=== PATIENT | female | born 1960 | race Hispanic/Latino ===

== ENCOUNTER 2018-11-24 12:21 | Emergency (ER) | payer OTHER ==
--- OUTSIDE RECORDS SUMMARY | 2018-11-24 12:25 | XMS REPORT ---
:1960 Author Organization [facility] Address [address] [place] [address] Dr. Osborn [address] [place] [address] Care Team Providers Name Role Phone Unavailable Unavailable Unavailable Problems This patient has no known problems. Allergies, Adverse Reactions, Alerts This patient has no known allergies or adverse reactions. Medications This patient has no known medications.
[2018-11-24] MEDS ORDERED: ACETAMINOPHEN 500 MG TAB ONE (13:16)
--- NOTE | 2018-11-24 13:22 | ER ---
Nurse's Notes [facility] Name: Genny Matamoros Age: 58 yrs Sex: Female : 1960 Arrival Date: 11/24/2018 Time: 12:23 Bed 26 Private MD: Diagnosis: Influenza due to identified novel influenza A virus Presentation: 11/24 12:33 Presenting complaint: Patient states: Body aches, fever,chills, cough, sore throat, ph headache, N/V/D since yesterday, denies abdominal pain. Transition of care: patient was not received from another setting of care. Onset of symptoms was November 24, 2018. Risk Assessment: Do you want to hurt yourself or someone else? Patient reports no desire to harm self or others. Initial Sepsis Screen: Does the patient meet any 2 criteria? No. Patient's initial sepsis screen is negative. Care prior to arrival: None. 12:33 Method Of Arrival: Ambulatory 12:33 Acuity: SADE 4 ph 13:51 Initial Sepsis Screen: Does the patient have a suspected source of infection? No. ls4 Patient's initial sepsis screen is negative. Historical: - Allergies: 12:36 No Known Allergies; ph - PMHx: 12:36 CVA; Diabetes - NIDDM; Hypertension; ph - PSHx: 12:36 Appendectomy; Tubal ligation; Tonsillectomy; ph - Immunization history:: Pneumococcal vaccine is up to date, Flu vaccine is up to date. - Social history:: Smoking status: Patient/guardian denies using tobacco. - Ebola Screening: : No symptoms or risks identified at this time. Screenin:49 Abuse screen: Denies threats or abuse. Denies injuries from another. Nutritional ls4 screening: No deficits noted. Tuberculosis screening: No symptoms or risk factors identified. Fall Risk None identified. Assessment: 13:44 General: Appears uncomfortable, ill, Behavior is calm, cooperative. Pain:. Pain: ls4 Complains of pain in GENERALIZED. Neuro: No deficits noted. Cardiovascular: No deficits noted. Respiratory: Reports cough that is non-productive. EENT: Reports HEADACHE. Musculoskeletal: No deficits noted. Vital Signs: 12:37 BP 145 / 72; Pulse 115; Resp 22; Temp 100.9(O); Pulse Ox 98% on R/A; Weight 77.11 kg; ph Height 5 ft. 2 in. (157.48 cm); 13:51 BP 130 / 64; Pulse 101; Resp 20; Temp 99.9(O); Pulse Ox 99% on R/A; Pain 5/10; ls4 12:37 Body Mass Index 31.09 (77.11 kg, 157.48 cm) ED Course: 12:23 Patient arrived in ED. as 12:25 Dee Bill FNP-C is [facility]. kb 12:25 Luis Samuels MD is Attending Physician. kb 12:27 Delores Moran, RN is Primary Nurse. ls4 12:36 Triage completed. ph 12:38 Arm band placed on Patient placed in an exam room, on a stretcher. ph 13:49 Patient has correct armband on for positive identification. Bed in low position. Call ls4 light in reach. Side rails up X 1. 13:49 No provider procedures requiring assistance completed. Patient did not have IV access ls4 during this emergency room visit. Administered Medications: 13:17 Drug: Tylenol 1000 mg Route: PO; tl3 13:49 Follow up: Response: No adverse reaction ls4 13:22 Drug: Tamiflu 75 mg Route: PO; tl3 13:49 Follow up: Response: No adverse reaction ls4 13:23 Drug: Zofran 4 mg Route: PO; tl3 13:49 Follow up: Response: No adverse reaction ls4 Outcome: 13:21 Discharge ordered by . kb 13:49 Discharged to home ambulatory. ls4 13:49 Condition: stable 13:49 Discharge instructions given to patient, Instructed on discharge instructions, follow up and referral plans. medication usage, safety practices, Demonstrated understanding of instructions, follow-up care, medications, Prescriptions given X 2. 13:52 Patient left the ED. ls4 Signatures: Dee Bill FNP-C FNP-Ckb Martinez, Amelia as Leonora Martin RN RN Lakshmi Mckee RN RN tl3 Delores Moran, TODD RN ls4
--- NOTE | 2018-11-24 13:23 | EDPHYS ---
Physician Documentation [facility] Name: Genny Matamoros Age: 58 yrs Sex: Female : 1960 Arrival Date: 11/24/2018 Time: 12:23 Bed 26 Private MD: MARIBETH Physician Luis Samuels HPI: 11/24 13:06 This 58 yrs old Female presents to ER via Ambulatory with complaints of Flu kb Symptoms. 13:06 The patient or guardian reports cough, that is intermittent, described as mild, with no kb sputum, flu symptoms, low-grade fever, myalgias. Onset: The symptoms/episode began/occurred yesterday. Severity of symptoms: At their worst the symptoms were moderate. Modifying factors: The symptoms are alleviated by nothing, the symptoms are aggravated by nothing. Associated signs and symptoms: Pertinent positives: diarrhea, earache, fever, nausea, rhinorrhea, sore throat, vomiting, Pertinent negatives: chest pain. The patient has not experienced similar symptoms in the past. The patient has not recently seen a physician. Historical: - Allergies: 12:36 No Known Allergies; ph - PMHx: 12:36 CVA; Diabetes - NIDDM; Hypertension; ph - PSHx: 12:36 Appendectomy; Tubal ligation; Tonsillectomy; ph - Immunization history:: Pneumococcal vaccine is up to date, Flu vaccine is up to date. - Social history:: Smoking status: Patient/guardian denies using tobacco. - Ebola Screening: : No symptoms or risks identified at this time. ROS: 13:04 Eyes: Negative for injury, pain, redness, and discharge, Neck: Negative for injury, kb pain, and swelling, Cardiovascular: Negative for chest pain, palpitations, and edema, Back: Negative for injury and pain, : Negative for injury, bleeding, discharge, and swelling, MS/Extremity: Negative for injury and deformity, Skin: Negative for injury, rash, and discoloration, Neuro: Negative for headache, weakness, numbness, tingling, and seizure. 13:04 Constitutional: Positive for body aches, chills, fatigue, fever, malaise, Negative for poor PO intake, weight loss. 13:04 ENT: Positive for ear pain, sore throat. 13:04 Respiratory: Positive for cough, Negative for dyspnea on exertion, hemoptysis, orthopnea, pleurisy, shortness of breath, sputum production, wheezing. 13:04 Abdomen/GI: Positive for nausea, vomiting, and diarrhea. Exam: 13:04 Constitutional: This is a well developed, well nourished patient who is awake, alert, kb and in no acute distress. Head/Face: Normocephalic, atraumatic. ENT: Nares patent. No nasal discharge, no septal abnormalities noted. Tympanic membranes are normal and external auditory canals are clear. Oropharynx with no redness, swelling, or masses, exudates, or evidence of obstruction, uvula midline. Mucous membranes moist. Neck: Trachea midline, no thyromegaly or masses palpated, and no cervical lymphadenopathy. Supple, full range of motion without nuchal rigidity, or vertebral point tenderness. No Meningismus. Chest/axilla: Normal chest wall appearance and motion. Nontender with no deformity. No lesions are appreciated. Cardiovascular: Regular rate and rhythm with a normal S1 and S2. No gallops, murmurs, or rubs. Normal PMI, no JVD. No pulse deficits. Respiratory: Lungs have equal breath sounds bilaterally, clear to auscultation and percussion. No rales, rhonchi or wheezes noted. No increased work of breathing, no retractions or nasal flaring. Abdomen/GI: Soft, non-tender, with normal bowel sounds. No distension or tympany. No guarding or rebound. No evidence of tenderness throughout. Back: No spinal tenderness. No costovertebral tenderness. Full range of motion. Skin: Warm, dry with normal turgor. Normal color with no rashes, no lesions, and no evidence of cellulitis. MS/ Extremity: Pulses equal, no cyanosis. Neurovascular intact. Full, normal range of motion. Neuro: Awake and alert, GCS 15, oriented to person, place, time, and situation. Cranial nerves II-XII grossly intact. Motor strength 5/5 in all extremities. Sensory grossly intact. Cerebellar exam normal. Normal gait. Vital Signs: 12:37 BP 145 / 72; Pulse 115; Resp 22; Temp 100.9(O); Pulse Ox 98% on R/A; Weight 77.11 kg; ph Height 5 ft. 2 in. (157.48 cm); 13:51 BP 130 / 64; Pulse 101; Resp 20; Temp 99.9(O); Pulse Ox 99% on R/A; Pain 5/10; ls4 12:37 Body Mass Index 31.09 (77.11 kg, 157.48 cm) ph MDM: 12:25 Patient medically screened. kb 13:06 Data reviewed: vital signs, nurses notes. Data interpreted: Pulse oximetry: on room air kb is 98 %. Interpretation: normal. 13:16 Counseling: I had a detailed discussion with the patient and/or guardian regarding: the kb historical points, exam findings, and any diagnostic results supporting the discharge/admit diagnosis, lab results, the need for outpatient follow up, a family practitioner, to return to the emergency department if symptoms worsen or persist or if there are any questions or concerns that arise at home. 11/24 12:33 Order name: Flu; Complete Time: 13:16 kb 11/24 12:33 Order name: Strep; Complete Time: 13:16 kb 11/24 13:14 Order name: Throat Culture [facility] 11/24 13:17 Order name: PO challenge; Complete Time: 13:17 kb Administered Medications: 13:17 Drug: Tylenol 1000 mg Route: PO; tl3 13:49 Follow up: Response: No adverse reaction ls4 13:22 Drug: Tamiflu 75 mg Route: PO; tl3 13:49 Follow up: Response: No adverse reaction ls4 13:23 Drug: Zofran 4 mg Route: PO; tl3 13:49 Follow up: Response: No adverse reaction ls4 Disposition: 11/24/18 13:21 Discharged to Home. Impression: Influenza due to identified novel influenza A virus. - Condition is Stable. - Discharge Instructions: Influenza, Adult, [id number]. - Prescriptions for Tamiflu 75 mg Oral Capsule - take 1 capsule by ORAL route every 12 hours for 5 days; 10 capsule. Zofran 4 mg Oral Tablet - take 1 tablet by ORAL route every 6 hours As needed; 20 tablet. - Medication Reconciliation Form, Thank You Letter, Antibiotic Education, Prescription Opioid Use form. - Follow up: Emergency Department; When: As needed; Reason: Worsening of condition. Follow up: Private Physician; When: 2 - 3 days; Reason: Recheck today's complaints, Continuance of care, Re-evaluation by your physician. Signatures: Dispatcher [employer] [facility] Dee Bill, MANAGER WELLNESS-C MANAGER WELLNESS-Ckb Leonora Martin, RN RN ph Lakshmi Mckee, RN RN tl3 Delores Moran, RN RN ls4 Corrections: (The following items were deleted from the chart) 13:52 13:21 11/24/2018 13:21 Discharged to Home. Impression: Influenza due to identified ls4 novel influenza A virus. Condition is Stable. Forms are Medication Reconciliation Form, Thank You Letter, Antibiotic Education, Prescription Opioid Use. Follow up: Emergency Department; When: As needed; Reason: Worsening of condition. Follow up: Private Physician; When: 2 - 3 days; Reason: Recheck today's complaints, Continuance of care, Re-evaluation by your physician. kb
[2018-11-24] MEDS ORDERED: OSELTAMIVIR 75 MG CAP ONE (13:31)
[2018-11-24] MEDS ORDERED: ONDANSETRON 4 MG (ODT) TAB ONE (13:32)
[2018-11-24 14:03] VITALS: BP 130/64; TEMP 99.9; O2SAT 99
== END 2018-11-24 13:52 | disposition home or self-care (01) ==
LOC: ER 12:21
DX: J10.1 Influenza due to other identified influenza virus with other respiratory manifestations (principal); I10 Essential (primary) hypertension
CPT/HCPCS: 87070; 87081; 87804; 99283

== ENCOUNTER 2019-08-29 16:30 | Emergency (ER) | payer OTHER ==
--- OUTSIDE RECORDS SUMMARY | 2019-08-29 16:32 | XMS REPORT | Summary of Care ---
:1960 Author Organization [facility] Address [address] [place] [address] Care Team Providers Name Role Phone Laura Weir MD Primary Care Provider Reason for Visit Reason Comments Assessment Encounter Details Date Type Department Care Team Description 05/20/2019 Telephone [facility] and Laura Weir, Assessment Adult Primary Care- MD [place] [address] [place] [address] [address], [address] [place] [address] [place] [address] Allergies Active Allergy Reactions Severity Noted Date Comments Metformin Diarrhea 04/16/2018 And nausea documented as of this encounter (statuses as of 05/21/2019) Medications Medication Sig Dispensed Refills Start Date End Date Status aspirin 81 mg chewable Take 81 mg by 0 Active tablet mouth daily. traMADOL (ULTRAM) 50 mg Take 1 tablet by 20 tablet 0 04/05/2018 Active tablet mouth every 6 (six) hours as needed for Pain (scale 7-10). Cholecalciferol, Take by mouth. 0 Active Vitamin D3, (VITAMIN D3) 1,000 unit capsule meloxicam 7.5 mg Take 1 tablet by 60 tablet 3 04/16/2018 Active tabletIndications: mouth daily. If Closed fracture not helping the dislocation of pain after 3 interphalangeal joint days increase to of multiple toes of 2 pills daily. right foot with routine healing, subsequent encounter, Low back pain of over 3 months duration COMFORT EZ PEN NEEDLES 1 Each every 100 Each 1 12/29/2018 Active 33 gauge x 5/16" morning. E11.65 NdleIndications: Type 2 diabetes mellitus with other specified complication, without long-term current use of insulin lisinopril-hydrochlorot Take 1 tablet by 30 tablet 3 01/03/2019 Active hiazide 10-12.5 mg per mouth daily. tabletIndications: Fluid retention, Type 2 diabetes mellitus with other specified complication, without long-term current use of insulin insulin glargine U-300 inject 28 Units 4.5 mL 0 03/31/2019 Active conc (TOUJEO SOLOSTAR under the skin U-300 INSULIN) 300 every morning. unit/mL (1.5 mL) InPnIndications: Type 2 diabetes mellitus with other specified complication, without long-term current use of insulin exenatide microspheres inject 0.65 mL 2.6 mL 0 03/31/2019 Active (BYDUREON) 2 mg/0.65 mL under the skin injectionIndications: weekly. E11.65 Type 2 diabetes mellitus with other specified complication, without long-term current use of insulin Blood-Glucose Meter DX E11.9 (Brand 1 Kit 0 04/06/2019 Active KitIndications: Type 2 upon insurance diabetes mellitus with approval) complication, without long-term current use of insulin lancets-blood glucose 1 Each 2 (two) 100 Each 11 04/06/2019 Active strips 30 gauge times daily. Use CmpkIndications: Type 2 BID, DX E11.9 diabetes mellitus with (Brand upon complication, without insurance long-term current use approval) of insulin blood sugar diagnostic Use BID, DX 100 Strip 11 04/06/2019 Active stripIndications: Type E11.9 (Brand 2 diabetes mellitus upon insurance with complication, approval) without long-term current use of insulin Diclofenac Sodium 1 % Take 2-4 grams 300 g 3 04/06/2019 Active gelIndications: Neck three times a muscle spasm day as needed for pain diclofenac 75 mg EC Take 1 tablet by 30 tablet 1 04/16/2019 Active tabletIndications: Pain mouth daily. in both knees, unspecified chronicity metformin ER 500 mg 24 Take 2 tablets 180 tablet 1 04/20/2019 Active hr tabletIndications: by mouth daily Type 2 diabetes with breakfast. mellitus with other specified complication, without long-term current use of insulin GLIPIZIDE 10 mg TAKE 1 TABLET BY 180 tablet 1 04/20/2019 Active tabletIndications: Type MOUTH TWICE 2 diabetes mellitus DAILY BEFORE with other specified BREAKFAST AND complication, without DINNER long-term current use of insulin documented as of this encounter (statuses as of 05/21/2019) Active Problems Problem Noted Date Overweight 11/30/2014 Overview: ICD10 Diagnosis Term Insights Analyst Utility History of stroke 11/30/2014 Type 2 diabetes mellitus with other specified complication, without 11/30/2014 long-term current use of insulin documented as of this encounter (statuses as of 05/21/2019) Resolved Problems Problem Noted Date Resolved Date Tubal ligation status 11/30/2014 01/24/2017 documented as of this encounter (statuses as of 05/21/2019) Immunizations Name Administration Dates Next Due Influenza Virus Vaccine 07/02/2018 Pneumococcal Polysaccharide, PPSV23 (PNEUMOVAX) 05/26/2016 Td 03/08/2010 documented as of this encounter Social History Tobacco Use Types Packs/Day Years Used Date Never Smoker Smokeless Tobacco: Never Used Alcohol Use Drinks/Week oz/Week Comments No Sex Assigned at Date Recorded Not on file Job Start Date Occupation Industry Not on file Not on file Not on file Travel History Travel Start Travel End No recent travel history available. documented as of this encounter Last Filed Vital Signs Not on filedocumented in this encounter Plan of Treatment Date Type Specialty Care Team Description 06/07/2019 Office Visit Internal Medicine Laura Weir MD [address] [place] [address] Dr Castillo [address] [place] [address] [phone] 08/03/2019 Office Visit Endocrinology Diabetes & MedinaDerek MD Metabolism [address] [place] [address] [phone] Health Maintenance Due Date Last Done Comments COLONOSCOPY 2008 EYE EXAM 04/14/2019 04/14/2018, 01/30/2017 (Previously completed), 05/15/2016 (Previously completed) HgA1C 05/03/2019 11/03/2018, 06/23/2018, 04/16/2018, Additional history exists INFLUENZA VACCINE (#1) 2019 07/02/2018 FOOT EXAM 11/03/2019 11/03/2018, 11/03/2018, 08/12/2018, Additional history exists LDL-C 11/05/2019 11/05/2018, 02/13/2018, 05/09/2016 (Previously completed) PAP SMEAR 11/05/2019 11/08/2014, 11/01/2008 Postponed from 11/08/2017 (Alternative Guidelines) URINE MICROALBUMIN 11/05/2019 11/05/2018, 02/13/2018 Zoster Recombinant Vaccine 11/12/2019 Postponed from (SHINGRIX) (1 of 2) 2008 (Insurance / Financial) DTaP,Tdap,and Td Vaccines 11/19/2019 03/08/2010 Postponed from (1 - Tdap) 03/09/2010 (Alternative Guidelines) CREATININE (SERUM) 12/12/2019 12/11/2018, 11/05/2018, 02/13/2018, Additional history exists MAMMOGRAM 04/05/2020 04/05/2019, 02/24/2018, 02/10/2017, Additional history exists PNEUMOCOCCAL 0-64 YEARS Completed 05/26/2016 COMBINED SERIES HEPATITIS C (HCV) SCREEN Completed 02/13/2018 documented as of this encounter Results Not on filedocumented in this encounter Insurance Payer Benefit Plan / Subscriber ID Effective Phone Address Type Group Dates [facility] [id number] 2017-Pres Medicare HEALTHCARE - HEALTHCARE ent Adv HMO MANAGED DUAL COMPLETE MEDICARE O [facility] MEDICAID OF xxxxxxxxx 2016-Pres [phone] [place] ent [id number] [place] [address] [facility] [id number] 2017-Pres Medicare HEALTHCARE - HEALTHCARE ent Adv PPO MANAGED DUAL COMPLETE MEDICARE documented as of this encounter
--- OUTSIDE RECORDS SUMMARY | 2019-08-29 16:32 | XMS REPORT | Summary of Care ---
:1960 Author Organization [facility] Address [address] [place] [address] Care Team Providers Name Role Phone Laura Weir MD Primary Care Provider Reason for Visit Reason Comments Rx Concern/Question Encounter Details Date Type Department Care Team Description 05/25/2019 Telephone [facility] Pediatric Laura Weir Rx Concern/ Question and Adult Primary Care- MD [place] [address] [address] [place], [place] [id number] [place] [address] Allergies Active Allergy Reactions Severity Noted Date Comments Metformin Diarrhea 04/16/2018 And nausea documented as of this encounter (statuses as of 06/02/2019) Medications Medication Sig Dispensed Refills Start Date [...] glucose 1 Each 2 (two) 100 Each 04/06/2019 Active strips 30 gauge times daily. [...] as of this encounter (statuses as of 06/02/2019) Active Problems Problem Noted Date Overweight 11/30/2014 Overview: ICD10 Diagnosis Term Electrophysiology Nurse Practitioner Utility History of stroke 11/30/2014 Type 2 diabetes mellitus with other specified complication, without 11/30/2014 long-term current use of insulin documented as of this encounter (statuses as of 06/02/2019) Resolved Problems Problem Noted Date Resolved Date Tubal ligation status 11/30/2014 01/24/2017 documented as of this encounter (statuses as of 06/02/2019) Immunizations Name Administration Dates Next Due Influenza [...] Office Visit Internal Medicine Laura Weir MD [address] [place] [address] Dr Castillo [address] [place] [address] [phone] 08/03/2019 Office Visit Endocrinology Diabetes & MedinaDerek MD Metabolism [address] [place] [address] [phone] Health Maintenance Due Date Last Done Comments [...] ID Effective Phone Address Type Group Dates [facility] [id number] 2017-Pres Medicare HEALTHCARE - HEALTHCARE ent Adv HMO MANAGED DUAL COMPLETE MEDICARE O [facility] MEDICAID OF xxxxxxxxx 2016-Pres [phone] [place] ent [id number] [place] [address] [facility] [id number] 2017-Pres Medicare HEALTHCARE - HEALTHCARE ent Adv PPO MANAGED DUAL COMPLETE MEDICARE documented as of this encounter
--- OUTSIDE RECORDS SUMMARY | 2019-08-29 16:32 | XMS REPORT ---
:1960 [facility] Address [address] [place] [address] Dr. Osborn [address] [place] [address] Care Team Providers Name Role Phone Unavailable Unavailable Unavailable Problems This patient has no known problems. Allergies, Adverse Reactions, Alerts This patient has no known allergies or adverse reactions. Medications This patient has no known medications.
--- OUTSIDE RECORDS SUMMARY | 2019-08-29 16:32 | XMS REPORT | Summary of Care ---
:1960 Author Organization [facility] Address [address] [place] [address] Care Team Providers Name Role Phone Laura Weir MD Primary Care Provider Reason for Visit Reason Comments Erroneous encounter-disregard Encounter Details Date Type Department Care Team Description 04/23/2019 Telephone [facility] Pediatric Laura Weir Erroneous and Adult Primary MD Merlin encounter-disregard Care- [place] [address] [address] [phone] [address] [phone] Allergies Active Allergy Reactions Severity Noted Date Comments Metformin Diarrhea 04/16/2018 And nausea documented as of this encounter (statuses as of 04/23/2019) Medications Medication Sig Dispensed Refills Start Date [...] as of this encounter (statuses as of 04/23/2019) Active Problems Problem Noted Date Overweight 11/30/2014 Overview: ICD10 Diagnosis Term Tile Professional Utility History of stroke 11/30/2014 Type 2 diabetes mellitus with other specified complication, without 11/30/2014 long-term current use of insulin documented as of this encounter (statuses as of 04/23/2019) Resolved Problems Problem Noted Date Resolved Date Tubal ligation status 11/30/2014 01/24/2017 documented as of this encounter (statuses as of 04/23/2019) Immunizations Name Administration Dates Next Due Influenza [...] Office Visit Internal Medicine Laura Weir MD [facility] Dr Castillo [address] [place] [address] [phone] 08/03/2019 Office Visit Endocrinology Diabetes & MedinaDerek MD Metabolism [address] [place], [place] 948583 Health Maintenance Due Date Last Done Comments COLONOSCOPY 2008 EYE EXAM 04/14/2019 04/14/2018, 01/30/2017 (Previously completed), 05/15/2016 (Previously completed) HgA1C 05/03/2019 11/03/2018, 06/23/2018, 04/16/2018, Additional history exists INFLUENZA VACCINE 05/30/2019 07/02/2018 FOOT EXAM 11/03/2019 11/03/2018, 11/03/2018, 08/12/2018, [...] ID Effective Phone Address Type Group Dates [facility] [id number] 2017-Pres Medicare HEALTHCARE - HEALTHCARE ent Adv HMO MANAGED DUAL COMPLETE MEDICARE O [facility] MEDICAID OF xxxxxxxxx 2016-Pres [phone] [address] Medicaid [place] ent [id number] [place] [address] [facility] [id number] 2017-Pres Medicare HEALTHCARE - HEALTHCARE ent Adv PPO MANAGED DUAL COMPLETE MEDICARE documented as of this encounter
--- OUTSIDE RECORDS SUMMARY | 2019-08-29 16:33 | XMS REPORT | Summary of Care ---
:1960 Author Organization [facility] - Health Address [address] [place] [address] Care Team Providers Name Role Phone Laura Weir MD Primary Care Provider Encounter Details Date Type Department Care Team Description 06/07/2019 Letter (Out) [facility] [employer] Control Systemst Messages Doctor Unassigned, No 301 [facility]ly [facility] [place] [address] [place] [address] [place] [address] Allergies Active Allergy Reactions Severity Noted Date Comments Metformin Diarrhea 04/16/2018 And nausea documented as of this encounter (statuses as of 06/07/2019) Medications Medication Sig Dispensed Refills Start Date [...] as of this encounter (statuses as of 06/07/2019) Active Problems Problem Noted Date Overweight 11/30/2014 Overview: ICD10 Diagnosis Term 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 History of stroke 11/30/2014 Type 2 diabetes mellitus with other specified complication, without 11/30/2014 long-term current use of insulin documented as of this encounter (statuses as of 06/07/2019) Resolved Problems Problem Noted Date Resolved Date Tubal ligation status 11/30/2014 01/24/2017 documented as of this encounter (statuses as of 06/07/2019) Immunizations Name Administration Dates Next Due Influenza [...] Treatment Date Type Specialty Care Team Description 08/03/2019 Office Visit Endocrinology Diabetes & MedinaDerek MD Metabolism [address] [place] [address] [phone] Health Maintenance Due Date Last Done Comments [...] ID Effective Phone Address Type Group Dates [facility] [id number] 2017-Pres Medicare HEALTHCARE - HEALTHCARE ent Adv HMO MANAGED DUAL COMPLETE MEDICARE O [facility] MEDICAID OF xxxxxxxxx 2016-Pres [phone] [address] Medicaid [place] ent 900 [id number] [place] [address] [facility] [id number] 2017-Pres Medicare HEALTHCARE - HEALTHCARE ent Adv PPO MANAGED DUAL COMPLETE MEDICARE documented as of this encounter
--- OUTSIDE RECORDS SUMMARY | 2019-08-29 16:33 | XMS REPORT | Summary of Care ---
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 History of stroke 11/30/2014 Type 2 [...] Visit Endocrinology Diabetes & MedinaDerek MD Metabolism [facility] [place], [place] 121113 Health Maintenance Due Date Last Done Comments [...] Completed 02/13/2018 documented as of this encounter Procedures Procedure Name Priority Date/Time Associated Diagnosis Comments NOTICE OF BILLING Routine 06/07/2019 9:42 AM CDT PRACTICES FOR MEDICARE PATIENTS documented in this encounter Results Not on filedocumented in this encounter Insurance Payer Benefit Plan / Subscriber ID Effective Phone Address Type Group Dates [facility] [id number] 2017-Pres Medicare HEALTHCARE - HEALTHCARE ent Adv HMO MANAGED DUAL COMPLETE MEDICARE O [facility] MEDICAID OF xxxxxxxxx 2016-Pres [phone] [address] Medicaid [place] ent [id number] [place] [address] [facility] [id number] 2017-Pres Medicare HEALTHCARE - HEALTHCARE ent Adv PPO MANAGED DUAL COMPLETE MEDICARE documented as of this encounter
--- OUTSIDE RECORDS SUMMARY | 2019-08-29 16:33 | XMS REPORT | Summary of Care ---
:1960 Author Organization [facility] - [facility] Address [address] [place] [address] Care Team Providers Name Role Phone Laura Weir MD Primary Care Provider Reason for Visit Reason Comments Refill Request Encounter Details Date Type Department Care Team Description 06/07/2019 Refill [facility] Lauar Weir, Refill Request - Zhao GALAVIZ [address] [facility] [place] [address] [place] [address] [place] [address] Allergies Active Allergy Reactions Severity Noted Date Comments Metformin Diarrhea 04/16/2018 And nausea documented as of this encounter (statuses as of 06/07/2019) Medications Medication Sig Dispensed Refills Start Date End Date Status aspirin 81 mg Take 81 mg by 0 Active chewable tablet mouth daily. traMADOL (ULTRAM) 50 Take 1 tablet 20 tablet 0 04/05/2018 Active mg tablet by mouth every 6 (six) hours as needed for Pain (scale 7-10). Cholecalciferol, Take by 0 Active Vitamin D3, (VITAMIN mouth. D3) 1,000 unit capsule meloxicam 7.5 mg Take 1 tablet 60 tablet 3 04/16/2018 Active tabletIndications: by mouth Closed fracture daily. If not dislocation of helping the interphalangeal pain after 3 joint of multiple days increase toes of right foot to 2 pills with routine daily. healing, subsequent encounter, Low back pain of over 3 months duration COMFORT EZ PEN 1 Each every 100 Each 1 12/29/2018 Active NEEDLES 33 gauge x morning. 02/11" E11.65 NdleIndications: Type 2 diabetes mellitus with other specified complication, without long-term current use of insulin insulin glargine inject 28 4.5 mL 0 03/31/2019 Active U-300 conc (TOUJEO Units under SOLOSTAR U-300 the skin every INSULIN) 300 unit/mL morning. (1.5 mL) InPnIndications: Type 2 diabetes mellitus with other specified complication, without long-term current use of insulin exenatide inject 0.65 mL 2.6 mL 0 03/31/2019 Active microspheres under the skin (BYDUREON) 2 mg/0.65 weekly. E11.65 mL injectionIndications : Type 2 diabetes mellitus with other specified complication, without long-term current use of insulin Blood-Glucose Meter DX E11.9 1 Kit 0 04/06/2019 Active KitIndications: Type (Brand upon 2 diabetes mellitus insurance with complication, approval) without long-term current use of insulin lancets-blood 1 Each 2 (two) 100 Each 11 04/06/2019 Active glucose strips 30 times daily. gauge Use BID, DX CmpkIndications: E11.9 (Brand Type 2 diabetes upon insurance mellitus with approval) complication, without long-term current use of insulin blood sugar Use BID, DX 100 Strip 11 04/06/2019 Active diagnostic E11.9 (Brand stripIndications: upon insurance Type 2 diabetes approval) mellitus with complication, without long-term current use of insulin Diclofenac Sodium 1 Take 2-4 grams 300 g 3 04/06/2019 Active % gelIndications: three times a Neck muscle spasm day as needed for pain diclofenac 75 mg EC Take 1 tablet 30 tablet 1 04/16/2019 Active tabletIndications: by mouth Pain in both knees, daily. unspecified chronicity metformin ER 500 mg Take 2 tablets 180 tablet 1 04/20/2019 Active 24 hr by mouth daily tabletIndications: with Type 2 diabetes breakfast. mellitus with other specified complication, without long-term current use of insulin GLIPIZIDE 10 mg TAKE 1 TABLET 180 tablet 1 04/20/2019 Active tabletIndications: BY MOUTH TWICE Type 2 diabetes DAILY BEFORE mellitus with other BREAKFAST AND specified DINNER complication, without long-term current use of insulin lisinopril-hydrochlo Take 1 tablet 30 tablet 3 06/07/2019 Active rothiazide 10-12.5 by mouth mg per daily. tabletIndications: Fluid retention, Type 2 diabetes mellitus with other specified complication, without long-term current use of insulin lisinopril-hydrochlo Take 1 tablet 30 tablet 3 01/03/2019 Discontinued rothiazide 10-12.5 by mouth 9 mg per daily. 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 History of stroke 11/30/2014 Type 2 [...] Treatment Date Type Specialty Care Team Description 06/14/2019 Office Visit Internal Medicine Laura Weir MD [address] [place] [address] [address] [place], [place] [address] 08/03/2019 Office Visit Endocrinology Diabetes & Derek Medina MD Metabolism [address] [place] [address] [phone] Health Maintenance Due Date Last Done Comments [...] Results Not on filedocumented in this encounter Visit Diagnoses Diagnosis Fluid retention Other fluid overload Type 2 diabetes mellitus with other specified complication, without long-term current use of insulin documented in this encounter Insurance Payer Benefit Plan / Subscriber ID Effective Phone Address Type Group Dates [facility] [id number] 2017-Pres Medicare HEALTHCARE - HEALTHCARE ent Adv HMO MANAGED DUAL COMPLETE MEDICARE HMO [facility] MEDICAID OF xxxxxxxxx 2016-Pres [phone] [address] Medicaid [place] ent [id number] [place] [address] [facility] [id number] 2017-Pres Medicare HEALTHCARE - HEALTHCARE ent Adv PPO MANAGED DUAL COMPLETE MEDICARE documented as of this encounter
--- OUTSIDE RECORDS SUMMARY | 2019-08-29 16:34 | XMS REPORT | Summary of Care ---
:1960 Author Organization [facility] - Health Address [address] [place] [address] Care Team Providers Name Role Phone Laura Weir MD Primary Care Provider Reason for Visit Reason Comments Lab Results Encounter Details Date Type Department Care Team Description 06/15/2019 Telephone [facility] Pediatric and Laura Weir, Lab Results Adult Primary Care- [place] [address] [facility] [address] [facility] , [address] [place] [address] [place] [address] Allergies Active Allergy Reactions Severity Noted Date Comments Metformin Diarrhea 04/16/2018 And nausea documented as of this encounter (statuses as of 06/18/2019) Medications Medication Sig Dispensed Refills Start Date [...] sugar diagnostic Use BID, DX 100 Strip 04/06/2019 Active stripIndications: Type E11.9 (Brand 2 [...] without DINNER long-term current use of insulin lisinopril-hydrochlorot Take 1 tablet by 30 tablet 3 06/07/2019 Active hiazide 10-12.5 mg per mouth daily. tabletIndications: Fluid retention, Type 2 diabetes mellitus with other specified complication, without long-term current use of insulin Miscellaneous Medical Patient needs 1 Each 0 06/14/2019 Active Supply MiscIndications: quad cane. 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 History of stroke 11/30/2014 Type 2 diabetes mellitus with other specified complication, without 11/30/2014 long-term current use of insulin documented as of this encounter (statuses as of 06/18/2019) Resolved Problems Problem Noted Date Resolved Date Tubal ligation status 11/30/2014 01/24/2017 documented as of this encounter (statuses as of 06/18/2019) Immunizations Name Administration Dates Next Due Influenza [...] Treatment Date Type Specialty Care Team Description 06/18/2019 Appointment Vascular Sonography Martita Olivas MD [address] [place] [address] [address] [place], [place] [id number] Tech, Bernarda Cardio Vascular 06/29/2019 Office Visit Internal Medicine Laura Weir MD [address] [place] [address] [address] [place], [place] [phone] 08/03/2019 Office Visit Endocrinology Diabetes & Derek Medina MD Metabolism [address] [place] [address] [phone] 09/02/2019 Office Visit Internal Medicine Laura Weir MD [address] [place] [address] Dr [address] [place], [place] [phone] Health Maintenance Due Date Last Done Comments COLONOSCOPY 2008 EYE EXAM 04/14/2019 04/14/2018, 01/30/2017 (Previously completed), 05/15/2016 (Previously completed) INFLUENZA VACCINE (#1) 2019 07/02/2018 FOOT EXAM 11/03/2019 11/03/2018, 11/03/2018, 08/12/2018, Additional history exists LDL-C 11/05/2019 11/05/2018, 02/13/2018, 05/09/2016 (Previously completed) PAP SMEAR 11/05/2019 11/08/2014, 11/01/2008 Postponed from 11/08/2017 (Alternative Guidelines) URINE MICROALBUMIN 11/05/2019 11/05/2018, 02/13/2018 Zoster Recombinant Vaccine 11/12/2019 Postponed from ([facility]ING[facility]X) (1 of 2) 2008 (Insurance / Financial) DTaP,Tdap,and Td Vaccines 11/19/2019 03/08/2010 Postponed from (1 - Tdap) 03/09/2010 (Alternative Guidelines) HgA1C 12/13/2019 06/14/2019, 11/03/2018, 06/23/2018, Additional history exists MAMMOGRAM 04/05/2020 04/05/2019, 02/24/2018, 02/10/2017, Additional history exists CREATININE (SERUM) 06/17/2020 06/17/2019, 12/11/2018, 11/05/2018, Additional history exists PNEUMOCOCCAL 0-64 YEARS Completed 05/26/2016 COMBINED SERIES HEPATITIS C (HCV) SCREEN Completed 02/13/2018 documented as of this encounter Results Not on filedocumented in this encounter Insurance Payer Benefit Plan / Subscriber ID Effective Phone Address Type Group Dates [facility] [id number] 2017-Pres Medicare HEALTHCARE - HEALTHCARE ent Adv HMO MANAGED DUAL COMPLETE MEDICARE HMO [facility] MEDICAID OF xxxxxxxxx 2016-Pres [phone] [address] Medicaid [place] ent [id number] [place] [address] [facility] [id number] 2017-Pres Medicare HEALTHCARE - HEALTHCARE ent Adv PPO MANAGED DUAL COMPLETE MEDICARE documented as of this encounter
--- OUTSIDE RECORDS SUMMARY | 2019-08-29 16:34 | XMS REPORT | Summary of Care ---
:1960 Author Organization [facility] Address [address] [place] [address] Care Team Providers Name Role Phone Laura Weir MD Primary Care Provider Reason for Referral (Routine) Status Reason Specialty Diagnoses / Referred By Referred To Procedures Contact Contact Closed Vascular Sonography Diagnoses Abnormal ankle brachial index (FRANKY) [place], Procedures UNILATERAL DUPLEX SCAN OF ARTERY BY VASCULAR LAB Laura Boyer MD [address] [place] [address] Dr Castillo [address] [place] [address] (Routine) Status Reason Specialty Diagnoses / Referred By Referred To Procedures Contact Contact Closed Vascular Sonography Diagnoses Abnormal ankle brachial index (FRANKY) [place], Procedures UNILATERAL DUPLEX SCAN OF ARTERY BY VASCULAR LAB Laura Boyer MD [address] [place] [address] Dr Castillo [address] [place] [address] Reason for Visit Reason Comments ULTRASOUND (Routine) Status Reason Specialty Diagnoses / Referred By Referred To Procedures Contact Contact Closed Vascular Sonography Diagnoses Abnormal ankle brachial index (FRANKY) [place], Procedures UNILATERAL DUPLEX SCAN OF ARTERY BY VASCULAR LAB Laura Boyer MD [address] [place] [address] Dr Castillo [address] [place] [address] Encounter Details Date Type Department Care Team Description 06/18/2019 Hospital Encounter [facility] Martita Olivas MD [address] [place] [address] [place] [address] [phone] Formerly [facility] Cardio Vascular [address] [place] [phone] Allergies Active Allergy Reactions Severity Noted Date Comments Metformin Diarrhea 04/16/2018 And nausea documented as of this encounter (statuses as of 06/19/2019) Medications Medication Sig Dispensed Refills Start Date [...] as of this encounter (statuses as of 06/19/2019) Active Problems Problem Noted Date Overweight 11/30/2014 Overview: ICD10 Diagnosis 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 History of stroke 11/30/2014 Type 2 diabetes mellitus with other specified complication, without 11/30/2014 long-term current use of insulin documented as of this encounter (statuses as of 06/19/2019) Resolved Problems Problem Noted Date Resolved Date Tubal ligation status 11/30/2014 01/24/2017 documented as of this encounter (statuses as of 06/19/2019) Immunizations Name Administration Dates Next Due Influenza [...] Treatment Date Type Specialty Care Team Description 06/29/2019 Office Visit Internal Medicine Laura Weir MD [address] [place] [address] Dr Castillo [address] [place] [address] [phone] 08/03/2019 Office Visit Endocrinology Diabetes & MedinaDerek MD [facility] [address] [place], [place] 059[address] 09/02/2019 Office Visit Internal Medicine Laura Weir MD [address] [place] [address] Dr Castillo [address] [place] [address] [phone] Health Maintenance Due Date Last Done Comments [...] Procedure Name Priority Date/Time Associated Diagnosis Comments UNILATERAL DUPLEX SCAN Routine 06/18/2019 3:08 PM Abnormal ankle OF ARTERY BY VASCULAR CDT brachial index (FRANKY) LAB documented in this encounter Results Not on filedocumented in this encounter Visit Diagnoses Diagnosis Abnormal ankle brachial index (FRANKY) documented in this encounter Insurance Payer Benefit Plan / Subscriber ID Effective Phone Address Type Group Dates [facility] [id number] 2017-Pres Medicare HEALTHCARE - HEALTHCARE ent Adv HMO MANAGED DUAL COMPLETE MEDICARE O [facility] MEDICAID OF xxxxxxxxx 2016-Pres [phone] [address] Medicaid [place] ent 900 [id number] [place] [address] documented as of this encounter
--- OUTSIDE RECORDS SUMMARY | 2019-08-29 16:34 | XMS REPORT | Summary of Care ---
:1960 Author Organization [facility] Address [address] [place] [address] Care Team Providers Name Role Phone Laura Weir MD Primary Care Provider Reason for Visit Reason Comments LAB Encounter Details Date Type Department Care Team Description 06/17/2019 Bench Chemist Visit [facility] Laura Weir MD [address] [place] [address] [address] [place] [address] Muscle weakness (generalized); Professional Office 2, Adc Lab Mechanical and motor problems with internal organs; Building Phlebotomy Cramp of limb; Lab Anemia, unspecified type Professional Office Building [address] [place] [address] , [address] [place] [address] Allergies Active Allergy Reactions Severity Noted Date Comments Metformin Diarrhea 04/16/2018 And nausea documented as of this encounter (statuses as of 06/17/2019) Medications Medication Sig Dispensed Refills Start Date [...] as of this encounter (statuses as of 06/17/2019) Active Problems Problem Noted Date Overweight 11/30/2014 Overview: ICD10 Diagnosis 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 History of stroke 11/30/2014 Type 2 diabetes mellitus with other specified complication, without 11/30/2014 long-term current use of insulin documented as of this encounter (statuses as of 06/17/2019) Resolved Problems Problem Noted Date Resolved Date Tubal ligation status 11/30/2014 01/24/2017 documented as of this encounter (statuses as of 06/17/2019) Immunizations Name Administration Dates Next Due Influenza [...] 06/18/2019 Appointment Vascular Sonography Martita Olivas MD [address] [place] [address] [address] [place], [place] [address] Bernarda Miller Cardio Vascular 08/03/2019 Office Visit Endocrinology Diabetes & Derek Medina MD Metabolism [address] [place] [address] [phone] 09/02/2019 Office Visit Internal Medicine Laura Weir MD [address] [place] [address] Dr Castillo [address] [place] [address] [phone] Health Maintenance Due Date Last Done Comments [...] 12/12/2019 12/11/2018, 11/05/2018, 02/13/2018, Additional history exists HgA1C 12/13/2019 06/14/2019, 11/03/2018, 06/23/2018, Additional history exists MAMMOGRAM 04/05/2020 04/05/2019, 02/24/2018, 02/10/2017, Additional history exists PNEUMOCOCCAL 0-64 YEARS Completed 05/26/2016 COMBINED SERIES HEPATITIS C (HCV) SCREEN Completed 02/13/2018 documented as of this encounter Results Not on filedocumented in this encounter Visit Diagnoses Diagnosis Muscle weakness (generalized) Mechanical and motor problems with internal organs Cramp of limb Anemia, unspecified type documented in this encounter Insurance Payer Benefit Plan / Subscriber ID Effective Phone Address Type Group Dates [facility] [id number] 2017-Pres Medicare HEALTHCARE - HEALTHCARE ent Adv HMO MANAGED DUAL COMPLETE MEDICARE HMO [facility] MEDICAID OF xxxxxxxxx 2016-Pres [phone] [address] Medicaid [place] ent 900 [id number] [place] [address] documented as of this encounter
--- OUTSIDE RECORDS SUMMARY | 2019-08-29 16:34 | XMS REPORT | Summary of Care ---
:1960 Author Organization [facility] - Health Address [address] [place] [address] Care Team Providers Name Role Phone Laura Weir MD Primary Care Provider Encounter Details Date Type Department Care Team Description 06/18/2019 Orders Only [facility] Doctor Unassigned, No [address] 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 History of stroke 11/30/2014 Type 2 [...] 06/18/2019 Appointment Vascular Sonography Martita Olivas MD [address] [place] [address] [address] [place], [place] [address] Tech, Bernarda Cardio Vascular 06/29/2019 Office Visit Internal Medicine Laura Weir MD [address] [place] [address] Dr Castillo [address] [place] [address] [phone] 08/03/2019 Office Visit Endocrinology Diabetes & Derek Medina MD Metabolism [address] [place] [address] [phone] 09/02/2019 Office Visit Internal Medicine Laura Weir MD [address] [place] [address] Dr Cast[address] [place] [address] [phone] Health Maintenance Due Date Last Done Comments [...] Procedure Name Priority Date/Time Associated Diagnosis Comments ASSIGNMENT OF BENEFITS Routine 06/18/2019 2:55 PM CDT documented in this encounter Results Not on filedocumented in this encounter Insurance Payer Benefit Plan / Subscriber ID Effective Phone Address Type Group Dates [facility] [id number] 2017-Pres Medicare HEALTHCARE - HEALTHCARE ent Adv HMO MANAGED DUAL COMPLETE MEDICARE HMO [facility] MEDICAID OF xxxxxxxxx 2016-Pres [phone] [address] Medicaid [place] ent [id number] [facility] [place] [address] [facility] [id number] 2017-Pres Medicare HEALTHCARE - HEALTHCARE ent Adv PPO MANAGED DUAL COMPLETE MEDICARE documented as of this encounter
[2019-08-29] MEDS ORDERED: HYDROCODONE/APAP 10/325 TAB ONE (17:51)
--- NOTE | 2019-08-29 17:53 | EDPHYS ---
Physician Documentation [facility] Name: Genny Matamoros Age: 59 yrs Sex: Female : 1960 Arrival Date: 08/29/2019 Time: 16:38 Bed 13 Private MD: ED Physician Blayne Keenan HPI: 08/29 16:57 This 59 yrs old Female presents to ER via EMS with complaints of Ankle Injury. snw 16:57 The patient presents with decreased range of motion, an injury, pain. The complaints snw affect the left ankle. Onset: The symptoms/episode began/occurred suddenly, just prior to arrival. Context: The problem was sustained at home, resulted from the patient falling, while walking, slipped. Severity of symptoms: At their worst the symptoms were moderate, severe. It is unknown whether or not the patient has had similar symptoms in the past. 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 - Social history:: Smoking status: Patient/guardian denies using tobacco. - Ebola Screening: : Patient negative for fever greater than or equal to 101.5 degrees Fahrenheit, and additional compatible Ebola Virus Disease symptoms. ROS: 16:56 Constitutional: Negative for fever, chills, and weight loss, Eyes: Negative for injury, snw pain, redness, and discharge, ENT: Negative for injury, pain, and discharge, Neck: Negative for injury, pain, and swelling, Cardiovascular: Negative for chest pain, palpitations, and edema, Respiratory: Negative for shortness of breath, cough, wheezing, and pleuritic chest pain, Abdomen/GI: Negative for abdominal pain, nausea, vomiting, diarrhea, and constipation, Back: Negative for injury and pain, : Negative for injury, bleeding, discharge, and swelling, Skin: Negative for injury, rash, and discoloration, Neuro: Negative for headache, weakness, numbness, tingling, and seizure, Psych: Negative for depression, anxiety, suicide ideation, homicidal ideation, and hallucinations. 16:56 MS/extremity: Positive for injury or acute deformity, pain, tenderness, of the left leg. Exam: 16:50 Constitutional: This is a well developed, well nourished patient who is awake, alert, snw and in no acute distress. Head/Face: Normocephalic, atraumatic. Eyes: Pupils equal round and reactive to light, extra-ocular motions intact. Lids and lashes normal. Conjunctiva and sclera are non-icteric and not injected. Cornea within normal limits. Periorbital areas with no swelling, redness, or edema. ENT: Nares patent. No nasal discharge, no septal abnormalities noted. Tympanic membranes are normal and external auditory canals are clear. Oropharynx with no redness, swelling, or masses, exudates, or evidence of obstruction, uvula midline. Mucous membranes moist. Neck: Trachea midline, no thyromegaly or masses palpated, and no cervical lymphadenopathy. Supple, full range of motion without nuchal rigidity, or vertebral point tenderness. No Meningismus. Chest/axilla: Normal chest wall appearance and motion. Nontender with no deformity. No lesions are appreciated. Cardiovascular: Regular rate and rhythm with a normal S1 and S2. No gallops, murmurs, or rubs. Normal PMI, no JVD. No pulse deficits. Respiratory: Lungs have equal breath sounds bilaterally, clear to auscultation and percussion. No rales, rhonchi or wheezes noted. No increased work of breathing, no retractions or nasal flaring. Abdomen/GI: Soft, non-tender, with normal bowel sounds. No distension or tympany. No guarding or rebound. No evidence of tenderness throughout. Back: No spinal tenderness. No costovertebral tenderness. Full range of motion. Skin: Warm, dry with normal turgor. Normal color with no rashes, no lesions, and no evidence of cellulitis. Neuro: Awake and alert, GCS 15, oriented to person, place, time, and situation. Cranial nerves II-XII grossly intact. Motor strength 5/5 in all extremities. Sensory grossly intact. Cerebellar exam normal. Normal gait. Psych: Awake, alert, with orientation to person, place and time. Behavior, mood, and affect are within normal limits. 16:50 Musculoskeletal/extremity: Extremities: grossly normal except: noted in the anterior aspect of left ankle: decreased ROM, pain, tenderness, ROM: no acute changes, Circulation is intact in all extremities. Sensation intact. 16:50 Musculoskeletal/extremity: chronic foot drop to left, wears brace. Vital Signs: 16:30 BP 177 / 85; Pulse 95; Resp 19; Temp 98.9(O); Pulse Ox 100% on R/A; Weight 79.38 kg rb1 (R); Height 5 ft. 2 in. (157.48 cm) (R); Pain 10/10; 17:23 BP 164 / 69; Pulse 75; Resp 17; Pulse Ox 100% on R/A; Pain 10/10; rb1 18:23 BP 150 / 75; Pulse 81; Resp 19; Pulse Ox 100% on R/A; Pain 10/10; rb1 16:30 Body Mass Index 32.01 (79.38 kg, 157.48 cm) rb1 MDM: 16:40 Patient medically screened. snw 17:53 Data reviewed: vital signs, nurses notes. Data interpreted: Pulse oximetry: on room air snw is 100 %. Interpretation: normal. Counseling: I had a detailed discussion with the patient and/or guardian regarding: the historical points, exam findings, and any diagnostic results supporting the discharge/admit diagnosis, the presence of at least one elevated blood pressure reading (>120/80) during this emergency department visit, radiology results, the need for outpatient follow up, to return to the emergency department if symptoms worsen or persist or if there are any questions or concerns that arise at home. Special discussion: I have referred the patient to see his PCP for further evaluation of high blood pressure. Based on the history and exam findings, there is no indication for further emergent testing or inpatient evaluation. I discussed with the patient/guardian the need to see the orthopedic surgeon for further evaluation of the symptoms. 08/29 16:47 Order name: Tib Fib Left XRAY; Complete Time: 18:09 kb 08/29 17:48 Order name: PO challenge; Complete Time: 17:52 snw 08/29 17:50 Order name: Posterior Leg Splint: left; Complete Time: 18:23 snw Administered Medications: 17:52 Drug: Kimberly 10 mg-325 mg 1 tabs Route: PO; rb1 18:18 Follow up: Response: No adverse reaction; Pain is unchanged, physician notified rb1 18:20 Drug: morphine 4 mg Route: IM; Site: right deltoid; hb 18:35 Follow up: Response: Adverse reaction, Physician notified; pt. reports itching at the rb1 injection site. 18:38 Drug: Benadryl 25 mg Route: PO; rb1 18:39 Follow up: Response: Medication administered at discharge. rb1 Disposition: 19:14 Co-signature as Attending Physician, Blayne Keenan MD Did not see or evaluate the ps1 patient. Signing the chart for administrative purposes. Not an endorsement of care provided. . Disposition: 08/29/19 17:52 Discharged to Home. Impression: Other physeal fracture of lower end of left fibula. - Condition is Stable. - Discharge Instructions: Fibular Ankle Fracture Treated With or Without Immobilization, Adult, Fall Prevention in the Home, How to Use a Walker. - Prescriptions for Tylenol- Codeine #3 300-30 mg Oral Tablet - take 2 tablets by ORAL route every 6 hours As needed; 20 tablet. - Medication Reconciliation Form, Thank You Letter, Antibiotic Education, Prescription Opioid Use form. - Follow up: Private Physician; When: 1 - 2 days; Reason: Recheck today's complaints, Continuance of care, Re-evaluation by your physician. Follow up: Emergency Department; When: As needed; Reason: Worsening of condition. Follow up: Krishan Mcmillan MD; When: 2 - 3 days; Reason: Recheck today's complaints, Continuance of care. Signatures: Dispatcher [employer] EDWV Sabrina Amaya, TOXICOLOGY TEACHER-C TOXICOLOGY TEACHER-Csnw Chica Mathew, RN RN rb1 Alisa Aguilera, RN RN Blayen Keenan MD MD ps1 Corrections: (The following items were deleted from the chart) 18:48 17:52 08/29/2019 17:52 Discharged to Home. Impression: Other physeal fracture of lower rb1 end of left fibula. Condition is Stable. Forms are Medication Reconciliation Form, Thank You Letter, Antibiotic Education, Prescription Opioid Use. Follow up: Private Physician; When: 1 - 2 days; Reason: Recheck today's complaints, Continuance of care, Re-evaluation by your physician. Follow up: Emergency Department; When: As needed; Reason: Worsening of condition. Follow up: Krishan Mcmillan; When: 2 - 3 days; Reason: Recheck today's complaints, Continuance of care. snw
--- NOTE | 2019-08-29 17:53 | ER ---
Nurse's Notes [facility] Name: Genny Matamoros Age: 59 yrs Sex: Female : 1960 Arrival Date: 08/29/2019 Time: 16:38 Bed 13 Private MD: Diagnosis: Other physeal fracture of lower end of left fibula Presentation: 08/29 16:30 Presenting complaint: EMS states: Was coming out of the kids bedroom when she slid on rb1 wet carpet and injured her left ankle. A \T\ O X 4. 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 Medications are Glipizide, Insulin, Lisinopril, Metformin. NKDA. BP 173/77, P 97, 100% RA, BS 291. Transition of care: patient was not received from another setting of care. Onset of symptoms was August 29, 2019 at 16:00. Risk Assessment: Do you want to hurt yourself or someone else? Patient reports no desire to harm self or others. Initial Sepsis Screen: Does the patient meet any 2 criteria? No. Patient's initial sepsis screen is negative. Does the patient have a suspected source of infection? No. Patient's initial sepsis screen is negative. Care prior to arrival: Splint applied. 16:30 Method Of Arrival: EMS: [facility] 16:30 Acuity: SADE 3 rb1 Triage Assessment: 16:30 General: Appears uncomfortable, Behavior is calm, cooperative. Pain: Complains of pain rb1 in left ankle Pain currently is 10 out of 10 on a pain scale. Pain began 1600 today. Neuro: Level of Consciousness is awake, alert, obeys commands, Oriented to person, place, time, situation. Neuro: Reports being able to feel me touching her toes. Cardiovascular: Capillary refill < 3 seconds is brisk in bilateral toes. Respiratory: Airway is patent Respiratory effort is even, unlabored, Respiratory pattern is regular, symmetrical. GI: No signs and/or symptoms were reported involving the gastrointestinal system. : No signs and/or symptoms were reported regarding the genitourinary system. Derm: Skin is pink, warm \T\ dry. Musculoskeletal: Bony deformity noted of left ankle EMS put a spline on the left ankle and reports a deformity. 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 - Social history:: Smoking status: Patient/guardian denies using tobacco. - Ebola Screening: : Patient negative for fever greater than or equal to 101.5 degrees Fahrenheit, and additional compatible Ebola Virus Disease symptoms. Screenin:30 Abuse screen: Denies threats or abuse. Nutritional screening: No deficits noted. rb1 Tuberculosis screening: No symptoms or risk factors identified. Fall Risk Fall in past 12 months (25 points). Secondary diagnosis (15 points) impaired mobility, No IV (0 pts). Ambulatory Aid- None/Bed Rest/Nurse Assist (0 pts). Gait- Normal/Bed Rest/Wheelchair (0 pts) Mental Status- Oriented to own ability (0 pts). Total Leal Fall Scale indicates Low Risk Score (25-44 pts). Fall prevention measures have been instituted. Side Rails Up X 2 Placed close to Nursing Station 1:1 attendant Assigned to Pt. Frequent Obs/Assesments occuring As available Patient and Family Educated on Fall Prevention Program and strategies. Assessment: 16:30 General: See triage assessment. rb1 17:23 Reassessment: Patient appears in no apparent distress at this time. No changes from rb1 previously documented assessment. Family at the bedside. 18:15 Reassessment: Patient and/or family updated on plan of care and expected duration. Pain rb1 level reassessed. Patient is alert, oriented x 3, equal unlabored respirations, skin warm/dry/pink. Discharge pending due to splint being applied. 18:24 Reassessment: Pt. was able to eat and drink without vomiting. rb1 18:38 Reassessment: Pt. was given Benadryl 25 mg PO x once due to itching at the Morphine rb1 injection site. Vital Signs: 16:30 BP 177 / 85; Pulse 95; Resp 19; Temp 98.9(O); Pulse Ox 100% on R/A; Weight 79.38 kg rb1 (R); Height 5 ft. 2 in. (157.48 cm) (R); Pain 10/10; 17:23 BP 164 / 69; Pulse 75; Resp 17; Pulse Ox 100% on R/A; Pain 10/10; rb1 18:23 BP 150 / 75; Pulse 81; Resp 19; Pulse Ox 100% on R/A; Pain 10/10; rb1 16:30 Body Mass Index 32.01 (79.38 kg, 157.48 cm) rb1 ED Course: 16:30 Arm band placed on right wrist. rb1 16:30 Patient has correct armband on for positive identification. Bed in low position. Call rb1 light in reach. Side rails up X 1. Pulse ox on. NIBP on. Warm blanket given. 16:38 Patient arrived in ED. rb1 16:39 Sabrina Amaya FNP-C [facility]. snw 16:39 Blayne Keenan MD is Attending Physician. snw 16:42 Triage completed. rb1 17:21 Chica Mathew, RN is Primary Nurse. rb1 17:48 Tib Fib Left XRAY In Process Unspecified. EDMS 17:51 Krishan Mcmillan MD is Referral Physician. snw 18:25 No provider procedures requiring assistance completed. Patient did not have IV access rb1 during this emergency room visit. Administered Medications: 17:52 Drug: [place] 10 mg-325 mg 1 tabs Route: PO; rb1 18:18 Follow up: Response: No adverse reaction; Pain is unchanged, physician notified rb1 18:20 Drug: morphine 4 mg Route: IM; Site: right deltoid; hb 18:35 Follow up: Response: Adverse reaction, Physician notified; pt. reports itching at the rb1 injection site. 18:38 Drug: Benadryl 25 mg Route: PO; rb1 18:39 Follow up: Response: Medication administered at discharge. rb1 Intake: Outcome: 17:52 Discharge ordered by . snw 18:48 Patient left the ED. rb1 18:48 Discharged to home via wheelchair, with family. rb1 18:48 Condition: stable 18:48 Discharge instructions given to patient, Instructed on discharge instructions, follow up and referral plans. medication usage, Demonstrated understanding of instructions, follow-up care, medications, Prescriptions given X 1. Signatures: Dispatcher [employer] EDSabrina Zabala, TAX ACCOUNTANT-C TAX ACCOUNTANT-Csnw Chica Mathew, RN RN rb1 Alisa Aguilera RN RN
--- NOTE | 2019-08-29 18:04 | RAD REPORT ---
EXAM DESCRIPTION: RAD - Tib Fib Left - 08/29/2019 5:48 pm CLINICAL HISTORY: PAIN COMPARISON: No comparisons FINDINGS: Oblique fracture is seen involving the distal fibula with adjacent soft tissue swelling. B nadege fragmentation about the ankle is present likely related to prior trauma. Prominent calcaneal spur s evident.
[2019-08-29] MEDS ORDERED: MORPHINE 4 MG/ML SYR ONE (18:20)
[2019-08-29] MEDS ORDERED: DIPHENHYDRAMINE 25 MG TAB/CAP ONE (18:37)
[2019-08-29 19:57] VITALS: TEMP 98.9; O2SAT 100
[2019-08-29 20:00] VITALS: BP 150/75
== END 2019-08-29 18:48 | disposition home or self-care (01) ==
LOC: ER 16:30
DX: S89.392A Other physeal fracture of lower end of left fibula, initial encounter for closed fracture (principal); W01.0XXA Fall on same level from slipping, tripping and stumbling without subsequent striking against object, initial encounter; Y93.89 Activity, other specified; Y92.018 Other place in single-family (private) house as the place of occurrence of the external cause; E11.9 Type 2 diabetes mellitus without complications; I10 Essential (primary) hypertension
CPT/HCPCS: 96372; 99284

== ENCOUNTER 2019-08-30 21:30 | Emergency (ER) | payer OTHER ==
--- OUTSIDE RECORDS SUMMARY | 2019-08-30 21:31 | XMS REPORT ---
:1960 [facility] Address [address] [place] [address] [address] [place] [address] Care Team Providers Name Role Phone Unavailable Unavailable Unavailable Problems This patient has no known problems. Allergies, Adverse Reactions, Alerts This patient has no known allergies or adverse reactions. Medications This patient has no known medications.
[2019-08-30] MEDS ORDERED: HYDROCODONE/APAP 7.5/325 MG TAB ONE (22:37)
--- NOTE | 2019-08-30 22:59 | ER ---
Nurse's Notes [facility] Name: Genny Matamoros Age: 59 yrs Sex: Female : 1960 Arrival Date: 08/30/2019 Time: 21:32 Bed 7 Private MD: Diagnosis: Pain in left ankle and joints of left foot Presentation: 08/30 21:45 Presenting complaint: Patient states: i feel like a burning sensation on my left ankle. rr5 yesterday I fell down and went here they say I fractured my left ankle. I am taking Tylenol#3 but I am not getting relieved from the pain its getting worse and worse. Transition of care: patient was not received from another setting of care. Onset of symptoms was August 29, 2019. Risk Assessment: Do you want to hurt yourself or someone else? Patient reports no desire to harm self or others. Initial Sepsis Screen: Does the patient meet any 2 criteria? No. Patient's initial sepsis screen is negative. Does the patient have a suspected source of infection? No. Patient's initial sepsis screen is negative. Care prior to arrival: Medication(s) given: tylenol #3. 21:45 Method Of Arrival: Wheelchair rr5 21:45 Acuity: SADE 3 rr5 Triage Assessment: 21:50 General: Appears in no apparent distress. uncomfortable, Behavior is calm, cooperative, rr5 appropriate for age. Pain: Complains of pain in left ankle Pain radiates to left leg Pain currently is 9 out of 10 on a pain scale. Quality of pain is described as burning, Pain began gradually, Is. Cardiovascular: Capillary refill < 3 seconds Patient's skin is warm and dry. Respiratory: Airway is patent Respiratory effort is even, unlabored, Respiratory pattern is regular, symmetrical. Musculoskeletal: Capillary refill < 3 seconds, splint on the left lower leg and brace for foot drop at right lower noted noted. Reports pain in left leg. 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 - Social history:: Smoking status: Patient/guardian denies using tobacco, Patient/guardian denies using alcohol, street drugs. - Ebola Screening: : Patient negative for fever greater than or equal to 101.5 degrees Fahrenheit, and additional compatible Ebola Virus Disease symptoms Patient denies exposure to infectious person Patient denies travel to an Ebola-affected area in the 21 days before illness onset. Screenin:57 Abuse screen: Denies threats or abuse. Denies injuries from another. Nutritional lp1 screening: No deficits noted. Tuberculosis screening: No symptoms or risk factors identified. Fall Risk Total Leal Fall Scale indicates High Risk Score (45 or more points). Fall prevention measures have been instituted. Side Rails Up X 2. Assessment: 22:00 General: Appears uncomfortable, Behavior is appropriate for age. Pain: Complains of lp1 pain in left ankle Pain currently is 10 out of 10 on a pain scale. Quality of pain is described as burning. 22:00 Neuro: Level of Consciousness is awake, alert, obeys commands. Cardiovascular: lp1 Patient's skin is warm and dry. Respiratory: Respiratory effort is even, unlabored, Respiratory pattern is regular. GI: No signs and/or symptoms were reported involving the gastrointestinal system. : No signs and/or symptoms were reported regarding the genitourinary system. EENT: No signs and/or symptoms were reported regarding the EENT system. Derm: Skin is pink, warm \T\ dry. Musculoskeletal: Circulation, motion, and sensation intact. Capillary refill < 3 seconds, in left toes. 22:30 Reassessment: Patient's splint re-wrapped, Dr. Agustin at bedside. lp1 23:00 Reassessment: Patient appears in no apparent distress at this time. Patient is alert, rr5 oriented x 3, equal unlabored respirations, skin warm/dry/pink. snacks given. discharge instruction given and explained without complaints made, verbalized understading. Patient states feeling better. Patient states symptoms have improved. Vital Signs: 21:48 BP 126 / 62; Pulse 79; Resp 18; Temp 98.5; Pulse Ox 99% ; Weight 79.38 kg; Height 5 ft. rr5 2 in. (157.48 cm); Pain 9/10; 23:11 BP 121 / 60; Pulse 75; Resp 16; Pulse Ox 98% ; rr5 21:48 Body Mass Index 32.01 (79.38 kg, 157.48 cm) rr5 ED Course: 21:32 Patient arrived in ED. cl3 21:40 Sridhar Agustin MD is Attending Physician. tw4 21:48 Triage completed. rr5 21:50 Arm band placed on right ankle. rr5 22:08 Heather Bartholomew, RN is Primary Nurse. lp1 22:57 Patient has correct armband on for positive identification. lp1 22:57 No provider procedures requiring assistance completed. Patient did not have IV access lp1 during this emergency room visit. Administered Medications: 22:44 Drug: [place] (7.5 mg-325 mg) 1 tabs Route: PO; lp1 23:12 Follow up: Response: No adverse reaction; RASS: Alert and Calm (0) rr5 Outcome: 22:59 Discharge ordered by MD. tw4 23:10 Discharged to home via wheelchair, with family. rr5 23:10 Condition: stable 23:10 Discharge instructions given to patient, family, Instructed on discharge instructions, follow up and referral plans. medication usage, Demonstrated understanding of instructions, follow-up care, medications, Prescriptions given X 1. 23:13 Patient left the ED. rr5 Signatures: Heather Bartholomew RN RN lp1 Sridhar Agustin MD MD tw4 Errol Lindsey RN RN rr5 Mya Strong cl3 Corrections: (The following items were deleted from the chart) 22:56 22:44 General: Appears uncomfortable, Behavior is appropriate for age, lp1 lp1 22:56 22:44 Pain: Complains of pain in left ankle Pain currently is 10 out of 10 on a pain lp1 scale. Quality of pain is described as burning, lp1
--- NOTE | 2019-08-30 23:00 | EDPHYS ---
Physician Documentation [facility] Name: Genny Matamoros Age: 59 yrs Sex: Female : 1960 Arrival Date: 08/30/2019 Time: 21:32 Bed 7 Private MD: ED Physician Sridhar Agustin HPI: 08/31 06:15 This 59 yrs old Female presents to ER via Wheelchair with complaints of Ankle tw4 Pain. 06:15 The patient presents with an injury. The complaints affect the left ankle. Onset: The tw4 symptoms/episode began/occurred 2 day(s) ago. Context: The problem was sustained at home, resulted from a mis-step by the patient. Associated signs and symptoms: The patient has no apparent associated signs or symptoms. The patient has experienced a previous episode, yesterday. Pt had splint applied after ankle fracture, complains of more pain. 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 - Social history:: Smoking status: Patient/guardian denies using tobacco, Patient/guardian denies using alcohol, street drugs. - Ebola Screening: : Patient negative for fever greater than or equal to 101.5 degrees Fahrenheit, and additional compatible Ebola Virus Disease symptoms Patient denies exposure to infectious person Patient denies travel to an Ebola-affected area in the 21 days before illness onset. ROS: 08/31 06:15 Constitutional: Negative for fever, chills, and weight loss, Eyes: Negative for injury, tw4 pain, redness, and discharge, Cardiovascular: Negative for chest pain, palpitations, and edema, Respiratory: Negative for shortness of breath, cough, wheezing, and pleuritic chest pain, Abdomen/GI: Negative for abdominal pain, nausea, vomiting, diarrhea, and constipation, Back: Negative for injury and pain. MS/extremity: Positive for pain. Exam: 06:15 Constitutional: This is a well developed, well nourished patient who is awake, alert, tw4 and in no acute distress. Head/Face: Normocephalic, atraumatic. Chest/axilla: Normal chest wall appearance and motion. Nontender with no deformity. No lesions are appreciated. Cardiovascular: Regular rate and rhythm with a normal S1 and S2. No gallops, murmurs, or rubs. Normal PMI, no JVD. No pulse deficits. Respiratory: Lungs have equal breath sounds bilaterally, clear to auscultation and percussion. No rales, rhonchi or wheezes noted. No increased work of breathing, no retractions or nasal flaring. Abdomen/GI: Soft, non-tender, with normal bowel sounds. No distension or tympany. No guarding or rebound. No evidence of tenderness throughout. 06:15 Musculoskeletal/extremity: Extremities: noted in the left lateral ankle, left Achilles, left medial ankle and anterior aspect of left ankle: ecchymosis, pain, swelling, tenderness, posterior splint in place left LE, Circulation is intact in all extremities. Compartment Syndrome exam of affected extremity: is normal. no numbness, no tingling, no sensation deficit, no palor, no weak pulses, Joints: the left ankle displays swelling, tenderness. Vital Signs: 08/30 21:48 BP 126 / 62; Pulse 79; Resp 18; Temp 98.5; Pulse Ox 99% ; Weight 79.38 kg; Height 5 ft. rr5 2 in. (157.48 cm); Pain 9/10; 23:11 BP 121 / 60; Pulse 75; Resp 16; Pulse Ox 98% ; rr5 21:48 Body Mass Index 32.01 (79.38 kg, 157.48 cm) rr5 MDM: 21:40 Patient medically screened. tw4 08/31 06:15 Data reviewed: vital signs, EMS record. Special discussion: I discussed with the tw4 patient/guardian in detail that at this point there is no indication for admission to the hospital. It is understood, however, that if the symptoms persist or worsen the patient needs to return immediately for re-evaluation. ED course: Reexamined splint. replaced padding on splint and and re applied splint. Pt NV intact post splint applicatiopn. Administered Medications: 08/30 22:44 Drug: [place] (7.5 mg-325 mg) 1 tabs Route: PO; lp1 23:12 Follow up: Response: No adverse reaction; RASS: Alert and Calm (0) rr5 Disposition: 08/30/19 22:59 Discharged to Home. Impression: Pain in left ankle and joints of left foot. - Condition is Stable. - Discharge Instructions: Joint Pain, Ankle Pain. - Prescriptions for Tramadol 50 mg Oral Tablet - take 1 tablet by ORAL route every 8 hours as needed; 12 tablet. - Medication Reconciliation Form, Thank You Letter, Antibiotic Education, Prescription Opioid Use form. - Follow up: Private Physician; When: Upon discharge from the Emergency Department; Reason: Recheck today's complaints, Continuance of care. - Problem is an ongoing problem. - Symptoms have improved. Signatures: Heather Bartholomew RN RN lp1 Sridhar Agustin MD MD tw4 Errol Lindsey RN RN rr5 Corrections: (The following items were deleted from the chart) 23:12 22:59 08/30/2019 22:59 Discharged to Home. Impression: Pain in left ankle and joints of rr5 left foot. Condition is Stable. Forms are Medication Reconciliation Form, Thank You Letter, Antibiotic Education, Prescription Opioid Use. Follow up: Private Physician; When: Upon discharge from the Emergency Department; Reason: Recheck today's complaints, Continuance of care. Problem is an ongoing problem. Symptoms have improved. tw4 23:13 23:12 08/30/2019 22:59 Discharged to Home. Impression: Pain in left ankle and joints of rr5 left foot. Condition is Stable. Discharge Instructions: Joint Pain, Ankle Pain. Prescriptions for Tramadol 50 mg Oral Tablet - take 1 tablet by ORAL route every 8 hours as needed; 12 tablet. and Forms are Medication Reconciliation Form, Thank You Letter, Antibiotic Education, Prescription Opioid Use. Follow up: Private Physician; When: Upon discharge from the Emergency Department; Reason: Recheck today's complaints, Continuance of care. Problem is an ongoing problem. Symptoms have improved. rr5
[2019-08-31 03:15] VITALS: TEMP 98.5
[2019-08-31 03:17] VITALS: BP 121/60; O2SAT 98
== END 2019-08-30 23:13 | disposition home or self-care (01) ==
LOC: ER 21:30
DX: M25.571 Pain in right ankle and joints of right foot (principal); I10 Essential (primary) hypertension; E11.9 Type 2 diabetes mellitus without complications; Z86.73 Personal history of transient ischemic attack (TIA), and cerebral infarction without residual deficits
CPT/HCPCS: 99283

== ENCOUNTER 2019-09-26 14:05 | Emergency (ER) | payer OTHER ==
--- OUTSIDE RECORDS SUMMARY | 2019-09-26 14:07 | XMS REPORT ---
:1960 Author [facility] Address [address] [place] [address] [address] [place] [address] Care Team Providers Name Role Phone Unavailable Unavailable Unavailable Problems This patient has no known problems. Allergies, Adverse Reactions, Alerts This patient has no known allergies or adverse reactions. Medications This patient has no known medications.
--- NOTE | 2019-09-26 16:10 | ER ---
Nurse's Notes [facility] Name: Genny Matamoros Age: 59 yrs Sex: Female : 1960 Arrival Date: 09/26/2019 Time: 14:33 Bed 13 Private MD: Diagnosis: Encounter for other orthopedic aftercare-cast removal and splint placement Presentation: 09/26 14:48 Presenting complaint: Patient states: Pt. wrapped her cast in plastic to take a shower rb1 and the whole cast got wet on the inside. Transition of care: patient was not received from another setting of care. Onset of symptoms was September 26, 2019. 14:48 Method Of Arrival: Wheelchair rb1 14:48 Acuity: SADE 3 rb1 Triage Assessment: 14:53 Neuro: Level of Consciousness is awake, alert, obeys commands, Oriented to person, rb1 place, time, situation. Respiratory: Airway is patent Respiratory effort is even, unlabored, Respiratory pattern is regular, symmetrical. Musculoskeletal: Swelling present in left foot. 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 - Social history:: Smoking status: Patient/guardian denies using tobacco. - Ebola Screening: : Patient negative for fever greater than or equal to 101.5 degrees Fahrenheit, and additional compatible Ebola Virus Disease symptoms. Vital Signs: 14:52 BP 159 / 63; Pulse 98; Resp 17; Temp 98.1(TE); Pulse Ox 100% on R/A; Weight 79.38 kg rb1 (R); Height 5 ft. 2 in. (157.48 cm) (R); Pain 3/10; 14:52 Body Mass Index 32.01 (79.38 kg, 157.48 cm) rb1 ED Course: 14:33 Patient arrived in ED. as 14:51 Triage completed. rb1 14:52 Arm band placed on right wrist. rb1 15:10 Dee Bill FNP-C is [facility]. kb 15:10 Luis Samuels MD is Attending Physician. kb 16:10 Krishan Mcmillan MD is Referral Physician. kb 16:48 Mino Reynoso, RN is Primary Nurse. ae4 Administered Medications: No medications were administered Outcome: 16:09 Discharge ordered by MD. kb 16:48 Patient left the ED. ae4 Signatures: Dee Bill FNP-C FNP-Sabrina Koroma Rebecca, RN RN rb1 Mino Reynoso, RN RN ae4
--- NOTE | 2019-09-26 16:11 | EDPHYS ---
Physician Documentation [facility] Name: Genny Matamoros Age: 59 yrs Sex: Female : 1960 Arrival Date: 09/26/2019 Time: 14:33 Bed 13 Private MD: ED Physician Luis Samuels HPI: 09/26 16:03 This 59 yrs old Female presents to ER via Wheelchair with complaints of Cast kb Replacement. 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 Onset: The symptoms/episode began/occurred today. Severity of symptoms: At their worst the symptoms were moderate in the emergency department the symptoms are unchanged. The patient has not experienced similar symptoms in the past. The patient has not recently seen a physician. Pt came to get a new cast due to getting hers wet. 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 - Social history:: Smoking status: Patient/guardian denies using tobacco. - Ebola Screening: : Patient negative for fever greater than or equal to 101.5 degrees Fahrenheit, and additional compatible Ebola Virus Disease symptoms. ROS: 16:03 Constitutional: Negative for fever, chills, and weight loss, Neck: Negative for injury, kb pain, and swelling, Cardiovascular: Negative for chest pain, palpitations, and edema, Respiratory: Negative for shortness of breath, cough, wheezing, and pleuritic chest pain, Abdomen/GI: Negative for abdominal pain, nausea, vomiting, diarrhea, and constipation, Back: Negative for injury and pain, MS/Extremity: Negative for injury and deformity, Skin: Negative for injury, rash, and discoloration, Neuro: Negative for headache, weakness, numbness, tingling, and seizure. Exam: 16:03 Constitutional: This is a well developed, well nourished patient who is awake, alert, kb and in no acute distress. Head/Face: Normocephalic, atraumatic. Neck: Trachea midline, no thyromegaly or masses palpated, and no cervical lymphadenopathy. Supple, full range of motion without nuchal rigidity, or vertebral point tenderness. No Meningismus. Chest/axilla: Normal chest wall appearance and motion. Nontender with no deformity. No lesions are appreciated. Cardiovascular: Regular rate and rhythm with a normal S1 and S2. No gallops, murmurs, or rubs. Normal PMI, no JVD. No pulse deficits. Respiratory: Lungs have equal breath sounds bilaterally, clear to auscultation and percussion. No rales, rhonchi or wheezes noted. No increased work of breathing, no retractions or nasal flaring. Abdomen/GI: Soft, non-tender, with normal bowel sounds. No distension or tympany. No guarding or rebound. No evidence of tenderness throughout. Skin: Warm, dry with normal turgor. Normal color with no rashes, no lesions, and no evidence of cellulitis. Neuro: Awake and alert, GCS 15, oriented to person, place, time, and situation. Cranial nerves II-XII grossly intact. Motor strength 5/5 in all extremities. Sensory grossly intact. Cerebellar exam normal. Normal gait. 16:03 Musculoskeletal/extremity: short leg cast on left lower leg. Vital Signs: 14:52 BP 159 / 63; Pulse 98; Resp 17; Temp 98.1(TE); Pulse Ox 100% on R/A; Weight 79.38 kg rb1 (R); Height 5 ft. 2 in. (157.48 cm) (R); Pain 3/10; 14:52 Body Mass Index 32.01 (79.38 kg, 157.48 cm) rb1 MDM: 15:11 Patient medically screened. kb 15:30 Data reviewed: vital signs, nurses notes. Data interpreted: Pulse oximetry: on room air kb is 100 %. Interpretation: normal. 16:02 Counseling: I had a detailed discussion with the patient and/or guardian regarding: the kb historical points, exam findings, and any diagnostic results supporting the discharge/admit diagnosis, the need for outpatient follow up, a orthopedic surgeon, to return to the emergency department if symptoms worsen or persist or if there are any questions or concerns that arise at home. ED course: Cast removed using cast cutter. Pt tolerated well. Pt will follow up with Dr Mcmillan tomorrflex for new cast. 09/26 15:19 Order name: [facility]. Order: cast cutter to bedside; Complete Time: 16:07 kb 09/26 15:19 Order name: Short Leg Splint; Complete Time: 16:48 kb Administered Medications: No medications were administered Disposition: 09/26/19 16:09 Discharged to Home. Impression: Encounter for other orthopedic aftercare - cast removal and splint placement. - Condition is Stable. - Discharge Instructions: Cast or Splint Care, [id number]. - Medication Reconciliation Form, Thank You Letter, Antibiotic Education, Prescription Opioid Use form. - Follow up: Private Physician; When: 2 - 3 days; Reason: Recheck today's complaints, Continuance of care, Re-evaluation by your physician. Follow up: Emergency Department; When: As needed; Reason: Worsening of condition. Follow up: Krishan Mcmillan MD; When: Tomorrow; Reason: Recheck today's complaints, Continuance of care. - Notes: Follow up with Dr Mcmillan tomorrflex for new cast Addendum: 10/04/2019 11:06 Co-signature as Attending Physician, Luis Samuels MD I agree with the assessment and c lehman plan of care. Signatures: Dee Bill, SIGNALING DESIGN ENGINEER-C SIGNALING DESIGN ENGINEER-Ckb Luis Samuels MD MD cha Barber, Rebecca, RN RN Mino Marcus RN RN ae4 Corrections: (The following items were deleted from the chart) 09/26 16:10 16:09 09/26/2019 16:09 Discharged to Home. Impression: Encounter for other orthopedic kb aftercare - cast removal and splint placement. Condition is Stable. Forms are Medication Reconciliation Form, Thank You Letter, Antibiotic Education, Prescription Opioid Use. Follow up: Private Physician; When: 2 - 3 days; Reason: Recheck today's complaints, Continuance of care, Re-evaluation by your physician. Follow up: Emergency Department; When: As needed; Reason: Worsening of condition. kb 16:48 16:10 09/26/2019 16:09 Discharged to Home. Impression: Encounter for other orthopedic ae4 aftercare - cast removal and splint placement. Condition is Stable. Discharge Instructions: Cast or Splint Care, [id number]. Forms are Medication Reconciliation Form, Thank You Letter, Antibiotic Education, Prescription Opioid Use. Follow up: Private Physician; When: 2 - 3 days; Reason: Recheck today's complaints, Continuance of care, Re-evaluation by your physician. Follow up: Emergency Department; When: As needed; Reason: Worsening of condition. Follow up: Krishan Mcmillan; When: Tomorrow; Reason: Recheck today's complaints, Continuance of care. kb
[2019-09-26 18:36] VITALS: BP 159/63; TEMP 98.1; O2SAT 100
== END 2019-09-26 16:48 | disposition home or self-care (01) ==
LOC: ER 14:05
DX: Z47.89 Encounter for other orthopedic aftercare (principal); I10 Essential (primary) hypertension; E11.9 Type 2 diabetes mellitus without complications; Z79.4 Long term (current) use of insulin
CPT/HCPCS: 99281

== ENCOUNTER 2021-02-13 23:18 | Inpatient (IN) | payer OTHER ==
--- OUTSIDE RECORDS SUMMARY | 2021-02-13 23:21 | XMS REPORT | Continuity of Care Document ---
:1960 Author Organization [facility] t Address [address] [place] [address] Care Team Providers Name Role Phone Destin GALAVIZ, A Primary Care Physician Destin GALAVIZ, A Attending Clinician Manuel GALAVIZ TVictoria Attending Clinician Scarlett Wilcox MD Attending Clinician Brittani Bro CRNA Attending Clinician Osman RIDER Attending Clinician Unavailable Osman RIDER Admitting Clinician Unavailable Payers Payer Name Policy Policy Number Effective Expiration Source Type Date Date [facility] - [id number] 2020 Unive rsity of MANAGED 00:00:00 [place] [facility] Bran h DUAL COMP HMO D [id number] 2020- PresentMedicare Adv HMO TMH[place]ID OF [id number] [id number] Gurdeep as Medical [phone] [facility] [place] [id number], [place] [address]Medicaid [facility] - [id number] 2020 ELLIE Alvarez - D CAREUNITED 00:00:00 [id number]/ 09/2020-Present MEDICAIDMEDICAID OF [id number] 2020 ELLIE boo alina - [id number] 00:00:00 [facility] 1-PresentMedicaid Problems Condition Condition Condition Status Onset Resolution Last Treating Co mments Source Name Details Category Date Date Treatment Clinician Date Neovascula Neovascula Disease Active [facility] 4[facility]19 [facility] - glaucoma, glaucoma, 00:00: Medi [place] left eye, left eye, 00 Cent er indetermin indetermin ate stage ate stage Essential Essential Disease Active Uni vers hypertensi hypertensi 2-02 it y of on on 00:00: [place] 00 Medical Branch Fluid Fluid Disease Active Univers retention retention 2- ity of 00:00: [place] 00 [facility] Branch Mixed Mixed Disease Active Univers hyperlipid hyperlipid 2- it y of emia emia 00:00: [place] 00 [facility] Branch Lab test Lab test Disease Active Unive rs positive positive 2- ity of for for 00:00: [place] detection detection 00 Medi malaika of of Branch COVID-19 COVID-19 virus virus Low Low Disease Active Univers vitamin D vitamin D 2- ity of level level 00:00: [place] 00 [facility] Branch Anemia of Anemia of Disease Active Uni vers chronic chronic 2- ity of disease disease 00:00: [place] 00 [facility] Branch Screening Screening Disease Active Uni vers for for 2- ity of malignant malignant 00:[place] ne[place] 00 Medica l of colon of colon Branch 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 2-02 ity of disease disease 00:00: [place] that is that is 00 Medical not asthma not asthma Br anch Weight Weight Disease Active 2019- Univers gain gain - ity of 00:00: [place] 00 Medical Branch Hypertensi Hypertensi Disease Active 2020- U nivers on, benign on, benign - it y of 00:00: [place] 00 Medical Branch Early Early Disease Active 2020- Univers satiety satiety 7- ity of 00:00: [place] 00 Medical Branch Difficulty Difficulty Disease Active 2020- U nivers sleeping sleeping - ity of 00:00: [place] 00 Medical Branch Swelling Swelling Disease Active Unive rs 7-23 ity of 00:00: [place] [facility] Obesity Obesity Disease Active 2018-09 Univers (BMI (BMI 2-11 ity of 30-39.9) 30-39.9) 00:00: [place] [facility] 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 00:00: [place] insufficie insufficie 00 Me dical ncy ncy Branch History of History of Disease Active U nivers stroke stroke 3-04 ity of 00:00: [place] [facility] Type 2 Type 2 Disease Active Univers diabetes diabetes 3-04 ity of mellitus mellitus 00:00: [place] with other with other 00 Me dical specified specified Bran ch complicati complicati on, on, without without long-term long-term current current use of use of insulin insulin Post-op Post-op Disease Resolve 2018-092020-04-20 2020-04-20 Univers pain pain d 2-11 00:00:00 12:39:56 ity of 00:00: Medical Branch Overweight Overweight Disease Resolve 2020-04-20 2020-04-20 Univers d 3-04 00:00:00 12:39:59 ity of 00:00: Medical Branch Tubal Tubal Disease Resolve 2017-01-24 2017-01-24 Univers ligation ligation d 3-04 00:00:00 14:13:05 it y of status status 00:00: Medical Branch Allergies, Adverse Reactions, Alerts Allergy Allergy Status Severity Reaction(s) Onset Inactive Treating Comm ents Source Name Type Date Date Clinician Metformi Propensi Active Diarrhea And Univ ers n ty to 04-16 nausea. ity of adverse 00:00: Only with [place] reaction 00 immediate Medic al s release Branch metformin , ok with extended release metformin . Metformi Drug Active Diarrhea And [facility] St n Allergy 04-16 nausea. [facility] - 00:00: Only with Medical 00 immediate Center release metformin , ok with extended release metformin . Social History Social Habit Start Date Stop Date Quantity Comments Source Sex Assigned At [facility] Exposure to Not sure University of SARS-CoV-2 [place] [facility] (event) Branch Alcohol intake 2021-01-19 2021-01-19 Ex-drinker ELLIE oCrreiak es - 00:00:00 00:00:00 (finding) Medical Center Tobacco use and 2021-01-19 2021-01-19 Never used ELLIE Correia kes - exposure 00:00:00 00:00:00 Medical Center Smoking Status Start Date Stop Date Source Never smoker [facility] [place] [facility] ed[facility] Medications Ordered Filled Start Stop Current Ordering Indication Dosage Frequency Signature Comments Components Source Medication Medication Date Date Medication? Clinician (SIG) Name Name aspirin 81 Yes 81mg QD Take [address] MG EC 4-22 by mouth [facility] - tablet 16:45: daily. Medical 51 Center atorvastati Yes 20mg QD Take [address] n (LIPITOR) 4-22 by mouth Luke s - 20 MG 16:45: daily. Medical tablet 51 Center atropine Yes 1[drp] Q.68710890 [address] (ISOPTO) 1 - [id number] (three) [facility] - % 16:45: 3D times Medical ophthalmic 51 daily. Center solution brimonidine Yes 1[drp] Q.88721501 [address] (ALPHAGAN) - [id number] (three) [facility] - 0.2 % 16:45: 3D times Medical ophthalmic 51 daily. Center solution cyanocobala Yes 100ug QD Take [address] min, 4-22 mcg by [facility] - vitamin 16:45: mouth Medical B-12, 100 51 daily. Center MCG tablet cholecalcif Yes Take by [facility] noy, 4-22 mouth. [facility] - vitamin D3, 16:45: Medica l 25 mcg 51 Center (1,000 unit) Chew dorzolamide Yes 1[drp] Q.5D [address] -timoloL -22 (two) [facility] - (COSOPT) 16:45: times Medical 22.3-6.8 51 daily. Center mg/mL ophthalmic solution cholecalcif Yes [id number] Q7D Take [facility] noy, 4-22 50,000 [facility] - vitamin D3, 16:45: Units by Id dical 1,250 mcg 51 mouth once Cent er (50,000 a week. unit) Tab latanoprost Yes 1[drp] QD [address] (XALATAN) - nightly. [facility] - 0.005 % 16:45: Medical ophthalmic 51 Center solution lisinopril- Yes 1{tbl} QD Take [address] hydroCHLORO -22 tablet by Frantz es - thiazide 16:45: mouth Medical (PRINZIDE,Z 51 daily. Center ESTORETIC) 10-12.5 mg per tablet metFORMIN Yes 500mg Take [address] (GLUCOPHAGE 4-22 mg by [facility] - ) 500 MG 16:45: mouth 2 Medica l tablet 51 (two) Center times daily with breakfast and dinner. prednisoLON Yes 1[drp] Q.25D [address] E acetate - (four) [facility] - (PRED 16:45: times Medical FORTE) 1 % 51 daily. [place] ophthalmic suspension pyridoxine, Yes 100mg QD Take [address] vitamin B6, 4-22 mg by [facility] - (B-6) 100 16:45: mouth Medical MG tablet 51 daily. Center insulin Yes Inject [facility] glargine - subcutaneo kes - U-300 conc 16:45: usly. Medica l (Toujeo Max 51 Center U-300 SoloStar) 300 unit/mL (3 mL) InPn acetaZOLAMI 2020- No 250mg Q.[id number] Take [address] [place] (DIAMOX) 01-18- [id number] mg by [facility] - 250 MG 13:25: 00:00 3D mouth 3 Medical tablet 45 :00 (three) Center times daily. amitriptyli 2020- No 10mg QD Take [address] ne (ELAVIL) 01-18 by mouth Frantz es - 10 MG 13:25: 00:00 nightly. Medical tablet 45 :00 Center BD JUAN DIEGO 2ND Yes USE Univ ers GEN PEN 01-18 DIRECTED ity of NEEDLE 32 00:00: EVERY [place] gauge x 00 MORNING Medical " Ndle Branch albuterol-i Yes Reactive 1{puff} Inhale 1 Univers pratropium 2-02 airway Puff 4 ity o f 20-100 00:00: disease (four) [place] mcg/actuati 00 that is not times Medical on inhaler asthma daily. Branc h methylPREDN Yes Enlarged Take by Univers ISolone 1-12 lymph node mouth ity o f (MEDROL, 00:00: SEE-INSTRU Gurdeep as GAGANDEEP,) 4 mg 00 CTIONS. Medica l tablets follow Branch package directions albuterol 2019-09 Yes Cough 2{puff} Inhale 2 Univers 90 2-29 Puffs ity of mcg/actuati 00:00: every 6 Gurdeep as on inhaler 00 (six) Medical hours as Branch needed for Shortness of Breath. atorvastati 2019-09 Yes Mixed 20mg Take 1 Uni vers n 20 mg 2-24 hyperlipide tablet by ity of tablet 00:00: avinash mouth at [place] 00 bedtime. Medical Branch ergocalcife 2019-09 Yes Vitamin D 33233I Take 1 Univers rol, 2-24 deficiency capsule by ity of vitamin d2, 00:00: mouth [place] (VITAMIN 00 weekly. Medical D2) 1,250 Branch mcg (50,000 unit) capsule aspirin 81 2019-09 Yes 81mg Take 81 mg U nivers mg chewable 2-14 by mouth ity of tablet 17:00: daily. [place] [address] Medical Branch Cholecalcif 2019-09 Yes Take by Un evita noy, 2-14 mouth. ity of Vitamin D3, 17:00: [place] (VITAMIN 54 [facility] D3) 1,000 Branch unit capsule cyanocobala 2019-09 Yes Take by Un evita min, 2-14 mouth. ity of vitamin 17:00: [place] B-12, 54 Medical (VITAMIN Branch B12 ORAL) pyridoxine 2019-09 Yes Take by Uni vers HCl, 2-14 mouth. ity of vitamin B6, 17:00: [place] (VITAMIN 54 Medical B-6 ORAL) Branch insulin 2019-09 Yes Type 2 28U inject 28 Uni vers glargine 2-14 diabetes Units ity of U-300 conc 00:00: mellitus under the [place] (TOUJEO 00 with other skin at [facility] ica SOLOSTAR specified bedtime. Br anch U-300 complicatio INSULIN) n, without 300 unit/mL long-term (1.5 mL) current use InPn of insulin METFORMIN 2019- Yes Type 2 TAKE 2 Univ ers ER 500 mg 1-28 diabetes TABLETS BY ity of 24 hr 00:00: mellitus MOUTH ONCE [place] tablet 00 with other DAILY WITH M edical specified BREAKFAST Branc h complicatio n, without long-term current use of insulin blood sugar 2019-0 Yes Type 2 Use BID, Univers diagnostic 8-06 diabetes DX E11.9 i ty of strip 00:00: mellitus Brand name [place] 00 with Viarco. Medical complicatio Branch n, without long-term current use of insulin lancets-blo 2019-0 Yes Type 2 1{each} 1 Each 2 Univers od glucose 7-30 diabetes (two) ity of strips 30 00:00: mellitus times Gurdeep as gauge Cmpk 00 with daily. Use Med ical complicatio BID, DX Branc h n, without E11.9 long-term (Brand current use upon of insulin insurance approval) glipiZIDE 2019-0 Yes Type 2 20mg Take 2 Univ ers 10 mg 7-21 diabetes tablets by ity of tablet 00:00: mellitus mouth 2 [place] 00 with other (two) Medical specified times Branch complicatio daily n, without before long-term breakfast current use and of insulin dinner. amitriptyli 2019-0 Yes Difficulty 10mg Take 1 Univers ne 10 mg 7-21 sleeping tablet by it y of tablet 00:00: mouth at [place] 00 bedtime. Medical May take 2 Branch if needed. meloxicam 2019-0 Yes Low back 7.5mg Take 1 U nivers 7.5 mg 6-04 pain of tablet by ity o f tablet 00:00: over 3 mouth [place] 00 months daily. If Medical duration not Branch helping the pain after 3 days increase to 2 pills daily. Diclofenac 2019-0 Yes Muscle Take 2-4 U nivers Sodium 1 % 6-04 spasm grams ity of gel 00:00: three [place] 00 times a Medical day as Branch needed for pain LISINOPRIL- 2019-0 Yes Type 2 TAKE 1 Un evita HYDROCHLORO 1-27 diabetes TABLET BY ity of THIAZIDE 00:00: mellitus MOUTH ONCE [place] 10-12.5 mg 00 with other DAILY Me dical per tablet specified Bran ch complicatio n, without long-term current use of insulin mupirocin 2 2018-09 Yes Skin lesion Apply to Univers % ointment 2-27 of foot area(s) 3 i ty of 00:00: (three) [place] 00 times Medical daily. Branch pen needle, 2018-09 Yes Type 2 1{each} 1 Each Univers diabetic 1-12 diabetes every ity of (COMFORT EZ 00:00: mellitus morning. [place] PEN 00 with other E11.65 Medical NEEDLES) 33 specified [facility] gauge x complicatio /16" Ndle n, without long-term current use of insulin Blood-Gluco Yes Type 2 DX E11.9 Univers se Meter 7-09 diabetes (Brand ity o f Kit 00:00: mellitus upon [place] 00 with insurance Medical complicatio approval) [facility] n, without long-term current use of insulin Immunizations Ordered Filled Immunization Date Status Comments Sour e Immunization Name Name Influenza Virus 2020-09-11 Completed Universit y of Vaccine [place] .5 mL 00:00:00 [facility] 6+ [place] Influenza Virus 2019-07-13 Completed Universit y of Vaccine [place] .5 mL 00:00:00 [facility] 6+ [place] Influenza Virus 2018-07-02 Completed Universit y of Vaccine 00:00:00 [facility] Pneumococcal 2016-05-26 Completed University o f Polysaccharide, 00:00:00 [facility] PPSV[facility] (PNEUMOVAX) Branch Td 2010-03-08 Completed University of 00:00:00 [facility] Vital Signs Vital Name Observation Time Observation Value Comments Source Systolic blood 2021-01-18 16:20:00 149 mm[Hg] [facility] Diastolic blood 2021-01-18 16:20:00 63 mm[Hg] [facility] S t [facility] rate 2021-01-18 16:20:00 82 /min [facility] Respiratory rate 2021-01-18 16:20:00 10 /min [place] Oxygen saturation in 2021-01-18 16:20:00 100 /min [facility] Arterial blood by Medical Ce nter Pulse oximetry Body temperature 2021-01-18 16:04:00 36.56 Blank [place] Body height 2021-01-18 14:22:00 157.5 cm [facility] Body weight 2021-01-18 14:22:00 78.472 kg [facility] BMI 2021-01-18 14:22:00 31.64 kg/m2 [facility] Procedures Procedure Date / Time Performing Clinician Source Performed BI SCREENING 2021-02-01 14:35:14 Laura Weir [facility] TOMOSYNTHESIS BILATERAL A Medical Branch INSERTION,EYE TUBE SHUNT 2021-01-18 15:20:[address] [facility] W/WO GRAFT [facility] POCT-GLUCOSE METER 2021-01-18 14:35:00 Idris Rider [facility] Plan of Care Planned Activity Planned Date Details Comments Source Future Scheduled 2023-12-22 Lipid panel [facility] s - Test 00:00:00 (procedure) [code = Medical Center [id number]] Future Scheduled 2023-03-13 Screening for University of Test 00:00:00 malignant neoplasm [place] Med ical of cervix Branch (procedure) [code = 475077816] Future Scheduled 2022-02-01 Screening for University of Test 00:00:00 malignant neoplasm [place] Med ical of breast Branch (procedure) [code = 168017206] Future Scheduled 2021-12-21 Creatinine University of Test 00:00:00 measurement [facility] (procedure) [code = Branch 67963165] Future Scheduled 2021-12-21 Calculated low Universit y of Test 00:00:00 density lipoprotein [facility] dical cholesterol level Branch (procedure) [code = 069829368] Future Scheduled 2021-12-20 Examination of Universit y of Test 00:00:00 retina (procedure) [place] Med ical [code = 158119383] Branch Future Scheduled 2021-10-31 DTaP,Tdap,and Td Postponed from Unive rsity of Test 00:00:00 Vaccines (1 - Tdap) 1977 [facility] dical [code = (Insurance / Branch DTaP,Tdap,and Td Financial) Vaccines (1 - Tdap)] Future Scheduled 2021-10-31 Zoster Recombinant Postponed from Uni versity of Test 00:00:00 Vaccine (SHINGRIX) 2008 [place] Med ical (1 of 2) [code = (Vaccine not Branch Zoster Recombinant available) Vaccine (SHINGRIX) (1 of 2)] Future Scheduled 2021-09-11 Diabetic foot University of Test 00:00:00 examination [facility] (regime/therapy) Branch [code = 500178287] Future Scheduled 2021-09-11 Microalbumin University of Test 00:00:00 measurement, urine, [place] Me dical quantitative Branch (procedure) [code = 911498788] Future Scheduled 2021-06-23 Hemoglobin A1c Universit y of Test 00:00:00 measurement [facility] (procedure) [code = Branch 86181493] Future Scheduled 2020-09-[address] [facility] - Test 00:00:00 (12+) [code = [facility] DEPRESSION SCREENING (12+)] Future Scheduled 2020-03-08 DTAP/TDAP/TD [facility] - Test 00:00:00 VACCINES (2 - Td) Medical Ce nter [code = DTAP/TDAP/TD VACCINES (2 - Td)] Future Scheduled 2008 Screening for occult Uni versity of Test 00:00:00 blood in feces [facility] (procedure) [code = Branch 213971926] Future Scheduled 2008 Stool DNA-based Universi ty of Test 00:00:00 colorectal cancer [place] Medi [place] screening Branch (procedure) [code = 014364580437922] Future Scheduled 2008 Flexible fiberoptic Univ ersity of Test 00:00:00 sigmoidoscopy [facility] (procedure) [code = Branch 40210042] Future Scheduled 2008 Screening for University of Test 00:00:00 malignant neoplasm [place] Med ical of colon (procedure) Branch [code = 168161445] Future Scheduled 2008 Screening for University of Test 00:00:00 malignant neoplasm [place] Med ical of colon (procedure) Branch [code = 839133999] Future Scheduled 2008 SHINGLES VACCINES ([address] [facility] - Test 00:00:00 of 2) [code = [facility] SHINGLES VACCINES (1 of 2)] Future Scheduled [address] [facility] - Test 00:00:00 malignant neoplasm Medical C enter of cervix (procedure) [code = 437799492] Future Scheduled [address] [facility] - Test 00:00:00 SCREENING [code = Medical Ce nter HEPATITIS C SCREENING] Future Scheduled 1974 SARS-CoV-2 University of Test 00:00:00 (COVID-19) Vaccine [place] Med ical (1) [code = Branch SARS-CoV-2 (COVID-19) Vaccine (1)] Future Scheduled 1970 Depression screening Uni versity of Test 00:00:00 (procedure) [code = [place] Me dical 294181542] Branch Future Scheduled [address] [facility] - Test 00:00:00 malignant neoplasm Medical C enter of breast (procedure) [code = 861459872] Future Scheduled [address] [facility] - Test 00:00:00 malignant neoplasm Medical C enter of colon (procedure) [code = 176388642] Results Test Description Test Time Test Comments Results Result Sour e Comments BI SCREENING Examination:[facility] [place] T[facility] 6 SCREENING [place] Medic al BILATERAL 15:48:19 TOMOSYNTHESIS Branch BILATERAL History:Patient is 60 year old and is seen for: Screening mammogram.. Computer-aided detection (CAD) utilized. Comparisons: 04/05/2019 BI SCREENING TOMOSYNTHESIS BILATERAL, 02/24/2018 BI SCREENING TOMOSYNTHESIS BILATERAL, 02/10/2017 SCREENING DIGITAL BREAST DANYEL, 01/17/2015 DIGITAL DIAGNOSTIC MAMMOGRAM, UNILATERAL, and 11/17/2014 DIGITAL MAMMOGRAM, SCREENING Findings:The breasts have scattered areas of fibroglandular density. LeftThere is a focal asymmetry seen in the lower outer quadrant of the left breast in the posterior depth. Compared to the previous study, there are no significant changes. There is no evidence of suspicious masses, calcifications, or other abnormal findings in the left breast. RightThere is a focal asymmetry seen in the upper outer quadrant of the right breast in the posterior depth. Compared to the previous study, there are no significant changes. There is no evidence of suspicious masses, calcifications, or other abnormal findings in the right breast. BilateralThere are round and dystrophic calcifications seen in both breasts. Compared to the previous study, the calcifications increased in number. There is no evidence of suspicious masses, calcifications, or other abnormal findings. Impression:No signs of malignancy. Recommendation:Vera valdes mammographic follow-up - LeftAnnual mammographic follow-up - RightAnnual mammographic follow-up - Bilateral BI-RADS Category: Both 2 - Benign POC-Glucose meter 2021-01-18 14:47:00 Test Item Value Reference Range Interpretation Comme nts POC-Glucose Meter (test code = 127 mg/dL 70-110 H : TESTED AT [facility] 7200 1538) [facility] [address]: Dump Grounds Checker/Techni bishnu ID = [id number] for JIM CHEN Lab Interpretation (test code = Abnormal 65915-5) [facility] [id number] 14:47:00 Test Item Value Reference Range Interpretation Comments POC-GLUCOSE METER 127 mg/dL 70-110 H : TESTED A T [facility] (BEAKER) (test code 7200 [facility] B = 1538) [facility] 7703 0: Dump Grounds Checker/Techni bishnu ID = [id number] for VANDANA TO
[2021-02-14 00:38] LABS: Absolute Lymphocytes (CBC) 3.6 K/uL (0.7-4.9); Basophils % 0.7 % (0-1.3); Lymphocytes % 31.9 % (15.3-44.8); MPV 9.8 fL (7.6-11.3); RBC Red Blood Cell Count 3.46 M/uL (3.86-4.86)
[2021-02-14 00:53] LABS: ALT/SGPT 24 U/L (12-78); AST/SGOT 13 U/L (15-37); Albumin 2.9 g/dL (3.4-5.0); Alkaline Phosphatase 65 U/L (45-117); BUN Blood Urea Nitrogen 27 mg/dL (7-18); Bicarbonate 28 mmol/L (21-32); Bilirubin Direct < 0.1 mg/dL (0-0.2); Bilirubin Total 0.2 mg/dL (0.2-1.0); C-Reactive Protein 6.18 mg/L (<3.00); Glucose Level 207 mg/dL (74-106); Lipase 166 U/L (73-393); Magnesium 2.2 mg/dL (1.8-2.4); NT PRO-BNP 449 pg/mL (<125); Potassium 3.9 mmol/L (3.5-5.1); Protein, Total 7.2 g/dL (6.4-8.2); Sodium Level 140 mmol/L (136-145); Troponin (Emerg Dept Use Only) < 0.02 ng/mL (0.0-0.045)
[2021-02-14 00:53] LABS: Urine Blood 1+ (Negative); Urine Glucose Trace (Negative); Urine Protein 3+ (Negative); Urine Specific Gravity >=1.030 (1.005-1.030)
[2021-02-14] MEDS ORDERED: FOLIC ACID 5 MG/ML VIAL ONE (00:59)
[2021-02-14] MEDS ORDERED: NA CHLORIDE 0.9% 1,000 ML ONE (01:00)
[2021-02-14 01:08] LABS: Protime INR 0.94
--- NOTE | 2021-02-14 03:43 | ER ---
Nurse's Notes [facility] Name: Genny Matamoros Age: 60 yrs Sex: Female : 1960 Arrival Date: 02/13/2021 Time: 23:20 Bed 15 Private MD: Diagnosis: Essential (primary) hypertension;Headache;Type 2 diabetes mellitus;Transient cerebral ischemic attack, unspecified Presentation: 02/13 23:24 Chief complaint: EMS states: patient has been complaining of left sided weakness, jm8 numbness, feeling light-headed and pain since this morning. Patient has history of TIA in the past. Coronavirus screen: Client denies travel out of the [place] in the last 14 days. At this time, the client does not indicate any symptoms associated with coronavirus-19. Ebola Screen: Patient negative for fever greater than or equal to 101.5 degrees Fahrenheit, and additional compatible Ebola Virus Disease symptoms Patient denies exposure to infectious person. Patient denies travel to an Ebola-affected area in the 21 days before illness onset. Initial Sepsis Screen: Does the patient meet any 2 criteria? No. Patient's initial sepsis screen is negative. Does the patient have a suspected source of infection? No. Patient's initial sepsis screen is negative. Risk Assessment: Do you want to hurt yourself or someone else? Patient reports no desire to harm self or others. Onset of symptoms was February 13, 2021 at 08:00. 23:24 Method Of Arrival: EMS: [place] [id number] 23:24 Acuity: SADE 3 jm8 Triage Assessment: 23:32 General: Appears in no apparent distress. comfortable, Behavior is calm, cooperative, jm8 appropriate for age. Pain: Denies pain. EENT: No deficits noted. No signs and/or symptoms were reported regarding the EENT system. Neuro: Level of Consciousness is awake, alert, obeys commands, Oriented to person, place, time, Moves all extremities. Full function Speech is normal, Facial symmetry appears normal, Pupils are Intact Tingling in left arm and left leg Numbness in left arm and left leg Reports dizziness, since this morning headache numbness in left arm and left leg. Cardiovascular: No deficits noted. Respiratory: No deficits noted. Airway is patent Trachea midline Respiratory effort is even, unlabored, Respiratory pattern is regular, symmetrical. GI: No deficits noted. No signs and/or symptoms were reported involving the gastrointestinal system. : No deficits noted. No signs and/or symptoms were reported regarding the genitourinary system. Derm: No deficits noted. No signs and/or symptoms reported regarding the dermatologic system. Skin is intact, is healthy with good turgor, Skin is dry, Skin is pink, warm \T\ dry. Skin temperature is warm. Musculoskeletal: No deficits noted. 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 - Social history:: Smoking status: Patient denies any tobacco usage or history of. - Family history:: not pertinent. Screenin:31 Abuse screen: Denies threats or abuse. Denies injuries from another. Nutritional [facility] screening: No deficits noted. Tuberculosis screening: No symptoms or risk factors identified. Fall Risk None identified. Assessment: 23:34 Reassessment: see triage assessment. [facility] 02/14 00:27 Cardiovascular: Rhythm is sinus rhythm. [facility] Vital Signs: 02/13 23:24 BP 185 / 122; Pulse 86; Resp 16; Temp 98.6; Pulse Ox 100% ; Weight 83.01 kg; Height 5 [facility] ft. 3 in. (160.02 cm); Pain 0/10; 02/14 01:00 BP 154 / 65; Pulse 86; Resp 16; Pulse Ox 100% ; [facility] 03:45 BP 149 / 60; Pulse 91; Resp 16; Pulse Ox 100% on R/A; [facility] 05:18 BP 166 / 71; Pulse 82; Resp 16; Pulse Ox 100% ; [facility] 02/13 23:24 Body Mass Index 32.42 (83.01 kg, 160.02 cm) [facility] Jocelyn Coma Score: 00:22 Eye Response: spontaneous(4). Verbal Response: oriented(5). Motor Response: obeys [facility] commands(6). Total: 15. NIH Stroke Scale Scores: 02/13 23:45 NIHSS Score: 0 [facility] 02/14 03:44 NIHSS Score: 0 [facility] ED Course: 02/13 23:20 Patient arrived in ED. mw2 23:29 Triage completed. jm8 23:31 Patient has correct armband on for positive identification. Bed in low position. Call [facility] light in reach. Side rails up X2. 23:32 Arm band placed on right wrist. jm8 23:48 Maintain EMS IV. Dressing intact. Good blood return noted. Site clean \T\ dry. Gauge \T\ 8 site: 18 G left AC. 23:48 Initial lab(s) drawn, by me, sent to lab. 8 23:57 Luis Samuels MD is Attending Physician. [facility] 02/14 03:41 Gautam Leon MD is Hospitalizing Provider. [facility] 05:12 No provider procedures requiring assistance completed. [facility] 07:30 Jesus Strong RN is Primary Nurse. [facility] 13:14 Patient admitted, IV remains in place. [facility] Administered Medications: 00:54 Drug: foLIC Acid 1 mg Route: IVPB; Site: left antecubital; jm8 00:54 Drug: NS 0.9% 1000 ml Route: IV; Rate: 125 ml/hr; Site: left antecubital; jm8 04:16 Drug: Norvasc (amlodipine) 5 mg Route: PO; jm8 06:58 Follow up: Response: No adverse reaction 8 04:17 Drug: PlaVIX (clopidogrel) 75 mg Route: PO; jm8 06:59 Follow up: Response: No adverse reaction jm8 04:17 Drug: Aspirin 162 mg Route: PO; jm8 06:59 Follow up: Response: No adverse reaction 8 Outcome: 03:43 Decision to Hospitalize by Provider. [facility] 13:13 Admitted to Med/surg accompanied by tech, room 409, with chart, Report called to beny Sanchez RN 13:13 Condition: stable 13:13 Instructed on the need for admit. 13:34 Patient left the ED. [facility] NIH Stroke Scale - NIH Stroke Score Date: 02/13/2021 Time: 23:45 Total Score = 0 1a. Level of Consciousness (LOC) - 0(Alert) 1b. Level of Consciousness (LOC) (Year \T\ Age) - 0(Both) 1c. LOC Commands (Open \T\ Closes Eyes/It Application Support Analyst) - 0(Both) 2. Best Gaze (Lateral Gaze Paresis) - 0(Normal) 3. Visual Field Loss - 0(No visual loss) 4. Facial Palsy - 0(Normal) 5a. Left Arm: Motor (10-second hold) - 0(No drift) 5b. Right Arm: Motor (10-second hold) - 0(No drift) 6a. Left Leg: Motor (5-second hold - always test supine) - 0(No drift) 6b. Right Leg: Motor (5-second hold - always test supine) - 0(No drift) 7. Limb Ataxia (finger/nose \T\ heel/jefferson - test with eyes open) - 0(Absent) 8. Sensory Loss (pinprick arms/legs/face) - 0(Normal) 9. Best Language: Aphasia (description/naming/reading) - 0(No aphasia) 10. Dysarthria (speech clarity - read or repeat words) - 0(Normal) 11. Extinction and Inattention (visual/tactile/auditory/spatial/personal) - 0(No abnormality) Initials: jm8 NIH Stroke Scale - NIH Stroke Score Date: 02/14/2021 Time: 03:44 Total Score = 0 1a. Level of Consciousness (LOC) - 0(Alert) 1b. Level of Consciousness (LOC) (Year \T\ Age) - 0(Both) 1c. LOC Commands (Open \T\ Closes Eyes/It Application Support Analyst) - 0(Both) 2. Best Gaze (Lateral Gaze Paresis) - 0(Normal) 3. Visual Field Loss - 0(No visual loss) 4. Facial Palsy - 0(Normal) 5a. Left Arm: Motor (10-second hold) - 0(No drift) 5b. Right Arm: Motor (10-second hold) - 0(No drift) 6a. Left Leg: Motor (5-second hold - always test supine) - 0(No drift) 6b. Right Leg: Motor (5-second hold - always test supine) - 0(No drift) 7. Limb Ataxia (finger/nose \T\ heel/jefferson - test with eyes open) - 0(Absent) 8. Sensory Loss (pinprick arms/legs/face) - 0(Normal) 9. Best Language: Aphasia (description/naming/reading) - 0(No aphasia) 10. Dysarthria (speech clarity - read or repeat words) - 0(Normal) 11. Extinction and Inattention (visual/tactile/auditory/spatial/personal) - 0(No abnormality) Initials: [facility] Signatures: Luis Samuels MD MD cha [place], MyKena mw2 Cassandra Laguna RN RN vg1 Jesus Strong RN RN ll1 Harsha Peck RN RN jm8
--- NOTE | 2021-02-14 03:44 | EDPHYS ---
Physician Documentation [facility] Name: Genny Matamoros Age: 60 yrs Sex: Female : 1960 Arrival Date: 02/13/2021 Time: 23:20 Bed 15 Private MD: MARIBETH Physician Luis Samuels HPI: 02/14 00:15 This 60 yrs old Female presents to ER via EMS with complaints of headache, lan left side numbness. 00:15 The patient complains of pain to the left side of the back of head, left occipital lan area, left base of the skull, right side of the back of head, right occipital area and right base of the skull. The patient describes the headache as intermittent. Onset: The symptoms/episode began/occurred this morning, at 19:00. The patient's problem is reported as paresthesias, in left upper extremity, in left lower extremity. Onset: The symptoms/episode began/occurred at 22:30. Duration: The episode is continuous. Context: the episode(s) was witnessed, by no one, occurred at home, occurred while the patient was at rest. The symptoms are alleviated by nothing. The symptoms are aggravated by nothing. Associated signs and symptoms: Pertinent positives: nausea. Headache History: Denies prior headaches. 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 - Social history:: Smoking status: Patient denies any tobacco usage or history of. - Family history:: not pertinent. ROS: 02/14 00:15 Constitutional: Negative for fever, chills, and weight loss, Eyes: Negative for injury, lan pain, redness, and discharge, ENT: Negative for injury, pain, and discharge, Neck: Negative for injury, pain, and swelling, Cardiovascular: Negative for chest pain, palpitations, and edema, Respiratory: Negative for shortness of breath, cough, wheezing, and pleuritic chest pain, Abdomen/GI: Negative for abdominal pain, nausea, vomiting, diarrhea, and constipation, Back: Negative for injury and pain, : Negative for injury, bleeding, discharge, and swelling, MS/Extremity: Negative for injury and deformity, Skin: Negative for injury, rash, and discoloration, Psych: Negative for depression, anxiety, suicide ideation, homicidal ideation, and hallucinations, Allergy/Immunology: Negative for hives, rash, and allergies, Endocrine: Negative for neck swelling, polydipsia, polyuria, polyphagia, and marked weight changes, Hematologic/Lymphatic: Negative for swollen nodes, abnormal bleeding, and unusual bruising. Neuro: Positive for headache, of the scalp. Exam: 00:15 Constitutional: This is a well developed, well nourished patient who is awake, alert, lan and in no acute distress. Head/Face: Normocephalic, atraumatic. Eyes: Pupils equal round and reactive to light, extra-ocular motions intact. Lids and lashes normal. Conjunctiva and sclera are non-icteric and not injected. Cornea within normal limits. Periorbital areas with no swelling, redness, or edema. ENT: Nares patent. No nasal discharge, no septal abnormalities noted. Tympanic membranes are normal and external auditory canals are clear. Oropharynx with no redness, swelling, or masses, exudates, or evidence of obstruction, uvula midline. Mucous membranes moist. Neck: Trachea midline, no thyromegaly or masses palpated, and no cervical lymphadenopathy. Supple, full range of motion without nuchal rigidity, or vertebral point tenderness. No Meningismus. Chest/axilla: Normal chest wall appearance and motion. Nontender with no deformity. No lesions are appreciated. Cardiovascular: Regular rate and rhythm with a normal S1 and S2. No gallops, murmurs, or rubs. Normal PMI, no JVD. No pulse deficits. Respiratory: Lungs have equal breath sounds bilaterally, clear to auscultation and percussion. No rales, rhonchi or wheezes noted. No increased work of breathing, no retractions or nasal flaring. Abdomen/GI: Soft, non-tender, with normal bowel sounds. No distension or tympany. No guarding or rebound. No evidence of tenderness throughout. Back: No spinal tenderness. No costovertebral tenderness. Full range of motion. Female : Normal external genitalia. Skin: Warm, dry with normal turgor. Normal color with no rashes, no lesions, and no evidence of cellulitis. MS/ Extremity: Pulses equal, no cyanosis. Neurovascular intact. Full, normal range of motion. Psych: Awake, alert, with orientation to person, place and time. Behavior, mood, and affect are within normal limits. 00:15 Neuro: Orientation: is normal, appropriate for stated age, no acute changes, Mentation: is normal, appropriate for stated age, no acute changes, Memory: is normal, appropriate for stated age, no acute changes, Cranial nerves: grossly normal, is grossly normal based on the patient's age, no acute changes, Cerebellar function: is grossly normal, is grossly normal based on the patient's age, no acute changes, Motor: moves all fours, Sensation: light touch is decreased in the left arm and left leg, Gait: not tested. Deep tendon reflexes are 2+ (normal) in the bilateral brachioradialis, bicep, tricep and patellar and Achilles tendons, Babinski testing is normal, seizure activity, is not displayed by the patient. 00:47 Radiologist reports: negative [facility] 03:43 ECG was reviewed by the Attending Physician. [facility] Vital Signs: 02/13 23:24 BP 185 / 122; Pulse 86; Resp 16; Temp 98.6; Pulse Ox 100% ; Weight 83.01 kg; Height 5 [facility] ft. 3 in. (160.02 cm); Pain 0/10; 02/14 01:00 BP 154 / 65; Pulse 86; Resp 16; Pulse Ox 100% ; [facility] 03:45 BP 149 / 60; Pulse 91; Resp 16; Pulse Ox 100% on R/A; [facility] :18 BP 166 / 71; Pulse 82; Resp 16; Pulse Ox 100% ; [facility] 02/13 23:24 Body Mass Index 32.42 (83.01 kg, 160.02 cm) [facility] NIH Stroke Scale Scores: 02/13 23:45 NIHSS Score: 0 [facility] 02/14 03:44 NIHSS Score: 0 [facility] Kirby Coma Score: 00:22 Eye Response: spontaneous(4). Verbal Response: oriented(5). Motor Response: obeys [facility] commands(6). Total: 15. MDM: 02/13 23:57 Patient medically screened. [facility] 02/14 00:22 Differential diagnosis: cluster headache, cerebral vascular accident, CVA, TIA, lan Dementia, metabolic disorder, hypoglycemia, intracerebral hemorrhage, subarachnoid bleed, temporal arteritis, tension headache. Data reviewed: vital signs, nurses notes, lab test result(s), EKG, radiologic studies, CT scan, plain films. Data interpreted: education site manager: rate is 86 beats/min, rhythm is regular, Pulse oximetry: on room air is 100 %. Test interpretation: by ED physician or midlevel provider: ECG, plain radiologic studies. Counseling: I had a detailed discussion with the patient and/or guardian regarding: the historical points, exam findings, and any diagnostic results supporting the discharge/admit diagnosis, lab results, radiology results. 00:23 ED course: woke up with jimenez this morning, had sudden jimenez tonight at 7 pm, fell asleep lan woke up at 1030 wiyh left side numbness, mainly upper left back. 03:40 ED course: PT WENT TO BED AT 7PM , WOKE UP WITH NUMBNESS, OUT OF WINDOW, NO TPA. lan 03:45 ED course: PT AT BASELINE, NO JIMENEZ, NECK SUPPLE, MRA HEAD AND NECK NEGATIVE. [facility] 02/14 00:04 Order name: Basic Metabolic Panel [facility] 02/14 00:04 Order name: CBC with Diff [facility] 02/14 00:04 Order name: LFT's [facility] 02/14 00:04 Order name: Magnesium [facility] 02/14 00:04 Order name: NT PRO-BNP [facility] 02/14 00:04 Order name: PT-INR [facility] 02/14 00:04 Order name: Troponin (emerg Dept Use Only) [facility] 02/14 00:04 Order name: Lipase [facility] 02/14 00:04 Order name: Sed Rate [facility] 02/14 00:04 Order name: CRP [facility] 02/14 00:40 Order name: CBC with Automated Diff; Complete Time: 03:34 [facility] 02/14 00:53 Order name: Urine Dipstick-Ancillary; Complete Time: 03:34 [facility] 02/14 00:53 Order name: Basic Metabolic Panel; Complete Time: 03:34 [facility] 02/14 00:53 Order name: Liver (Hepatic) Function; Complete Time: 03:34 [facility] 02/14 00:53 Order name: Troponin (Emerg Dept Use Only); Complete Time: 03:34 [facility] 02/14 00:53 Order name: NT PRO-BNP; Complete Time: 03:34 [facility] 02/14 00:53 Order name: C-Reactive Protein; Complete Time: 03:34 [facility] 02/14 00:53 Order name: Magnesium; Complete Time: 03:34 [facility] 02/14 00:53 Order name: Lipase; Complete Time: 03:34 [facility] 02/14 01:12 Order name: Sedimentation Rate, Westergren; Complete Time: 03:34 [facility] 02/14 01:12 Order name: Protime (+INR); Complete Time: 03:34 [facility] 02/14 03:40 Order name: COVID-19 : Document "Date of Symptom Onset" if Symptomatic. [facility] 02/14 04:19 Order name: CORONAVIRUS [facility] 02/14 05:15 Order name: SARS-COV-2 RT PCR [facility] 02/14 09:15 Order name: Glucose, Ancillary Testing [facility] 02/14 10:26 Order name: Comprehensive Metabolic Panel [facility] 02/14 10:26 Order name: Troponin I [facility] 02/14 10:26 Order name: Lipid Profile [facility] 02/14 10:26 Order name: T4 Free [facility] 02/14 10:26 Order name: Thyroid Stimulating Hormone [facility] 02/14 00:04 Order name: XRAY Chest (1 view) [facility] 02/14 00:04 Order name: EKG; Complete Time: 00:06 [facility] 02/14 00:04 Order name: Cardiac monitoring; Complete Time: 00:13 [facility] 02/14 00:04 Order name: EKG - Nurse/Tech; Complete Time: 00:28 [facility] 02/14 00:04 Order name: IV Saline Lock; Complete Time: 00:27 [facility] 02/14 00:04 Order name: Labs collected and sent; Complete Time: 00:27 [facility] 02/14 00:04 Order name: O2 Per Protocol; Complete Time: 00:28 [facility] 02/14 00:04 Order name: O2 Sat Monitoring; Complete Time: 00:28 [facility] 02/14 00:04 Order name: CT Stroke Brain w/o Contrast [facility] 02/14 00:04 Order name: Urine Dipstick-Ancillary (obtain specimen); Complete Time: 00:53 [facility] 02/14 00:08 Order name: Vital Signs; Complete Time: 00:13 [facility] 02/14 00:09 Order name: CT Head Angio [facility] 02/14 00:18 Order name: Neck Angio CT [facility] 02/14 00:42 Order name: Labs - recollect needed: blue top; Complete Time: 00:53 mw2 02/14 06:11 Order name: MRI Stroke Protocol: DWI ONLY [facility] 02/14 08:08 Order name: MRI [facility] 02/14 08:36 Order name: RAD [facility] 02/14 10:26 Order name: Transferrin Sat/Iron Binding [facility] 02/14 10:27 Order name: Ferritin [facility] 02/14 10:27 Order name: Folic Acid, (Folate) [facility] 02/14 10:27 Order name: Vitamin B12 Level [facility] 02/14 12:40 Order name: Glucose, Ancillary Testing EDMS EC:43 Rate is 83 beats/min. Rhythm is regular. QRS [place] is Normal. [place] interval is normal. QRS lan interval is normal. QT interval is normal. No Q waves. T waves are Normal. No ST changes noted. Clinical impression: NSR w/ Non-specific ST/T Changes and No evidence of ischemia. Interpreted by me. Reviewed by me. Administered Medications: 00:54 Drug: foLIC Acid 1 mg Route: IVPB; Site: left antecubital; jm8 00:54 Drug: NS 0.9% 1000 ml Route: IV; Rate: 125 ml/hr; Site: left antecubital; jm8 04:16 Drug: Norvasc (amlodipine) 5 mg Route: PO; jm8 06:58 Follow up: Response: No adverse reaction jm8 04:17 Drug: PlaVIX (clopidogrel) 75 mg Route: PO; jm8 06:59 Follow up: Response: No adverse reaction jm8 04:17 Drug: Aspirin 162 mg Route: PO; jm8 06:59 Follow up: Response: No adverse reaction jm8 Disposition: 02/14/21 03:43 Hospitalization ordered by Gautam Leon for Observation. Preliminary diagnosis are Essential (primary) hypertension, Headache, Type 2 diabetes mellitus, Transient cerebral ischemic attack, unspecified. - Bed requested for Telemetry/MedSurg (observation). - Status is Observation. vg1 - Condition is Stable. - Problem is new. - Symptoms have improved. NIH Stroke Scale - NIH Stroke Score Date: 02/13/2021 Time: 23:45 Total Score = 0 1a. Level of Consciousness (LOC) - 0(Alert) 1b. Level of Consciousness (LOC) (Year \\T\\ Age) - 0(Both) 1c. LOC Commands (Open \\T\\ Closes Eyes/News Producer) - 0(Both) 2. Best Gaze (Lateral Gaze Paresis) - 0(Normal) 3. Visual Field Loss - 0(No visual loss) 4. Facial Palsy - 0(Normal) 5a. Left Arm: Motor (10-second hold) - 0(No drift) 5b. Right Arm: Motor (10-second hold) - 0(No drift) 6a. Left Leg: Motor (5-second hold - always test supine) - 0(No drift) 6b. Right Leg: Motor (5-second hold - always test supine) - 0(No drift) 7. Limb Ataxia (finger/nose \\T\\ heel/jefferson - test with eyes open) - 0(Absent) 8. Sensory Loss (pinprick arms/legs/face) - 0(Normal) 9. Best Language: Aphasia (description/naming/reading) - 0(No aphasia) 10. Dysarthria (speech clarity - read or repeat words) - 0(Normal) 11. Extinction and Inattention (visual/tactile/auditory/spatial/personal) - 0(No abnormality) Initials: jm8 NIH Stroke Scale - NIH Stroke Score Date: 02/14/2021 Time: 03:44 Total Score = 0 1a. Level of Consciousness (LOC) - 0(Alert) 1b. Level of Consciousness (LOC) (Year \\T\\ Age) - 0(Both) 1c. LOC Commands (Open \\T\\ Closes Eyes/News Producer) - 0(Both) 2. Best Gaze (Lateral Gaze Paresis) - 0(Normal) 3. Visual Field Loss - 0(No visual loss) 4. Facial Palsy - 0(Normal) 5a. Left Arm: Motor (10-second hold) - 0(No drift) 5b. Right Arm: Motor (10-second hold) - 0(No drift) 6a. Left Leg: Motor (5-second hold - always test supine) - 0(No drift) 6b. Right Leg: Motor (5-second hold - always test supine) - 0(No drift) 7. Limb Ataxia (finger/nose \\T\\ heel/jefferson - test with eyes open) - 0(Absent) 8. Sensory Loss (pinprick arms/legs/face) - 0(Normal) 9. Best Language: Aphasia (description/naming/reading) - 0(No aphasia) 10. Dysarthria (speech clarity - read or repeat words) - 0(Normal) 11. Extinction and Inattention (visual/tactile/auditory/spatial/personal) - 0(No abnormality) Initials: lan Signatures: Dispatcher [employer] EDMS Claudine Trevino Diana, RN RN dw Anderson, Corey, MD MD cha Garcia, Cindy, RN RN Cristi Watkins 2 Cassandra Laguna RN RN vg1 Harsha Peck RN RN jm8 Corrections: (The following items were deleted from the chart) 05:41 03:43 Hospitalization Ordered by Gautam Leon MD for Observation. Preliminary cg diagnosis is Essential (primary) hypertension; Headache; Type 2 diabetes mellitus; Transient cerebral ischemic attack, unspecified. Bed requested for Telemetry/MedSurg (observation). Status is Observation. Condition is Stable. Problem is new. Symptoms have improved. [facility] 12:40 05:41 02/14/2021 03:43 Hospitalization Ordered by Gautam Leon MD for dw Observation. Preliminary diagnosis is Essential (primary) hypertension; Headache; Type 2 diabetes mellitus; Transient cerebral ischemic attack, unspecified. Bed requested for [facility] ER HOLD. Status is Observation. Condition is Stable. Problem is new. Symptoms have improved. 12:40 12:40 02/14/2021 03:43 Hospitalization Ordered by Gautam Leon MD for bd Observation. Preliminary diagnosis is Essential (primary) hypertension; Headache; Type 2 diabetes mellitus; Transient cerebral ischemic attack, unspecified. Bed requested for Telemetry/MedSurg (observation). Status is Observation. Condition is Stable. Problem is new. Symptoms have improved. 13:34 12:40 02/14/2021 03:43 Hospitalization Ordered by Gautam Leon MD for vg1 Observation. Preliminary diagnosis is Essential (primary) hypertension; Headache; Type 2 diabetes mellitus; Transient cerebral ischemic attack, unspecified. Bed requested for Telemetry/MedSurg (observation). Status is Observation. Condition is Stable. Problem is new. Symptoms have improved. bd
[2021-02-14] MEDS ORDERED: ASPIRIN 81 MG CHEWABLE TABLET ONE (04:25)
[2021-02-14] MEDS ORDERED: AMLODIPINE 5 MG TAB ONE (04:26)
[2021-02-14] MEDS ORDERED: CLOPIDOGREL 75 MG TABLET ONE (04:26)
--- NOTE | 2021-02-14 05:26 | P.HP ---
Certification for Inpatient Patient admitted to: Observation With expected LOS: <2 Midnights Patient will require the following post-hospital care: None Practitioner: I am a practitioner with admitting privileges, knowledge of patient current condition, hospital course, and medical plan of care. Services: Services provided to patient in accordance with Admission requirements found in Title 42 Section 412.3 of the Code of Federal Regulations Patient History Date of Service: 02/14/21 Primary Care Provider: Anna Reason for admission: L sided numbness History of Present Illness: Ms. Matamoros is a 60 yo F with HTN, T2DM, and history of CVA here today for left sided numbness beginning at 6pm yesterday. She says she was on the phone with her sister who told her that her speech was slurred. Later she felt a sharp pain shoot down the left side of her body followed by left sided numbness in her body and left sided tingling in her face. Symptoms now resolved. She says her BP was extremely elevated when the paramedics arrived. She denies weakness and vision changes. Wbc 11.3. Hgb 9.7. BUN 27, GFR 51. Glu 207. BNP 449. Urine with 1+ blood and 3+ protein. Allergies No Known Drug Allergies Allergy (Verified 08/05/18 12:57) Unknown Home Medications: Aspirin [Ecotrin 81 MG] 81 mg PO DAILY 07/29/14 Diclofenac Sodium 100 gm TP TIDP PRN 08/05/18 Exenatide Microspheres [Bydureon Pen] 2 mg SQ EVERY 7TH DAY 08/05/18 Glipizide [Glipizide ER] 10 mg PO BID 08/05/18 Meloxicam 7.5 mg PO DAILY 08/05/18 [place]-3S/Dha/Epa/Fish Oil [[place]-3 Fish Oil 1,000 mg Sfgl] 1 each PO DAILY 08/05/18 Tramadol HCl [Ultram] 50 mg PO Q6HP PRN 08/05/18 lisinopriL [Prinivil] 5 mg PO DAILY 08/05/18 - Past Medical/Surgical History Diabetic: Yes -: Stroke Jun 2014 -: HTN -: T2DM -: tubal ligation -: appendectomy -: cataract surgery -: glaucoma surgery - Family History Father -: Heart disease, Diabetes Sister -: Stroke - Social History Smoking Status: Never smoker Alcohol use: No CD- Drugs: No Caffeine use: No Place of Residence: Home Review of Systems General: Unremarkable Eyes: Unremarkable ENT: Unremarkable Respiratory: Unremarkable Cardiovascular: Unremarkable Gastrointestinal: Unremarkable Genitourinary: Unremarkable Musculoskeletal: Unremarkable Integumentary: Unremarkable Neurological: Numbness, Change in Speech, As per HPI Lymphatics: Unremarkable Physical Examination - Physical Exam General: Alert, In no apparent distress, Oriented x3, Cooperative HEENT: Atraumatic, Normocephalic, PERRLA, Mucous membr. moist/pink, EOMI, Sclerae nonicteric Neck: Supple, 2+ carotid pulse no bruit, JVD not distended, No Thyromegaly, No LAD Respiratory: Clear to auscultation bilaterally, Normal air movement Cardiovascular: No edema, Normal pulses, Regular rate/rhythm, Normal S1 S2, No gallops, No rubs, No murmurs Capillary refill: <2 Seconds Gastrointestinal: Normal bowel sounds, Soft and benign, Non-distended, No ascites, No tenderness, No masses, No rebound, No guarding Musculoskeletal: No clubbing, No swelling, No contractures, No erythema, No tenderness, No warmth Integumentary: No rashes, No breakdown, No significant lesion, No tenderness/swelling, No erythema, No warmth, No cyanosis Neurological: Normal speech, Normal strength at 5/5 x4 extr, Normal tone, Sensation intact, Cranial nerves 3-12 intact, Normal affect Lymphatics: No axilla or inguinal lymphadenopathy - Studies Laboratory Data (last 24 hrs) 02/14/21 00:48: PT 10.8, INR 0.94 02/14/21 00:14: WBC 11.30 H, Hgb 9.7 L, Hct 29.0 L, Plt Count 198 02/14/21 00:14: Sodium 140, Potassium 3.9, BUN 27 H, Creatinine 1.09, Glucose 207 H, Magnesium 2.2, Total Bilirubin 0.2, AST 13 L, ALT 24, Alkaline Phosphatase 65, Lipase 166 Assessment and Plan - Problems (Diagnosis) (1) HTN (hypertension) Current Visit: Yes Status: Chronic Qualifiers: Hypertension type: essential hypertension Qualified Code(s): I10 - Essential (primary) hypertension (2) T2DM (type 2 diabetes mellitus) Current Visit: Yes Status: Chronic Qualifiers: 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 Diabetes mellitus complication status: with kidney complications Diabetes mellitus complication detail: with chronic kidney disease Chronic kidney disease stage 3 subtype: stage 3a (GFR 45-59) (3) TIA (transient ischemic attack) Onset Date: 07/29/14 Current Visit: No Status: Acute Qualifiers: Transient cerebral ischemia type: unspecified Qualified Code(s): G45.9 - Transient cerebral ischemic attack, unspecified - Plan Neurology consulted ASA + plavix, folic acid and statin MRI stroke protocol lipid panel pending NPO until swallow study completed, PT consult sliding scale insulin and Accuchecks iron panel, B12 and folate pending reconcile and continue home medications Discharge Plan: Home Plan to discharge in: 24 Hours - Advance Directives Does patient have a Living Will: No Does patient have a Durable POA for Healthcare: No - Code Status/Comfort Care Code Status Assessed: Yes (full code ) Critical Care: No Time Spent Managing Pts Care (In Minutes): 70
[2021-02-14] MEDS: INSULIN -REGULAR HUMAN 50 UNIT/0.5 ML ML SQ SCH ×3 (07:30→16:36)
--- NOTE | 2021-02-14 08:07 | RAD REPORT ---
EXAM DESCRIPTION: MRI - Brain Wo Cont - 02/14/2021 7:50 am CLINICAL HISTORY: Dizziness;TIA;Numbness COMPARISON: MRA HEAD W O CONTRAST dated 07/07/2014 TECHNIQUE: Sagittal T1-weighted images were obtained along with axial PD, heavily T2-weighted and T2 -FLAIR images. Axial DWI and ADC mapping sequences were also obtained along with coronal heavily T2-w eighted images. FINDINGS: No intracranial hemorrhage, mass or acute infarction. No cortical edema or sulcal effaceme nt. No measurable atrophy or chronic ischemic changes identifiable. Ventricles are normal. There is n o edema or shift of midline structures. No extra-axial fluid collections. Hernandez-matter/white matter ju nction is preserved. Signal voids are seen as a normal finding in the major intracranial vessels. No sella or supra sella abnormality. Patient has an empty sella configuration with the pituitary tiss ue seen as a thin crescent along the floor of the sella. No globe or orbital content abnormality. Mastoid air cells and paranasal sinuses are clear. IMPRESSION: No hemorrhage, infarction or other acute intracranial finding identifiable.
--- NOTE | 2021-02-14 08:35 | RAD REPORT ---
EXAM DESCRIPTION: RAD - Chest Single View - 02/14/2021 12:45 am CLINICAL HISTORY: DYSPNEAchest pain COMPARISON: Portable September 2014 TECHNIQUE: AP portable chest image was obtained 02/14/2021 12:45 am . FINDINGS: No peripheral mass or consolidation. Under penetrated film technique and lower lung volume s accentuate interstitial pattern. A minimal interstitial infiltrate or edema is doubtful but could p otentially be masked by exam limitations. Heart size accentuated by low lung volumes. No vascular eng orgement. No measurable pleural effusion and no pneumothorax. No acute bony abnormality seen. No acut e aortic findings suspected. IMPRESSION: No peripheral mass or consolidation. Accentuated interstitial pattern believed to be affects of film technique and shallow inspiration. In terstitial edema or infiltrate are possible but doubtful.
--- NOTE | 2021-02-14 08:42 | EKG ---
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 MEASUREMENT RESULTS: Intervals: Rate: 83 OK: 178 QRSD: 90 QT: 360 QTc: 423 [place]: P: 53 OK: 178 QRS: 2 T: 63 INTERPRETIVE STATEMENTS: Normal sinus rhythm Possible Left atrial enlargement Borderline ECG Compared to ECG 08/05/2018 13:06:47 No significant changes Electronically Signed On 02-14-21 08:41:14 CDT by Zack Lopez
[2021-02-14] MEDS ORDERED: ACETAMINOPHEN 500 MG TAB PO PRN (08:46)
[2021-02-14] MEDS ORDERED: ONDANSETRON 4 MG/2 ML VIAL IV PRN (08:46)
[2021-02-14] MEDS: NA CHLORIDE 0.9% 1,000 ML IV SCH ×2 (08:46→16:36)
[2021-02-14] MEDS ORDERED: FOLIC ACID 1 MG TABLET PO SCH (09:00)
[2021-02-14] MEDS ORDERED: CLOPIDOGREL 75 MG TABLET PO SCH (09:00)
[2021-02-14] MEDS ORDERED: ASPIRIN EC 81 MG TAB PO SCH (09:00)
[2021-02-14 09:23] VITALS: BMI 33.5
[2021-02-14 09:58] LABS: ALT/SGPT 22 U/L (12-78); AST/SGOT 17 U/L (15-37); Albumin 2.8 g/dL (3.4-5.0); Alkaline Phosphatase 66 U/L (45-117); BUN Blood Urea Nitrogen 20 mg/dL (7-18); Bicarbonate 25 mmol/L (21-32); Bilirubin Total 0.2 mg/dL (0.2-1.0); Ferritin 36.4 ng/mL (8-388); Folic Acid, (Folate) > 20.0 ng/mL (3.1-17.5); Glucose Level 180 mg/dL (74-106); HDL Cholesterol 46 mg/dL (40-60); LDL Cholesterol, Calculated 134 (<130); Protein, Total 6.9 g/dL (6.4-8.2); Sodium Level 140 mmol/L (136-145); Transferrin 216 mg/dL (200-360); Troponin I < 0.02 ng/mL (0.0-0.045)
[2021-02-14 11:18] VITALS: O2SAT 99
[2021-02-14] MEDS ORDERED: INSULIN -REGULAR HUMAN 50 UNIT/0.5 ML ML ONE (12:57)
--- NOTE | 2021-02-14 15:48 | P.DS ---
Admission Date: 02/14/21 Discharge Date: 02/14/21 Primary Care Provider: Anna Disposition: ROUTINE DISCHARGE Discharge Condition: FAIR Reason for Admission: L sided numbness - Problems (1) HTN (hypertension) Current Visit: Yes Status: Chronic Qualifiers: Hypertension type: essential hypertension Qualified Code(s): I10 - Essential (primary) hypertension (2) T2DM (type 2 diabetes mellitus) Current Visit: Yes Status: Chronic Qualifiers: Diabetes mellitus assisted insulin use: with assisted use Diabetes mellitus complication status: with kidney complications Diabetes mellitus complication detail: with chronic kidney disease Chronic kidney disease stage 3 subtype: stage 3a (GFR 45-59) (3) TIA (transient ischemic attack) Onset Date: 07/29/14 Current Visit: No Status: Acute Qualifiers: Transient cerebral ischemia type: unspecified Qualified Code(s): G45.9 - Transient cerebral ischemic attack, unspecified (4) Hyperlipidemia Current Visit: Yes Status: Acute Brief History of Present Illness: 60 yo F with HTN, T2DM, and history of CVA presented for left sided numbness beginning at 6pm yesterday. She also reported slurred speech and a sharp pain shoot down the left side of her body followed by left sided numbness in her body and left sided tingling in her face. Symptoms resolved before examination. She stated her BP was very much elevated initially. Wbc 11.3. Hgb 9.7. BUN 27, GFR 51. Glu 207. BNP 449. Urine with 1+ blood and 3+ protein. Head CT negative for acute CVA. Patient hospitalized for further management. Hospital Course: Patient admitted to the medical floor. CTA head and neck done were unremarkable. MRI of the brain was done which was negative for acute CVA. Patient diagnosed with TIA. This is a very her 3rd TIA episode. Patient placed on aspirin and Plavix. Lipid profile showed significantly elevated LDL. Patient placed high-dose lipitor. monitor and storage bin tender-sinus rhythm, no afib. Case discussed with neurology-Dr. Shoemaker will agrees with dual platelet therapy. He also recommended folic acid which has been prescribed. Patient has been asymptomatic during the hospital stay and deemed stable for discharge. All her home medications are resumed on discharge. Vital Signs/Physical Exam: Temp Pulse Resp BP Pulse Ox 97.6 F 89 16 146/64 H 99 02/14/21 14:05 02/14/21 14:05 02/14/21 14:05 02/14/21 14:05 02/14/21 14:05 General: Alert, In no apparent distress, Oriented x3 HEENT: Mucous membr. moist/pink Neck: Supple Respiratory: Clear to auscultation bilaterally, Normal air movement Cardiovascular: No edema, Regular rate/rhythm, Normal S1 S2 Gastrointestinal: Normal bowel sounds, Soft and benign, Non-distended, No tenderness Musculoskeletal: No swelling Integumentary: No rashes, No erythema Neurological: Normal speech, Normal strength at 5/5 x4 extr, Normal reflexes 2+ Laboratory Data at Discharge: WBC 11.30 K/uL (4.3-10.9) H 02/14/21 00:14 Hgb 9.7 g/dL (12.0-15.0) L 02/14/21 00:14 Hct 29.0 % (36.0-45.0) L 02/14/21 00:14 Plt Count 198 K/uL (152-406) 02/14/21 00:14 PT 10.8 SECONDS (9.5-12.5) 02/14/21 00:48 INR 0.94 02/14/21 00:48 Sodium 140 mmol/L (136-145) 02/14/21 09:02 Potassium 4.0 mmol/L (3.5-5.1) 02/14/21 09:02 BUN 20 mg/dL (7-18) H 02/14/21 09:02 Creatinine 0.80 mg/dL (0.55-1.3) 02/14/21 09:02 Glucose 180 mg/dL (74-106) H 02/14/21 09:02 Magnesium 2.2 mg/dL (1.8-2.4) 02/14/21 00:14 Total Bilirubin 0.2 mg/dL (0.2-1.0) 02/14/21 09:02 AST 17 U/L (15-37) 02/14/21 09:02 ALT 22 U/L (12-78) 02/14/21 09:02 Alkaline Phosphatase 66 U/L (45-117) 02/14/21 09:02 Troponin I < 0.02 ng/mL (0.0-0.045) 02/14/21 09:02 Triglycerides 164 mg/dL (<150) H 02/14/21 09:02 Cholesterol 213 mg/dL (<200) H 02/14/21 09:02 HDL Cholesterol 46 mg/dL (40-60) 02/14/21 09:02 Cholesterol/HDL Ratio 4.63 02/14/21 09:02 Lipase 166 U/L (73-393) 02/14/21 00:14 Home Medications: Glipizide [Glipizide ER] 10 mg PO BID 08/05/18 Aspirin [Ecotrin 81 MG] 81 mg PO DAILY #30 02/14/21 Atorvastatin Calcium [Lipitor] 80 mg PO BEDTIME #30 tab 02/14/21 Cholecalciferol (Vitamin D3) [Vitamin D3] 1 cap PO DAILY 02/14/21 Clopidogrel Bisulfate [Plavix*] 75 mg PO DAILY #30 tablet 02/14/21 Cyanocobalamin (Vitamin B-12) [Vitamin B-12] 1 tab PO DAILY 02/14/21 Folic Acid 1 mg PO DAILY #30 tablet 02/14/21 Insulin Glargine,Hum.rec.anlog [[place]] 28 units SQ SEECOM 02/14/21 Lisinopril/Hydrochlorothiazide [Lisinopril-Hctz 10-12.5 mg Tab] 1 tab PO DAILY 02/14/21 Metformin HCl [Glucophage*] 500 mg PO DAILY 02/14/21 New Medications: Aspirin [Ecotrin 81 MG] 81 mg PO DAILY #30 Folic Acid 1 mg PO DAILY #30 tablet Atorvastatin Calcium [Lipitor] 80 mg PO BEDTIME #30 tab Clopidogrel Bisulfate [Plavix*] 75 mg PO DAILY #30 tablet Diet: ADA Activity: Ad juan Followup: Esequiel Shoemaker MD [ASSOCIATE-ACTIVE - CAN ADMIT] - (Within 1 month.) NONE,NONE [Primary Care Provider] - 1-2 Weeks
[2021-02-14 16:36] VITALS: BP 164/70; TEMP 97.5
[2021-02-14] MEDS ORDERED: AMLODIPINE 5 MG TAB PO ONE (17:00)
--- NOTE | 2021-02-14 17:04 | RAD REPORT ---
EXAM DESCRIPTION: CT - Head angio - 02/14/2021 7:13 am CLINICAL HISTORY: 60 years Female ams TECHNIQUE: Following dynamic intravenous nonionic contrast infusion, multiple axial helical CT angio graphic images of the head and neck with multiplanar reformation, 3D and MIP reconstructions were per formed. All CT scans at this facility use dose modulation, iterative reconstruction, and/or weight based dosing when appropriate to reduce radiation dose to as low as reasonably achievable. Stenosis m easurements performed using NASCET criteria. COMPARISON: None. FINDINGS: CTA HEAD: LEFT: ICA: Atherosclerotic calcification of the cavernous segment with mild to moderate narrowing. No occlu daniel. Anterior cerebral arteries: No stenosis or occlusion. Middle cerebral arteries: No stenosis or occlusion. Posterior cerebral arteries: No stenosis or occlusion. RIGHT: ICA: Atherosclerotic calcification of the cavernous segment with mild to moderate narrowing. No occlu daniel. Anterior cerebral arteries: No stenosis or occlusion. Middle cerebral arteries: No stenosis or occlusion. Posterior cerebral arteries: No stenosis or occlusion. Basilar artery: No stenosis or occlusion. Vertebral artery: No dissection, occlusion or significant stenosis. Other: No aneurysm or vascular malformation. Dural venous sinuses are patent. CTA NECK: Aortic arch and branches: Not imaged. LEFT Vertebral artery: Visualized portion is without stenosis, dissection or occlusion. Common carotid artery: Visualized portion is without stenosis, dissection or occlusion. Internal carotid: No stenosis, dissection or occlusion. External carotid: No stenosis or occlusion. RIGHT Vertebral artery: Visualized portion is without stenosis, dissection or occlusion. Common carotid artery: Visualized portion is without stenosis, dissection or occlusion. Internal carotid: No stenosis, dissection or occlusion. External carotid: No stenosis or occlusion. IMPRESSION: CTA head: 1. No large vessel intracranial occlusive disease. 2. Atherosclerotic calcification of the bilateral cavernous ICA segments with mild to moderate narrow ing. CTA neck: 1. No acute cervical vascular pathology. 2. No hemodynamically significant carotid stenosis. Electronically signed by: Murphy Haq MD 02/14/2021 2:10 AM CDT Due to temporary technical issues with the PACS/Fluency reporting system, reports are being signed by the in house radiologists without review as a courtesy to insure prompt reporting. The interpreting radiologist is fully responsible for the content of the report.
--- NOTE | 2021-02-14 17:05 | RAD REPORT ---
EXAM DESCRIPTION: CT - Neck Angio - 02/14/2021 7:12 am CLINICAL HISTORY: 60 years Female ams TECHNIQUE: Following dynamic intravenous nonionic contrast infusion, multiple axial helical CT angio graphic images of the head and neck with multiplanar reformation, 3D and MIP reconstructions were per formed. All CT scans at this facility use dose modulation, iterative reconstruction, and/or weight based dosing when appropriate to reduce radiation dose to as low as reasonably achievable. Stenosis m easurements performed using NASCET criteria. COMPARISON: None. FINDINGS: CTA HEAD: LEFT: ICA: Atherosclerotic calcification of the cavernous segment with mild to moderate narrowing. No occlu daniel. Anterior cerebral arteries: No stenosis or occlusion. Middle cerebral arteries: No stenosis or occlusion. Posterior cerebral arteries: No stenosis or occlusion. RIGHT: ICA: Atherosclerotic calcification of the cavernous segment with mild to moderate narrowing. No occlu daniel. Anterior cerebral arteries: No stenosis or occlusion. Middle cerebral arteries: No stenosis or occlusion. Posterior cerebral arteries: No stenosis or occlusion. Basilar artery: No stenosis or occlusion. Vertebral artery: No dissection, occlusion or significant stenosis. Other: No aneurysm or vascular malformation. Dural venous sinuses are patent. CTA NECK: Aortic arch and branches: Not imaged. LEFT Vertebral artery: Visualized portion is without stenosis, dissection or occlusion. Common carotid artery: Visualized portion is without stenosis, dissection or occlusion. Internal carotid: No stenosis, dissection or occlusion. External carotid: No stenosis or occlusion. RIGHT Vertebral artery: Visualized portion is without stenosis, dissection or occlusion. Common carotid artery: Visualized portion is without stenosis, dissection or occlusion. Internal carotid: No stenosis, dissection or occlusion. External carotid: No stenosis or occlusion. IMPRESSION: CTA head: 1. No large vessel intracranial occlusive disease. 2. Atherosclerotic calcification of the bilateral cavernous ICA segments with mild to moderate narrow ing. CTA neck: 1. No acute cervical vascular pathology. 2. No hemodynamically significant carotid stenosis. Electronically signed by: Murphy Haq MD 02/14/2021 2:10 AM CDT Due to temporary technical issues with the PACS/Fluency reporting system, reports are being signed by the in house radiologists without review as a courtesy to insure prompt reporting. The interpreting radiologist is fully responsible for the content of the report.
--- NOTE | 2021-02-14 17:12 | RAD REPORT ---
EXAM DESCRIPTION: CT - Ct Stroke Brain Wo Cont - 02/14/2021 7:12 am ADDENDUM #1 THIS REPORT CONTAINS FINDINGS THAT MAY BE CRITICAL TO PATIENT CARE: The findings were verbally discus sed via telephone conference with Luis Samuels MD on 02/14/2021 at 12:46 AM CDT. Electronically signed by: Murphy Haq MD 02/14/2021 12:47 AM CDT End of Addendum EXAM DESCRIPTION: Ct Stroke Brain Wo Cont CLINICAL HISTORY: 60 years Female Dizziness; TIA TECHNIQUE: Axial noncontrast CT head with coronal and sagittal reformats. All CT scans at this facil it use dose modulation, iterative reconstruction, and/or weight based dosing when appropriate to red uce radiation dose to as low as reasonably achievable. COMPARISON: None. FINDINGS: Brain: Normal in morphology and attenuation. No intracranial hemorrhage, midline shift, ma ss or mass effect. No obvious large acute territorial infarction. Ventricles: No hydrocephalus. Orbits: Postsurgical changes in the left orbit. Sinuses: Visualized portions are clear. Mastoid: Clear. Osseous: Unremarkable. Soft tissues: Unremarkable. IMPRESSION: No acute CT findings. Electronically signed by: Murphy Haq MD 02/14/2021 12:41 AM CDT ADDENDUM #1 THIS REPORT CONTAINS FINDINGS THAT MAY BE CRITICAL TO PATIENT CARE: The findings were verbally discus sed via telephone conference with Luis Samuels MD on 02/14/2021 at 12:46 AM CDT. Electronically signed by: Murphy Haq MD 02/14/2021 12:47 AM CDT End of Addendum
[2021-02-14] MEDS ORDERED: ATORVASTATIN 40 MG TAB PO SCH (21:00)
== END 2021-02-14 19:11 | disposition home or self-care (01) | DRG 69 ==
LOC: ER 23:18 → ERHOLD 02-14 05:12 → 4TH 02-14 13:28
PROVIDERS: ADMIT Internal Medicine; ATTEND Internal Medicine
DX: G45.9 Transient cerebral ischemic attack, unspecified (principal); I12.9 Hypertensive chronic kidney disease with stage 1 through stage 4 chronic kidney disease, or unspecified chronic kidney disease; N18.31 Chronic kidney disease, stage 3a; E11.22 Type 2 diabetes mellitus with diabetic chronic kidney disease; E78.5 Hyperlipidemia, unspecified; R29.700 NIHSS score 0; R47.81 Slurred speech; R51.9 Headache, unspecified; R20.0 Anesthesia of skin; R20.2 Paresthesia of skin; Z79.899 Other long term (current) drug therapy; Z86.73 Personal history of transient ischemic attack (TIA), and cerebral infarction without residual deficits; Z79.4 Long term (current) use of insulin; Z79.82 Long term (current) use of aspirin; Z98.51 Tubal ligation status; Z90.49 Acquired absence of other specified parts of digestive tract; Z20.822 Contact with and (suspected) exposure to COVID-19
CPT/HCPCS: 36415; 70450; 70496; 70498; 70551; 71045; 80048; 80053; 80061; 80076; 81003; 82607; 82728; 82746; 82947; 83540; 83690; 83735; 83880; 84439; 84443; 84466; 84484; 85025; 85610; 85652; 86140; 93005; 94760; 96374; 97110; 97116; 97161; 99285; J7030; Q9967; U0003

== ENCOUNTER 2021-05-23 15:16 | Emergency (ER) | payer OTHER ==
--- OUTSIDE RECORDS SUMMARY | 2021-05-23 15:21 | XMS REPORT | Continuity of Care Document ---
:1960 Author Organization [facility] t Address [address] [place] [address] Care Team Providers Name Role Phone Destin GALAVIZ, A Primary Care Physician Timothy Renee MD Attending Clinician Destin GALAVIZ, Merlin Attending Clinician ALBIN RIDER Attending Clinician Unavailable Brendon GALAVIZ Attending Clinician Manuel GALAVIZ TVictoria Attending Clinician Scarlett Wilcox MD Attending Clinician Brittani Bro CRNA Attending Clinician Osman RIDER Attending Clinician Unavailable Osman RIDER Admitting Clinician Unavailable Payers Payer Name Policy Policy Number Effective Expiration Source Type Date Date [facility] - [id number] 2020 [facility] rsity of MANAGED 00:00:00 [place] [facility] MEDICAREWELLMED/[facility] Bran h DUAL COMP HMO D [id number] 2020- PresentMedicare Adv HMO TMH[place]ID OF [id number] 2016 [facility][id number]/ 00:00:00 [facility] as Medical [phone] [facility] [id number], [place] [address]Medicaid DUAL COMPLETE SNP [id number] 2021 [facility] 00:00:00 [place]-MEDICAID - [id number] MEDICAID MEDICARE PART A \\T\\ B [id number] - MEDICARE [facility] - [id number] 2020 ELLIE Alvarez - MGD CAREUNITED 00:00:00 Medical Ce nter [id number] 09/2020-Present MEDICAIDMEDICAID OF [id number] 2020 ELLIE Alvarez - [id number] 00:00:00 Med ical Center 1-PresentMedicaid Problems Condition Condition Condition Status Onset Resolution Last Treating Co mments Source Name Details Category Date Date Treatment Clinician Date Neovascula Neovascula Disease Active [facility] - glaucoma, glaucoma, 00:00: Medi [place] left eye, left eye, 00 Cent er indetermin indetermin ate stage ate stage Lab test Lab test Disease Active Unive rs positive positive 2- ity of for for 00:00: [place] detection detection 00 Medi [place] of of Branch COVID-19 COVID-19 virus virus Screening Screening Disease Active Uni vers for for 2-02 [place] of malignant malignant 00:[place] ne[place] 00 Med[place] of colon of colon Branch Essential Essential Disease Active Uni vers hypertensi hypertensi 2-02 it y of on on 00:00: [place] 00 Medical Branch Fluid Fluid Disease Active Univers retention retention 2-02 ity of 00:00: [place] [facility] Mixed Mixed Disease Active Univers hyperlipid hyperlipid 2-02 it y of emia emia 00:00: [place] [facility] Low Low Disease Active Univers vitamin D vitamin D 2-02 ity of level level 00:00: [place] [facility] Anemia of Anemia of Disease Active Uni vers chronic chronic 2-02 ity of disease disease 00:00: [place] 00 Medical Branch 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 2-02 ity of disease disease 00:00: [place] that is that is 00 Medical not asthma not asthma Br anch Weight Weight Disease Active Univers gain gain 7-23 ity of 00:00: [place] 00 Medical Branch Hypertensi Hypertensi Disease Active U nivers on, benign on, benign 04-20 it y of 00:00: Medical Branch Early Early Disease Active Univers satiety satiety 7 ity of 00:00: Medical Branch Difficulty Difficulty Disease Active U nivers sleeping sleeping 04-20 ity of 00:00: Medical Branch Swelling Swelling Disease Active Unive rs 7- ity of 00:00: Medical Branch Obesity Obesity Disease Active 2018-09 Univers (BMI (BMI 2-11 ity of 30-39.9) 30-39.9) 00:00: Medical Branch 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 Left leg History of History of Disease Active U nivers stroke stroke 3-04 ity of 00:00: Medical Branch Type 2 Type 2 Disease Active Univers diabetes diabetes 3-04 ity of mellitus mellitus 00:00: [place] with other with other 00 Me dical specified specified Bran ch complicati complicati on, on, without without long-term long-term current current use of use of insulin insulin Post-op Post-op Disease Resolve 2018-092020-04-20 2020-04-20 Univers pain pain d 2-11 00:00:00 12:39:56 ity of 00:: Medical Branch Overweight Overweight Disease Resolve 2020-04-20 [...] Diarrhea And Univ ers n ty to 7 nausea. ity of adverse 00:00: Only with [place] reaction 00 immediate Medic al s release Branch metformin , ok with extended release metformin . Metformi Drug Active Diarrhea And [facility] Allergy 04-16 nausea. [facility] - 00:00: Only with Medical 00 immediate Center release metformin , ok with extended release metformin . Social History Social Habit Start Date Stop Date Quantity Comments Source Exposure to Not sure University of SARS-CoV-2 [place] [facility] (event) Branch Sex Assigned At [facility] Alcohol intake 2021-01-19 2021-01-19 Ex-drinker [facility] es - 00:00:00 00:00:00 (finding) [facility] Tobacco use and 2021-01-19 2021-01-19 Never used [facility] kes - exposure 00:00:00 00:00:00 [facility] Smoking Status Start Date Stop Date Source Never smoker [facility] Medications Ordered Filled Start Stop Current Ordering Indication Dosage Frequency Signature Comments Components Source Medication Medication Date Date Medication? Clinician (SIG) Name Name BD JUAN DIEGO 2ND Yes [id number] USE Univers GEN PEN 8-19 DIRECTED ity of NEEDLE 32 00:00: EVERY [place] gauge x 00 MORNING Medical 5/32" Ndle Branch BD JUAN DIEGO Yes [id number] USE Univers GEN PEN 8-19 DIRECTED ity of NEEDLE 32 00:00: EVERY [place] gauge x 00 MORNING Medical 5/32" Ndle Branch BD JUAN DIEGO 2ND Yes [id number] USE Univers GEN PEN 8-19 DIRECTED ity of NEEDLE 32 00:00: EVERY [place] gauge x 00 MORNING Medical 5/32" Ndle Branch aspirin 81 Yes 81mg Take 81 mg U nivers mg chewable 8-16 by mouth ity of tablet 15:39: daily. [place] 17 Medical Branch Cholecalcif Yes Take by Un evita noy, 8-16 mouth. ity of Vitamin D3, 15:39: [place] (VITAMIN 17 Medical D3) 1,000 Branch unit capsule cyanocobala Yes Take by Un evita min, 8-16 mouth. ity of vitamin 15:39: [place] B-12, 17 Medical (VITAMIN Branch B12 ORAL) pyridoxine Yes Take by Uni vers HCl, 8-16 mouth. ity of vitamin B6, 15:39: [place] (VITAMIN 17 Medical B-6 ORAL) Branch foLIC acid Yes 1mg Take 1 mg Un evita 1 mg tablet 8-16 by mouth ity of 15:39: daily. [address] Branch aspirin 81 0 Yes 81mg Take 81 mg U nivers mg chewable 8-16 by mouth ity of tablet 15:39: daily. [place] [address] Medical Branch Cholecalcif Yes Take by Un evita noy, 8-16 mouth. ity of Vitamin D3, 15:39: [place] (VITAMIN 17 Medical D3) 1,000 Branch unit capsule cyanocobala Yes Take by Un evita min, 8-16 mouth. ity of vitamin 15:39: [place] B-12, 17 Medical (VITAMIN Branch B12 ORAL) pyridoxine Yes Take by Uni vers HCl, 8-16 mouth. ity of vitamin B6, 15:39: [place] (VITAMIN 17 Medical B-6 ORAL) Branch foLIC acid Yes 1mg Take 1 mg Un evita 1 mg tablet 8-16 by mouth ity of 15:39: daily. [address] aspirin 81 Yes 81mg Take 81 mg U nivers mg chewable 8-16 by mouth ity of tablet 15:39: daily. [address] Branch Cholecalcif Yes Take by Un evita noy, 8-16 mouth. ity of Vitamin D3, 15:39: [place] (VITAMIN 17 Medical D3) 1,000 Branch unit capsule cyanocobala Yes Take by Un evita min, 8-16 mouth. ity of vitamin 15:39: [facility]12, 17 Medical (VITAMIN Branch B12 ORAL) pyridoxine Yes Take by Uni vers HCl, 8-16 mouth. ity of vitamin B6, 15:39: [place] (VITAMIN 17 Medical B-6 ORAL) Branch foLIC acid Yes 1mg Take 1 mg Un evita 1 mg tablet 8-16 by mouth ity of 15:39: daily. [place] [address] Medical Branch Miscellaneo Yes [id number] Use as [facility] 02-28 directed ity o f Supply 00:00: [place] (BLOOD 00 Medical PRESSURE Branch CUFF) [facility] lisinopriL- Yes [id number] 1{tbl} Take 1 Univers hydrochloro 6-02 tablet by ity of thiazide 00:00: mouth [place] 20-12.5 mg 00 daily. Medical per tablet Branch Miscellaneo Yes [id number] Use as [facility] 02-28 directed ity o f Supply 00:00: [place] (BLOOD 00 Medical PRESSURE Branch CUFF) Misc lisinopriL- Yes [id number] 1{tbl} Take 1 Univers hydrochloro 6-02 tablet by ity of thiazide 00:00: mouth [place] 20-12.5 mg 00 daily. Medical per tablet Branch Miscellaneo Yes [id number] Use as [facility] 02-28 directed ity o f Supply 00:00: [place] (BLOOD 00 Medical PRESSURE Branch CUFF) Misc lisinopriL- Yes [id number] 1{tbl} Take 1 Univers hydrochloro 6-02 tablet by ity of thiazide 00:00: mouth [place] 20-12.5 mg 00 daily. Medical per tablet Branch Diclofenac Yes [id number] Take 2-4 Univers Sodium 1 % 5-11 grams ity of gel 00:00: three [place] 00 times a Medical day as Branch needed for pain meloxicam Yes [id number] 7.5mg Take 1 Univers 7.5 mg 5-11 2 tablet by ity of tablet 00:00: mouth [place] 00 daily. If Medical not Branch helping the pain after 3 days increase to 2 pills daily. albuterol-i Yes [id number] 1{puff} Inhale 1 Univers pratropium 5-11 6 Puff 4 ity of 20-100 00:00: (four) [place] mcg/actuati 00 times Medical on inhaler daily. Branch metformin Yes [id number] 500mg Take 1 U nivers ER 500 mg 5-11 tablet by ity o f 24 hr 00:00: mouth [place] tablet 00 daily with Medical breakfast. Branch montelukast Yes [id number] 10mg Take 1 Univers (SINGULAIR) 5-11 tablet by ity of 10 mg 00:00: mouth at [place] tablet 00 bedtime. Medical Branch Miscellaneo Yes [id number] Patient [facility] 5-11 needs ity of Supply Misc 00:00: custom AFO brace, has Medical ankle Branch weakness (M62.81) and would benefit from AFO. Diclofenac Yes [id number] Take 2-4 Univers Sodium 1 % 5-11 grams ity of gel 00:00: three [place] 00 times a Medical day as Branch needed for pain meloxicam Yes [id number] 7.5mg Take 1 Univers 7.5 mg 5-11 2 tablet by ity of tablet 00:00: mouth [place] 00 daily. If Medical not Branch helping the pain after 3 days increase to 2 pills daily. albuterol-i Yes [id number] 1{puff} Inhale 1 Univers pratropium 5-11 6 Puff 4 ity of 20-100 00:00: (four) [place] mcg/actuati 00 times Medical on inhaler daily. Branch metformin Yes [id number] 500mg Take 1 U nivers ER 500 mg 5-11 tablet by ity o f 24 hr 00:00: mouth [place] tablet 00 daily with Medical breakfast. Branch montelukast Yes [id number] 10mg Take 1 Univers (SINGULAIR) 5-11 tablet by ity of 10 mg 00:00: mouth at [place] tablet 00 bedtime. Medical Branch Miscellaneo Yes [id number] Patient Univers us Medical 5-11 needs ity of Supply Misc 00:00: custom AFO brace, has Medical ankle Branch weakness (M62.81) and would benefit from AFO. Diclofenac Yes [id number] Take 2-4 Univers Sodium 1 % 5-11 grams ity of gel 00:00: three [place] 00 times a Medical day as Branch needed for pain meloxicam Yes [id number] 7.5mg Take 1 Univers 7.5 mg 5-11 2 tablet by ity of tablet 00:00: mouth [place] 00 daily. If Medical not Branch helping the pain after 3 days increase to 2 pills daily. albuterol-i Yes [id number] 1{puff} Inhale 1 Univers pratropium 5-11 6 Puff 4 ity of 20-100 00:00: (four) [place] mcg/actuati 00 times Medical on inhaler daily. Branch metformin Yes [id number] 500mg Take 1 U nivers ER 500 mg 5-11 tablet by ity o f 24 hr 00:00: mouth [place] tablet 00 daily with Medical breakfast. Branch montelukast Yes [id number] 10mg Take 1 Univers (SINGULAIR) 5-11 tablet by ity of 10 mg 00:00: mouth at [place] tablet 00 bedtime. Medical Branch Miscellaneo Yes [id number] Patient Univers us Medical 5-11 needs ity of Supply Misc 00:00: custom AFO [place] 00 brace, has Medical ankle Branch weakness (M62.81) and would benefit from AFO. aspirin 81 Yes 81mg QD Take [address] MG EC 4-22 by mouth [facility] - tablet 16:45: daily. Medical 51 Center atorvastati Yes 20mg QD Take [address] [facility] [facility] (LIPITOR) 4-22 by mouth [facility] - 20 MG 16:45: daily. Medical tablet 51 Center atropine Yes 1[drp] Q.[id number] [address] [facility] (ISOPTO) 1 - [id number] (three) [facility] - % 16:45: 3D times Medical ophthalmic 51 daily. Center solution brimonidine Yes 1[drp] Q.[id number] [address] [facility] (ALPHAGAN) 4-22 [id number] (three) [facility] - 0.2 % 16:45: 3D [...] Q.5D [address] -timoloL 4-22 (two) [facility] - (COSOPT) 16:45: times Medical 22.3-6.8 51 daily. Center mg/mL ophthalmic solution cholecalcif Yes [id number] Q7D Take [facility] noy, 01-18 50,000 [facility] - vitamin D3, 16:45: Units by Mt dical 1,250 mcg 51 mouth once Cent er (50,000 a week. unit) Tab latanoprost Yes 1[drp] QD [address] (XALATAN) 22 nightly. [facility] - 0.005 % 16:45: Medical ophthalmic 51 Center solution lisinopril- Yes 1{tbl} QD Take [address] hydroCHLORO -22 tablet by Frantz es - thiazide 16:45: mouth Medical (PRINZIDE,Z 51 daily. [place] ESTORETIC) 10-12.5 mg per tablet metFORMIN Yes 500mg Take [address] [facility] (GLUCOPHAGE 4-22 mg by [facility] - ) 500 MG 16:45: mouth 2 Medica l tablet 51 (two) Center times daily with breakfast and dinner. prednisoLON Yes 1[drp] Q.25D [address] E acetate 01-18 (four) [facility] - (PRED 16:45: times Medical FORTE) 1 % 51 daily. [place] ophthalmic suspension pyridoxine, Yes 100mg QD Take [address] vitamin B6, 4-22 mg by [facility] - (B-6) 100 16:45: mouth Medical MG tablet 51 daily. Center insulin Yes Inject [facility] glargine 01-18 subcutaneo [facility] - U-300 conc 16:45: usly. Medica l (Toujeo Max 51 Center U-300 SoloStar) 300 unit/mL (3 mL) InPn acetaZOLAMI 0 2020- No 250mg Q.[id number] Take [address] [facility] (DIAMOX) 01-18-21 [id number] mg by [facility] - 250 MG 13:25: 00:00 3D mouth 3 Medical tablet 45 :00 (three) Center times daily. amitriptyli 0 2020- No 10mg QD Take [address] ne (ELAVIL) 01-18 04-21 by mouth Frantz es - 10 MG 13:25: 00:00 nightly. Medical tablet 45 :00 Center BD JUAN DIEGO 2ND Yes USE Univ ers GEN PEN 4-22 DIRECTED ity of NEEDLE 32 00:00: EVERY [place] gauge x 00 MORNING Medical " Ndle Branch albuterol-i Yes Reactive 1{puff} Inhale 1 Univers pratropium 2-02 airway Puff 4 ity o f 20-100 00:00: disease (four) [place] mcg/actuati 00 that is not times Medical [...] ity of tablet 00:00: avinash mouth at [place] [address] bedtime. Medical Branch ergocalcife 2019-09 Yes Vitamin D [id number] Take 1 Univers rol, 2-24 deficiency capsule by ity of vitamin d2, 00:00: mouth [place] (VITAMIN 00 weekly. [facility] D2) 1,250 Branch mcg (50,000 unit) capsule atorvastati 2019-09 Yes [id number] 20mg Take 1 Univers n 20 mg 2-24 tablet by ity of tablet 00:00: mouth at [place] [address] bedtime. Medical Branch atorvastati 2019-09 Yes [id number] 20mg Take 1 Univers n 20 mg 2-24 tablet by ity of tablet 00:00: mouth at [place] 00 bedtime. Medical Branch atorvastati 2019-09 Yes [id number] 20mg Take 1 Univers n 20 mg 2-24 tablet by ity of tablet 00:00: mouth at [place] 00 bedtime. Medical Branch aspirin 81 2019-09 Yes 81mg Take 81 mg U nivers mg chewable 2-14 by mouth ity of tablet 17:00: daily. [place] [address] Medical Branch Cholecalcif 2019-09 Yes Take by Un evita noy, 2-14 mouth. ity of Vitamin D3, 17:00: [place] (VITAMIN 54 Medical D3) 1,000 Branch unit capsule cyanocobala 2019-09 Yes Take by Un evita min, 2-14 mouth. ity of vitamin 17:00: [place] B-12, 54 Medical (VITAMIN Branch B12 ORAL) pyridoxine 2019-09 Yes Take by Uni vers HCl, 2-14 mouth. ity of vitamin B6, 17:00: [place] (VITAMIN 54 Medical B-6 ORAL) Branch insulin 2019-09 Yes Type 2 28U inject 28 Uni vers glargine 2-14 diabetes Units ity of U-300 conc 00:00: mellitus under the [place] (TOUJEO 00 with other skin at [facility] specified bedtime. Br anch U-300 complicatio INSULIN) n, without 300 unit/mL long-term (1.5 mL) current use InPn of insulin insulin 2019-09 Yes [id number] 28U inject 28 U nivers glargine 2-14 Units ity of U-300 conc 00:00: [place] ([place] skin at [facility] bedtime. Branch U-300 INSULIN) 300 unit/mL (1.5 mL) InPn insulin 2019-09 Yes [id number] 28U inject 28 U nivers glargine 2-14 Units ity of U-300 conc 00:00: [place] the [place] (TOUJEO [place] skin at [facility] bedtime. Branch U-300 INSULIN) 300 unit/mL (1.5 mL) InPn insulin 2019-09 Yes [id number] 28U inject 28 U nivers glargine 2-14 Units ity of U-300 conc 00:00: [place] the [place] (TOUJEO 00 skin at [facility] bedtime. Branch U-300 INSULIN) 300 unit/mL (1.5 mL) InPn METFORMIN 2019-09 Yes Type 2 TAKE 2 Univ ers ER 500 mg 1-28 diabetes TABLETS BY ity of 24 hr 00:00: mellitus MOUTH ONCE [place] tablet 00 with other DAILY WITH Abelino worthington specified BREAKFAST Branc h complicatio n, without long-term current use of insulin blood sugar Yes Type 2 Use BID, Univers diagnostic 8-06 diabetes DX E11.9 i ty of strip 00:00: mellitus Brand name [place] 00 with Viarco. Medical complicatio Branch n, without long-term current use of insulin blood sugar 2020-0 Yes [id number] Use BID, Univers diagnostic 8-06 DX E11.9 ity o f strip 00:00: Brand name [place] 00 Viarco. Medical Branch blood sugar 2020-0 Yes [id number] Use BID, Univers diagnostic 05-04 DX E11.9 ity o f strip 00:00: Brand name [place] 00 [employer]iar[employer]. Medical Branch blood sugar 2020-0 Yes [id number] Use BID, Univers diagnostic 8 DX E11.9 ity o f strip 00:00: Brand name [place] 00 [employer]iarco. Medical Branch lancets-blo 2019-0 Yes Type 2 1{each} 1 Each 2 Univers od glucose 7-30 diabetes (two) ity of strips 30 00:00: mellitus times [place] as gauge Cmpk 00 with daily. Use Med ical complicatio BID, DX Branc h n, without E11.9 long-term (Brand current use upon of insulin insurance approval) lancets-blo 2019-0 Yes [id number] 1{each} 1 Each 2 Univers od glucose 7-30 (two) ity of strips 30 00:00: times [place] gauge Cmpk 00 daily. Use Med ical BID, DX Branch E11.9 (Brand upon insurance approval) lancets-blo 2020-0 Yes [id number] 1{each} 1 Each 2 Univers od glucose 7-30 (two) ity of strips 30 00:00: times [place] gauge Cmpk 00 daily. Use Med ical BID, DX Branch E11.9 (Brand upon insurance approval) lancets-blo 2020-0 Yes [id number] 1{each} 1 Each 2 Univers od glucose 7-30 (two) ity of strips 30 00:00: times [place] gauge Cmpk 00 daily. Use Med ical BID, DX Branch E11.9 (Brand upon insurance approval) glipiZIDE 2019-0 Yes Type 2 [...] Medical May take 2 Branch if needed. glipiZIDE 2020-0 Yes [id number] 20mg Take 2 Un evita 10 mg 7-21 tablets by ity of tablet 00:00: mouth 2 [place] [address] (two) Medical times Branch daily before breakfast and dinner. glipiZIDE 2020-0 Yes [id number] 20mg Take 2 Un evita 10 mg 7-21 tablets by ity of tablet 00:00: mouth 2 [place] 00 (two) Medical times Branch daily before breakfast and dinner. glipiZIDE 2020-0 Yes [id number] 20mg Take 2 Un evita 10 mg 7-21 tablets by ity of tablet 00:00: mouth 2 [place] [address] (two) Medical times Branch daily before breakfast and dinner. meloxicam 2019-0 Yes Low back 7.5mg Take 1 U nivers 7.5 mg 6-04 pain of tablet by ity o f tablet 00:00: over 3 mouth [place] 00 months daily. If Medical duration not Branch helping the pain after 3 days increase to 2 pills daily. Diclofenac 2019-0 Yes Muscle Take 2-4 U nivers Sodium 1 % 6-04 spasm grams ity of gel 00:00: three [place] 00 times a Medical day as Branch [...] area(s) 3 i ty of 00:00: (three) [place] 00 times Medical daily. Branch pen needle, 2018-09 Yes Type 2 1{each} 1 Each Univers diabetic 1-12 diabetes every ity of (COMFORT EZ 00:00: mellitus morning. [place] PEN 00 with other E11.65 Medical NEEDLES) 33 specified Bra [facility] gauge x complicatio 5/16" Ndle n, without long-term current use of insulin pen needle, 2018- Yes [id number] 1{each} 1 Each Univers diabetic 1-12 every ity of (COMFORT EZ 00:00: morning. [place] PEN 00 E11.65 Medical NEEDLES) 33 Branch gauge x 5/16" Ndle pen needle, 2018- Yes [id number] 1{each} 1 Each Univers diabetic 1-12 every ity of (COMFORT EZ 00:00: morning. [place] PEN E11.65 Medical NEEDLES) 33 Branch gauge x 5/16" Ndle pen needle, 2018- Yes [id number] 1{each} 1 Each Univers diabetic 1-12 every ity of (COMFORT EZ 00:00: morning. [place] PEN E11.65 Medical NEEDLES) 33 Branch gauge x 5/16" Ndle Blood-Gluco 2019- Yes Type 2 DX E11.9 Univers se Meter 7-09 diabetes (Brand ity o f Kit 00:00: mellitus upon [place] 00 with insurance Medical complicatio approval) [facility] n, without long-term current use of insulin Blood-Gluco 2018- Yes [id number] DX E11.9 Univers se Meter 7-09 (Brand ity of Kit 00:00: upon [place] 00 insurance Medical approval) Branch Blood-Gluco 2018- Yes [id number] DX E11.9 Univers se Meter 7-09 (Brand ity of Kit 00:00: upon [place] 00 insurance Medical approval) Branch Blood-Gluco 2018- Yes [id number] DX E11.9 Univers se Meter 7-09 (Brand ity of Kit 00:00: upon [place] 00 insurance Medical approval) Branch Immunizations Ordered Filled Immunization Date Status Comments [facility] e Immunization Name Name Influenza Virus 2020-09-11 Completed Universit y of Vaccine Quad .5 mL 00:00:00 [place] Medical IM 6+ MO Branch Influenza Virus 2020-09-11 Completed Universit y of Vaccine Quad .5 mL 00:00:00 [place] Medical IM 6+ MO Branch Influenza Virus 2020-09-11 Completed Universit y of Vaccine Quad .5 mL 00:00:00 [place] Medical IM 6+ MO Branch Influenza Virus 2020-09-11 Completed Universit y of Vaccine Quad .5 mL 00:00:00 [place] Medical IM 6+ MO Branch Influenza Virus 2019-07-13 Completed Universit y of Vaccine Quad .5 mL 00:00:00 [place] Medical IM 6+ MO Branch Influenza Virus 2019-07-13 Completed Universit y of Vaccine Quad .5 mL 00:00:00 [place] [facility] IM 6+ MO Branch Influenza Virus 2019-07-13 Completed Universit y of Vaccine Quad .5 mL 00:00:00 [facility] 6+ MO Branch Influenza Virus 2019-07-13 Completed Universit y of Vaccine Quad .5 mL 00:00:00 [facility] 6+ MO Branch Influenza Virus 2018-07-02 Completed Universit y of Vaccine 00:00:00 [facility] Influenza Virus 2018-07-02 Completed Universit y of Vaccine 00:00:00 [facility] Influenza Virus 2018-07-02 Completed Universit y of Vaccine 00:00:00 [facility] Influenza Virus 2018-07-02 Completed Universit y of Vaccine 00:00:00 [facility] Pneumococcal 2016-05-26 Completed University o f Polysaccharide, 00:00:00 [place] Med ical PPSV23 (PNEUMOVAX) Branch Pneumococcal 2016-05-26 Completed University o f Polysaccharide, 00:00:00 [facility] ical PPSV23 (PNEUMOVAX) Branch Pneumococcal 2016-05-26 Completed University o f Polysaccharide, 00:00:00 [facility] ical PPSV23 (PNEUMOVAX) Branch Pneumococcal 2016-05-26 Completed University o f Polysaccharide, 00:00:00 [facility] ical PPSV23 (PNEUMOVAX) Branch Td 2010-03-08 Completed University of 00:00:00 [facility] Td 2010-03-08 Completed University of 00:00:00 [facility] Td 2010-03-08 Completed University of 00:00:00 [facility] Td 2010-03-08 Completed University of 00:00:00 [facility] Vital Signs Vital Name Observation Time Observation Value Comments Source Systolic blood 2021-01-18 16:20:00 149 mm[Hg] [facility] Diastolic blood 2021-01-18 16:20:00 63 mm[Hg] [facility] Heart rate 2021-01-18 16:20:00 82 /min [facility] Respiratory rate 2021-01-18 16:20:00 10 /min [facility] Oxygen saturation in 2021-01-18 16:20:00 100 /min [facility] Arterial blood by Medical Ce nter Pulse oximetry Body temperature 2021-01-18 16:04:00 36.56 Blank [facility] Body height 2021-01-18 14:22:00 157.5 cm [facility] Body weight 2021-01-18 14:22:00 78.472 kg [facility] BMI 2021-01-18 14:22:00 31.64 kg/m2 [facility] Procedures Procedure Date / Time Performing Clinician Source Performed BI ULTRASOUND BREAST 2021-05-22 18:37:44 Lisa Renee [facility] COMPLETE RIGHT Medical Branch BI DIAGNOSTIC 2021-05-22 17:48:13 Lisa Renee [facility] TOMOSYNTHESIS BILATERAL Medical Branch EXTERNAL PROVIDER 2021-05-22 05:01:00 Doctor Unassigned, No Univ [facility] RECORDS Name Medical Branch BI SCREENING 2021-02-01 14:35:14 Laura Weir [facility] A Medical Branch INSERTION,EYE TUBE SHUNT 2021-01-18 15:20:[address] [facility]/WO [facility] POCT-GLUCOSE METER 2021-01-18 14:35:00 Abner Rider [facility] Plan of Care Planned Activity Planned Date Details Comments Source Future Scheduled 2023-12-22 Lipid panel [facility] s - Test 00:00:00 (procedure) [code = Medical Center [id number]] Future Scheduled 2023-03-13 Screening for University of Test 00:00:00 malignant neoplasm [place] [facility] of cervix Branch (procedure) [code = 194837225] Future Scheduled 2022-02-01 Screening for University of Test 00:00:00 malignant neoplasm [place] [facility] of breast Branch (procedure) [code = 942007727] Future Scheduled 2021-12-21 Creatinine University of Test 00:00:00 measurement [place] [facility] (procedure) [code = Branch 67700122] Future Scheduled 2021-12-21 Calculated low Universit y of Test 00:00:00 density lipoprotein [facility] dical cholesterol level Branch (procedure) [code = 932732540] Future Scheduled 2021-12-20 Examination of Universit y of Test 00:00:00 retina (procedure) [place] [facility] [code = 781985650] Branch Future Scheduled 2021-10-31 DTaP,Tdap,and Td Postponed from Unive rsity of Test 00:00:00 Vaccines (1 - Tdap) 1977 [place] [facility] dical [code = (Insurance / Branch DTaP,Tdap,and Td Financial) Vaccines (1 - Tdap)] Future Scheduled 2021-10-31 Zoster Recombinant Postponed from Uni versity of Test 00:00:00 Vaccine (SHINGRIX) 2008 [place] [facility] (1 of 2) [code = (Vaccine not Branch Zoster Recombinant available) Vaccine (SHINGRIX) (1 of 2)] Future Scheduled 2021-09-11 Diabetic foot University of Test 00:00:00 examination [place] [facility] (regime/therapy) Branch [code = 812521324] Future Scheduled 2021-09-11 Microalbumin University of Test 00:00:00 measurement, urine, [facility] dical quantitative Branch (procedure) [code = 498841002] Future Scheduled 2021-06-23 Hemoglobin A1c Universit y of Test 00:00:00 measurement [facility] (procedure) [code = Branch 73642904] Future Scheduled 2020-09-[address] [facility] - Test 00:00:00 (12+) [code = Medical Center DEPRESSION SCREENING (12+)] Future Scheduled 2020-03-08 DTAP/TDAP/TD [facility] - Test 00:[facility]:00 VACCINES (2 - Td) Medical Ce nter [code = DTAP/TDAP/TD VACCINES (2 - Td)] Future Scheduled 2008 Screening for occult Uni versity of Test 00:00:00 blood in feces [facility] (procedure) [code = Branch 230992111] Future Scheduled 2008 Stool DNA-based Universi ty of Test 00:00:00 colorectal cancer [facility] screening Branch (procedure) [code = 958358574079128] Future Scheduled 2008 Flexible fiberoptic Univ ersity of Test 00:00:00 sigmoidoscopy [facility] (procedure) [code = Branch 18842159] Future Scheduled 2008 Screening for University of Test 00:00:00 malignant neoplasm [place] [facility] of colon (procedure) Branch [code = 549061718] Future Scheduled 2008 Screening for University of Test 00:00:00 malignant neoplasm [place] [facility] of colon (procedure) Branch [code = 271240658] Future Scheduled 2008 SHINGLES VACCINES ([address] [facility] - Test 00:00:00 of 2) [code = [facility] SHINGLES VACCINES (1 of 2)] Future Scheduled [address] [facility] - Test 00:00:00 malignant neoplasm Medical C enter of cervix (procedure) [code = 060151354] Future Scheduled [address] [facility] - Test 00:00:00 SCREENING [code = Medical nter HEPATITIS C SCREENING] Future Scheduled 1974 SARS-CoV-2 University of Test 00:00:00 (COVID-19) Vaccine [place] [facility] (1) [code = Branch SARS-CoV-2 (COVID-19) Vaccine (1)] Future Scheduled 1970 Depression screening Uni versity of Test 00:00:00 (procedure) [code = [facility] dical 661805428] Branch Future Scheduled 1970 COVID-19 VACCINE (1) [facility] - Test 00:00:00 [code = COVID-[address] VACCINE (1)] Future Scheduled [address] [facility] - Test 00:00:00 malignant neoplasm Medical C enter of breast (procedure) [code = 241180545] Future Scheduled [address] [facility] - Test 00:00:00 malignant neoplasm Medical C enter of colon (procedure) [code = 281950739] Encounters Start End Encounter Admission Attending Care Care Encounter Source Date/Time Date/Time Type Type Clinicians Facility Department ID 2021-05-22 2021-05-22 [facility] [id number] [facility] 11:43:20 23:59:00 Encounter Lisa Timothy Whitfield [id number] ity of [place] [id number] [facility] [phone] [facility] 800 Branch 2021-05-22 2021-05-22 [facility] [id number] 11:43:20 23:59:00 Encounter Lisa Timothy Whitfield [id number] [place] [id number] [place] [phone] [facility] 2021-05-22 2021-05-22 [facility] [id number] [facility] 11:42:37 11:42:37 Encounter Lisa Aguirre Zhao [id number] [place] 4[place]7.2.686 [place] [id number] [facility] [address] 2021-05-22 2021-05-22 [facility] [id number] 11:42:37 11:42:37 Encounter Lisa Aguirre Zhao [id number] [place] [id number] [place] [phone] [facility] 2021-05-22 2021-05-22 Telephone Weir, [facility] [id number] [facility] 00:00:00 00:00:00 Laura Churchill [id number] itjami [facility] [id number] [facility] [phone] [address] 2021-05-22 2021-05-22 [facility] [id number] 00:00:00 00:00:00 Laura Churchill [id number] [place] [id number] Professio [phone] [address] 2021-05-21 2021-05-21 Outpatient [facility] [id number] 1 [facility] 12:17:33 13:41:50 ABNER Churchill [facility] [place] 2021-05-14 2021-05-14 [facility] [id number] 10:25:18 11:06:59 Visit Martita Churchill [id number] [place] 4.2.7.2.686 Professio [id number] [address] 2021-05-14 2021-05-14 [facility] [id number] 00:00:00 00:00:00 Laura Churchill [id number] [place] [id number] Professio [phone] [facility] [address] [facility] 2021-05-14 2021-05-14 RAFAL Montoya [id number] 00:00:00 00:00:00 Laura Churchill [id number] [place] [id number] [facility] [phone] [address] Results Test Description Test Time Test Comments Results Result [facility] e Comments BI ULTRASOUND 2021-04-30 Examination:BI Univers ity of BREAST COMPLETE 4 DIAGNOSTIC [facility] ical RIGHT 19:02:30 TOMOSYNTHESIS Branch BILATERALBI ULTRASOUND BREAST COMPLETE RIGHT History:Patient is 61 year old and is seen for: ?Workup of right breast mass and bilateral calcifications and architectural distortion.. Computer-aided detection (CAD) utilized. Comparisons: 02/01/2021 BI SCREENING TOMOSYNTHESIS BILATERAL, 04/05/2019 BI SCREENING TOMOSYNTHESIS BILATERAL, 02/24/2018 BI SCREENING TOMOSYNTHESIS BILATERAL, 02/10/2017 SCREENING DIGITAL BREAST DANYEL, 01/17/2015 DIGITAL DIAGNOSTIC MAMMOGRAM, UNILATERAL, 11/17/2014 DIGITAL MAMMOGRAM, SCREENING, and 01/08/2010 DIGITAL MAMMOGRAM, BILATERAL Findings:The breasts have scattered areas of fibroglandular density. RightBI DIAGNOSTIC TOMOSYNTHESIS BILATERALThere is a 17 mm group of coarse heterogeneous calcifications (overlying a focal asymmetry) in the upper outer quadrant of the right breast, middle depth, 5 cm from the nipple; best seen on RS CC 25/52, RML 14/62, ?our PENITENTIARY, and RMML view. A 4 mm group of coarse calcifications is noted in the lateral central breast, posterior depth, 7 cm from the nipple. These calcifications are 24 mm inferior and posterior to the previously described calcifications (measure on RMML view). BI ULTRASOUND BREAST COMPLETE RIGHTSurvey ultrasound was performed. No sonographic correlate for the mammographic finding was identified. There is no evidence of suspicious masses or other abnormal findings in the right breast.Ultrasound of the axilla demonstrates morphologically normal lymph nodes. LeftBI DIAGNOSTIC TOMOSYNTHESIS BILATERALThere is no evidence of suspicious masses, calcifications, or other abnormal findings in the left breast.The mammographic asymmetry noted at recent screening mammography did not persist with additional imaging and is consistent with superimposition of normal breast tissue. Impression:RIGHT BREAST: 1. There is a 17 mm group of coarse heterogeneous calcifications (overlying a focal asymmetry) in the upper outer quadrant of the right breast, middle depth, 5 cm from the nipple; best seen on RS CC 25/52, RML 14/62, ?our PENITENTIARY, and RMML view. 2. A 4 mm group of coarse calcifications is noted in the lateral central breast, posterior depth, 7 cm from the nipple. These calcifications are 24 mm inferior and posterior to the previously described calcifications (measure on RMML view), If biopsy of the calcifications in the upper outer quadrant, middle depth, (please see 1 above) shows a benign finding then short interval follow-up of these calcifications may be performed.LEFT BREAST: No mammographic evidence of malignancy. Recommendation:Vera valdes mammographic follow-up - LeftTomosynthesis Biopsy - Right These findings and recommendations were discussed in detail with the patient at the time of this exam. BI-RADS Category: Left 2 - BenignRight 4A - Suspicious Abnormality - Biopsy Should Be Considered - Low Suspicion for Malignancy BI DIAGNOSTIC 2021-04-30 Examination:BI Univers ity of TOMOSYNTHESIS 4 DIAGNOSTIC [place] [facility] BILATERAL 19:02:28 TOMOSYNTHESIS Branch BILATERALBI ULTRASOUND BREAST COMPLETE RIGHT History:Patient is 61 year old and is seen for: ?Workup of right breast mass and bilateral calcifications and architectural distortion.. Computer-aided detection (CAD) utilized. Comparisons: 02/01/2021 BI SCREENING TOMOSYNTHESIS BILATERAL, 04/05/2019 BI SCREENING TOMOSYNTHESIS BILATERAL, 02/24/2018 BI SCREENING TOMOSYNTHESIS BILATERAL, 02/10/2017 SCREENING DIGITAL BREAST DANYEL, 01/17/2015 DIGITAL DIAGNOSTIC MAMMOGRAM, UNILATERAL, 11/17/2014 DIGITAL MAMMOGRAM, SCREENING, and 01/08/2010 DIGITAL MAMMOGRAM, BILATERAL Findings:The breasts have scattered areas of fibroglandular density. RightBI DIAGNOSTIC TOMOSYNTHESIS BILATERALThere is a 17 mm group of coarse heterogeneous calcifications (overlying a focal asymmetry) in the upper outer quadrant of the right breast, middle depth, 5 cm from the nipple; best seen on RS CC 25/52, RML 14/62, ?our PENITENTIARY, and RMML view. A 4 mm group of coarse calcifications is noted in the lateral central breast, posterior depth, 7 cm from the nipple. These calcifications are 24 mm inferior and posterior to the previously described calcifications (measure on RMML view). BI ULTRASOUND BREAST COMPLETE RIGHTSurvey ultrasound was performed. No sonographic correlate for the mammographic finding was identified. There is no evidence of suspicious masses or other abnormal findings in the right breast.Ultrasound of the axilla demonstrates morphologically normal lymph nodes. LeftBI DIAGNOSTIC TOMOSYNTHESIS BILATERALThere is no evidence of suspicious masses, calcifications, or other abnormal findings in the left breast.The mammographic asymmetry noted at recent screening mammography did not persist with additional imaging and is consistent with superimposition of normal breast tissue. Impression:RIGHT BREAST: 1. There is a 17 mm group of coarse heterogeneous calcifications (overlying a focal asymmetry) in the upper outer quadrant of the right breast, middle depth, 5 cm from the nipple; best seen on RS CC 25/52, RML 14/62, ?our PENITENTIARY, and RMML view. 2. A 4 mm group of coarse calcifications is noted in the lateral central breast, posterior depth, 7 cm from the nipple. These calcifications are 24 mm inferior and posterior to the previously described calcifications (measure on RMML view), If biopsy of the calcifications in the upper outer quadrant, middle depth, (please see 1 above) shows a benign finding then short interval follow-up of these calcifications may be performed.LEFT BREAST: No mammographic evidence of malignancy. Recommendation:Vera vadles mammographic follow-up - LeftTomosynthesis Biopsy - Right These findings and recommendations were discussed in detail with the patient at the time of this exam. BI-RADS Category: Left 2 - BenignRight 4A - Suspicious Abnormality - Biopsy Should Be Considered - Low Suspicion for Malignancy BI [facility] [place] [facility] [...] 127 mg/dL 70-110 H : TESTED AT [facility] 7200 1538) [facility] [id number]: Grounds Restoration Specialist/Techni bishnu ID = [id number] for JIM CHEN Lab Interpretation (test code = Abnormal 24175-4) [facility] [id number] 14:47:00 Test Item Value Reference Range Interpretation Comments POC-GLUCOSE METER 127 mg/dL 70-110 H : TESTED A T [facility] (BEAKER) (test code 7200 [facility] = 1538) [place] [id number]: Grounds Restoration Specialist/Techni bishnu ID = [id number] for VANDANA TO
[2021-05-23] MEDS ORDERED: TOBRAMYCIN SULF 0.3% OPTH OINT ONE (16:20)
--- NOTE | 2021-05-23 16:39 | ER ---
Nurse's Notes [facility] Name: Genny Matamoros Age: 61 yrs Sex: Female : 1960 Arrival Date: 05/23/2021 Time: 15:21 Bed 4 Private MD: Diagnosis: Foreign body in cornea, left eye Presentation: 05/23 15:23 Chief complaint: EMS states: she was going to put eye drops in her left eye but put sv super glue in her eye instead. EMS irrigated her eye but unable to open it completely. c/o burning. Coronavirus screen: Client denies travel out of the [place] in the last 14 days. At this time, the client does not indicate any symptoms associated with coronavirus-19. Ebola Screen: No symptoms or risks identified at this time. Risk Assessment: Do you want to hurt yourself or someone else? Patient reports no desire to harm self or others. Onset of symptoms was May 23, 2021. 15:23 Method Of Arrival: EMS: [facility] sv 15:23 Acuity: SADE 2 sv 15:25 Initial Sepsis Screen: Does the patient meet any 2 criteria? No. Patient's initial sv sepsis screen is negative. Does the patient have a suspected source of infection? No. Patient's initial sepsis screen is negative. Triage Assessment: 15:26 General: Appears in no apparent distress. uncomfortable, Behavior is calm, cooperative, sv appropriate for age. Pain: Complains of pain in left eye. EENT: Eyes super glue in eye. Neuro: Level of Consciousness is awake, alert, obeys commands, Oriented to person, place, time, situation, Gait is steady. Respiratory: Respiratory effort is even, unlabored, Respiratory pattern is regular, symmetrical. 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 - Social history:: Smoking status: Patient denies any tobacco usage or history of. Screenin:35 Abuse screen: Denies threats or abuse. Denies injuries from another. Nutritional hb screening: No deficits noted. Tuberculosis screening: No symptoms or risk factors identified. Fall Risk None identified. Assessment: 15:40 General: Appears in no apparent distress. Behavior is cooperative, anxious. Pain: Pain hb currently is 3 out of 10 on a pain scale. Neuro: Level of Consciousness is awake, alert, obeys commands, Oriented to person, place, time, situation. Cardiovascular: Patient's skin is warm and dry. Respiratory: Respiratory effort is even, unlabored, Respiratory pattern is regular, agonal. GI: No signs and/or symptoms were reported involving the gastrointestinal system. : No signs and/or symptoms were reported regarding the genitourinary system. EENT: left eye glued partially shut. Derm: Skin is pink, warm \T\ dry. Musculoskeletal: No signs and/or symptoms reported regarding the musculoskeletal system. 16:35 Reassessment: Patient appears in no apparent distress at this time. Patient and/or hb family updated on plan of care and expected duration. Pain level reassessed. Patient is alert, oriented x 3, equal unlabored respirations, skin warm/dry/pink. Vital Signs: 15:24 BP 166 / 62; Pulse 91; Resp 16; Pulse Ox 99% ; Weight 79.38 kg; Height 5 ft. 2 in. sv (157.48 cm); 15:45 BP 151 / 67; Pulse 88; Resp 17; Temp 98; Pulse Ox 99% ; bp 16:30 BP 161 / 67; Pulse 92; Resp 17; Temp 98.5; Pulse Ox 99% ; bp 15:24 Body Mass Index 32.01 (79.38 kg, 157.48 cm) sv ED Course: 15:21 Patient arrived in ED. ja2 15:23 Arm band placed on. sv 15:24 Triage completed. sv 15:31 Odell Quinn, RN is Primary Nurse. bp 15:34 Luis Beal PA is PHCP. cp 15:34 Luis Samuels MD is Attending Physician. cp 15:40 Patient has correct armband on for positive identification. Call light in reach. Side hb rails up X 1. 16:36 Ousmane Walters MD is Referral Physician. cp 16:57 No provider procedures requiring assistance completed. Patient did not have IV access bp during this emergency room visit. intact, bleeding controlled. Administered Medications: 16:00 Drug: Tobrex (tobramycin) Ointment 0.3 % 1 application Route: Ophthalmic; Site: left hb eye; 16:32 Follow up: Response: No adverse reaction hb 16:32 Drug: HYDROcodone-acetaminophen 5 mg-325 mg 1 tabs Route: PO; hb 16:32 Drug: Tylenol 650 mg Route: PO; hb Outcome: 16:38 Discharge ordered by . cp 16:59 Discharged to home ambulatory, TO GO IMMEDIATELY TO OPTHO bp 16:59 Condition: stable 16:59 Discharge instructions given to patient, family, Instructed on discharge instructions, follow up and referral plans. Demonstrated understanding of instructions, follow-up care. 17:12 Patient left the ED. bp Signatures: Sherry Narayan RN RN sv Luis Beal PA PA cp Alisa Aguilera RN RN hb Peltier, Brian, RN RN Aurora Mcfarland Corrections: (The following items were deleted from the chart) 15:25 15:23 Acuity: SADE 4 sv sv 15:26 15:24 Pulse 91bpm; Resp 16bpm; Pulse Ox 99%; 79.38 kg; Height 5 ft. 2 in.; BMI: 32.0; svsv 15:34 15:23 Chief complaint: EMS states: she was going to put eye drops in her left eye but sv put super glue in her eye instead. EMS irrigated her eye sv
--- NOTE | 2021-05-23 16:39 | EDPHYS ---
Physician Documentation [facility] Name: Genny Matamoros Age: 61 yrs Sex: Female : 1960 Arrival Date: 05/23/2021 Time: 15:21 Bed 4 Private MD: Luis Esquivel HPI: 05/23 15:37 This 61 yrs old Female presents to ER via EMS with complaints of Foreign Body cp In Eye - SUPER GLUE. 15:37 The patient is experiencing decreased vision, The patient sustained applied nail glue cp to left eye, to the left eye. Onset: The symptoms/episode began/occurred just prior to arrival. Patient wears glasses. 15:37 Associated signs and symptoms: Pertinent positives: None. 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 - Social history:: Smoking status: Patient denies any tobacco usage or history of. ROS: 15:38 Eyes: Positive for injury or acute deformity, matting, of the left eye. cp Exam: 15:45 Constitutional: The patient appears in no acute distress, alert, awake, non-toxic, well cp developed, well nourished, uncomfortable. 15:45 Head/Face: Normocephalic, atraumatic. cp 15:45 Eyes: Periorbital structures: appear normal, Conjunctiva: noted hardened glue covering mid to lateral aspect left cornea and conjunctiva. Corneas: foreign body, on the left, hardened glue, Lids and lashes: noted glue to upper and lower lashes left eye causing matting. 15:45 ENT: External ear(s): are unremarkable, Nose: is normal, Posterior pharynx: Airway: no evidence of obstruction, patent. 15:45 Chest/axilla: Inspection: normal. 15:45 Cardiovascular: Rate: normal. 15:45 Respiratory: the patient does not display signs of respiratory distress, Respirations: normal. 15:45 Skin: no rash present. Vital Signs: 15:24 BP 166 / 62; Pulse 91; Resp 16; Pulse Ox 99% ; Weight 79.38 kg; Height 5 ft. 2 in. sv (157.48 cm); 15:45 BP 151 / 67; Pulse 88; Resp 17; Temp 98; Pulse Ox 99% ; bp 16:30 BP 161 / 67; Pulse 92; Resp 17; Temp 98.5; Pulse Ox 99% ; bp 15:24 Body Mass Index 32.01 (79.38 kg, 157.48 cm) sv MDM: 15:37 Patient medically screened. cp 15:45 Differential diagnosis: Corneal abrasion of left eye. Foreign body in left eye. Acute cp iritis of left eye. 16:36 Physician consultation: Ousmane Walters MD was called at 16:30, was contacted at 16:30, regarding consult, patient's condition, and will see patient in office, immediately. 16:38 Data reviewed: vital signs, nurses notes, I have discussed the patient's cp presentation/case with the attending Emergency Department Physician; and as a result, I will transfer patient. 16:38 Counseling: I had a detailed discussion with the patient and/or guardian regarding: the cp historical points, exam findings, and any diagnostic results supporting the discharge/admit diagnosis, the need for outpatient follow up, for definitive care, an opthalmologist. Response to treatment: the patient's symptoms have mildly improved after treatment. Administered Medications: 16:00 Drug: Tobrex (tobramycin) Ointment 0.3 % 1 application Route: Ophthalmic; Site: left hb eye; 16:32 Follow up: Response: No adverse reaction hb 16:32 Drug: HYDROcodone-acetaminophen 5 mg-325 mg 1 tabs Route: PO; hb 16:32 Drug: Tylenol 650 mg Route: PO; hb Disposition: 16:45 Chart complete. cp 05/24 14:49 Co-signature as Attending Physician, Luis Samuels MD I agree with the assessment and lan plan of care. Disposition Summary: 05/23/21 16:38 Discharge Ordered Location: Home cp Problem: new cp Symptoms: are unchanged cp Condition: Stable cp Diagnosis - Foreign body in cornea, left eye cp Followup: cp - With: Ousmane Walters MD - When: Upon discharge from the Emergency Department - Reason: Recheck today's complaints Discharge Instructions: - Discharge Summary Sheet cp - Eye Foreign Body cp Forms: - Medication Reconciliation Form cp - Thank You Letter cp - Antibiotic Education cp - Prescription Opioid Use cp Signatures: Sherry Narayan, TODD RN Luis Ruff MD MD cha Page, Corey, PA PA cp Baxter, Heather, TODD RN hb
[2021-05-23] MEDS ORDERED: ACETAMINOPHEN 325 MG TABLET ONE (16:51)
[2021-05-23] MEDS ORDERED: HYDROCODONE/APAP 5/325 MG TAB ONE (16:51)
[2021-05-23 17:16] VITALS: O2SAT 99
[2021-05-23 17:19] VITALS: BP 161/67; TEMP 98.5
== END 2021-05-23 17:12 | disposition home or self-care (01) ==
LOC: ER 15:16
DX: T15.02XA Foreign body in cornea, left eye, initial encounter (principal); I10 Essential (primary) hypertension
CPT/HCPCS: 99283

== ENCOUNTER 2021-11-20 08:11 | Emergency (ER) | payer OTHER ==
--- OUTSIDE RECORDS SUMMARY | 2021-11-20 08:17 | XMS REPORT | Continuity of Care Document ---
:1960 Author Organization [facility] t Address [address] [place] [address] Care Team Providers Name Role Phone Destin GALAVIZ, Merlin Primary Care Physician Osman JACKSON Attending Clinician Unavailable ELVIA Attending Clinician Unavailable Merlin WEIR Attending Clinician Unavailable Devon PIMENTEL Attending Clinician Unavailable Merlin Weir MD Attending Clinician Varsha BROOKS T Attending Clinician Unavailable MAGDALENO Attending Clinician Unavailable Magdaleno GALAVIZ Attending Clinician Doctor Unassigned, Name Attending Clinician Unavailable ALBIN JACKSON Attending Clinician Unavailable Timothy Renee MD Attending Clinician Elvia GALAVIZ Attending Clinician Osman Jackson MD Attending Clinician Scarlett Wilcox MD Attending Clinician Brittani Bro CRNA Attending Clinician RAFAL LE Attending Clinician Unavailable Osman JACKSON Admitting Clinician Unavailable MAGDALENO Admitting Clinician Unavailable Merlin WEIR Admitting Clinician Unavailable RAFAL LE Admitting Clinician Unavailable Payers Payer Name Policy Type Policy Number Effective Date Expiration Date Timothy isa [facility] DUAL [id number] 2020 COMP HMO D SNP 00:00:00 MED[place]ID OF [place] [id number] 2016 00:00:00 DUAL COMPLETE SNP [id number] 2021 [facility] 00:00:00 [facility]-MEDICAID - [id number] MEDICAID MEDICARE PART A [id number] \\T\\ B - MEDICARE Problems Condition Condition Condition Status Onset Resolution [...] 2-02 it y of on on 00:00: [place] [facility] Fluid Fluid Disease Active Univers retention retention 2- ity of 00:00: [place] [facility] Mixed Mixed Disease Active Univers hyperlipid hyperlipid 2- it y of emia emia 00:00: [place] [facility] Low Low Disease Active Univers vitamin D vitamin D 2- ity of level level 00:00: [place] [facility] Anemia of Anemia of Disease Active Uni vers chronic chronic 2-02 ity of disease disease 00:00: [place] 00 Medical Branch 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 2-02 ity of disease disease 00:00: [place] that is that is 00 Medical not asthma not asthma Br anch Lab test Lab test Disease Active Unive rs positive positive 2- ity of for for 00:00: [place] detection detection 00 Medi malaika of of Branch COVID-19 COVID-19 virus virus Screening Screening Disease Active Uni vers for for 2-02 [place] of malignant malignant 00:[place] ne[place] Med[place] of colon of colon Branch Weight Weight Disease Active 2019- Univers gain gain 7- ity of 00:00: [place] 00 Medical Branch Hypertensi Hypertensi Disease Active 2019- U nivers on, benign on, benign 7- it y of 00:00: [place] 00 Medical Branch Early Early Disease Active 2019- Univers satiety satiety 7- ity of 00:00: [place] 00 Medical Branch Difficulty Difficulty Disease Active 2019- U nivers sleeping sleeping 7- ity of 00:00: [place] [facility] Swelling Swelling Disease Active Unive rs 04-20 ity of 00:00: Medical Branch Obesity Obesity [...] ents Source Name Type Date Date Clinician METFORMI Allergy [facility] Metformi Drug Active Diarrhea [facility]: Only with Medical 00 immediate Center release metformin , ok with extended release metformin . Metformi Propensi Active Diarrhea And Univ ers n ty to 04-16 nausea. ity of adverse 00:00: Only with [place] reaction 00 immediate Medic al s release Branch metformin , ok with extended release metformin . NO KNOWN Drug Active [facility] ALLERGIE Class ity of S [facility] Branch Social History Social Habit Start Date Stop Date Quantity Comments Source Exposure to Not sure [facility] [place]-CoV-2 [place] [facility] (event) Branch Alcohol intake 2021-01-19 2021-01-19 Ex-drinker ELLIE Gray es - 00:00:00 00:00:00 (finding) Medical Center Tobacco use and 2021-01-17 2021-01-17 Never used ELLIE Shi - exposure 00:00:00 00:00:00 [facility] Center Sex [birth year] At [birth year] ELLIE Shi - 00:00:00 00:00:00 [facility] Center Smoking Status Start Date Stop Date Source Never smoker [facility] Medications Ordered Filled Start Stop Current Ordering Indication Dosage Frequency Signature Comments Components Source Medication Medication Date Date Medication? Clinician (SIG) Name Name LEO Yes [id number] INJECT 28 Un evita SOLOSTAR 1-14 UNITS ity of U-300 00:00: SUBCUTANEO [place] INSULIN 300 00 USLY AT Medic al unit/mL BEDTIME Branch (1.5 mL) InPn doxycycline 2021- Yes [id number] 100mg Take 1 Univers hyclate 100 10-02-10 tablet by it y of mg tablet 00:00: 05:59 mouth 2 [place] :[place] (two) Medical times Branch daily for 5 days. hydrOXYchlo 0 2021- Yes [id number] 200mg Take 1 Univers roQUINE 200 10-02-10 tablet by it y of mg tablet 00:00: 05:59 mouth 2 [place] :[place] (two) Medical times Branch daily for 5 days. acetaminoph 2021- No 650mg 650 mg, U nivers en 10-01-03 Oral, ity of (TYLENOL) 15:00: 13:52 ONCE, 1 [place] tablet 650 00 :00 dose, On Medic al mg 10/01/21 Branch at 0900, MOY ondansetron Yes [id number] 4mg Take 1 Univers 4 mg 1-03 tablet by ity of disintegrat 00:00: mouth [place] ing tablet 00 every 4 Medica l (four) Branch hours as needed for Nausea and Vomiting (N/V). benzonatate 2021-0 Yes [id number] 100mg Take 1 Univers 100 mg 1-03 capsule by ity of capsule 00:00: mouth 3 [place] 00 (three) Medical times Branch daily as needed for Cough. loratadine 2021-0 Yes [id number] 10mg Take 1 Univers 10 mg 1-03 tablet by ity of tablet 00:00: mouth [place] 00 daily. Medical Branch ondansetron 2021-0 Yes [id number] 4mg Take 1 Univers 4 mg 1-03 tablet by ity of disintegrat 00:00: mouth [place] ing tablet 00 every 4 Medica l (four) Branch hours as needed for Nausea and Vomiting (N/V). benzonatate 2021-0 Yes [id number] 100mg Take 1 Univers 100 mg 1-03 capsule by ity of capsule 00:00: mouth 3 00 (three) Medical times Branch daily as needed for Cough. loratadine 2021-0 Yes [id number] 10mg Take 1 Univers 10 mg 1-03 tablet by ity of tablet 00:00: mouth [place] 00 daily. Medical Branch benzonatate 2021-0 Yes [id number] 100mg Take 1 Univers 100 mg 1-03 capsule by ity of capsule 00:00: mouth 3 00 (three) Medical times Branch daily as needed for Cough. loratadine 2021-0 Yes [id number] 10mg Take 1 Univers 10 mg 1-03 tablet by ity of tablet 00:00: mouth [place] 00 daily. Medical Branch benzonatate 2021-0 Yes [id number] 100mg Take 1 Univers 100 mg 1-03 capsule by ity of capsule 00:00: mouth 3 [place] 00 (three) Medical times Branch daily as needed for Cough. loratadine 2021-0 Yes [id number] 10mg Take 1 Univers 10 mg 1-03 tablet by ity of tablet 00:00: mouth [place] 00 daily. Medical Branch ondansetron 2021-0 2021- No [id number] 4mg Take 1 Univers 4 mg 1-03 01-04 tablet by ity of disintegrat 00:00: 00:00 mouth [place] tablet 00 :00 every 4 Medica l (four) Branch hours as needed for Nausea and Vomiting (N/V). metformin 2020-09 Yes [id number] 500mg Take 1 U nivers ER 500 mg 1-22 tablet by ity o f 24 hr 00:00: mouth 2 [place] tablet 00 (two) Medical times Branch daily. metformin 2020-09 Yes [id number] 500mg Take 1 U nivers ER 500 mg 1-22 tablet by ity o f 24 hr 00:00: mouth 2 [place] tablet 00 (two) Medical times Branch daily. metformin 2020-09 Yes [id number] 500mg Take 1 U nivers ER 500 mg 1-22 tablet by ity o f 24 hr 00:00: mouth 2 [place] tablet 00 (two) Medical times Branch daily. metformin 2020-09 Yes [id number] 500mg Take 1 U nivers ER 500 mg 1-22 tablet by ity o f 24 hr 00:00: mouth 2 [place] tablet 00 (two) Medical times Branch daily. metformin 2020-09 Yes [id number] 500mg Take 1 U nivers ER 500 mg 1-22 tablet by ity o f 24 hr 00:00: mouth 2 [place] tablet 00 (two) Medical times Branch daily. metformin 2020-09 Yes [id number] 500mg Take 1 U nivers ER 500 mg 1-22 tablet by ity o f 24 hr 00:00: mouth 2 [place] tablet 00 (two) Medical times Branch daily. metformin 2020-09 Yes [id number] 500mg Take 1 U nivers ER 500 mg 1-22 tablet by ity o f 24 hr 00:00: mouth 2 [place] tablet 00 (two) Medical times Branch daily. LISINOPRIL- 2020-09 Yes [id number] Take 1 Univers HYDROCHLORO 1-11 tablet by ity of THIAZIDE 00:00: mouth once Gurdeep as 20-12.5 mg 00 daily Medical per tablet Branch Diclofenac 2020-09 Yes [id number] APPLY 2 TO Univers Sodium 1 % 1-11 4 ity of gel 00:00: TOPICALLY [place] THREE Medical TIMES Branch DAILY NEEDED FOR PAIN LISINOPRIL- 2020-09 Yes [id number] Take 1 Univers HYDROCHLORO 1-11 tablet by ity of THIAZIDE 00:00: mouth once Gurdeep as 20-12.5 mg 00 daily Medical per tablet Branch Diclofenac 2020-09 Yes [id number] APPLY 2 TO Univers Sodium 1 % 1-11 4 ity of gel 00:00: TOPICALLY [place] THREE Medical TIMES Branch DAILY NEEDED FOR PAIN LISINOPRIL- 2020-09 Yes [id number] Take 1 Univers HYDROCHLORO 1-11 tablet by ity of THIAZIDE 00:00: mouth once Gurdeep as 20-12.5 mg 00 daily Medical per tablet Branch Diclofenac 2020-09 Yes [id number] APPLY 2 TO Univers Sodium 1 % 1-11 4 ity of gel 00:00: TOPICALLY [place] 00 THREE Medical TIMES Branch DAILY NEEDED FOR PAIN LISINOPRIL- 2020-09 Yes [id number] Take 1 Univers HYDROCHLORO 1-11 tablet by ity of THIAZIDE 00:00: mouth once [place] as 20-12.5 mg 00 daily Medical per tablet Branch Diclofenac 2020-09 Yes [id number] APPLY 2 TO Univers Sodium 1 % 1-11 4 ity of gel 00:00: TOPICALLY [place] THREE Medical TIMES [place] DAILY NEEDED FOR PAIN LISINOPRIL- 2020-09 Yes [id number] Take 1 Univers HYDROCHLORO 1-11 tablet by ity of THIAZIDE 00:00: mouth once [place]deep as 20-12.5 mg 00 daily Medical per tablet Branch Diclofenac 2020-09 Yes [id number] APPLY 2 TO Univers Sodium 1 % 1-11 4 ity of gel 00:00: TOPICALLY [place] THREE Medical TIMES Branch DAILY NEEDED FOR PAIN LISINOPRIL- 2020-09 Yes [id number] Take 1 Univers HYDROCHLORO 1-11 tablet by ity of THIAZIDE 00:00: mouth once [place] as 20-12.5 mg 00 daily Medical per tablet Branch Diclofenac 2020-09 Yes [id number] APPLY 2 TO Univers Sodium 1 % 1-11 4 ity of gel 00:00: TOPICALLY [place] THREE Medical TIMES Branch DAILY NEEDED FOR PAIN LISINOPRIL- 2020-09 Yes [id number] Take 1 Univers HYDROCHLORO 1-11 tablet by ity of THIAZIDE 00:00: mouth once [place] as 20-12.5 mg 00 daily Medical per tablet Branch Diclofenac 2020-09 Yes [id number] APPLY 2 TO Univers Sodium 1 % 1-11 4 ity of gel 00:00: TOPICALLY [place] 00 THREE Medical TIMES Branch DAILY NEEDED FOR PAIN aspirin 81 Yes 81mg Take 81 mg U nivers mg chewable 8-31 by mouth ity of tablet 10:04: daily. [address] Cholecalcif 2021-0 Yes Take by Un veita noy, 8-31 mouth. ity of Vitamin D3, 10:04: [place] (VITAMIN 46 Medical D3) 1,000 Branch unit capsule cyanocobala 0 Yes Take by Un evita min, 8- mouth. ity of vitamin 10:04: [facility], Medical (VITAMIN Branch B12 ORAL) pyridoxine 0 Yes Take by Uni vers HCl, 8- mouth. ity of vitamin B6, 10:04: [place] (VITAMIN 46 Medical B-6 ORAL) Branch foLIC acid 0 Yes 1mg Take 1 mg Un evita 1 mg tablet 8 by mouth ity of 10:04: daily. [place] [address] Medical Branch aspirin 81 0 Yes 81mg Take 81 mg U nivers mg chewable 05-29 by mouth ity of tablet 10:04: daily. [place] [address] Medical Branch Cholecalcif 0 Yes Take by Un evita noy, 8-31 mouth. ity of Vitamin D3, 10:04: [place] (VITAMIN 46 Medical D3) 1,000 Branch unit capsule cyanocobala Yes Take by Un evita min, 8- mouth. ity of vitamin 10:04: [facility] Medical (VITAMIN Branch B12 ORAL) pyridoxine 0 Yes Take by Uni vers HCl, 8- mouth. ity of vitamin B6, 10:04: [place] (VITAMIN 46 Medical B-6 ORAL) [place] foLIC acid Yes 1mg Take 1 mg Un evita 1 mg tablet 05-29 by mouth ity of 10:04: daily. [address] aspirin 81 0 Yes 81mg Take 81 mg U nivers mg chewable 05-29 by mouth ity of tablet 10:04: daily. [place] [address] Medical Branch Cholecalcif 0 Yes Take by Un evita noy, 8-31 mouth. ity of Vitamin D3, 10:04: [place] (VITAMIN 46 Medical D3) 1,000 Branch unit capsule cyanocobala 0 Yes Take by Un evita min, 8-31 mouth. ity of vitamin 10:04: [facility] Medical (VITAMIN Branch B12 ORAL) pyridoxine 0 Yes Take by Uni vers HCl, 8- mouth. ity of vitamin B6, 10:04: [place] (VITAMIN 46 Medical B-6 ORAL) Branch foLIC acid 0 Yes 1mg Take 1 mg Un evita 1 mg tablet 8-31 by mouth ity of 10:04: daily. [address] Branch aspirin 81 2020-0 Yes 81mg Take 81 mg U nivers mg chewable 8-31 by mouth ity of tablet 10:04: daily. [address] Branch Cholecalcif 0 Yes Take by Un evita noy, 8-31 mouth. ity of Vitamin D3, 10:04: [place] (VITAMIN 46 Medical D3) 1,000 Branch unit capsule cyanocobala 0 Yes Take by Un evita min, 8-31 mouth. ity of vitamin 10:04: [facility] Medical (VITAMIN Branch B12 ORAL) pyridoxine 0 Yes Take by Uni vers HCl, 8-31 mouth. ity of vitamin B6, 10:04: [place] (VITAMIN 46 Medical B-6 ORAL) [place] foLIC acid 0 Yes 1mg Take 1 mg Un evita 1 mg tablet 8- by mouth ity of 10:04: daily. [address] aspirin 81 0 Yes 81mg Take 81 mg U nivers mg chewable 8- by mouth ity of tablet 10:04: daily. [address] Branch Cholecalcif 0 Yes Take by Un evita noy, 8-31 mouth. ity of Vitamin D3, 10:04: [place] (VITAMIN 46 Medical D3) 1,000 Branch unit capsule cyanocobala 0 Yes Take by Un evita min, 8-31 mouth. ity of vitamin 10:04: [place] [address] Medical (VITAMIN Branch B12 ORAL) pyridoxine 0 Yes Take by Uni vers HCl, 8-31 mouth. ity of vitamin B6, 10:04: [place] (VITAMIN 46 Medical B-6 ORAL) Branch foLIC acid 0 Yes 1mg Take 1 mg Un evita 1 mg tablet 8-31 by mouth ity of 10:04: daily. [address] aspirin 81 2020-0 Yes 81mg Take 81 mg U nivers mg chewable 8-31 by mouth ity of tablet 10:04: daily. [address] Branch Cholecalcif 2020-0 Yes Take by Un evita noy, 8-31 mouth. ity of Vitamin D3, 10:04: [place] (VITAMIN Medical D3) 1,000 Branch unit capsule cyanocobala 0 Yes Take by Un evita min, 8-31 mouth. ity of vitamin 10:04: [place] [address] Medical (VITAMIN Branch B12 ORAL) pyridoxine Yes Take by Uni vers HCl, 8-31 mouth. ity of vitamin B6, 10:04: [place] (VITAMIN Medical B-6 ORAL) [place] foLIC acid Yes 1mg Take 1 mg Un evita 1 mg tablet 8-31 by mouth ity of 10:04: daily. [address] aspirin 81 0 Yes 81mg Take 81 mg U nivers mg chewable 8-31 by mouth ity of tablet 10:04: daily. [address] Cholecalcif Yes Take by Un evita noy, 8-31 mouth. ity of Vitamin D3, 10:04: [place] (VITAMIN Medical D3) 1,000 Branch unit capsule cyanocobala Yes Take by Un evita min, 8- mouth. ity of vitamin 10:04: [place] [address] Medical (VITAMIN Branch B12 ORAL) pyridoxine Yes Take by Uni vers HCl, 8- mouth. ity of vitamin B6, 10:04: [place] (VITAMIN Medical B-6 ORAL) [place] foLIC acid Yes 1mg Take 1 mg Un evita 1 mg tablet 8-31 by mouth ity of 10:04: daily. [address] glipiZIDE 2020-0 Yes [id number] 10mg Take 1 Un evita 10 mg 8-31 tablet by ity of tablet 00:00: mouth 2 [place] [address] (two) Medical times Branch daily before breakfast and dinner. ipratropium 0 Yes [id number] 2{spray Use 2 Univers 21 mcg 8-31 } Sprays in ity of (0.03 %) 00:00: each [place] nasal spray 00 nostril 3 Med ical (three) Branch times daily. repaglinide 0 Yes [id number] .5mg Take 1 Univers 0.5 mg 8-31 tablet by ity of tablet 00:00: mouth 3 [place] 00 (three) Medical times Branch daily before meals. If blood sugars are running over 150 two hours after a meal then take 2 pills before meals. glipiZIDE 2020-0 Yes [id number] 10mg Take 1 Un evita 10 mg 8-31 tablet by ity of tablet 00:00: mouth 2 (two) Medical times Branch daily before breakfast and dinner. ipratropium 2020-0 Yes [id number] 2{spray Use 2 Univers 21 mcg 8-31 } Sprays in ity of (0.03 %) 00:00: each [place] nasal spray 00 nostril 3 Med ical (three) Branch times daily. repaglinide 2020-0 Yes [id number] .5mg Take 1 Univers 0.5 mg 8-31 tablet by ity of tablet 00:00: mouth 3 (three) Medical times Branch daily before meals. If blood sugars are running over 150 two hours after a meal then take 2 pills before meals. glipiZIDE 2020-0 Yes [id number] 10mg Take 1 Un evita 10 mg 8-31 tablet by ity of tablet 00:00: mouth 2 [place] (two) Medical times Branch daily before breakfast and dinner. ipratropium 2020-0 Yes [id number] 2{spray Use 2 Univers 21 mcg 8-31 } Sprays in ity of (0.03 %) 00:00: each [place] nasal spray 00 nostril 3 Med ical (three) Branch times daily. repaglinide 2020-0 Yes [id number] .5mg Take 1 Univers 0.5 mg 8-31 tablet by ity of tablet 00:00: mouth 3 [place] (three) Medical times Branch daily before meals. If blood sugars are running over 150 two hours after a meal then take 2 pills before meals. glipiZIDE 2020-0 Yes [id number] 10mg Take 1 Un evita 10 mg 8-31 tablet by ity of tablet 00:00: mouth 2 (two) Medical times Branch daily before breakfast and dinner. ipratropium 2020-0 Yes [id number] 2{spray Use 2 Univers 21 mcg 8-31 } Sprays in ity of (0.03 %) 00:00: each [place] nasal spray 00 nostril 3 Med ical (three) Branch times daily. repaglinide 2020-0 Yes [id number] .5mg Take 1 Univers 0.5 mg 8-31 tablet by ity of tablet 00:00: mouth 3 [place] (three) Medical times Branch daily before meals. If blood sugars are running over 150 two hours after a meal then take 2 pills before meals. glipiZIDE 2020-0 Yes [id number] 10mg Take 1 Un evita 10 mg 8-31 tablet by ity of tablet 00:00: mouth 2 [place] (two) Medical times Branch daily before breakfast and dinner. ipratropium 2020-0 Yes [id number] 2{spray Use 2 Univers 21 mcg 8-31 } Sprays in ity of (0.03 %) 00:00: each [place] nasal spray 00 nostril 3 Med ical (three) Branch times daily. repaglinide 0 Yes [id number] .5mg Take 1 Univers 0.5 mg 8-31 tablet by ity of tablet 00:00: mouth 3 [place] (three) Medical times Branch daily before meals. If blood sugars are running over 150 two hours after a meal then take 2 pills before meals. glipiZIDE 0 Yes [id number] 10mg Take 1 Un evita 10 mg 8-31 tablet by ity of tablet 00:00: mouth 2 [place] (two) Medical times Branch daily before breakfast and dinner. ipratropium 2020-0 Yes [id number] 2{spray Use 2 Univers 21 mcg 8-31 } Sprays in ity of (0.03 %) 00:00: each [place] nasal spray 00 nostril 3 Med ical (three) Branch times daily. repaglinide 2020-0 Yes [id number] .5mg Take 1 Univers 0.5 mg 8-31 tablet by ity of tablet 00:00: mouth 3 [place] (three) Medical times Branch daily before meals. If blood sugars are running over 150 two hours after a meal then take 2 pills before meals. glipiZIDE 2020-0 Yes [id number] 10mg Take 1 Un evita 10 mg 8-31 tablet by ity of tablet 00:00: mouth 2 [place] (two) Medical times Branch daily before breakfast and dinner. ipratropium 2020-0 Yes [id number] 2{spray Use 2 Univers 21 mcg 8-31 } Sprays in ity of (0.03 %) 00:00: each [place] nasal spray 00 nostril 3 Med ical (three) Branch times daily. repaglinide 0 Yes [id number] .5mg Take 1 Univers 0.5 mg 8-31 tablet by ity of tablet 00:00: mouth 3 [place] 00 (three) Medical times Branch daily before meals. If blood sugars are running over 150 two hours after a meal then take 2 pills before meals. BD JUAN DIEGO 2ND 2020-0 Yes [id number] USE Univers GEN PEN 8-19 DIRECTED ity of NEEDLE 32 00:00: EVERY [place] gauge x 00 MORNING Medical 5/32" Ndle Branch BD JUAN DIEGO 2ND 2020- Yes [id number] USE Univers GEN PEN 8-19 DIRECTED ity of NEEDLE 32 00:00: EVERY [place] gauge x 00 MORNING Medical 5/32" Ndle Branch BD JUAN DIEGO 2ND 2020-0 Yes [id number] USE Univers GEN PEN 8-19 DIRECTED ity of NEEDLE 32 00:00: EVERY [place] gauge x 00 MORNING Medical 5/32" Ndle Branch BD JUAN DIEGO 2ND 2020- Yes [id number] USE Univers GEN PEN 8-19 DIRECTED ity of NEEDLE 32 00:00: EVERY [place] gauge x 00 MORNING Medical 5/32" Ndle Branch BD JUAN DIEGO 2ND 2020-0 Yes [id number] USE Univers GEN PEN 8-19 DIRECTED ity of NEEDLE 32 00:00: EVERY [place] gauge x 00 MORNING Medical 5/32" Ndle Branch BD JUAN DIEGO 2ND 2020-0 Yes [id number] USE Univers GEN PEN 8-19 DIRECTED ity of NEEDLE 32 00:00: EVERY [place] gauge x 00 MORNING Medical 5/32" Ndle Branch BD JUAN DIEGO 2ND 2020-0 Yes [id number] USE Univers GEN PEN 8-19 DIRECTED ity of NEEDLE 32 00:00: EVERY [place] gauge x 00 MORNING Medical 5/32" Ndle Branch Miscellaneo 2020-0 Yes [id number] Use as Univers Medical 6- directed ity o f Supply 00:00: [place] (BLOOD 00 Medical PRESSURE Branch [id number] Univers Medical 6- directed ity o f Supply 00:00: [place] (BLOOD 00 Medical PRESSURE Branch CUFF) [facility] [id number] Use as Univers Medical 6- directed ity o f Supply 00:00: [place] (BLOOD 00 Medical PRESSURE Branch CUFF) [facility] Miscellaneo Yes [id number] Use as [facility] Medical 02-28 directed ity o f Supply 00:00: [place] (BLOOD 00 Medical PRESSURE Branch CUFF) [facility] Miscellaneo Yes [id number] Use as [facility] 02-28 directed ity o f Supply 00:00: [place] (BLOOD 00 Medical PRESSURE Branch CUFF) [facility] Miscellaneo Yes [id number] Use as [facility] 02-28 directed ity o f Supply 00:00: [place] (BLOOD 00 Medical PRESSURE Branch CUFF) [facility] Miscellaneo Yes [id number] Use as [facility] 02-28 directed ity o f Supply 00:00: [place] (BLOOD 00 Medical PRESSURE Branch CUFF) [facility] meloxicam Yes [id number] 7.5mg Take 1 Univers 7.5 mg 5-11 2 tablet by ity of tablet 00:00: mouth [place] 00 daily. If Medical not Branch helping the pain after 3 days increase to 2 pills daily. albuterol-i Yes [id number] 1{puff} Inhale 1 Univers pratropium 5-11 6 Puff 4 ity of 20-100 00:00: (four) [place] mcg/actuati 00 times Medical on inhaler daily. Branch montelukast Yes [id number] 10mg Take 1 Univers (SINGULAIR) 5-11 tablet by ity of 10 mg 00:00: mouth at [place] tablet 00 bedtime. Medical Branch Miscellaneo Yes [id number] Patient [facility] Medical 5-11 needs ity of Supply Misc 00:00: custom AFO [place] 00 brace, has Medical ankle Branch weakness (M62.81) and would benefit from AFO. meloxicam Yes [id number] 7.5mg Take 1 Univers 7.5 mg 5-11 2 tablet by ity of tablet 00:00: mouth [place] 00 daily. If Medical not Branch helping the pain after 3 days increase to 2 pills daily. albuterol-i Yes [id number] 1{puff} Inhale 1 Univers pratropium 5-11 6 Puff 4 ity of 20-100 00:00: (four) [place] mcg/actuati 00 times Medical on inhaler daily. Branch montelukast Yes [id number] 10mg Take 1 Univers (SINGULAIR) 5-11 tablet by ity of 10 mg 00:00: mouth at [place] tablet 00 bedtime. Medical Branch Miscellaneo Yes [id number] Patient [facility] 5-11 needs ity of Supply Misc 00:00: custom AFO [place] brace, has Medical ankle Branch weakness (M62.81) and would benefit from AFO. meloxicam Yes [id number] 7.5mg Take 1 Univers 7.5 mg 5-11 2 tablet by ity of tablet 00:00: mouth [place] 00 daily. If Medical not Branch helping the pain after 3 days increase to 2 pills daily. albuterol-i Yes [id number] 1{puff} Inhale 1 Univers pratropium 5-11 6 Puff 4 ity of 20-100 00:00: (four) [place] mcg/actuati 00 times Medical on inhaler daily. Branch montelukast Yes [id number] 10mg Take 1 Univers (SINGULAIR) 5-11 tablet by ity of 10 mg 00:00: mouth at [place] tablet 00 bedtime. Medical Branch Miscellaneo Yes [id number] Patient [facility] 5-11 needs ity of Supply Misc 00:00: custom AFO [place] brace, has Medical ankle Branch weakness (M62.81) and would benefit from AFO. meloxicam Yes [id number] 7.5mg Take 1 Univers 7.5 mg 5-11 2 tablet by ity of tablet 00:00: mouth [place] 00 daily. If Medical not Branch helping the pain after 3 days increase to 2 pills daily. albuterol-i Yes [id number] 1{puff} Inhale 1 Univers pratropium 5-11 6 Puff 4 ity of 20-100 00:00: (four) [place] mcg/actuati 00 times Medical on inhaler daily. Branch montelukast Yes [id number] 10mg Take 1 Univers (SINGULAIR) 5-11 tablet by ity of 10 mg 00:00: mouth at [place] tablet 00 bedtime. Medical Branch Miscellaneo Yes [id number] Patient [facility] 5-11 needs ity of Supply Misc 00:00: custom AFO [place] brace, has Medical ankle Branch weakness (M62.81) and would benefit from AFO. meloxicam Yes [id number] 7.5mg Take 1 Univers 7.5 mg 5-11 2 tablet by ity of tablet 00:00: mouth [place] 00 daily. If Medical not Branch helping the pain after 3 days increase to 2 pills daily. albuterol-i Yes [id number] 1{puff} Inhale 1 Univers pratropium 5-11 6 Puff 4 ity of 20-100 00:00: (four) [place] mcg/actuati 00 times Medical on inhaler daily. Branch montelukast Yes [id number] 10mg Take 1 Univers (SINGULAIR) 5-11 tablet by ity of 10 mg 00:00: mouth at [place] tablet 00 bedtime. Medical Branch Miscellaneo Yes [id number] Patient [facility] 5-11 needs ity of Supply Misc 00:00: custom AFO [place] brace, has Medical ankle Branch weakness (M62.81) and would benefit from AFO. meloxicam Yes [id number] 7.5mg Take 1 Univers 7.5 mg 5-11 2 tablet by ity of tablet 00:00: mouth [place] 00 daily. If Medical not Branch helping the pain after 3 days increase to 2 pills daily. albuterol-i Yes [id number] 1{puff} Inhale 1 Univers pratropium 5-11 6 Puff 4 ity of 20-100 00:00: (four) [place] mcg/actuati 00 times Medical on inhaler daily. Branch montelukast Yes [id number] 10mg Take 1 Univers (SINGULAIR) 5-11 tablet by ity of 10 mg 00:00: mouth at [place] tablet 00 bedtime. Medical Branch Miscellaneo Yes [id number] Patient [facility] 5-11 needs ity of Supply Misc 00:00: custom AFO [place] 00 brace, has Medical ankle Branch weakness (M62.81) and would benefit from AFO. meloxicam Yes [id number] 7.5mg Take 1 Univers 7.5 mg 5-11 2 tablet by ity of tablet 00:00: mouth [place] 00 daily. If Medical not Branch helping the pain after 3 days increase to 2 pills daily. albuterol-i Yes [id number] 1{puff} Inhale 1 Univers pratropium 5-11 6 Puff 4 ity of 20-100 00:00: (four) [place] mcg/actuati 00 times Medical on inhaler daily. Branch montelukast Yes [id number] 10mg Take 1 Univers (SINGULAIR) 5-11 tablet by ity of 10 mg 00:00: mouth at [place] tablet 00 bedtime. Medical Branch Miscellaneo Yes [id number] Patient Univers us Medical 5-11 needs ity of Supply Misc 00:00: custom AFO [place] 00 brace, has Medical ankle Branch weakness (M62.81) and would benefit from AFO. metformin 202- No [id number] 500mg Take 1 Univers ER 500 mg 5-11 11-22 tablet by ity of 24 hr 00:00: 00:00 mouth [place] tablet 00 :00 daily with Medical breakfast. Branch metformin 2020- No [id number] 500mg Take 1 Univers ER 500 mg 5-11 11-22 tablet by ity of 24 hr 00:00: 00:00 mouth [place] tablet 00 :00 daily with Medical breakfast. Branch dorzolamide Yes 1[drp] Q.5D [address] [facility] -timoloL 4-22 (two) [facility] (COSOPT) 16:45: times Medical 22.3-6.8 51 daily. Center mg/mL ophthalmic solution cholecalcif Yes [id number] Q7D Take [facility] noy, 4-22 50,000 [facility] - vitamin D3, 16:45: Units by [place] dical 1,250 mcg 51 mouth once Cent er (50,000 a week. unit) Tab latanoprost Yes 1[drp] QD [address] [facility] (XALATAN) 4-22 nightly. [facility] - 0.005 % 16:45: Medical ophthalmic 51 Center solution lisinopril- Yes 1{tbl} QD Take [address] hydroCHLORO 4-22 tablet by [facility] - thiazide 16:45: mouth Medical (PRINZIDE,Z 51 daily. Center ESTORETIC) 10-12.5 mg per tablet metFORMIN Yes 500mg Take [address] [facility] (GLUCOPHAGE 4-22 mg by [facility] - ) 500 MG 16:45: mouth 2 Medica l tablet 51 (two) Center times daily with breakfast and dinner. prednisoLON Yes 1[drp] Q.25D [address] [facility] E acetate 4-22 (four) [facility] - (PRED 16:45: times Medical FORTE) 1 % 51 daily. Center ophthalmic suspension pyridoxine, Yes 100mg QD Take [address] vitamin B6, 4-22 mg by [facility] - (B-6) 100 16:45: mouth Medical MG tablet 51 daily. Center insulin Yes Inject [facility] glargine 4-22 subcutaneo [facility] - U-300 conc 16:45: usly. Medica l (Toujeo Max 51 Center U-300 SoloStar) 300 unit/mL (3 mL) InPn aspirin 81 Yes 81mg QD Take [address] MG EC 4-22 by mouth [facility] - tablet 16:45: daily. Medical 51 Center atorvastati Yes 20mg QD Take [address] [facility] n (LIPITOR) 4-22 by mouth Luke s - 20 MG 16:45: daily. Medical tablet 51 Center atropine Yes 1[drp] Q.[id number] [address] [facility] (ISOPTO) 1 4-22 [id number] (three) [facility] - % 16:45: 3D times Medical ophthalmic 51 daily. Center solution brimonidine Yes 1[drp] Q.[id number] [address] [facility] (ALPHAGAN) 4-22 [id number] (three) [facility] - 0.2 % 16:45: 3D [...] daily. Center mg/mL ophthalmic solution cholecalcif Yes [id number] Q7D Take [facility] noy, 4-22 50,000 [facility] - vitamin D3, 16:45: Units by [place] dical 1,250 mcg 51 mouth once Cent er (50,000 a week. unit) Tab latanoprost Yes 1[drp] QD [address] (XALATAN) 4-22 nightly. [facility] - 0.005 % 16:45: Medical ophthalmic 51 Center solution lisinopril- Yes 1{tbl} QD Take [address] hydroCHLORO 4-22 tablet by [facility] - thiazide 16:45: mouth Medical (PRINZIDE,Z 51 daily. [place] ESTORETIC) 10-12.5 mg per tablet metFORMIN Yes 500mg Take [address] [facility] (GLUCOPHAGE 4-22 mg by [facility] - ) 500 MG 16:45: mouth 2 Medica l tablet 51 (two) Center times daily with breakfast and dinner. prednisoLON Yes 1[drp] Q.25D [address] [facility] E acetate 4-22 (four) [facility] - (PRED 16:45: times Medical FORTE) 1 % 51 daily. [place] ophthalmic suspension pyridoxine, Yes 100mg QD Take [address] vitamin B6, 4-22 mg by [facility] - (B-6) 100 16:45: mouth Medical MG tablet 51 daily. Center insulin Yes Inject [facility] glargine 4-22 subcutaneo [facility] - U-300 conc 16:45: usly. Medica l (Toujeo Max 51 Center U-300 SoloStar) 300 unit/mL (3 mL) InPn aspirin 81 2021-0 Yes 81mg QD Take [address] MG EC -22 by mouth [facility] - tablet 16:45: daily. Medical 51 Center atorvastati 0 Yes 20mg QD Take [address] [facility] n (LIPITOR) -22 by mouth Luke s - 20 MG 16:45: daily. Medical tablet 51 Center atropine 0 Yes 1[drp] Q.[id number] [address] [facility] (ISOPTO) 1 01-18 [id number] (three) [facility] - % 16:45: 3D times Medical ophthalmic 51 daily. Center solution brimonidine 0 Yes 1[drp] Q.[id number] [address] [facility] (ALPHAGAN) 01-18 [id number] (three) [facility] - 0.2 % 16:45: 3D times Medical ophthalmic 51 daily. Center solution cyanocobala Yes 100ug QD Take [address] min, 4- mcg by [facility] - vitamin 16:45: mouth Medical B-12, 100 51 daily. Center MCG tablet cholecalcif Yes Take by [facility] noy, - mouth. [facility] - vitamin D3, 16:45: Medica l 25 mcg 51 Center (1,000 unit) Chew dorzolamide Yes 1[drp] Q.5D [address] [facility] -timoloL 01-18 (two) [facility] - (COSOPT) 16:45: times Medical 22.3-6.8 51 daily. Center mg/mL ophthalmic solution cholecalcif Yes [id number] Q7D Take [facility] noy, - 50,000 [facility] - vitamin D3, 16:45: Units by [place] dical 1,250 mcg 51 mouth once Cent er (50,000 a week. unit) Tab latanoprost 0 Yes 1[drp] QD [address] (XALATAN) 4-22 nightly. [facility] - 0.005 % 16:45: Medical ophthalmic 51 Center solution lisinopril- 0 Yes 1{tbl} QD Take 1 [facility] [...] [address] [facility] E acetate 4-22 (four) [facility] - (PRED 16:45: times Medical FORTE) 1 % 51 daily. Center ophthalmic suspension pyridoxine, Yes 100mg QD Take [address] vitamin B6, 4-22 mg by [facility] - (B-6) 100 16:45: mouth Medical MG tablet 51 daily. Center insulin Yes Inject [facility] glargine -22 subcutaneo [facility] - U-300 conc 16:45: usly. Medica l (Toujeo Max 51 Center U-300 SoloStar) 300 unit/mL (3 mL) InPn aspirin 81 Yes 81mg QD Take [address] MG EC -22 by mouth [facility] - tablet 16:45: daily. Medical 51 Center atorvastati Yes 20mg QD Take [address] [facility] n (LIPITOR) 4-22 by mouth Luke s - 20 MG 16:45: daily. Medical tablet 51 Center atropine Yes 1[drp] Q.[id number] [address] [facility] (ISOPTO) 1 4- [id number] (three) [facility] - % 16:45: 3D times Medical ophthalmic 51 daily. Center solution brimonidine Yes 1[drp] Q.[id number] [address] [facility] (ALPHAGAN) 4-22 [id number] (three) [facility] - 0.2 % 16:45: 3D times Medical ophthalmic 51 daily. Center solution cyanocobala Yes 100ug QD Take [address] min, 4-22 mcg by [facility] - vitamin 16:45: mouth Medical B-12, 100 51 daily. Center MCG tablet cholecalcif Yes Take by [facility] noy, 4-22 mouth. [facility] - vitamin D3, 16:45: Medica l 25 mcg 51 Center (1,000 unit) Chew acetaZOLAMI 2020- No 250mg Q.[id number] Take [address] [place] (DIAMOX) 01-18- [id number] mg by [facility] - 250 MG 13:25: 00:00 3D mouth 3 Medical tablet 45 :00 (three) Center times daily. amitriptyli 2020- No 10mg QD Take [address] [facility] ne (ELAVIL) 01-18- by mouth [facility] es - 10 MG 13:25: 00:00 nightly. Medical tablet 45 :00 Center acetaZOLAMI 2020- No 250mg Q.[id number] Take [address] [place] (DIAMOX) 01-18- [id number] mg by [facility] - 250 MG 13:25: 00:00 3D mouth 3 Medical tablet 45 :00 (three) Center times daily. amitriptyli 2020- No 10mg QD Take [address] [facility] ne (ELAVIL) 01-18- by mouth [facility] - 10 MG 13:25: 00:00 nightly. Medical tablet 45 :00 Center acetaZOLAMI 2020- No 250mg Q.[id number] Take [address] [address] [place] (DIAMOX) 01-18- [id number] mg by [facility] - 250 MG 13:25: 00:00 3D mouth 3 Medical tablet 45 :00 (three) Center times daily. amitriptyli 2020- No 10mg QD Take [address] [facility] ne (ELAVIL) 01-18- by mouth [facility] es - 10 MG 13:25: 00:00 nightly. Medical tablet 45 :00 [place] BD JUAN DIEGO 2ND Yes USE Univ ers GEN PEN - DIRECTED ity of NEEDLE 32 00:00: EVERY [...] ity of tablet 00:00: avinash mouth at [place] [address] bedtime. Medical Branch ergocalcife 2019-09 Yes Vitamin D [id number] Take 1 Univers rol, 2-24 deficiency capsule by ity of vitamin d2, 00:00: mouth [place] (VITAMIN 00 weekly. Medical D2) 1,250 Branch mcg (50,000 unit) capsule atorvastati 2019-09 Yes [id number] 20mg Take 1 Univers n 20 mg 2-24 tablet by ity of tablet 00:00: mouth at [place] [address] bedtime. Medical Branch atorvastati 2019-09 Yes [id number] 20mg Take 1 Univers n 20 mg 2-24 tablet by ity of tablet 00:00: mouth at [place] [address] bedtime. Medical Branch atorvastati 2019-09 Yes [id number] 20mg Take 1 Univers n 20 mg 2-24 tablet by ity of tablet 00:00: mouth at [place] [address] bedtime. Medical Branch atorvastati 2019-09 Yes [id number] 20mg Take 1 Univers n 20 mg 2-24 tablet by ity of tablet 00:00: mouth at [place] [address] bedtime. Medical Branch atorvastati 2019-09 Yes [id number] 20mg Take 1 Univers n 20 mg 2-24 tablet by ity of tablet 00:00: mouth at [place] [address] bedtime. Medical Branch atorvastati 2019-09 Yes [id number] 20mg Take 1 Univers n 20 mg 2-24 tablet by ity of tablet 00:00: mouth at [place] [address] bedtime. Medical Branch atorvastati 2019-09 Yes [id number] 20mg Take 1 Univers n 20 mg 2-24 tablet by ity of tablet 00:00: mouth at [place] [address] bedtime. Medical Branch aspirin 81 2019-09 Yes 81mg Take 81 mg U nivers mg chewable 2-14 by mouth ity of tablet 17:00: daily. [place] [address] Medical Branch Cholecalcif 2019-09 Yes Take by Un evita noy, 2-14 mouth. ity of Vitamin D3, 17:00: [place] (VITAMIN 54 [facility] D3) 1,000 Branch unit capsule cyanocobala 2019-09 Yes Take by Un evita min, 2-14 mouth. ity of vitamin 17:00: [place] B-12, [address] [place] [address] (VITAMIN Branch B12 ORAL) pyridoxine 2019-09 Yes Take by Uni vers HCl, 2-14 mouth. ity of vitamin B6, 17:00: [place] (VITAMIN [address] [place] [address] B-6 ORAL) Branch insulin 2019-09 Yes Type 2 28U inject 28 Uni vers glargine 2-14 diabetes Units ity of U-300 conc 00:00: mellitus under the [place] (TOUJEO 00 with other skin at [facility] specified bedtime. Br anch U-300 complicatio INSULIN) n, without 300 unit/mL long-term (1.5 mL) current use InPn of insulin insulin 2019- Yes [id number] 28U inject 28 U nivers glargine 2-14 Units ity of U-300 conc 00:00: under the [place] (TOUJEO 00 skin at [facility] bedtime. Branch U-300 INSULIN) 300 unit/mL (1.5 mL) InPn insulin 2019- Yes [id number] 28U inject 28 U nivers glargine 2-14 Units ity of U-300 conc 00:00: under the [place] (TOUJEO 00 skin at [facility] bedtime. Branch U-300 INSULIN) 300 unit/mL (1.5 mL) InPn insulin 2019- Yes [id number] 28U inject 28 U nivers glargine 2-14 Units ity of U-300 conc 00:00: under the [place] (TOUJEO 00 skin at [facility] bedtime. Branch U-300 INSULIN) 300 unit/mL (1.5 mL) InPn insulin 2019- Yes [id number] 28U inject 28 U nivers glargine 2-14 Units ity of U-300 conc 00:00: under the [place] (TOUJEO 00 skin at [facility] bedtime. Branch U-300 INSULIN) 300 unit/mL (1.5 mL) In insulin 2019-09 Yes [id number] 28U inject 28 U nivers glargine 2-14 Units ity of U-300 conc 00:00: under the [place] (TOUJEO 00 skin at [facility] bedtime. Branch U-300 INSULIN) 300 unit/mL (1.5 mL) InPn insulin 2019-09 Yes [id number] 28U inject 28 U nivers glargine 2-14 Units ity of U-300 conc 00:00: under the [place] (TOUJEO 00 skin at [facility] bedtime. Branch U-300 INSULIN) 300 unit/mL (1.5 mL) InPn insulin 2019-09- No [id number] 28U inject 28 Univers glargine 2-14 01-14 Units ity of U-300 conc 00:00: 00:00 under the [place] (TOUJEO 00 :00 skin at [facility] bedtime. Branch U-300 INSULIN) 300 unit/mL (1.5 mL) In METFORMIN 2019-09 Yes Type 2 TAKE 2 Univ ers ER 500 mg 1-28 diabetes TABLETS BY ity of 24 hr 00:00: mellitus MOUTH ONCE [place] tablet 00 with other DAILY WITH M elin specified BREAKFAST Branc h complicatio n, without long-term current use of insulin blood sugar 2020-0 Yes Type 2 Use BID, Univers diagnostic 8 diabetes DX E11.9 i ty of strip 00:00: mellitus Brand name [place] 00 with Viarco. Medical complicatio Branch n, without long-term current use of insulin blood sugar 2020-0 Yes [id number] Use BID, Univers diagnostic 8 DX E11.9 ity o f strip 00:00: Brand name [place] 00 Viarco. Medical Branch blood sugar 2020-0 Yes [id number] Use BID, Univers diagnostic 8- DX E11.9 ity o f strip 00:00: Brand name [place] 00 Viarco. Medical Branch blood sugar 2020-0 Yes [id number] Use BID, Univers diagnostic 05-04 DX E11.9 ity o f strip 00:00: Brand name [place] 00 Viarco. Medical Branch blood sugar 2020-0 Yes [id number] Use BID, Univers diagnostic 8 DX E11.9 ity o f strip 00:00: Brand name [place] 00 Viarco. Medical Branch blood sugar 2020-0 Yes [id number] Use BID, Univers diagnostic 8-06 DX E11.9 ity o f strip 00:00: Brand name [place] 00 Viarco. Medical Branch blood sugar 2020-0 Yes [id number] Use BID, Univers diagnostic 8-06 DX E11.9 ity o f strip 00:00: Brand name [place] 00 Viarco. Medical Branch blood sugar 2020-0 Yes [id number] Use BID, Univers diagnostic 8-06 DX E11.9 ity o f strip 00:00: Brand name [place] 00 Viarco. Medical Branch lancets-blo 2020-0 Yes Type 2 1{each} 1 Each 2 Univers od glucose 7-30 diabetes (two) ity of strips 30 00:00: mellitus times [place] as gauge Cmpk 00 with daily. Use Med ical complicatio BID, DX Branc h n, without E11.9 long-term (Brand current use upon of insulin insurance approval) lancets-blo 2020-0 Yes [id number] 1{each} 1 Each 2 Univers od glucose 7-30 (two) ity of strips 30 00:00: times [place] gauge Cmpk 00 daily. Use Med ical BID, DX Branch E11.9 (Brand upon insurance approval) lancets-blo 2020-0 Yes [id number] 1{each} 1 Each 2 Univers od glucose 7-30 (two) ity of strips 30 00:00: times [place] gauge Cmpk 00 daily. Use Med ical BID, DX Branch E11.9 (Brand upon insurance approval) lancets-blo 2020-0 Yes [id number] 1{each} 1 Each 2 Univers od glucose 7-30 (two) ity of strips 30 00:00: times [place] gauge Cmpk 00 daily. Use Med ical BID, DX Branch E11.9 (Brand upon insurance approval) lancets-blo 2020-0 Yes [id number] 1{each} 1 Each 2 Univers od glucose 7-30 (two) ity of strips 30 00:00: times [place] gauge Cmpk 00 daily. Use Med ical BID, DX Branch E11.9 (Brand upon insurance approval) lancets-blo 2020-0 Yes [id number] 1{each} 1 Each 2 Univers od glucose 7-30 (two) ity of strips 30 00:00: times [place] gauge Cmpk 00 daily. Use Med ical BID, DX Branch E11.9 (Brand upon insurance approval) lancets-blo 2020-0 Yes [id number] 1{each} 1 Each 2 Univers od glucose 7-30 (two) ity of strips 30 00:00: times [place] gauge Cmpk 00 daily. Use Med ical BID, DX Branch E11.9 (Brand upon insurance approval) lancets-blo 2020-0 Yes [id number] 1{each} 1 Each 2 Univers od glucose [...] it y of tablet 00:00: mouth at [place] 00 bedtime. Medical May take 2 Branch if needed. meloxicam 2019- Yes Low back 7.5mg Take 1 U [...] Medical daily. Branch pen needle, 2018-09 Yes [id number] 1{each} 1 Each Univers diabetic 1-12 every ity of (COMFORT EZ 00:00: morning. [place] PEN 00 E11.65 Medical NEEDLES) 33 Branch gauge x 5/16" Ndle pen needle, 2018- Yes [id number] 1{each} 1 Each Univers diabetic 1-12 every ity of (COMFORT EZ 00:00: morning. [place] PEN 00 E11.65 Medical NEEDLES) 33 Branch gauge x 5/16" Ndle pen needle, 2018-09 Yes [id number] 1{each} 1 Each Univers diabetic 1-12 every ity of (COMFORT EZ 00:00: morning. [place] PEN 00 E11.65 Medical NEEDLES) 33 Branch gauge x 5/16" Ndle pen needle, 2018-09 Yes [id number] 1{each} 1 Each Univers diabetic 1-12 every ity of (COMFORT EZ 00:00: morning. [place] PEN 00 E11.65 Medical NEEDLES) 33 Branch gauge x 5/16" Ndle pen needle, 2018-09 Yes [id number] 1{each} 1 Each Univers diabetic 1-12 every ity of (COMFORT EZ 00:00: morning. [place] PEN 00 E11.65 Medical NEEDLES) 33 Branch gauge x 5/16" Ndle pen needle, 2018-09 Yes [id number] 1{each} 1 Each Univers diabetic 1-12 every ity of (COMFORT EZ 00:00: morning. [place] PEN 00 E11.65 Medical NEEDLES) 33 Branch gauge x 5/16" Ndle pen needle, 2018- Yes [id number] 1{each} 1 Each Univers diabetic 1-12 every ity of (COMFORT EZ 00:00: morning. [place] PEN 00 E11.65 Medical NEEDLES) 33 Branch gauge x 5/16" Ndle pen needle, 2018-09 Yes Type 2 1{each} 1 Each Univers diabetic 1-12 diabetes every ity of (COMFORT EZ 00:00: mellitus morning. [place] PEN 00 with other E11.65 Medical NEEDLES) 33 specified [facility] gauge x complicatio 5/16" Ndle n, without long-term current use of insulin Blood-Gluco 2018- Yes [id number] DX E11.9 Univers se Meter 7-09 (Brand ity of Kit 00:00: upon [place] 00 insurance Medical approval) Branch Blood-Gluco 2018- Yes [id number] DX E11.9 Univers se Meter 7-09 (Brand ity of Kit 00:00: upon [place] 00 insurance Medical approval) Branch Blood-Gluco 2019-0 Yes [id number] DX E11.9 Univers se Meter 7-09 (Brand ity of Kit 00:00: upon [place] 00 insurance Medical approval) Branch Blood-Gluco 2019-0 Yes [id number] DX E11.9 Univers se Meter 7-09 (Brand ity of Kit 00:00: upon [place] 00 insurance Medical approval) Branch Blood-Gluco 2019-0 Yes [id number] DX E11.9 Univers se Meter 7-09 (Brand ity of Kit 00:00: upon [place] 00 insurance Medical approval) Branch Blood-Gluco 2019- Yes [id number] DX E11.9 Univers se Meter 7-09 (Brand ity of Kit 00:00: upon [place] 00 insurance Medical approval) Branch Blood-Gluco 2019-0 Yes [id number] DX E11.9 Univers se Meter 7-09 (Brand ity of Kit 00:00: upon [place] 00 insurance Medical approval) Branch Blood-Gluco 2018- Yes Type 2 DX E11.9 Univers se Meter 7-09 diabetes (Brand ity o f Kit 00:00: mellitus upon [place] 00 with insurance Medical complicatio approval) [facility] n, without long-term current use of insulin Immunizations Ordered Filled Immunization Date Status Comments [facility] e Immunization Name Name Influenza Virus 2021-08-20 Completed Universit y of Vaccine Quad IM, 00:00:[address] [facility] dical Preserv and ABX Branch Free 6 MO-64 YRS Influenza Virus 2021-08-20 Completed Universit y of Vaccine Quad IM, 00:00:00 [place] Me dical Preserv and ABX Branch Free 6 MO-64 YRS Influenza Virus 2021-08-20 Completed Universit y of Vaccine Quad IM, 00:00:00 [place] Me dical Preserv and ABX Branch Free 6 MO-64 YRS Influenza Virus 2021-08-20 Completed Universit y of Vaccine Quad IM, 00:00:00 [place] Me dical Preserv and ABX Branch Free 6 MO-64 YRS Influenza Virus 2021-08-20 Completed Universit y of Vaccine Quad IM, 00:00:00 [place] Me dical Preserv and ABX Branch Free 6 MO-64 YRS Influenza Virus 2021-08-20 Completed Universit y of Vaccine Quad IM, 00:00:[address] [facility] dical Preserv and ABX Branch Free 6 MO-64 YRS Influenza Virus 2021-08-20 Completed Universit y of Vaccine Quad IM, 00:00:[address] [facility] dical Preserv and ABX Branch Free 6 MO-64 YRS Influenza Virus 2020-09-11 Completed Universit y of [...] y of Vaccine Quad .5 mL 00:00:00 [facility] 6+ MO [place] Influenza Virus 2018-07-02 Completed Universit y of Vaccine 00:00:00 [facility] Influenza Virus 2018-07-02 Completed Universit y of Vaccine 00:00:00 [facility] Influenza Virus 2018-07-02 Completed Universit y of Vaccine 00:00:00 [facility] Influenza Virus 2018-07-02 Completed Universit y of Vaccine 00:00:00 [facility] Influenza Virus 2018-07-02 Completed Universit y of Vaccine 00:00:00 [facility] Influenza Virus 2018-07-02 Completed Universit y of Vaccine 00:00:00 [facility] Influenza Virus 2018-07-02 Completed Universit y of Vaccine 00:00:00 [facility] Influenza Virus 2018-07-02 Completed Universit y of Vaccine 00:00:00 [facility] Pneumococcal 2016-05-26 Completed University o f Polysaccharide, 00:00:00 [place] Med ical PPSV23 (PNEUMOVAX) Branch Pneumococcal 2016-05-26 Completed University o f Polysaccharide, 00:00:00 [place] Med ical PPSV23 (PNEUMOVAX) Branch Pneumococcal 2016-05-26 Completed University o f Polysaccharide, 00:00:00 [place] Med ical PPSV23 (PNEUMOVAX) Branch Pneumococcal 2016-05-26 Completed University o f Polysaccharide, 00:00:00 [place] Med ical PPSV23 (PNEUMOVAX) Branch Pneumococcal 2016-05-26 Completed University o f Polysaccharide, 00:00:00 [place] Med ical PPSV23 (PNEUMOVAX) Branch Pneumococcal 2016-05-26 Completed University o f Polysaccharide, 00:00:00 [place] Med ical PPSV23 (PNEUMOVAX) Branch Pneumococcal 2016-05-26 Completed University o f Polysaccharide, 00:00:00 [place] Med ical PPSV23 (PNEUMOVAX) Branch Pneumococcal 2016-05-26 Completed University o f Polysaccharide, 00:00:00 [place] Med ical PPSV23 (PNEUMOVAX) Branch Td 2010-03-08 Completed University of 00:00:00 [facility] Td 2010-03-08 Completed University of 00:00:00 [facility] Td 2010-03-08 Completed University of 00:00:00 [facility] Td 2010-03-08 Completed University of 00:00:00 [facility] Td 2010-03-08 Completed University of 00:00:00 [place] Medical Branch Td 2010-03-08 Completed University of 00:00:00 [facility] Branch Td 2010-03-08 Completed University of 00:00:00 [facility] Branch Td 2010-03-08 Completed University of 00:00:00 [facility] Vital Signs Vital Name Observation Time Observation Value Comments Source HEIGHT 2021-01-18 14:22:00 157.5 cm WEIGHT 2021-01-18 14:22:00 78.472 kg HEIGHT 2021-01-17 13:41:00 157.5 cm WEIGHT 2021-01-17 13:41:00 78.019 kg Systolic blood 2021-10-01 16:00:00 155 mm[Hg] Univer sity of pressure [facility] Diastolic blood 2021-10-01 16:00:00 79 mm[Hg] Unive rsity of pressure [facility] Heart rate 2021-10-01 16:00:00 89 /min Universi ty [facility] Respiratory rate 2021-10-01 16:00:00 16 /min [facility] Oxygen saturation in 2021-10-01 16:00:00 99 /min [facility] Arterial blood by [facility] Pulse oximetry Branch Body temperature 2021-10-01 13:46:00 37.78 Blank [facility] [place] [facility] Body weight 2021-10-01 13:46:00 83.008 kg Universi ty [facility] BMI 2021-10-01 13:46:00 33.47 kg/m2 Universi ty [facility] Systolic blood 2021-08-20 17:53:00 171 mm[Hg] Univer sity of pressure [facility] Diastolic blood 2021-08-20 17:53:00 76 mm[Hg] Unive rsity of pressure [facility] Heart rate 2021-08-20 17:53:00 92 /min [facility]i ty [facility] Body temperature 2021-08-20 17:48:00 37.06 Blank [facility] Respiratory rate 2021-08-20 17:48:00 18 /min Univ ersity [facility] Body height 2021-08-20 17:48:00 157.5 cm Universi ty [facility] Body weight 2021-08-20 17:48:00 83.008 kg [facility] BMI 2021-08-20 17:48:00 33.47 kg/m2 [facility] Oxygen saturation in 2021-08-20 17:48:00 99 /min [facility] Arterial blood by [facility] Pulse oximetry Branch HEIGHT 2021-01-18 14:22:00 157.5 cm WEIGHT 2021-01-18 14:22:00 78.472 kg HEIGHT 2021-01-17 13:41:00 157.5 cm WEIGHT 2021-01-17 13:41:00 78.019 kg Systolic blood 2021-01-18 16:20:00 149 mm[Hg] [facility] Diastolic blood 2021-01-18 16:20:00 63 mm[Hg] [facility] Heart rate 2021-01-18 16:20:00 82 /min [facility] Respiratory rate 2021-01-18 16:20:00 10 /min [facility] Oxygen saturation in 2021-01-18 16:20:00 100 /min [facility] Arterial blood by Medical nter Pulse oximetry Body temperature 2021-01-18 16:04:00 36.56 Blank [facility] Body height 2021-01-18 14:22:00 157.5 cm [facility] Body weight 2021-01-18 14:22:00 78.472 kg [facility] BMI 2021-01-18 14:22:00 31.64 kg/m2 [facility] Procedures Procedure Date / Time Performing Clinician Source Performed XR CHEST 2 VW 2021-10-01 14:24:55 Dina Dolan [facility] URINALYSIS 2021-10-01 14:12:00 Magdaleno Dina [facility] RAPID INFLUENZA A/B 2021-10-01 13:53:00 Dina Dolan [facility] CONSENT/REFUSAL FOR 2021-10-01 13:41:58 Doctor Unassigned, No Un [facility] DIAGNOSIS AND TREATMENT Name [facility] [place] MICROALBUMIN URINE 2021-08-20 19:20:00 Laura Weir [facility] A Medical Branch CBC WITH DIFF 2021-08-20 19:20:00 Laura Weir [facility] [place] POCT HEMOGLOBIN A1C TEST 2021-08-20 18:13:00 Kelsie Weir [facility] FLU VACC (), 2021-08-20 18:10:49 Laura Weir [facility] 2-64 YRS, .5ML, IM, QUAD [facility] [place] (FLUCELVAX) BI SCREENING 2021-02-01 14:35:14 Laura Weir [facility] TOMOSYNTHESIS BILATERAL [facility] [place] INSERTION,EYE TUBE SHUNT 2021-01-18 15:20:00 [facility] POCT-GLUCOSE METER 2021-01-18 14:35:00 Abner Jackson [facility] Plan of Care Planned Activity Planned Date Details Comments Source Future Scheduled 2023-12-[address] [facility] 00:00:00 (procedure) [code = [facility] [id number]] Future Scheduled 2023-12-[address] [facility] Test 00:00:00 (procedure) [code = [facility] 42126555] Future Scheduled 2023-12-[address] [facility] Test 00:00:00 (procedure) [code = [facility] 61252968] Future Scheduled 2023-03-13 Screening for University of Test 00:00:00 malignant neoplasm [place] [facility] of cervix Branch (procedure) [code = 186609336] Future Scheduled 2022-02-01 Screening for University of Test 00:00:00 malignant neoplasm [place] [facility] of breast Branch (procedure) [code = 677139783] Future Scheduled 2021-12-21 Creatinine University of Test 00:00:00 measurement [facility] (procedure) [code = Branch 94983820] Future Scheduled 2021-12-21 Calculated low Universit y of Test 00:00:[address] [facility] dical cholesterol level Branch (procedure) [code = 182559181] Future Scheduled 2021-12-20 Examination of Universit y of Test 00:00:00 retina (procedure) [place] [facility] ical [code = 769373297] Branch Future Scheduled 2021-10-31 DTaP,Tdap,and Td Postponed from Unive rsity of Test 00:00:00 Vaccines (1 - Tdap) 1977 [place] [facility] dical [code = (Insurance / Branch DTaP,Tdap,and Td Financial) Vaccines (1 - Tdap)] Future Scheduled 2021-10-31 Zoster Recombinant Postponed from Uni versity of Test 00:00:00 Vaccine (SHINGRIX) 2008 [place] [facility] ical (1 of 2) [code = (Vaccine not Branch Zoster Recombinant available) Vaccine (SHINGRIX) (1 of 2)] Future Scheduled 2021-09-11 Diabetic foot University of Test 00:00:00 examination [place] [facility] (regime/therapy) Branch [code = 775316533] Future Scheduled 2021-09-11 Microalbumin University of Test 00:00:00 measurement, urine, [facility] dical quantitative Branch (procedure) [code = 484185203] Future Scheduled 2021-06-23 Hemoglobin A1c Universit y of Test 00:00:00 measurement [place] [facility] (procedure) [code = Branch 43956475] Future Scheduled 2021-05-[address] [facility] Test 00:00:00 (#1) [code = Medical Center INFLUENZA VACCINE (#1)] Future Scheduled 2021-05-[address] [facility] - Test 00:00:00 (#1) [code = Medical Center INFLUENZA VACCINE (#1)] Future Scheduled 2020-09-[address] [facility] - Test 00:00:00 (12+) [code = Medical Center DEPRESSION SCREENING (12+)] Future Scheduled 2020-09-[address] [facility] - Test 00:00:00 (12+) [code = Medical Center DEPRESSION SCREENING (12+)] Future Scheduled 2020-09-[address] [facility] - Test 00:00:00 (12+) [code = Medical Center DEPRESSION SCREENING (12+)] Future Scheduled 2020-03-08 DTAP/TDAP/TD [facility] Test 00:[facility]:00 VACCINES (2 - Td) Medical Ce nter [code = DTAP/TDAP/TD VACCINES (2 - Td)] Future Scheduled 2020-03-08 DTAP/TDAP/TD [facility] Test 00:00:00 VACCINES (2 - Td or Medical Center Tdap) [code = DTAP/TDAP/TD VACCINES (2 - Td or Tdap)] Future Scheduled 2020-03-08 DTAP/TDAP/TD [facility] Test 00:00:00 VACCINES (2 - Td or Medical Center Tdap) [code = DTAP/TDAP/TD VACCINES (2 - Td or Tdap)] Future Scheduled 2008 SHINGLES VACCINES ([address] [facility] - Test 00:00:00 of 2) [code = Medical Center SHINGLES VACCINES (1 of 2)] Future Scheduled 2008 SHINGLES VACCINES ([address] [facility] - Test 00:00:00 of 2) [code = Medical Center SHINGLES VACCINES (1 of 2)] Future Scheduled 2008 SHINGLES VACCINES ([address] [facility] - Test 00:00:00 of 2) [code = Medical Center SHINGLES VACCINES (1 of 2)] Future Scheduled 2008 Screening for occult Uni versity of Test 00:00:00 blood in feces [facility] (procedure) [code = Branch 430359399] Future Scheduled 2008 Stool DNA-based Universi ty of Test 00:00:00 colorectal cancer [facility] screening Branch (procedure) [code = 390472199705175] Future Scheduled 2008 Flexible fiberoptic Univ ersity of Test 00:00:00 sigmoidoscopy [facility] (procedure) [code = Branch 96743070] Future Scheduled 2008 Screening for University of Test 00:00:00 malignant neoplasm [place] [facility] of colon (procedure) Branch [code = 447625624] Future Scheduled 2008 Screening for University of Test 00:00:00 malignant neoplasm [place] [facility] of colon (procedure) Branch [code = 766214432] Future Scheduled [address] [facility] Test 00:00:00 malignant neoplasm Medical C enter of cervix (procedure) [code = 469854359] Future Scheduled [address] [facility] Test 00:00:00 malignant neoplasm Medical C enter of cervix (procedure) [code = 124800391] Future Scheduled [address] [facility] Test 00:00:00 malignant neoplasm Medical C enter of cervix (procedure) [code = 440860120] Future Scheduled [address] [facility] Test 00:00:00 SCREENING [code = Medical Ce nter HEPATITIS C SCREENING] Future Scheduled [address] [facility] Test 00:00:00 SCREENING [code = Medical Ce nter HEPATITIS C SCREENING] Future Scheduled [address] [facility] Test 00:00:00 SCREENING [code = Medical Ce nter HEPATITIS C SCREENING] Future Scheduled 1974 SARS-CoV-2 University of Test 00:00:00 (COVID-19) Vaccine [facility] ical (1) [code = Branch SARS-CoV-2 (COVID-19) Vaccine (1)] Future Scheduled 1970 COVID-19 VACCINE (1) [facility] Test 00:00:00 [code = COVID-[address] VACCINE (1)] Future Scheduled 1970 COVID-19 VACCINE (1) [facility] Test 00:00:00 [code = COVID-[address] VACCINE (1)] Future Scheduled 1970 COVID-19 VACCINE (1) [facility] Test 00:00:00 [code = COVID-[address] VACCINE (1)] Future Scheduled 1970 Depression screening Uni versity of Test 00:00:00 (procedure) [code = [facility] dical 562763235] Branch Future Scheduled [address] [facility] Test 00:00:00 malignant neoplasm Medical C enter of breast (procedure) [code = 821825688] Future Scheduled [address] [facility] Test 00:00:00 malignant neoplasm Medical C enter of colon (procedure) [code = 777880902] Future Scheduled [address] [facility] Test 00:00:00 malignant neoplasm Medical C enter of breast (procedure) [code = 671791314] Future Scheduled [address] [facility] Test 00:00:00 malignant neoplasm Medical C enter of colon (procedure) [code = 919619036] Future Scheduled [address] [facility] Test 00:00:00 malignant neoplasm Medical C enter of breast (procedure) [code = 458561957] Future Scheduled [address] [facility] Test 00:00:00 malignant neoplasm Medical C enter of colon (procedure) [code = 874569689] Encounters Start End Encounter Admission Attending Care Care Encounter Source Date/Time Date/Time Type Type Clinicians Facility Department ID 2021-07-07 Outpatient JACKSON, [facility] Surgery [id number] [facility] 14:24:51 ABNER 2022-05-14 2022-05-14 [facility] [id number] Univers 10:00:00 10:00:00 MARTITA [id number] ity o f [facility] 2021-12-18 2021-12-18 [facility] [id number] Univers 09:00:00 09:00:00 LAURA [id number] [facility] 2021-10-17 2021-10-17 Outpatient R [facility] [id number] Univers 10:00:00 10:00:00 [id number] [facility] 2021-10-17 2021-10-17 [facility] [id number] Univers 10:00:00 10:00:00 ANA [facility] 2021-10-16 2021-10-16 [facility] [id number] Univers 09:00:00 09:00:00 LAURA [facility] 2021-10-12 2021-10-12 [facility] [id number] Univers 00:00:00 00:00:00 Laura MANN [id number] [facility] 4.2.7.2.686 Mauricio HATHAWAY [id number] [address] 2021-10-02 2021-10-02 Letter CONSUELO Maddox 1.2.840.114 [id number] Univers 00:00:00 00:00:00 (Out) Maya Villanueva JOSEPH [id number] it y of [facility] 4.2.7.2.[phone] [facility] 019 Branch 2021-10-02 2021-10-02 Telephone Weir, [facility] 1.2.840.114 [id number] Univers 00:00:00 00:00:00 Laura MANN 350.1.13.10 ity of [place]7.2.686 [place] [facility] [id number] Ny dical [facility] 231 Branch [facility] 2021-10-01 2021-10-01 Emergency [facility] ERT [id number] Univers 07:49:00 10:09:00 DINA [facility] 2021-10-01 2021-10-01 Emergency [facility] [id number] Univers 07:49:00 10:09:00 Dina MANN 350.1.13.10 i ty of [place] 4[place]2.7.2.686 [place] [facility] [id number] [facility] 084 Branch 2021-10-01 2021-10-01 Orders Doctor CONSUELO 1.2.840.114 [id number] Univers 00:00:00 00:00:00 Only Unassigned, JOSEPH 350.1.13.10 ity of [place] [facility] 4.2.7.2.[id number] [facility] 009 Branch 2021-09-20 2021-09-20 Outpatient PURVI JACKSON [facility] [id number] [facility] 07:39:04 08:30:58 ABNER [place] of Medicin e 2021-09-07 2021-09-07 [facility] [id number] Univers 09:46:32 23:59:00 LAURA [facility] 2021-08-20 2021-08-20 Office [facility] 1.2.840.114 [id number] Univers 11:33:06 12:57:36 Visit Laura MANN 350.1.13.10 ity [facility] 4.2.7.2.686 Mauricio jackson PROFESSIO [phone] Ny dical [address] 2021-08-20 2021-08-20 Outpatient R DESTIN [facility] [id number] Univers 11:20:00 12:57:36 LAURA [facility] 2021-05-22 2021-05-22 [facility] 1.2.840.114 [id number] 11:43:20 23:59:00 Encounter Lisa Mann 350.1.13.10 [place] 4.2.7.2.686 [place] [phone] [id number] 2021-05-22 2021-05-22 [facility] 1.2.840.114 [id number] 11:42:37 11:42:37 Encounter Lisa Mann 350.1.13.10 [place] 4.2.7.2.686 [place] [id number] [id number] 2021-05-22 2021-05-22 [facility] 1.2.840.114 [id number] 00:00:00 00:00:00 Laura Mann 350.1.13.10 [place] 4.2.7.2.686 Professio [id number] [address] 2021-05-21 2021-05-21 Outpatient TERESO [facility] [id number] [address] [place] [address] 12:17:33 13:41:50 ABNER Portillo 2021-05-14 2021-05-14 [facility] 1.2.840.114 [id number] 10:25:18 11:06:59 Visit Martita Mann 350.1.13.10 [place] 4.2.7.2.686 Professio [id number] [address] 2021-05-14 2021-05-14 [facility] 1.2.840.114 [id number] 00:00:00 00:00:00 Laura Mann 350.1.13.10 Jennifer 4.2.7.2.686 Professio [id number] [address] 2021-05-14 2021-05-14 [facility] 1.2.840.114 [id number] 00:00:00 00:00:00 Laura Mann 350.1.13.10 Jennifer 4.2.7.2.686 Cb [id number] nal [address] [place] [address] 2021-01-18 2021-01-18 [facility] [id number] 13:25:00 16:45:00 [facility] 2021-01-18 2021-01-[address] [facility] [id number] 15:30:00 16:06:00 Event Niurka Bro [facility] 2021-01-18 2021-01-18 Surgery [facility] [id number] 14:20:00 15:05:00 [place] 2021-01-18 2021-01-18 Travel [facility] [id number] [facility] 00:00:00 00:00:00 [facility] 2021-01-17 2021-01-17 [facility] [id number] 11:40:00 23:59:00 Encounter [facility] 2021-01-17 2021-01-17 Outpatient [facility] [id number] [facility] 00:00:00 00:00:00 2021-01-08 2021-01-08 Outpatient PURVI JACKSON [facility] [id number] [address] [place] [address] 12:38:21 15:02:28 ABNER [place] of Medicin e 2019-09-24 2019-09-24 Outpatient Kayden WEIR [facility] [id number] [facility] 11:54:39 23:59:00 LAURA [facility] 2019-09-08 2019-09-09 Outpatient Kayden [facility] [id number] Univers 13:51:00 15:09:00 SOO [facility] Results Test Description Test Time Test Comments Results Result Comments Source CBC WITH DIFF 2021-08-20 22:29:25 Test Item Value Reference Range Interpretation Comme nts WBC (test code = 6690-2) See_Comment [A utomated message] The system which ge nerated this result transmit wood reference range: 4.30 - 1 1.10 10*3/?L. The reference r emilee was not used to interpr et this result as normal/abnor mal. RBC (test code = 789-8) See_Comment L [Au tomated message] The system which ge nerated this result transmit wood reference range: 3.93 - 5 .25 10*6/?L. The reference r emilee was not used to interpr et this result as normal/abnor mal. HGB (test code = 718-7) 10.2 g/dL 11.6-15.0 L HCT (test code = 4544-3) 32.1 % 35.7-45.2 L MCV (test code = 787-2) 86.5 fL 80.6-95.5 MCH (test code = 785-6) 27.5 pg 25.9-32.8 MCHC (test code = 786-4) 31.8 g/dL 31.6-35.1 RDW-SD (test code = 01645-1) 40.9 fL 39.0-49.9 RDW-CV (test code = 788-0) 13.2 % 12.0-15.5 PLT (test code = 777-3) See_Comment [Au tomated message] The system which ge nerated this result transmit wood reference range: 166 - 35 8 10*3/?L. The reference range was not used to interpret th is result as normal/abnormal . MPV (test code = 27993-6) 11.5 fL 9.5-12.9 NRBC/100 WBC (test code = See_Comment [ Automated message] The 4430009080) system which ge nerated this result transmit wood reference range: 0.0 - 10 .0 /100 WBCs. The reference r emilee was not used to interpr et this result as normal/abnor mal. NRBC x10^3 (test code = <0.01 See_Comment [Au tomated message] The 2965135073) system which ge nerated this result transmit wood reference range: 10*3/?L. The reference range was not u sed to interpret this result as normal/abnormal . GRAN MAT (NEUT) % (test code 58.8 % = 770-8) IMM GRAN % (test code = 0.40 % 8114611432) LYMPH % (test code = 736-9) 30.5 % MONO % (test code = 5905-5) 6.3 % EOS % (test code = 713-8) 3.3 % BASO % (test code = 706-2) 0.7 % GRAN MAT x10^3(ANC) (test 6.12 10*3/uL 1.88-7.09 code = 7868001391) IMM GRAN x10^3 (test code = 0.04 10*3/uL 0.00-0.06 4995627461) LYMPH x10^3 (test code = 3.17 10*3/uL 1.32-3.29 731-0) MONO x10^3 (test code = 0.65 10*3/uL 0.33-0.92 742-7) EOS x10^3 (test code = 0.34 10*3/uL 0.03-0.39 711-2) BASO x10^3 (test code = 0.07 10*3/uL 0.01-0.07 704-7) Lab Interpretation (test Abnormal code = 91822-4) [facility] WITH [id number] 22:29:25 Test Item Value Reference Range Interpretation Comments WBC (test code = See_Comment [Automated 4190-2) message] The sy stem which generated this result transmitted reference range : 4.30 - 11.10 10*3/?L. The reference range was not used to interpret this result as normal/abnormal . RBC (test code = See_Comment L [Automated 329-8) message] The sy stem which generated this result transmitted reference range : 3.93 - 5.25 10*6/?L. The reference range was not used to interpret this result as normal/abnormal . HGB (test code = 10.2 g/dL 11.6-15.0 L 718-7) HCT (test code = 32.1 % 35.7-45.2 L 4544-3) MCV (test code = 86.5 fL 80.6-95.5 787-2) MCH (test code = 27.5 pg 25.9-32.8 785-6) MCHC (test code = 31.8 g/dL 31.6-35.1 786-4) RDW-SD (test code = 40.9 fL 39.0-49.9 83802-0) RDW-CV (test code = 13.2 % 12.0-15.5 788-0) PLT (test code = See_Comment [Automated 777-3) message] The sy stem which generated this result transmitted reference range : 166 - 358 10*3/ ?L. The reference r emilee was not used to interpret this result as normal/abnormal . MPV (test code = 11.5 fL 9.5-12.9 90085-8) NRBC/100 WBC (test See_Comment [Automat ed code = 3104784766) message] The system which generated this result transmitted reference range : 0.0 - 10.0 /100 WBCs. The refer ence range was not u sed to interpret th is result as normal/abnormal . NRBC x10^3 (test code <0.01 See_Comment [Auto mated = 0005536317) message] The s ystem which generated this result transmitted reference range : 10*3/?L. The reference range was not used to interpret this result as normal/abnormal . GRAN MAT (NEUT) % 58.8 % (test code = 770-8) IMM GRAN % (test code 0.40 % = 6368133412) LYMPH % (test code = 30.5 % 736-9) MONO % (test code = 6.3 % 5905-5) EOS % (test code = 3.3 % 713-8) BASO % (test code = 0.7 % 706-2) GRAN MAT x10^3(ANC) 6.12 10*3/uL 1.88-7.09 (test code = 6128870719) IMM GRAN x10^3 (test 0.04 10*3/uL 0.00-0.06 code = 0180745854) LYMPH x10^3 (test code 3.17 10*3/uL 1.32-3.29 = 731-0) MONO x10^3 (test code 0.65 10*3/uL 0.33-0.92 = 742-7) EOS x10^3 (test code = 0.34 10*3/uL 0.03-0.39 711-2) BASO x10^3 (test code 0.07 10*3/uL 0.01-0.07 = 704-7) Lab Interpretation Abnormal (test code = 54345-5) [facility] HEMOGLOBIN A1C [id number] 18:13:00 Test Item Value Reference Range Interpretation Comments POCT HBA1C (test code = 4548-4) 8.7 % 4-6 A Lab Interpretation (test code = Abnormal 84487-4) [facility] HEMOGLOBIN A1C [id number] 18:13:00 Test Item Value Reference Range Interpretation Comments POCT HBA1C (test code = 4548-4) 8.7 % 4-6 A Lab Interpretation (test code = Abnormal 78490-2) [facility] SCREENING TOMOSYNTHESIS [id number] 15:48:19Examination:BI SCREENING TOMOSYNTHESIS BILATERAL History:Patient is 60 year old and is seen for: Screening mammogram.. Computer-aided detection (CAD) utilized. Comparisons: 04/05/2019 BI SCREENING TOMOSYNTHESIS BILATERAL, 02/24/2018 BI SCREENING TOMOSYNTHESIS BILATERAL, 02/10/2017 SCREENING DIGITAL BR EAST DANYEL, 01/17/2015 DIGITAL DIAGNOSTIC MAMMOGRAM, UNILATERAL, and [...] other abnormal findings. Impression:No signs of malignancy. Recommendation:Annual mammographic follow-up - LeftAnnual mammographic follow-up - RightAnnual mammographic follow-up - Bilateral BI-RADS Category: Both [facility] 2021-01-18 14:47:00 Test Item Value Reference Range Interpretation Comments POC-Glucose Meter (test 127 mg/dL 70-110 H : TE STED AT code = 1538) [facility] [address] [place] [address] 0: Loss Prevention Lead/Techni bishnu ID = [id number] for OCAIN, JIM A Lab Interpretation (test Abnormal code = 39365-0) [facility]-Glucose [id number] 14:47:00 Test Item Value Reference Range Interpretation Comments POC-Glucose Meter (test 127 mg/dL 70-110 H : TE STED AT code = 1538) [facility] [address] [place] [place] [address] 0: Loss Prevention Lead/Techni bishnu ID = [id number] for OCAIN, JIM A Lab Interpretation (test Abnormal code = 54049-0) [facility]-Glucose [id number] 14:47:00 Test Item Value Reference Range Interpretation Comments POC-Glucose Meter (test 127 mg/dL 70-110 H : TE STED AT code = 1538) [facility] [address] [place] [address] 0: Loss Prevention Lead/Techni bishnu ID = [id number] for OCAIN, JIM A Lab Interpretation (test Abnormal code = 08414-5) [facility]-GLUCOSE [id number] 14:47:00 Test Item Value Reference Range Interpretation Comments POC-GLUCOSE METER 127 mg/dL 70-110 H : TESTED A T [facility] (BEAKER) (test code [address] [facility] = 1538) [place] [address] 0: Loss Prevention Lead/Techni bishnu ID = [id number] for VANDANA TO
[2021-11-20 09:33] LABS: SARS-COV-2 RT PCR NEGATIVE (NEGATIVE)
--- NOTE | 2021-11-20 09:46 | RAD REPORT ---
EXAM DESCRIPTION: RAD - Chest Single View - 11/20/2021 9:34 am CLINICAL HISTORY: CONGESTION Chest pain. COMPARISON: Chest Single View dated 02/14/2021; CHEST SINGLE VIEW dated 10/24/2014; CHEST SINGLE VIEW dated 07/30/2014; CHEST SINGLE VIEW dated 07/28/2014 FINDINGS: Portable technique limits examination quality. Interstitial prominence bilaterally could indicate a viral infection. The heart is upper limit of nor mal in size. No displaced fractures.
--- NOTE | 2021-11-20 09:58 | ER ---
Nurse's Notes [facility] Name: Genny Matamoros Age: 61 yrs Sex: Female : 1960 Arrival Date: 11/20/2021 Time: 08:13 Bed 11 Private MD: Diagnosis: Acute bronchitis, unspecified Presentation: 11/20 08:20 Chief complaint: Patient states: she has been congested for about a week, and has been ap3 taking over the counter medications at home. She presents to the ER today with reports of shortness of breath last night along with body aches. Patient also reports she feels her symptoms are not improved. Coronavirus screen: congestion, cough unrelated to allergies, difficulty breathing, headache, muscle pain. Ebola Screen: No symptoms or risks identified at this time. Initial Sepsis Screen: Does the patient meet any 2 criteria? No. Patient's initial sepsis screen is negative. Does the patient have a suspected source of infection? No. Patient's initial sepsis screen is negative. Risk Assessment: Do you want to hurt yourself or someone else? Patient reports no desire to harm self or others. Onset of symptoms was November 13, 2021. 08:20 Method Of Arrival: Ambulatory ap3 08:20 Acuity: SADE 4 ap3 Triage Assessment: 08:23 General: Appears in no apparent distress. Behavior is calm, cooperative, appropriate ap3 for age. Pain: Complains of pain in generalized aches and pains. Neuro: Level of Consciousness is awake, alert, obeys commands, Oriented to person, place, time, situation. Cardiovascular: Patient's skin is warm and dry. Respiratory: Reports shortness of breath pain with cough Airway is patent Respiratory effort is even, unlabored. Musculoskeletal: Range of motion: pt walks with cane. 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 Pneumococcal vaccine is up to date, Flu vaccine is up to date. - Social history:: Smoking status: Patient denies any tobacco usage or history of. - Family history:: not pertinent. Screenin:24 Abuse screen: Denies threats or abuse. Nutritional screening: No deficits noted. ap3 Tuberculosis screening: No symptoms or risk factors identified. 08:41 Fall Risk Ambulatory Aid- Crutches/Cane/Walker (15 pts). eo2 Assessment: 08:39 General: Appears in no apparent distress. comfortable, Behavior is calm, cooperative. eo2 Pain: Complains of pain in shoulders and back. Neuro: Level of Consciousness is awake, alert, obeys commands, Oriented to person, place, time, situation, Denies dizziness, headache. Cardiovascular: Denies chest pain, Heart tones S1 S2. Respiratory: Reports shortness of breath cough that is cold like symptoms onset last night, "I thought it was the flu, I already had COVID in September", SOB onset last night, cough that makes her vomit Airway is patent Trachea midline Respiratory effort is even, unlabored, Respiratory pattern is regular, symmetrical, Breath sounds are clear bilaterally. GI: Reports nausea. Musculoskeletal: Reports pain in back and shoulders. Vital Signs: 08:20 BP 150 / 80; Pulse 96; Resp 17; Temp 98.2; Pulse Ox 100% ; Weight 80.74 kg; Height 5 ap3 ft. 2 in. (157.48 cm); 08:41 BP 147 / 65; Pulse 89; Resp 15; Pulse Ox 100% ; Pain 6/10; eo2 10:48 BP 167 / 66; Pulse 85; Resp 16; Pulse Ox 100% ; Pain 3/10; eo2 08:20 Body Mass Index 32.56 (80.74 kg, 157.48 cm) ap3 ED Course: 08:13 Patient arrived in ED. mr 08:15 Gautam Fuentes MD is Attending Physician. ma2 08:22 Triage completed. ap3 08:24 Arm band placed on right wrist. ap3 08:25 Gemma Awan RN is Primary Nurse. eo2 08:41 Patient has correct armband on for positive identification. Pulse ox on. NIBP on. Door eo2 closed. Noise minimized. 08:41 No provider procedures requiring assistance completed. eo2 09:34 Chest Single View XRAY In Process Unspecified. EDMS 10:49 Patient did not have IV access during this emergency room visit. eo2 Administered Medications: No medications were administered Outcome: 09:58 Discharge ordered by . ma2 10:49 Discharged to home ambulatory. eo2 10:49 Condition: stable 10:49 Discharge instructions given to patient, Instructed on discharge instructions, follow up and referral plans. medication usage, Demonstrated understanding of instructions, follow-up care, medications, Prescriptions given X 3. 10:50 Patient left the ED. eo2 Signatures: Dispatcher [employer] [facility] NadirGuillermina mr Gautam Fuentes MD MD ma2 Kaela Bernabe RN RN ap3 Gemma Awan RN RN eo2
--- NOTE | 2021-11-20 09:59 | EDPHYS ---
Physician Documentation [facility] Name: Genny Matamoros Age: 61 yrs Sex: Female : 1960 Arrival Date: 11/20/2021 Time: 08:13 Bed 11 Private MD: ED Physician Gautam Fuentes HPI: 11/20 09:11 This 61 yrs old Female presents to ER via Ambulatory with complaints of Back ma2 Pain, Congestion. 09:11 61,-year-old female here with runny nose cough sore throat for 3 days,. 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 Pneumococcal vaccine is up to date, Flu vaccine is up to date. - Social history:: Smoking status: Patient denies any tobacco usage or history of. - Family history:: not pertinent. ROS: 09:11 Constitutional: Negative for fever, chills, and weight loss. ma2 09:11 All other systems are negative. Exam: 09:11 Constitutional: This is a well developed, well nourished patient who is awake, alert, ma2 and in no acute distress. Eyes: Pupils equal round and reactive to light, extra-ocular motions intact. Lids and lashes normal. Conjunctiva and sclera are non-icteric and not injected. Cornea within normal limits. Periorbital areas with no swelling, redness, or edema. ENT: Red oropharynx, other nares patent. No nasal discharge, no septal abnormalities noted. Tympanic membranes are normal and external auditory canals are clear. Oropharynx with no redness, swelling, or masses, exudates, or evidence of obstruction, uvula midline. Mucous membranes moist. Chest/axilla: Normal chest wall appearance and motion. Nontender with no deformity. No lesions are appreciated. Cardiovascular: Regular rate and rhythm with a normal S1 and S2. No gallops, murmurs, or rubs. Normal PMI, no JVD. No pulse deficits. Respiratory: Lungs have equal breath sounds bilaterally, clear to auscultation and percussion. No rales, rhonchi or wheezes noted. No increased work of breathing, no retractions or nasal flaring. Abdomen/GI: Soft, non-tender, with normal bowel sounds. No distension or tympany. No guarding or rebound. No evidence of tenderness throughout. Back: No spinal tenderness. No costovertebral tenderness. Full range of motion. MS/ Extremity: Pulses equal, no cyanosis. Neurovascular intact. Full, normal range of motion. Neuro: Awake and alert, GCS 15, oriented to person, place, time, and situation. Cranial nerves II-XII grossly intact. Motor strength 5/5 in all extremities. Sensory grossly intact. Cerebellar exam normal. Normal gait. Vital Signs: 08:20 BP 150 / 80; Pulse 96; Resp 17; Temp 98.2; Pulse Ox 100% ; Weight 80.74 kg; Height 5 ap3 ft. 2 in. (157.48 cm); 08:41 BP 147 / 65; Pulse 89; Resp 15; Pulse Ox 100% ; Pain 6/10; eo2 10:48 BP 167 / 66; Pulse 85; Resp 16; Pulse Ox 100% ; Pain 3/10; eo2 08:20 Body Mass Index 32.56 (80.74 kg, 157.48 cm) ap3 MDM: 08:59 Patient medically screened. ma2 09:57 Differential diagnosis: Differential diagnosis includes cough runny nose, acute ma2 bronchitis, versus. Data reviewed: vital signs, nurses notes. Counseling: I had a detailed discussion with the patient and/or guardian regarding: the historical points, exam findings, and any diagnostic results supporting the discharge/admit diagnosis, the presence of at least one elevated blood pressure reading (>120/80) during this emergency department visit, the need for outpatient follow up. Response to treatment: the patient's symptoms have markedly improved after treatment. 11/20 08:25 Order name: COVID-19/FLU A+B (Document "Date of Onset" if Symptomatic) ap3 11/20 08:26 Order name: COVID-19/FLU A+B; Complete Time: 09:57 EDMS 11/20 09:03 Order name: Chest Single View XRAY; Complete Time: 09:57 ma2 Administered Medications: No medications were administered Disposition Summary: 11/20/21 09:58 Discharge Ordered Location: Home ma2 Condition: Stable ma2 Diagnosis - Acute bronchitis, unspecified ma2 Followup: ma2 - With: Private Physician - When: Tomorrow - Reason: If symptoms return, Continuance of care Discharge Instructions: - Discharge Summary Sheet ma2 - Acute Bronchitis, Adult ma2 Forms: - Medication Reconciliation Form ma2 - Thank You Letter ma2 - Antibiotic Education ma2 - Prescription Opioid Use ma2 Prescriptions: - ketorolac 10 mg Oral tablet - take 1 tablet by ORAL route every 6 hours for up to 5 days total use; 21 ma2 tablet; Refills: 0, Product Selection Permitted - Zithromax Z-Gasper 250 mg Oral Tablet - take 1 tablet by ORAL route as directed for 5 days Day 1 - take two (2) tablets ma2 one time. Day 2, 3, 4 , 5 take one (1) tablet once daily.; 6 tablet; Refills: 0, Product Selection Permitted - Medrol (Gasper) 4 mg Oral Tablets, Dose Pack - take 1 tablet by ORAL route as directed - follow package instructions; 1 ma2 packet; Refills: 0, Product Selection Permitted Signatures: Dispatcher [employer] [facility] Gautam Fuentes MD MD ma2 Kaela Bernabe RN RN ap3
[2021-11-20 11:18] VITALS: TEMP 98.2; O2SAT 100
[2021-11-20 11:21] VITALS: BP 167/66
== END 2021-11-20 10:50 | disposition home or self-care (01) ==
LOC: ER 08:11
DX: J20.9 Acute bronchitis, unspecified (principal); Z20.822 Contact with and (suspected) exposure to COVID-19; I10 Essential (primary) hypertension; E11.9 Type 2 diabetes mellitus without complications; Z79.4 Long term (current) use of insulin; Z86.73 Personal history of transient ischemic attack (TIA), and cerebral infarction without residual deficits
CPT/HCPCS: 0240U; 71045; 99283

== ENCOUNTER 2022-03-05 11:30 | Emergency (ER) | payer OTHER ==
--- OUTSIDE RECORDS SUMMARY | 2022-03-05 11:34 | XMS REPORT | Continuity of Care Document ---
:1960 Author Organization [facility] t Address [address] [place] [address] Care Team Providers Name Role Phone Destin GALAVIZ, Merlin Primary Care Physician Osman JACKSON Attending Clinician Unavailable SANDRA Attending Clinician Unavailable SANDRA Attending Clinician Unavailable Devon PIMENTEL Attending Clinician Unavailable Merlin Weir MD Attending Clinician Sierra GALAVIZ Attending Clinician Doctor Unassigned, Name Attending Clinician Unavailable ALBIN JACKSON Attending Clinician Unavailable Timothy Renee MD Attending Clinician Brendon GALAVIZ Attending Clinician Osman Jackson MD Attending Clinician Scarlett Wilcox MD Attending Clinician Brittani Bro CRNA Attending Clinician Osman JACKSON Admitting Clinician Unavailable Payers Payer Name Policy Type Policy Number Effective Date Expiration Date Timothy RIVERAMETHODIST [facility] DUAL [id number] 2020 COMP HMO D SNP 00:00:00 [place]ID OF [place] [id number] 2016 00:00:00 DUAL COMPLETE SNP [id number] 2021 HMO(WELLMED)-[facility] 00:00:00 [facility]-MEDICAID - [id number] MEDICAID MEDICARE PART A [id number] \\T\\ B - MEDICARE Problems Condition Condition Condition Status Onset Resolution Last Treating Co mments Source Name Details Category Date Date Treatment Clinician Date Cellulitis Cellulitis Disease Active U nivers of right of right 5-12 ity of leg leg 00:00: [place] without without 00 Medical foot foot Branch Skin Skin Disease Active Univers texture texture 5-12 ity of changes changes 00:00: [place] [facility] Foot drop, Foot drop, Disease Active U nivers right right 5-12 ity of 00:00: [place] [facility] Neovascula Neovascula Disease Active [facility]19 [facility] glaucoma, glaucoma, 00:00: Medi [place] left eye, left eye, 00 Cent er indetermin indetermin ate stage ate stage Essential Essential Disease Active Uni vers hypertensi hypertensi 2-02 it y of on on 00:00: [place] 00 Medical Branch Fluid Fluid Disease Active Univers retention retention 2- ity of 00:00: [place] 00 Medical Branch Mixed Mixed Disease Active Univers hyperlipid hyperlipid 2-02 it y of emia emia 00:00: [place] 00 Medical Branch Low Low Disease Active Univers vitamin D vitamin D 2-02 ity of level level 00:00: [place] [facility] Anemia of Anemia of Disease Active Uni vers chronic chronic 2-02 ity of disease disease 00:00: [place] 00 Medical Branch 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 2-02 ity of disease disease 00:00: [place] that is that is 00 Medical not asthma not asthma Br anch Lab test Lab test Disease Active Unive rs positive positive 2-02 ity of for for 00:00: [place] detection detection 00 Medi [place] of of Branch COVID-19 COVID-19 virus virus Screening Screening Disease Active Uni vers for for 2-02 ity of malignant malignant 00:00: [place] s neoplasm neoplasm 00 Medica l of colon of colon Branch Weight Weight Disease Active Univers gain gain 7- ity of 00:00: [place] 00 Medical Branch Hypertensi Hypertensi Disease Active U nivers on, benign on, benign 7- it y of 00:00: [place] 00 Medical Branch Early Early Disease Active Univers satiety satiety 04-20 ity of 00:00: Medical Branch Difficulty Difficulty Disease Active U nivers sleeping sleeping 04-20 ity of 00:00: Medical Branch Swelling Swelling Disease Active Unive rs 04-20 ity of 00:00: Medical Branch Obesity Obesity Disease Active 2018-09 Univers (BMI (BMI 2-11 ity of 30-39.9) 30-39.9) 00:00: Medical Branch 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 Left leg History of History of Disease Active U nivers stroke stroke 3-04 ity of 00:00: 00 Medical Branch Type 2 Type 2 Disease [...] Univers d 3-04 00:00:00 12:39:59 ity of 00:: Medical Branch Tubal Tubal Disease Resolve 2017-01-24 2017-01-24 Univers ligation ligation d 3-04 00:00:00 14:13:05 it y of status status 00:00: Medical Branch Allergies, Adverse Reactions, Alerts Allergy Allergy Status Severity Reaction(s) Onset Inactive Treating Comm ents Source Name Type Date Date Clinician Ramos Pozo Active Diarrhea And Univ ers n ty to 04-16 nausea. ity of adverse 00:00: Only with [place] reaction 00 immediate Medic al s release Branch metformin , ok with extended release metformin . FORMChelsie Allergy Active Diarrhea [facility] Center Metformi Drug Active Diarrhea [facility] Allergy 04-16 [facility]. [facility] 00:00: Only with Medical 00 immediate Center release metformin , ok with extended release metformin . NO KNOWN Drug Active Univers ALLERGIE Class ity of [facility] [place] [facility] Social History Social Habit Start Date Stop Date Quantity Comments Source Exposure to Not sure [facility]-CoV-2 [facility] (event) Branch Alcohol intake 2021-01-19 2021-01-19 Ex-drinker [facility] 00:[facility]:00 00:00:00 (finding) [facility] Tobacco use and 2021-01-17 2021-01-[address] [facility] exposure 00:00:00 00:00:00 [facility] Sex Assigned At [address] [facility] 00:00:00 00:00:00 [facility] Smoking Status Start Date Stop Date Source Never smoker [facility] Medications Ordered Filled Start Stop Current Ordering Indication Dosage Frequency Signature Comments Components Source Medication Medication Date Date Medication? Clinician (SIG) Name Name cephALEXin Yes [id number] 500mg Take 1 Univers (KEFLEX) 5-12 capsule by ity o f 500 mg 00:00: mouth 4 [place] capsule 00 (four) Medical times Branch daily. Leg Brace Yes [id number] Use daily Univers Misc 5-12 9106 ity of 00:00: [place] [facility] Branch cephALEXin Yes [id number] 500mg Take 1 Univers (KEFLEX) 5-12 capsule by ity o f 500 mg 00:00: mouth 4 [place] capsule 00 (four) Medical times Branch daily. Leg Brace Yes [id number] Use daily Univers Misc 5-12 9106 ity of 00:00: [place] [facility] Branch cephALEXin Yes [id number] 500mg Take 1 Univers (KEFLEX) 5-12 capsule by ity o f 500 mg 00:00: mouth 4 [place] capsule 00 (four) Medical times Branch daily. Leg Brace Yes [id number] Use daily Univers Misc 5-12 9106 ity of 00:00: [place] [facility] Branch cephALEXin Yes [id number] 500mg Take 1 Univers (KEFLEX) 5-12 capsule by ity o f 500 mg 00:00: mouth 4 [place] capsule 00 (four) Medical times Branch daily. Leg Brace 0 Yes [id number] Use daily Univers Misc 5-12 9106 ity of 00:00: [place] 00 Medical Branch blood sugar 2021-0 Yes [id number] Use BID, Univers diagnostic 4-11 DX E11.9 ity o f strip 00:00: (Brand per [place] 00 insurance) Medical Branch Blood-Gluco 2021-0 Yes [id number] DX E11.9 Univers se Meter 4-11 (Brand ity of Kit 00:00: upon [place] insurance Medical approval) Branch blood sugar 2021-0 Yes [id number] Use BID, Univers diagnostic 4-11 DX E11.9 ity o f strip 00:00: (Brand per [place] insurance) Medical Branch Blood-Gluco 2021-0 Yes [id number] DX E11.9 Univers se Meter 4-11 (Brand ity of Kit 00:00: upon [place] insurance Medical approval) Branch blood sugar 2021-0 Yes [id number] Use BID, Univers diagnostic 4-11 DX E11.9 ity o f strip 00:00: (Brand per [place] 00 insurance) Medical Branch Blood-Gluco 2021-0 Yes [id number] DX E11.9 Univers se Meter 4-11 (Brand ity of Kit 00:00: upon [place] insurance Medical approval) Branch blood sugar 2021-0 Yes [id number] Use BID, Univers diagnostic 4-11 DX E11.9 ity o f strip 00:00: (Brand per [place] insurance) Medical Branch Blood-Gluco 2021-0 Yes [id number] DX E11.9 Univers se Meter 4-11 (Brand ity of Kit 00:00: upon [place] insurance Medical approval) Branch cyanocobala Yes Take by Un evita min, 3-22 mouth. ity of vitamin 09:25: [place] B-12, 57 Medical (VITAMIN Branch B12 ORAL) cyanocobala 2021-0 Yes Take by Un evita min, 3-22 mouth. ity of vitamin 09:25: [place] B-12, 57 Medical (VITAMIN Branch B12 ORAL) cyanocobala 0 Yes Take by Un evita min, 3-22 mouth. ity of vitamin 09:25: [place] B-12, 57 Medical (VITAMIN Branch B12 ORAL) cyanocobala 2021-0 Yes Take by Un evita min, 3-22 mouth. ity of vitamin 09:25: [place] B-12, 57 Medical (VITAMIN Branch B12 ORAL) pyridoxine 2021-0 Yes Take by Uni vers HCl, 3-22 mouth. ity of vitamin B6, 09:25: [place] (VITAMIN 56 Medical B-6 ORAL) Branch pyridoxine 2021-0 Yes Take by Uni vers HCl, 3-22 mouth. ity of vitamin B6, 09:25: [place] (VITAMIN 56 Medical B-6 ORAL) Branch pyridoxine 2021-0 Yes Take by Uni vers HCl, 3-22 mouth. ity of vitamin B6, 09:25: [place] (VITAMIN 56 Medical B-6 ORAL) Branch pyridoxine 0 Yes Take by Uni vers HCl, 3-22 mouth. ity of vitamin B6, 09:25: [place] (VITAMIN 56 Medical B-6 ORAL) Branch aspirin 81 2021-0 Yes 81mg Take 81 mg U nivers mg chewable 3-22 by mouth ity of tablet 09:25: daily. [place] [address] Medical Branch Cholecalcif 2021-0 Yes Take by Un evita noy, 3-22 mouth. ity of Vitamin D3, 09:25: [place] (VITAMIN 54 Medical D3) 1,000 Branch unit capsule aspirin 81 2021-0 Yes 81mg Take 81 mg U nivers mg chewable 3-22 by mouth ity of tablet 09:25: daily. [place] [address] Medical Branch Cholecalcif 2021-0 Yes Take by Un evita noy, 3-22 mouth. ity of Vitamin D3, 09:25: [place] (VITAMIN 54 Medical D3) 1,000 Branch unit capsule aspirin 81 2-0 Yes 81mg Take 81 mg U nivers mg chewable 3-22 by mouth ity of tablet 09:25: daily. [place] [address] Medical Branch Cholecalcif 2021-0 Yes Take by Un evita noy, 3-22 mouth. ity of Vitamin D3, 09:25: [place] (VITAMIN 54 Medical D3) 1,000 Branch unit capsule aspirin 81 2022-0 Yes 81mg Take 81 mg U nivers mg chewable 3-22 by mouth ity of tablet 09:25: daily. [place] [address] Medical Branch Cholecalcif 202-0 Yes Take by Un evita noy, 3-22 mouth. ity of Vitamin D3, 09:25: [place] (VITAMIN 54 Medical D3) 1,000 Branch unit capsule lisinopriL- Yes [id number] 1{tbl} Take 1 Univers hydrochloro 3-22 tablet by ity of thiazide 00:00: mouth [place] 20-12.5 mg 00 daily. Medical per tablet Branch Diclofenac Yes [id number] APPLY 2 TO Univers Sodium 1 % 3-22 4 ity of gel 00:00: TOPICALLY [place] 00 THREE Medical TIMES Branch DAILY NEEDED FOR PAIN meloxicam Yes [id number] 15mg Take 1 Univers 15 mg 3-22 2 tablet by ity of tablet 00:00: mouth [place] 00 daily. Medical Branch atorvastati Yes [id number] 20mg Take 1 Univers n 20 mg 3-22 tablet by ity of tablet 00:00: mouth at [place] 00 bedtime. Medical Branch insulin Yes [id number] INJECT 28 U nivers glargine 3-22 UNITS ity of U-300 conc 00:00: [place]O [place] ([place]JE[place] 00 USLY AT [facility] BEDTIME Branch U-300 INSULIN) 300 unit/mL (1.5 mL) InPn lisinopriL- Yes [id number] 1{tbl} Take 1 Univers hydrochloro 3-22 tablet by ity of thiazide 00:00: mouth [place] 20-12.5 mg 00 daily. Medical per tablet Branch Diclofenac Yes [id number] APPLY 2 TO Univers Sodium 1 % 3-22 4 ity of gel 00:00: TOPICALLY [place] 00 THREE Medical TIMES Branch DAILY NEEDED FOR PAIN meloxicam Yes [id number] 15mg Take 1 Univers 15 mg 3-22 2 tablet by ity of tablet 00:00: mouth [place] 00 daily. Medical Branch atorvastati Yes [id number] 20mg Take 1 Univers n 20 mg 3-22 tablet by ity of tablet 00:00: mouth at [place] 00 bedtime. Medical Branch insulin Yes [id number] INJECT 28 U nivers glargine 3-22 UNITS ity of U-300 conc 00:00: [place]BC[place]ANEO [place] (TOUJE[place] 00 USLY AT [facility] U-300 INSULIN) 300 unit/mL (1.5 mL) InPn lisinopriL- Yes [id number] 1{tbl} Take 1 Univers hydrochloro 3-22 tablet by ity of thiazide 00:00: mouth [place] 20-12.5 mg 00 daily. Medical per tablet Branch Diclofenac Yes [id number] APPLY 2 TO Univers Sodium 1 % 3-22 4 ity of gel 00:00: TOPICALLY 00 THREE Medical TIMES [place] DAILY NEEDED FOR PAIN meloxicam Yes [id number] 15mg Take 1 Univers 15 mg 3-22 2 tablet by ity of tablet 00:00: mouth [place] 00 daily. Medical Branch atorvastati Yes [id number] 20mg Take 1 Univers n 20 mg 3-22 tablet by ity of tablet 00:00: mouth at [place] 00 bedtime. Medical Branch insulin Yes [id number] INJECT 28 U nivers glargine 3-22 UNITS ity of U-300 conc 00:00: [place]BCUTANEO [place] (TOUJE[place] 00 USLY AT [facility] U-300 INSULIN) 300 unit/mL (1.5 mL) InPn lisinopriL- Yes [id number] 1{tbl} Take 1 Univers hydrochloro 3-22 tablet by ity of thiazide 00:00: mouth [place] 20-12.5 mg 00 daily. Medical per tablet Branch Diclofenac Yes [id number] APPLY 2 TO Univers Sodium 1 % 3-22 4 ity of gel 00:00: TOPICALLY 00 THREE Medical TIMES [place] DAILY NEEDED FOR PAIN meloxicam Yes [id number] 15mg Take 1 Univers 15 mg 3-22 2 tablet by ity of tablet 00:00: mouth [place] 00 daily. Medical Branch atorvastati Yes [id number] 20mg Take 1 Univers n 20 mg 3-22 tablet by ity of tablet 00:00: mouth at [place] 00 bedtime. Medical Branch insulin Yes [id number] INJECT 28 U nivers glargine 3-22 UNITS ity of U-300 conc 00:00: [place] [facility] [facility]) 300 unit/mL (1.5 mL) InPn metformin 2020-09 Yes [id number] 500mg Take 1 U nivers ER 500 mg 1-22 tablet by ity o f 24 hr 00:00: mouth 2 [place] tablet 00 (two) Medical times Branch daily. metformin 2020-09 Yes [id number] 500mg Take 1 U nivers ER 500 mg 1-22 tablet by ity o f 24 hr 00:00: mouth 2 [place] tablet 00 (two) Medical times Branch daily. metformin 2020-09 Yes [id number] 500mg Take 1 U nivers ER 500 mg 1-22 tablet by ity o f 24 hr 00:00: mouth 2 [place] tablet 00 (two) Medical times Branch daily. metformin 2020-09 Yes [id number] 500mg Take 1 U nivers ER 500 mg 1-22 tablet by ity o f 24 hr 00:00: mouth 2 [place] tablet 00 (two) Medical times Branch daily. foLIC acid Yes 1mg Take 1 mg Un evita 1 mg tablet 8-31 by mouth ity of 10:04: daily. [address] foLIC acid Yes 1mg Take 1 mg Un evita 1 mg tablet 8-31 by mouth ity of 10:04: daily. [address] foLIC acid Yes 1mg Take 1 mg Un evita 1 mg tablet 8-31 by mouth ity of 10:04: daily. [address] foLIC acid Yes 1mg Take 1 mg Un evita 1 mg tablet 8-31 by mouth ity of 10:04: daily. [address] glipiZIDE Yes [id number] 10mg Take 1 Un evita 10 mg 8-31 tablet by ity of tablet 00:00: mouth 2 [place] 00 (two) Medical times Branch daily before breakfast and dinner. ipratropium 0 Yes [id number] 2{spray Use 2 Univers 21 mcg 8-31 } Sprays in ity of (0.03 %) 00:00: each [place] nasal spray 00 nostril 3 Med ical (three) Branch times daily. repaglinide Yes [id number] .5mg Take 1 Univers 0.5 mg 8-31 tablet by ity of tablet 00:00: mouth 3 (three) Medical times Branch daily before meals. If blood sugars are running over 150 two hours after a meal then take 2 pills before meals. glipiZIDE 2020-0 Yes [id number] 10mg Take 1 Un evita 10 mg 8-31 tablet by ity of tablet 00:00: mouth 2 (two) Medical times Branch daily before breakfast and dinner. ipratropium 2020-0 Yes [id number] 2{spray Use 2 Univers 21 mcg 8-31 } Sprays in ity of (0.03 %) 00:00: each [place] nasal spray 00 nostril 3 Med ical (three) Branch times daily. repaglinide 2020-0 Yes [id number] .5mg Take 1 Univers 0.5 mg 8-31 tablet by ity of tablet 00:00: mouth 3 (three) Medical times Branch daily before meals. If blood sugars are running over 150 two hours after a meal then take 2 pills before meals. glipiZIDE 2020-0 Yes [id number] 10mg Take 1 Un evita 10 mg 8-31 tablet by ity of tablet 00:00: mouth [place] (two) Medical times Branch daily before breakfast and dinner. ipratropium 2020-0 Yes [id number] 2{spray Use 2 Univers 21 mcg 8-31 } Sprays in ity of (0.03 %) 00:00: each [place] nasal spray 00 nostril 3 Med ical (three) Branch times daily. repaglinide 2020-0 Yes [id number] .5mg Take 1 Univers 0.5 mg 8-31 tablet by ity of tablet 00:00: mouth 3 [place] (three) Medical times Branch daily before meals. If blood sugars are running over 150 two hours after a meal then take 2 pills before meals. glipiZIDE 2020-0 Yes [id number] 10mg Take 1 Un evita 10 mg 8-31 tablet by ity of tablet 00:00: mouth 2 (two) Medical times Branch daily before breakfast and dinner. ipratropium 2020-0 Yes [id number] 2{spray Use 2 Univers 21 mcg 8-31 } Sprays in ity of (0.03 %) 00:00: each [place] nasal spray 00 nostril 3 Med ical (three) Branch times daily. repaglinide Yes [id number] .5mg Take 1 Univers 0.5 mg 8-31 tablet by ity of tablet 00:00: mouth 3 [place] 00 (three) Medical times Branch daily before meals. If blood sugars are running over 150 two hours after a meal then take 2 pills before meals. BD JUAN DIEGO 2ND Yes [id number] USE Univers GEN PEN 8-19 DIRECTED ity of NEEDLE 32 00:00: EVERY [place] gauge x 00 MORNING Medical 5/32" Ndle Branch BD JUAN DIEGO 2ND Yes [id number] USE Univers GEN PEN 8-19 DIRECTED ity of NEEDLE 32 00:00: EVERY [place] gauge x 00 MORNING Medical 5/32" Ndle Branch BD JUAN DIEGO 2ND Yes [id number] USE Univers GEN PEN 8-19 DIRECTED ity of NEEDLE 32 00:00: EVERY [place] gauge x 00 MORNING Medical 5/32" Ndle Branch BD JUAN DIEGO 2ND Yes [id number] USE Univers GEN PEN 8-19 DIRECTED ity of NEEDLE 32 00:00: EVERY [place] gauge x 00 MORNING Medical 5/32" Ndle Branch Miscellaneo Yes [id number] Use as Univers Medical 6-02 directed ity o f Supply 00:00: [place] (BLOOD 00 Medical PRESSURE Branch CUFF) [facility] Miscellaneo Yes [id number] Use as Univers Medical 6-02 directed ity o f Supply 00:00: [place] (BLOOD 00 Medical PRESSURE Branch CUFF) [facility] Miscellaneo Yes [id number] Use as Univers Medical 6-02 directed ity o f Supply 00:00: [place] (BLOOD 00 Medical PRESSURE Branch CUFF) [facility] Miscellaneo Yes [id number] Use as Univers Medical 6-02 directed ity o f Supply 00:00: [place] (BLOOD 00 Medical PRESSURE Branch CUFF) [facility] albuterol-i Yes [id number] 1{puff} Inhale 1 Univers pratropium 5-11 6 Puff 4 ity of 20-100 00:00: (four) [place] mcg/actuati 00 times Medical on inhaler daily. Branch montelukast Yes [id number] 10mg Take 1 Univers (SINGULAIR) 5-11 tablet by ity of 10 mg 00:00: mouth at [place] tablet 00 bedtime. Medical Branch albuterol-i Yes [id number] 1{puff} Inhale 1 Univers pratropium 5-11 6 Puff 4 ity of 20-100 00:00: (four) [place] mcg/actuati 00 times Medical on inhaler daily. Branch montelukast Yes [id number] 10mg Take 1 Univers (SINGULAIR) 5-11 tablet by ity of 10 mg 00:00: mouth at [place] tablet 00 bedtime. Medical Branch albuterol-i Yes [id number] 1{puff} Inhale 1 Univers pratropium 5-11 6 Puff 4 ity of 20-100 00:00: (four) [place] mcg/actuati 00 times Medical on inhaler daily. Branch montelukast Yes [id number] 10mg Take 1 Univers (SINGULAIR) 5-11 tablet by ity of 10 mg 00:00: mouth at [place] tablet 00 bedtime. Medical Branch albuterol-i Yes [id number] 1{puff} Inhale 1 Univers pratropium 5-11 6 Puff 4 ity of 20-100 00:00: (four) [place] mcg/actuati 00 times Medical on inhaler daily. Branch montelukast Yes [id number] 10mg Take 1 Univers (SINGULAIR) 5-11 tablet by ity of 10 mg 00:00: mouth at [place] tablet 00 bedtime. Medical Branch metFORMIN Yes 500mg Take [address] [facility] [facility] (GLUCOPHAGE 4-22 mg by [facility] ) 500 MG 16:45: mouth 2 Medica l tablet 51 (two) Center times daily with breakfast and dinner. prednisoLON Yes 1[drp] Q.25D [address] E acetate 4-22 (four) [facility] (PRED 16:45: times Medical FORTE) 1 % 51 daily. Center ophthalmic suspension pyridoxine, Yes 100mg QD Take [address] vitamin B6, 4-22 mg by [facility] (B-6) 100 16:45: mouth Medical MG tablet 51 daily. [place] insulin Yes Inject [facility] glargine 4-22 subcutaneo [facility] U-300 conc 16:45: usly. Medica l (Toujeo Max 51 Center U-300 SoloStar) 300 unit/mL (3 mL) InPn aspirin 81 0 Yes 81mg QD Take [address] MG EC 22 by mouth [facility] tablet 16:45: daily. Medical 51 Center atorvastati 0 Yes 20mg QD Take [address] n (LIPITOR) -22 by mouth Luke s 20 MG 16:45: daily. Medical tablet 51 Center atropine 2020-0 Yes 1[drp] Q.[id number] [address] (ISOPTO) 1 - [id number] (three) [facility] % 16:45: 3D times Medical ophthalmic 51 daily. Center solution brimonidine 0 Yes 1[drp] Q.[id number] [address] (ALPHAGAN) - [id number] (three) [facility] 0.2 % 16:45: 3D times Medical ophthalmic 51 daily. Center solution cyanocobala 0 Yes 100ug QD Take [address] min, 4-22 mcg by [facility] vitamin 16:45: mouth Medical B-12, 100 51 daily. Center MCG tablet cholecalcif Yes Take by [facility] noy, -22 mouth. [facility] vitamin D3, 16:45: Medica l 25 mcg 51 Center (1,000 unit) Chew dorzolamide Yes 1[drp] Q.5D [address] -timoloL - (two) [facility] (COSOPT) 16:45: times Medical 22.3-6.8 51 daily. Center mg/mL ophthalmic solution cholecalcif 0 Yes [id number] Q7D Take [facility] noy, 4-22 50,000 [facility] vitamin D3, 16:45: Units by Ct dical 1,250 mcg 51 mouth once Cent er (50,000 a week. unit) Tab latanoprost 0 Yes 1[drp] QD [address] (XALATAN) 4-22 nightly. [facility] 0.005 % 16:45: Medical ophthalmic 51 Center solution lisinopril- 0 Yes 1{tbl} QD Take [address] hydroCHLORO 4-22 tablet by Frantz es thiazide 16:45: mouth Medical (PRINZIDE,Z 51 daily. [place] ESTORETIC) 10-12.5 mg per tablet metFORMIN Yes 500mg Take [address] (GLUCOPHAGE 4-22 mg by [facility] ) 500 MG 16:45: mouth 2 Medica l tablet 51 (two) Center times daily with breakfast and dinner. prednisoLON Yes 1[drp] Q.25D [address] E acetate 4-22 (four) [facility] (PRED 16:45: times Medical FORTE) 1 % 51 daily. [place] ophthalmic suspension pyridoxine, Yes 100mg QD Take [address] vitamin B6, 4-22 mg by [facility] (B-6) 100 16:45: mouth Medical MG tablet 51 daily. [place] insulin Yes Inject [facility] glargine - subcutaneo [facility] U-300 conc 16:45: usly. Medica l (Toujeo Max 51 Center U-300 SoloStar) 300 unit/mL (3 mL) InPn aspirin 81 Yes 81mg QD Take [address] MG EC -22 by mouth [facility] tablet 16:45: daily. Medical 51 Center atorvastati Yes 20mg QD Take [address] n (LIPITOR) -22 by mouth Luke s 20 MG 16:45: daily. Medical tablet 51 Center atropine Yes 1[drp] Q.[id number] [address] [facility] (ISOPTO) 1 4- [id number] (three) [facility] % 16:45: 3D times Medical ophthalmic 51 daily. [place] solution brimonidine Yes 1[drp] Q.[id number] [address] [facility] (ALPHAGAN) 4-22 [id number] (three) [facility] 0.2 % 16:45: 3D times Medical ophthalmic 51 daily. [place] solution cyanocobala Yes 100ug QD Take [address] min, 4-22 mcg by [facility] vitamin 16:45: mouth Medical B-12, 100 51 daily. [place] MCG tablet cholecalcif Yes Take by [facility] noy, 4-22 mouth. [facility] vitamin D3, 16:45: Medica l 25 mcg 51 Center (1,000 unit) Chew dorzolamide Yes 1[drp] Q.5D [address] -timoloL 4-22 (two) [facility] (COSOPT) 16:45: times Medical 22.3-6.8 51 daily. Center mg/mL ophthalmic solution cholecalcif Yes [id number] Q7D Take [facility] noy, 4-22 50,000 [facility] vitamin D3, 16:45: Units by Ct dical 1,250 mcg 51 mouth once Cent er (50,000 a week. unit) Tab latanoprost Yes 1[drp] QD [address] (XALATAN) 4-22 nightly. [facility] 0.005 % 16:45: Medical ophthalmic 51 Center solution lisinopril- Yes 1{tbl} QD Take [address] hydroCHLORO 4-22 tablet by Frantz es thiazide 16:45: mouth Medical (PRINZIDE,Z 51 daily. [place] ESTORETIC) 10-12.5 mg per tablet metFORMIN Yes 500mg Take [address] (GLUCOPHAGE 4-22 mg by [facility] ) 500 MG 16:45: mouth 2 Medica l tablet 51 (two) Center times daily with breakfast and dinner. prednisoLON Yes 1[drp] Q.25D [address] E acetate 4-22 (four) [facility] (PRED 16:45: times Medical FORTE) 1 % 51 daily. [place] ophthalmic suspension pyridoxine, Yes 100mg QD Take [address] vitamin B6, 4-22 mg by [facility] (B-6) 100 16:45: mouth Medical MG tablet 51 daily. Center insulin Yes Inject [facility] glargine 4-22 subcutaneo [facility] U-300 conc 16:45: usly. Medica l (Toujeo Max 51 Center U-300 SoloStar) 300 unit/mL (3 mL) InPn aspirin 81 Yes 81mg QD Take [address] MG EC 4-22 by mouth [facility] tablet 16:45: daily. Medical Center atorvastati 2021-0 Yes 20mg QD Take [address] n (LIPITOR) 22 by mouth Luke s 20 MG 16:45: daily. Medical tablet 51 Center atropine 0 Yes 1[drp] Q.[id number] [address] [facility] (ISOPTO) 1 - [id number] (three) [facility] % 16:45: 3D times Medical ophthalmic 51 daily. Center solution brimonidine 0 Yes 1[drp] Q.[id number] [address] [facility] (ALPHAGAN) - [id number] (three) [facility] 0.2 % 16:45: 3D times Medical ophthalmic 51 daily. Center solution cyanocobala Yes 100ug QD Take [address] min, 4-22 mcg by [facility] 16:45: mouth Medical B-12, 100 51 daily. Center MCG tablet cholecalcif Yes Take by [facility], - mouth. [facility] vitamin D3, 16:45: Medica l 25 mcg 51 Center (1,000 unit) Chew dorzolamide Yes 1[drp] Q.5D [address] [facility] [address] -timoloL 01-18 (two) [facility] (COSOPT) 16:45: times Medical 22.3-6.8 51 daily. Center mg/mL ophthalmic solution cholecalcif Yes [id number] Q7D Take [facility], 01-18 50,000 [facility] vitamin D3, 16:45: Units by Ct dical 1,250 mcg 51 mouth once Cent er (50,000 a week. unit) Tab latanoprost Yes 1[drp] QD [address] (XALATAN) -22 nightly. [facility] 0.005 % 16:45: Medical ophthalmic 51 Center solution lisinopril- 0 Yes 1{tbl} QD Take [address] hydroCHLORO -22 tablet by [facility] thiazide 16:45: mouth Medical (PRINZIDE,Z 51 daily. [place] ESTORETIC) 10-12.5 mg per tablet acetaZOLAMI 2020-0 2021- No 250mg Q.[id number] Take [address] [place] (DIAMOX) 01-18 04-21 [id number] mg by [facility] 250 MG 13:25: 00:00 3D mouth 3 Medical tablet 45 :00 (three) Center times daily. amitriptyli 2020- No 10mg QD Take [address] ne (ELAVIL) 01-18 by mouth [facility] 10 MG 13:25: 00:00 nightly. Medical tablet 45 :00 Center acetaZOLAMI 2020- No 250mg Q.[id number] Take [address] [place] (DIAMOX) 01-18 [id number] mg by [facility] 250 MG 13:25: 00:00 3D mouth 3 Medical tablet 45 :00 (three) Center times daily. amitriptyli 2020- No 10mg QD Take [address] ne (ELAVIL) 01-18 by mouth [facility] 10 MG 13:25: 00:00 nightly. Medical tablet 45 :00 Center acetaZOLAMI 2020- No 250mg Q.[id number] Take [address] [facility] (DIAMOX) 01-18 [id number] mg by [facility] 250 MG 13:25: 00:00 3D mouth 3 Medical tablet 45 :00 (three) Center times daily. amitriptyli 2020- No 10mg QD Take [address] ne (ELAVIL) 01-18 by mouth [facility] 10 MG 13:25: 00:00 nightly. Medical tablet 45 :00 Center BD JUAN DIEGO 2ND Yes USE Univ ers GEN PEN -22 DIRECTED ity of NEEDLE 32 00:00: EVERY [place] gauge x 00 MORNING Medical 5/32" Ndle Branch albuterol-i Yes Reactive 1{puff} Inhale [...] ity of tablet 00:00: avinash mouth at [place] 00 bedtime. Medical Branch ergocalcife 2019-09 Yes Vitamin D 28909K Take 1 Univers rol, 2-24 deficiency capsule by ity of vitamin d2, 00:00: mouth [place] (VITAMIN 00 weekly. Medical D2) 1,250 Branch mcg (50,000 unit) capsule aspirin 81 2019-09 Yes 81mg Take 81 mg U nivers mg chewable 2-14 by mouth ity of tablet 17:00: daily. [place] [address] Medical Branch Cholecalcif 2019-09 Yes Take by Un evita noy, 2-14 mouth. ity of Vitamin D3, 17:00: [place] (VITAMIN [address] [place] [address] D3) 1,000 Branch unit capsule cyanocobala 2019-09 Yes Take by Un evita min, 2-14 mouth. ity of vitamin 17:00: [place] B12, Medical (VITAMIN Branch B12 ORAL) pyridoxine 2019-09 Yes Take by Uni vers HCl, 2-14 mouth. ity of vitamin B6, 17:00: [place] (VITAMIN Medical B-6 ORAL) Branch insulin 2019-09 Yes Type 2 28U inject 28 Uni vers glargine 2-14 diabetes Units ity of U-300 conc 00:00: mellitus under the [place] (TOUJEO 00 with other skin at [facility] specified bedtime. Br anch U-300 complicatio INSULIN) n, without 300 unit/mL long-term (1.5 mL) current use InPn of insulin METFORMIN 2019-09 Yes Type 2 TAKE 2 [...] without long-term current use of insulin lancets-blo 2020-0 Yes [id number] 1{each} 1 Each 2 Univers od glucose 7-30 (two) ity of strips 30 00:00: times [place] gauge Cmpk 00 daily. Use Med ical BID, DX Branch E11.9 (Brand upon insurance approval) lancets-blo 2020-0 Yes [id number] 1{each} 1 Each 2 Univers od glucose 7-30 (two) ity of strips 30 00:00: times [place] gauge Cmpk 00 daily. Use Med ical BID, DX Branch E11.9 (Brand upon insurance approval) lancets-blo 2020-0 Yes [id number] 1{each} 1 Each 2 Univers od glucose 7-30 (two) ity of strips 30 00:00: times [place] gauge Cmpk 00 daily. Use Med ical BID, DX Branch E11.9 (Brand upon insurance approval) lancets-blo 2020-0 Yes [id number] 1{each} 1 Each 2 Univers od glucose 7-30 (two) ity of strips 30 00:00: times [place] gauge Cmpk 00 daily. Use Med ical BID, DX Branch E11.9 (Brand upon insurance approval) lancets-blo 2020-0 Yes Type 2 1{each} 1 [...] days increase to 2 pills daily. Diclofenac Yes Muscle Take 2-4 U nivers Sodium 1 % 6-04 spasm grams ity of gel 00:00: three [place] 00 times a Medical day as Branch needed for pain LISINOPRIL- Yes Type 2 TAKE 1 Un evita [...] Medical daily. Branch pen needle, 2018-09 Yes [id number] 1{each} 1 Each Univers diabetic 1-12 every ity of (COMFORT EZ 00:[place] PEN 00 E11.65 Medical NEEDLES) 33 Branch gauge x 5/16" Ndle pen needle, 2018-09 Yes [id number] 1{each} 1 Each Univers diabetic 1-12 every ity of (COMFORT EZ 00:[place] PEN 00 E11.65 Medical NEEDLES) 33 Branch gauge x 5/16" Ndle pen needle, 2018-09 Yes [id number] 1{each} 1 Each Univers diabetic 1-12 every ity of (COMFORT EZ 00:00[place] PEN 00 E11.65 Medical NEEDLES) 33 Branch gauge x 5/16" Ndle pen needle, 2018-09 Yes [id number] 1{each} 1 Each Univers diabetic 1-12 every ity of (COMFORT EZ 00:00[place] PEN 00 E11.65 Medical NEEDLES) 33 Branch gauge x 5/16" Ndle pen needle, 2018-09 Yes Type 2 1{each} 1 Each Univers diabetic 1-12 diabetes every ity of (COMFORT EZ 00:00: mellitus morning. [place] PEN 00 with other E11.65 Medical NEEDLES) 33 specified [facility] gauge x complicatio 5/16" Ndle n, without long-term current use of insulin Blood-Gluco Yes Type 2 DX E11.9 Univers se Meter 7-09 diabetes (Brand ity o f Kit 00:00: mellitus upon [place] 00 with insurance Medical complicatio approval) [facility] n, without long-term current use of insulin Immunizations Ordered Filled Immunization Date Status Comments [facility] Immunization Name Name Influenza Virus 2021-08-20 Completed Universit y of Vaccine Quad IM, 00:00:00 [place] Me dical Preserv and ABX Branch Free 6 MO-64 YRS Influenza Virus 2021-08-20 Completed Universit y of Vaccine Quad IM, 00:00:00 [place] Me dical Preserv and ABX Branch Free 6 MO-64 YRS Influenza Virus 2021-08-20 Completed Universit y of Vaccine Quad IM, 00:00:00 [place] Me dical Preserv and ABX Branch Free 6 MO-64 YRS Influenza Virus 2021-08-20 Completed Universit y of Vaccine Quad IM, 00:00:00 [facility] dical Preserv and ABX Branch Free 6 MO-64 YRS Influenza Virus 2020-09-11 Completed Universit y of Vaccine Quad .5 mL 00:00:00 [place] Medical IM 6+ MO Branch Influenza Virus 2020-09-11 Completed Universit y of Vaccine [place] .5 mL 00:00:00 [place] Medical IM 6+ MO Branch Influenza Virus 2020-09-11 Completed Universit y of Vaccine Quad .5 mL 00:00:00 [place] Medical IM 6+ MO Branch Influenza Virus 2020-09-11 Completed Universit y of Vaccine Quad .5 mL 00:00:00 [place] Medical IM 6+ MO Branch Influenza Virus 2020-09-11 Completed Universit y of Vaccine Quad .5 mL 00:00:00 [place] Medical IM 6+ MO Branch Influenza Virus [...] y of Vaccine Quad .5 mL 00:00:00 [place] Medical IM 6+ MO Branch Influenza Virus 2019-07-13 Completed Universit y of Vaccine Quad .5 mL 00:00:00 [place] Medical IM 6+ MO Branch Influenza Virus 2018-07-02 Completed Universit y of Vaccine 00:00:00 [facility] Influenza Virus 2018-07-02 Completed Universit y of Vaccine 00:00:00 [facility] Influenza Virus 2018-07-02 Completed Universit y of Vaccine 00:00:00 [place] [facility] Influenza Virus 2018-07-02 Completed Universit y of Vaccine 00:00:00 [place] [facility] Influenza Virus 2018-07-02 Completed Universit y of Vaccine 00:00:00 [facility] Pneumococcal 2016-05-26 Completed University o f Polysaccharide, 00:00:00 [place] Med ical PPSV23 (PNEUMOVAX) Branch Pneumococcal 2016-05-26 Completed University o f Polysaccharide, 00:00:00 [place] Med ical PPSV23 (PNEUMOVAX) Branch Pneumococcal 2016-05-26 Completed University o f Polysaccharide, 00:00:00 [place] Med ical PPSV23 (PNEUMOVAX) Branch Pneumococcal 2016-05-26 Completed University o f Polysaccharide, 00:00:00 [place] Med ical PPSV23 (PNEUMOVAX) Branch Pneumococcal 2016-05-26 Completed University o f Polysaccharide, 00:00:00 [place] Med ical PPSV23 (PNEUMOVAX) Branch Td 2010-03-08 Completed University of 00:00:00 [place] [facility] Td 2010-03-08 Completed University of 00:00:00 [place] [facility] Td 2010-03-08 Completed University of 00:00:00 [place] [facility] Td 2010-03-08 Completed University of 00:00:00 [place] [facility] Td 2010-03-08 Completed University of 00:00:00 [place] [facility] Vital Signs Vital Name Observation Time Observation Value Comments Source WEIGHT 2021-01-18 14:22:00 78.472 kg HEIGHT 2021-01-18 14:22:00 157.5 cm HEIGHT 2021-01-17 13:41:00 157.5 cm WEIGHT 2021-01-17 13:41:00 78.019 kg Systolic blood 2022-02-07 13:58:00 139 mm[Hg] Univer sity of pressure [facility] Diastolic blood 2022-02-07 13:58:00 71 mm[Hg] Unive rsity of pressure [facility] Heart rate 2022-02-07 13:55:00 85 /min Universi ty of [place] [facility] Respiratory rate 2022-02-07 13:55:00 18 /min Univ ersity of [place] [facility] Body height 2022-02-07 13:55:00 157.5 cm [facility] Body weight 2022-02-07 13:55:00 79.833 [facility] BMI 2022-02-07 13:55:00 32.19 kg/m2 [facility] Oxygen saturation in 2022-02-07 13:55:00 98 /min University Arterial blood by [facility] Pulse oximetry Branch WEIGHT 2021-01-18 14:22:00 78.472 kg HEIGHT 2021-01-18 14:22:00 157.5 cm HEIGHT 2021-01-17 13:41:00 157.5 cm WEIGHT 2021-01-17 13:41:00 78.019 kg Systolic blood 2021-01-18 16:20:00 149 mm[Hg] [facility] Diastolic blood 2021-01-18 16:20:00 63 mm[Hg] [facility] Heart rate 2021-01-18 16:20:00 82 /min [facility] Respiratory rate 2021-01-18 16:20:00 10 /min [facility] Oxygen saturation in 2021-01-18 16:20:00 100 /min [facility] Arterial blood by Medical Ce nter Pulse oximetry Body temperature 2021-01-18 16:04:00 36.56 Blank [facility] Body height 2021-01-18 14:22:00 157.5 cm [facility] Body weight 2021-01-18 14:22:00 78.472 kg [facility] BMI 2021-01-18 14:22:00 31.64 kg/m2 [facility] Procedures Procedure Date / Time Performing Clinician Source Performed REFERRAL- 2022-02-11 05:01:00 Doctor Unassigned, No [facility] REQUEST/RESPONSE Name Medical Branch BI SCREENING 2021-02-01 14:35:14 Laura Weir [facility] TOMOSYNTHESIS BILATERAL A Medical Branch INSERTION,EYE TUBE SHUNT 2021-01-18 15:20:00 Abner Jackson [facility] W/WO GRAFT Center POCT-GLUCOSE METER 2021-01-18 14:35:00 Abner Jackson [facility] Plan of Care Planned Activity Planned Date Details Comments Source Future Scheduled 2023-12-[address] [facility] 00:[facility]:00 (procedure) [code = [facility] 73313030] Future Scheduled 2023-12-[address] [facility] Test 00:00:00 (procedure) [code = [facility] 62084249] Future Scheduled 2023-12-[address] [facility] Test 00:00:00 (procedure) [code = [facility] 61085443] Future Scheduled 2023-03-13 Screening for University of Test 00:00:00 malignant neoplasm [place] Med ical of cervix Branch (procedure) [code = 806715851] Future Scheduled 2022-02-01 Screening for University of Test 00:00:00 malignant neoplasm [place] Med ical of breast Branch (procedure) [code = 339888344] Future Scheduled 2021-12-21 Creatinine University of Test 00:00:00 measurement [facility] (procedure) [code = Branch 76746061] Future Scheduled 2021-12-21 Calculated low Universit y of Test 00:00:00 density lipoprotein [facility] dical cholesterol level Branch (procedure) [code = 479091647] Future Scheduled 2021-12-20 Examination of Universit y of Test 00:00:00 retina (procedure) [facility] ica [code = 472147470] Branch Future Scheduled 2021-10-31 DTaP,Tdap,and Td Postponed from Unive rsity of Test 00:00:00 Vaccines (1 - Tdap) 1977 [facility] dical [code = (Insurance / Branch DTaP,Tdap,and Td Financial) Vaccines (1 - Tdap)] Future Scheduled 2021-10-31 Zoster Recombinant Postponed from Uni versity of Test 00:00:00 Vaccine (SHINGRIX) 2008 [facility] ica (1 of 2) [code = (Vaccine not Branch Zoster Recombinant available) Vaccine (SHINGRIX) (1 of 2)] Future Scheduled 2021-09-11 Diabetic foot University of Test 00:00:00 examination [place] Medical (regime/therapy) Branch [code = 311060007] Future Scheduled 2021-09-11 Microalbumin University of Test 00:00:00 measurement, urine, [place] Me dical quantitative Branch (procedure) [code = 386420147] Future Scheduled 2021-06-23 Hemoglobin A1c Universit y of Test 00:00:00 measurement [place] Medical (procedure) [code = Branch 04856985] Future Scheduled 2021-05-[address] [facility] Test 00:00:00 (#1) [code = Medical Center INFLUENZA VACCINE (#1)] Future Scheduled 2021-05-[address] [facility] Test 00:00:00 (#1) [code = Medical Center INFLUENZA VACCINE (#1)] Future Scheduled 2020-09-[address] [facility] Test 00:00:00 (12+) [code = Medical Center DEPRESSION SCREENING (12+)] Future Scheduled 2020-09-[address] [facility] Test 00:00:00 (12+) [code = Medical Center DEPRESSION SCREENING (12+)] Future Scheduled 2020-09-[address] [facility] Test 00:00:00 (12+) [code = Medical Center DEPRESSION SCREENING (12+)] Future Scheduled 2020-03-08 DTAP/TDAP/TD [facility] 00:00:00 VACCINES (2 - Td) Medical Ce nter [code = DTAP/TDAP/TD VACCINES (2 - Td)] Future Scheduled 2020-03-08 DTAP/TDAP/TD [facility] 00:00:00 VACCINES (2 - Td or Medical Center Tdap) [code = DTAP/TDAP/TD VACCINES (2 - Td or Tdap)] Future Scheduled 2020-03-08 DTAP/TDAP/TD [facility] 00:00:00 VACCINES (2 - Td or Medical Center Tdap) [code = DTAP/TDAP/TD VACCINES (2 - Td or Tdap)] Future Scheduled 2008 SHINGLES VACCINES ([address] [facility] Test 00:00:00 of 2) [code = Medical Center SHINGLES VACCINES (1 of 2)] Future Scheduled 2008 SHINGLES VACCINES ([address] [facility] Test 00:00:00 of 2) [code = Medical Center SHINGLES VACCINES (1 of 2)] Future Scheduled 2008 SHINGLES VACCINES ([address] [facility] Test 00:00:00 of 2) [code = Medical Center SHINGLES VACCINES (1 of 2)] Future Scheduled 2008 Screening for occult Uni versity of Test 00:00:00 blood in feces [facility] (procedure) [code = Branch 405710786] Future Scheduled 2008 Stool DNA-based Universi ty of Test 00:00:00 colorectal cancer [place] Medi malaika screening Branch (procedure) [code = 243271141292676] Future Scheduled 2008 Flexible fiberoptic Univ ersity of Test 00:00:00 sigmoidoscopy [facility] (procedure) [code = Branch 88660953] Future Scheduled 2008 Screening for University of Test 00:00:00 malignant neoplasm [place] Med ical of colon (procedure) Branch [code = 747918218] Future Scheduled 2008 Screening for University of Test 00:00:00 malignant neoplasm [place] Med ical of colon (procedure) Branch [code = 978944870] Future Scheduled [address] [facility] Test 00:00:00 malignant neoplasm Medical C enter of cervix (procedure) [code = 349231355] Future Scheduled [address] [facility] Test 00:00:00 malignant neoplasm Medical C enter of cervix (procedure) [code = 159001022] Future Scheduled [address] [facility] [facility] Test 00:00:00 malignant neoplasm Medical C enter of cervix (procedure) [code = 139666201] Future Scheduled [address] [facility] Test 00:00:00 SCREENING [code = Medical Ce nter HEPATITIS C SCREENING] Future Scheduled [address] [facility] Test 00:00:00 SCREENING [code = Medical Ce nter HEPATITIS C SCREENING] Future Scheduled [address] [facility] Test 00:00:00 SCREENING [code = Medical Ce nter HEPATITIS C SCREENING] Future Scheduled 1974 SARS-CoV-2 University of Test 00:00:00 (COVID-19) Vaccine [place] Med ical (1) [code = Branch SARS-CoV-2 (COVID-19) Vaccine (1)] Future Scheduled 1970 COVID-19 VACCINE (1) [facility] Test 00:00:00 [code = COVID-[address] VACCINE (1)] Future Scheduled 1970 COVID-19 VACCINE (1) [facility] Test 00:00:00 [code = COVID-[address] VACCINE (1)] Future Scheduled 1970 COVID-19 VACCINE (1) [facility] Test 00:00:00 [code = COVID-[address] VACCINE (1)] Future Scheduled 1970 Depression screening Uni versity of Test 00:00:00 (procedure) [code = [facility] 845969198] Branch Future Scheduled [address] [facility] Test 00:00:00 malignant neoplasm Medical C enter of breast (procedure) [code = 661440548] Future Scheduled [address] [facility] Test 00:00:00 malignant neoplasm Medical C enter of colon (procedure) [code = 837484626] Future Scheduled [address] [facility] Test 00:00:00 malignant neoplasm Medical C enter of breast (procedure) [code = 911126405] Future Scheduled [address] [facility] Test 00:00:00 malignant neoplasm Medical C enter of colon (procedure) [code = 540695879] Future Scheduled [address] [facility] Test 00:00:00 malignant neoplasm Medical C enter of breast (procedure) [code = 982551843] Future Scheduled [address] [facility] Test 00:00:00 malignant neoplasm Medical C enter of colon (procedure) [code = 121441604] Encounters Start End Encounter Admission Attending Care Care Encounter Source Date/Time Date/Time Type Type Clinicians Facility Department ID 2021-07-07 Outpatient MANUEL [facility] Surgery [id number] [facility] 14:24:51 ABNER 2022-03-25 2022-03-25 Outpatient CHEYENNE MARTINEZ [facility] [id number] Univers 08:30:00 08:30:00 CHEYENNE FLORES [id number] ity of [place] [facility] 2022-03-07 2022-03-07 Outpatient Kayden PIMENTEL [facility] [id number] Univers 11:15:00 11:15:00 NAA [id number] ity of [place] [facility] 2022-03-07 2022-03-07 Outpatient Kayden PIMENTEL [facility] [id number] [facility] 11:15:00 11:15:[address] [facility] 2022-02-22 2022-02-22 [facility] [id number] [facility] 00:00:00 00:00:00 Larua MANN [id number] [place]y [place] PROF[id number] Ct dictn NAL 231 [facility] 2022-02-11 2022-02-11 [facility] [id number] [facility] 00:00:00 00:00:00 Abner MANN [id number] i [place] PROF[place] [id number] Ct dical NAL 044 [facility] 2022-02-11 2022-02-11 Orders Doctor CONSUELO [id number] [place] [address] 00:00:00 00:00:00 Only Unassigned, JOSEPH [id number] ity of [place] [facility] 4.2.7.2.686 Gurdeep as [id number] [address] 2022-02-07 2022-02-07 Office [facility] [id number] [facility] 09:40:00 09:40:00 Visit Abner MANN [id number] i [place] PROF[place] [id number] Ct dical NAL 044 [facility] 2021-09-20 2021-09-20 Outpatient PURVI JACKSON [facility] [id number] [facility] 07:39:04 08:30:58 [facility] 2021-05-22 2021-05-[address] [facility] [id number] 11:43:20 23:59:00 Encounter Lisa Mann [id number] [place] 4.2.7.2.686 [place] [id number] 2021-05-22 2021-05-[address] [facility] 1.2.840.114 [id number] 11:42:37 11:42:37 Encounter Lisa Aguirre Zhao [id number] [place] 4.2.7.2.686 [place] [id number] 2021-05-22 2021-05-22 [facility] 1.2.840.114 [id number] 00:00:00 00:00:00 Laura Mann [id number] [place] 4.2.7.2.686 Professio [id number] [address] 2021-05-21 2021-05-21 Outpatient MANUEL Abelino [facility] [id number] [address] [place] [address] 12:17:33 13:41:50 ABNER Portillo 2021-05-14 2021-05-14 Office [facility] 1.2.840.114 [id number] 10:25:18 11:06:59 Visit Lloydbonny Zhao 350.1.13.10 [place] 4.2.7.2.686 Professio [id number] [address] 2021-05-14 2021-05-14 Refill [facility] 1.2.840.114 [id number] 00:00:00 00:00:00 Laura Mann 350.1.13.10 [place] 4.2.7.2.686 Professio [id number] [address] 2021-05-14 2021-05-14 Refill [facility] 1.2.840.114 [id number] 00:00:00 00:00:00 Laura Mann 350.1.13.10 [place] 4.2.7.2.686 Professio [id number] [address] 2021-01-18 2021-01-18 [facility] [id number] [facility] 13:25:00 16:45:00 [facility] 2021-01-18 2021-01-[address] [facility] [id number] 15:30:00 16:06:00 Event Niurka Bro [facility] 2021-01-18 2021-01-[address] [facility] [id number] 14:20:00 15:05:00 Abner Brewer [facility] 2021-01-18 2021-01-18 Travel [facility] [id number] [facility] 00:[facility]00 00:00:00 [facility] 2021-01-17 2021-01-[address] [facility] [id number] 11:40:00 23:59:00 Encounter [facility] 2021-01-17 2021-01-17 Outpatient SLE SLE [id number] [facility] 00:00:00 00:00:00 2021-01-08 2021-01-08 Outpatient JACKSON Abelino [facility] [id number] [facility] 12:38:21 15:02:28 ABNER [place] of Medicin e Results Test Description Test Time Test Comments Results Result Sour e Comments BI SCREENING Examination:[facility] TOMOSYNTHESIS 6 SCREENING [place] Medic [...] 127 mg/dL 70-110 H : TESTED AT [facility] 7200 1538) [facility] [address]: Air Chipper/Techni bishnu ID = [id number] for APRIL, JIM A Lab Interpretation (test code = Abnormal 83622-6) [facility]-Glucose [id number] 14:47:00 Test Item Value Reference Range Interpretation Comments POC-Glucose Meter (test 127 mg/dL 70-110 H : TE STED AT code = 1538) [facility] [address] [place] 784353 0: Air Chipper/Techni bishnu ID = [id number] for OCAIN, JIM A Lab Interpretation (test Abnormal code = 74219-8) [facility] [id number] 14:47:00 Test Item Value Reference Range Interpretation Comments POC-Glucose Meter (test 127 mg/dL 70-110 H : TE STED AT code = 1538) [facility] [address] [place] 784353 0: Air Chipper/Techni bishnu ID = [id number] for OCAIN, JIM A Lab Interpretation (test Abnormal code = 03026-1) [facility]-GLUCOSE [id number] 14:47:00 Test Item Value Reference Range Interpretation Comments POC-GLUCOSE METER 127 mg/dL 70-110 H : TESTED A T [facility] (BEAKER) (test code 7200 [facility] = 1538) [place] [address] 0: Air Chipper/Techni bishnu ID = [id number] for VANDANA TO
--- NOTE | 2022-03-05 12:54 | RAD REPORT ---
EXAM DESCRIPTION: RAD - Hand Left 3 View - 03/05/2022 12:26 pm CLINICAL HISTORY: PAINfollowing a fall COMPARISON: None. FINDINGS: No fracture, dislocation or periosteal reaction noted. Mild IP joint space narrowing seen with minimal marginal spurring. No erosive component. Minimal degenerative change at the trapezium fi rst metacarpal articulation. Arterial tree calcifications are present. No suspicious soft tissue finding. IMPRESSION: Left hand degenerative changes are present with no fracture or acute finding seen.
--- NOTE | 2022-03-05 12:54 | RAD REPORT ---
EXAM DESCRIPTION: RAD - Forearm Left - 03/05/2022 12:28 pm CLINICAL HISTORY: PAINfollowing fall COMPARISON: None. FINDINGS: No fracture is identified. There is no dislocation or periosteal reaction noted. No foreign body or other soft tissue abnormality. Arterial tree calcifications are present. IMPRESSION: Negative left forearm examination for fracture or acute finding.
--- NOTE | 2022-03-05 13:14 | ER ---
Nurse's Notes [facility] Name: Genny Matamoros Age: 61 yrs Sex: Female : 1960 Arrival Date: 03/05/2022 Time: 11:36 Bed 12 Private MD: Laura Weir Diagnosis: Pain in right wrist-from fall;Pain in right hand-from fall Presentation: 03/05 11:42 Chief complaint: Patient states: she fell yesterday onto her left hand, but it wasn't ap3 until she hit it in the shower this morning that she had an increase in pain. Patient is here to have her left hand evaluated. Coronavirus screen: At this time, the client does not indicate any symptoms associated with coronavirus-19. Ebola Screen: No symptoms or risks identified at this time. Initial Sepsis Screen: Does the patient meet any 2 criteria? No. Patient's initial sepsis screen is negative. Does the patient have a suspected source of infection? No. Patient's initial sepsis screen is negative. Risk Assessment: Do you want to hurt yourself or someone else? Patient reports no desire to harm self or others. Onset of symptoms was March 04, 2022. 11:42 Method Of Arrival: Ambulatory ap3 11:42 Acuity: SADE 4 ap3 Triage Assessment: 11:44 General: Appears in no apparent distress. Behavior is calm, cooperative. Pain: ap3 Complains of pain in left hand Pain currently is 5 out of 10 on a pain scale. Pain began suddenly, 1 day ago. Neuro: Level of Consciousness is awake, alert, obeys commands, Oriented to person, place, time, situation, Appropriate for age Speech is normal. Cardiovascular: Patient's skin is warm and dry. Respiratory: Airway is patent Respiratory effort is even, unlabored, Respiratory pattern is regular, symmetrical. Musculoskeletal: Reports pain in left hand. 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 - Social history:: Smoking status: Patient denies any tobacco usage or history of. Screenin:45 Abuse screen: Denies threats or abuse. Nutritional screening: No deficits noted. ap3 Tuberculosis screening: No symptoms or risk factors identified. Fall Risk Fall in past 12 months (25 points). Secondary diagnosis (15 points) impaired mobility, No IV (0 pts). Ambulatory Aid- Crutches/Cane/Walker (15 pts). Gait- Impaired (20 pts.). Mental Status- Oriented to own ability (0 pts). Vital Signs: 11:42 BP 174 / 78 RA Sitting (auto/lg); Pulse 84; Resp 17; Temp 98.6; Pulse Ox 99% ; Weight ap3 78.47 kg; Height 5 ft. 2 in. (157.48 cm); Pain 5/10; 11:42 Body Mass Index 31.64 (78.47 kg, 157.48 cm) ap3 ED Course: 11:36 Patient arrived in ED. am2 11:36 Laura Weir is Private Physician. am2 11:39 Luis Beal PA is PHCP. cp 11:39 Chiki Pace MD is Attending Physician. cp 11:44 Triage completed. ap3 11:45 Arm band placed on right wrist. ap3 12:26 XRAY Hand LEFT 3 View In Process Unspecified. EDMS 12:26 XRAY Forearm LEFT In Process Unspecified. EDMS 13:12 French Santos MD is Referral Physician. cp 13:28 Charlotte Zuluaga, RN is Primary Nurse. iw Administered Medications: No medications were administered Outcome: 13:13 Discharge ordered by MD. cp 13:28 Patient left the ED. iw Signatures: Dispatcher [employer] EDCharlotte Bond RN RN iw Luis Beal PA PA Kaela Richardson am2 Kaela Bernabe RN RN ap3
--- NOTE | 2022-03-05 13:14 | EDPHYS ---
Physician Documentation [facility] Name: Genny Matamoros Age: 61 yrs Sex: Female : 1960 Arrival Date: 03/05/2022 Time: 11:36 Bed 12 Private MD: Laura Weir ED Physician Chiki Pace HPI: 03/05 12:00 This 61 yrs old Female presents to ER via Ambulatory with complaints of Hand cp Pain, Fall Injury. 12:00 The patient or guardian complains of pain, that is acute. The complaints affect the cp left wrist and left hand. Context: resulted from a fall, on an outstretched hand, and after hitting area while in shower this morning. Onset: The symptoms/episode began/occurred yesterday. 12:00 Treatment prior to arrival includes: no previous treatment. cp 12:00 Associated signs and symptoms: Pertinent negatives: decreased range of motion, cp deformity, numbness, weakness. 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 - Social history:: Smoking status: Patient denies any tobacco usage or history of. ROS: 12:05 MS/extremity: Positive for pain, tenderness, of the left wrist and left hand, Negative cp for decreased range of motion, deformity, paresthesias. 12:05 Constitutional: Negative for body aches, chills, fever, poor PO intake. cp 12:05 Neck: Negative for pain with movement, pain at rest, stiffness. 12:05 Respiratory: Negative for cough, shortness of breath, wheezing. 12:05 Abdomen/GI: Negative for abdominal pain, nausea, vomiting, and diarrhea. 12:05 Back: Negative for pain at rest, pain with movement. 12:05 Neuro: Negative for altered mental status, headache, numbness, weakness. 12:05 All other systems are negative. Exam: 12:10 Constitutional: The patient appears in no acute distress, alert, awake, well developed, cp well nourished. 12:10 Head/Face: Normocephalic, atraumatic. cp 12:10 Neck: C-spine: vertebral tenderness, is not appreciated, crepitus, is not appreciated, ROM/movement: is normal, is supple, without pain, no range of motions limitations. 12:10 Chest/axilla: Inspection: normal. 12:10 Cardiovascular: Rate: normal. 12:10 Respiratory: the patient does not display signs of respiratory distress, Respirations: normal, no use of accessory muscles, no retractions, labored breathing, is not present. 12:10 Back: pain, is absent, ROM is normal. 12:10 Musculoskeletal/extremity: Extremities: grossly normal except: noted in the left hand and left wrist: tenderness and pain along radial side from distal forearm to proximal thumb. No ROM restriction, no deformity noted, no gross swelling. Vital Signs: 11:42 BP 174 / 78 RA Sitting (auto/lg); Pulse 84; Resp 17; Temp 98.6; Pulse Ox 99% ; Weight ap3 78.47 kg; Height 5 ft. 2 in. (157.48 cm); Pain 5/10; 11:42 Body Mass Index 31.64 (78.47 kg, 157.48 cm) ap3 Procedures: 13:20 Splinting: Splint applied to left wrist using wrist splint, applied by nurse. Examined cp by me, post splint application: neurovascular intact, Patient tolerated well. MDM: 13:05 Patient medically screened. cp 13:12 Data reviewed: vital signs, nurses notes, radiologic studies, plain films. cp 13:12 Differential diagnosis: dislocation, closed fracture, contusion. Test interpretation: cp by ED physician or midlevel provider: plain radiologic studies. Counseling: I had a detailed discussion with the patient and/or guardian regarding: the historical points, exam findings, and any diagnostic results supporting the discharge/admit diagnosis, radiology results, to return to the emergency department if symptoms worsen or persist or if there are any questions or concerns that arise at home. Response to treatment: the patient's symptoms have mildly improved after treatment, and as a result, I will discharge patient. 03/05 11:47 Order name: XRAY Hand LEFT 3 View; Complete Time: 13:09 ap3 03/05 13:09 Interpretation: Report reviewed. cp 03/05 11:50 Order name: XRAY Forearm LEFT; Complete Time: 13:09 ap3 Administered Medications: No medications were administered Disposition Summary: 03/05/22 13:13 Discharge Ordered Location: Home cp Problem: new cp Symptoms: have improved cp Condition: Stable cp Diagnosis - Pain in right wrist - from fall cp - Pain in right hand - from fall cp Followup: cp - With: French Santos MD - When: 1 week - Reason: pain continues Discharge Instructions: - Discharge Summary Sheet cp - Wrist Pain, Adult cp - Hand Pain cp Forms: - Medication Reconciliation Form cp - Thank You Letter cp - Antibiotic Education cp - Prescription Opioid Use cp Prescriptions: - Ibuprofen 800 mg Oral Tablet - take 1 tablet by ORAL route every 8 hours As needed take with food; 30 tablet; cp Refills: 0, Product Selection Permitted Addendum: 03/06/2022 23:18 Co-signature as Attending Physician, Chiki Pace MD. r n Signatures: Dispatcher [employer] EDChiki Gomes MD MD rn Luis Beal PA PA cp Kaela Bernabe RN RN ap3 Corrections: (The following items were deleted from the chart) 03/05 13:28 13:11 Splint - Thumb Spica ordered. cp iw 03/06 12:36 03/05 12:00 Context: resulted from a fall, on an outstretched hand, cp cp
[2022-03-05 13:45] VITALS: BP 174/78; TEMP 98.6; O2SAT 99
== END 2022-03-05 13:28 | disposition home or self-care (01) ==
LOC: ER 11:30
DX: M25.532 Pain in left wrist (principal); M79.642 Pain in left hand; W18.30XA Fall on same level, unspecified, initial encounter; Y93.E1 Activity, personal bathing and showering; E11.9 Type 2 diabetes mellitus without complications; I10 Essential (primary) hypertension
CPT/HCPCS: 99282

== ENCOUNTER 2022-05-29 20:43 | Emergency (ER) | payer OTHER ==
--- OUTSIDE RECORDS SUMMARY | 2022-05-29 20:47 | XMS REPORT | Continuity of Care Document ---
:1960 Author Organization [facility] t Address [address] [place] [address] Care Team Providers Name Role Phone Laura Weir MD Primary Care Physician [phone] ABNER JACKSON Attending Clinician Unavailable Brendon GALAVIZ, Martita Attending Clinician ABNER JACKSON Attending Clinician Unavailable Lisa Renee MD Attending Clinician Laura Weir MD Attending Clinician [phone] Abner Jackson MD Attending Clinician Viviana Wilcox MD Attending Clinician Niurka Bro CRNA Attending Clinician [phone] ABNER JACKSON Admitting Clinician Unavailable Payers Payer Name Policy Type Policy Number Effective Date Expiration Date S ource DUAL COMPLETE SNP [id number] 2021 [facility] 00:00:00 [facility]-MEDICAID - [id number] MEDICAID MEDICARE PART A [id number] \\T\\ B - MEDICARE Problems Condition Condition Condition Status Onset Resolution Last Treating Co mments Source Name Details Category Date Date Treatment Clinician Date Cellulitis Cellulitis Disease Active U nivers of right of right 5-12 ity of leg leg 00:00: [place] without without 00 Medical foot foot Branch Skin Skin Disease Active Univers texture texture 5-12 ity of changes changes 00:00: [place] 00 Medical Branch Foot drop, Foot drop, Disease Active U nivers right right 5-12 ity of 00:00: [place] 00 Medical Branch Neovascula Neovascula Disease Active [facility] 4-19 [facility] glaucoma, glaucoma, 00:00: Medi [place] left eye, left eye, 00 Cent er indetermin indetermin ate stage ate stage Essential Essential Disease Active Uni vers hypertensi hypertensi 2-02 it y of on on 00:00: [place] 00 Medical Branch Fluid Fluid Disease Active Univers retention retention 2- ity of 00:00: [place] 00 Medical Branch Mixed Mixed Disease Active Univers hyperlipid hyperlipid 2- it y of emia emia 00:00: [place] 00 Medical Branch Low Low Disease Active Univers vitamin D vitamin D 2- ity of level level 00:00: [place] [facility] Anemia of Anemia of Disease Active Uni vers chronic chronic 2-02 ity of disease disease 00:00: [place] 00 Medical Branch Reactive Reactive Disease Active [...] for 2- ity of malignant malignant 00:00: Mauricio s [...] Disease Active 2019- U nivers sleeping sleeping - ity of 00:00: [place] 00 Medical Branch Swelling Swelling Disease Active Unive rs 7-23 ity of 00:00: [place] 00 Medical Branch Obesity Obesity Disease Active 2018-09 Univers (BMI (BMI 2-11 ity of 30-39.9) 30-39.9) 00:00: [place] 00 Medical Branch 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 Left leg History of History of Disease Active U nivers stroke stroke 3-04 ity of 00:00: [place] 00 Medical Branch Type 2 Type 2 [...] d 3-04 00:00:00 12:39:59 ity of 00:00: [place] 00 Medical Branch Tubal Tubal Disease Resolve 2017-01-24 [...] , ok with extended release metformin . METFORMI Allergy Active Diarrhea [facility]: Medical [facility] Center Metformi Drug Active Diarrhea And [facility] Allergy 04-16 nausea. [facility] 00:00: Only with Medical 00 immediate Center release metformin , ok with extended release metformin . Social History Social Habit Start Date Stop Date Quantity Comments Source Exposure to 2022-05-10 2022-05-20 Not sure [facility]-CoV-2 00:00:00 13:09:00 [facility] [place] (event) Branch Alcohol intake 2021-01-19 2021-01-19 Ex-drinker ELLIE Correiak es 00:00:00 00:00:00 (finding) Medical Center Tobacco use and 2021-01-17 2021-01-17 Never used ELLIE Shi exposure 00:00:00 00:00:00 [facility] Center Sex Assigned At [birth year] ELLIE Shi 00:00:00 00:00:00 Medical Center Smoking Status Start Date Stop Date Source Never smoked tobacco [facility] Medications Ordered Filled Start Stop Current Ordering Indication Dosage Frequency Signature Comments Components Source Medication Medication Date Date Medication? Clinician (SIG) Name Name Arm Brace Yes [id number] Use as Univers (WRIST 6-29 [id number] directed. ity of BRACE 00:00: Any brand [place] MEDIUM) 00 per Medical Mis insurance. Branch Arm Brace Yes [id number] Use as Univers (WRIST 6-29 [id number] directed. ity of BRACE 00:00: Any brand [place] MEDIUM) 00 per Medical Mis insurance. Branch cephALEXin Yes [id number] 500mg Take 1 Univers (KEFLEX) 5-12 capsule by ity o f 500 mg 00:00: mouth 4 [place] capsule 00 (four) Medical times [place] daily. Leg Brace Yes [id number] Use daily Univers Misc 5-12 9106 ity of 00:00: [place] 00 Medical Branch cephALEXin Yes [id number] 500mg Take 1 Univers (KEFLEX) 5-12 capsule by ity o f 500 mg 00:00: mouth 4 [place] capsule 00 (four) Medical times Branch daily. Leg Brace Yes [id number] Use daily Univers Misc 5-12 9106 ity of 00:00: 00 Medical Branch blood sugar Yes [id number] Use BID, Univers diagnostic 4-11 DX E11.9 ity o f strip 00:00: (Brand per [place] 00 insurance) Medical Branch Blood-Gluco Yes [id number] DX E11.9 Univers se Meter 4-11 (Brand ity of Kit 00:00: upon insurance Medical approval) Branch blood sugar Yes [id number] Use BID, Univers diagnostic 4-11 DX E11.9 ity o f strip 00:00: (Brand per insurance) Medical Branch Blood-Gluco Yes [id number] DX E11.9 Univers se Meter 4-11 (Brand ity of Kit 00:00: upon insurance Medical approval) Branch cyanocobala Yes Take by Uni vers min, 12-18 mouth. ity of vitamin 09:25: [place] B-12 57 Medical (VITAMIN Branch B12 ORAL) cyanocobala Yes Take by Uni vers min, 12-18 mouth. ity of vitamin 09:25: [place] B-12 57 Medical (VITAMIN Branch B12 ORAL) pyridoxine Yes Take by Univ ers HCl, 12-18 mouth. ity of vitamin B6, 09:25: [place] (VITAMIN 56 Medical B-6 ORAL) Branch pyridoxine Yes Take by Univ ers HCl, 12-18 mouth. ity of vitamin B6, 09:25: [place] (VITAMIN 56 Medical B-6 ORAL) Branch aspirin 81 Yes 81mg Take 81 mg U nivers mg chewable 22 by mouth ity of tablet 09:25: daily. [address] Cholecalcif Yes Take by Uni vers noy, 12-18 mouth. ity of Vitamin D3, 09:25: [place] (VITAMIN 54 Medical D3) 1,000 Branch unit capsule aspirin 81 Yes 81mg Take 81 mg U nivers mg chewable 22 by mouth ity of tablet 09:25: daily. [address] Cholecalcif Yes Take by Uni vers noy, 12-18 mouth. ity of Vitamin D3, 09:25: [place] (VITAMIN 54 Medical D3) 1,000 Branch unit capsule lisinopriL- Yes [id number] 1{tbl} Take 1 Univers hydrochloro - tablet by ity of thiazide 00:00: mouth [place] 20-12.5 mg 00 daily. Medical per tablet Branch Diclofenac 0 Yes [id number] APPLY 2 TO Univers Sodium 1 % 12-18 4 ity of gel 00:00: TOPICALLY [place] 00 THREE Medical TIMES Branch DAILY NEEDED FOR PAIN meloxicam Yes [id number] 15mg Take 1 Univers 15 mg 3-22 2 tablet by ity of tablet 00:00: mouth [place] 00 daily. Medical Branch atorvastati Yes [id number] 20mg Take 1 Univers n 20 mg 3-22 tablet by ity of tablet 00:00: mouth at [place] [address] bedtime. Medical Branch insulin Yes [id number] INJECT 28 U nivers glargine 3-22 UNITS ity of U-300 conc 00:00: [place]BCUTANEO [place] (TOUJEO 00 USLY AT [facility] Branch U-300 INSULIN) 300 unit/mL (1.5 mL) InPn lisinopriL- Yes [id number] 1{tbl} Take 1 Univers hydrochloro 3-22 tablet by ity of thiazide 00:00: mouth [place] 20-12.5 mg 00 daily. Medical per tablet Branch Diclofenac Yes [id number] APPLY 2 TO Univers Sodium 1 % 3-22 4 ity of gel 00:00: TOPICALLY THREE Medical TIMES [place] DAILY NEEDED FOR PAIN meloxicam Yes [id number] 15mg Take 1 Univers 15 mg 3-22 2 tablet by ity of tablet 00:00: mouth [place] 00 daily. Medical Branch atorvastati Yes [id number] 20mg Take 1 Univers n 20 mg 3-22 tablet by ity of tablet 00:00: mouth at [place] [address] bedtime. Medical Branch insulin Yes [id number] INJECT 28 U nivers glargine 3-22 UNITS ity of U-300 conc 00:00: SUBCUTANEO [place] (TOUJEO 00 USLY AT [facility] Branch U-300 INSULIN) 300 unit/mL (1.5 mL) InPn metformin 2020-09 Yes [id number] 500mg Take 1 U nivers ER 500 mg 1-22 tablet by ity o f 24 hr 00:00: mouth 2 [place] tablet 00 (two) Medical times Branch daily. metformin 2020-09 Yes [id number] 500mg Take 1 U nivers ER 500 mg 1-22 tablet by ity o f 24 hr 00:00: mouth 2 [place] tablet 00 (two) Medical times Branch daily. foLIC acid Yes 1mg Take 1 mg Un evita 1 mg tablet 8-31 by mouth ity of 10:04: daily. [address] foLIC acid 0 Yes 1mg Take 1 mg Un evita 1 mg tablet 8-31 by mouth ity of 10:04: daily. [address] glipiZIDE 0 Yes [id number] 10mg Take 1 Un evita 10 mg 8-31 tablet by ity of tablet 00:00: mouth 2 [place] 00 (two) Medical times Branch daily before breakfast and dinner. ipratropium Yes [id number] 2{spray Use 2 Univers 21 mcg 8-31 } Sprays in ity of (0.03 %) 00:00: each [place] nasal spray 00 nostril 3 Med ical (three) Branch times daily. repaglinide Yes [id number] .5mg Take 1 Univers 0.5 mg 8-31 tablet by ity of tablet 00:00: mouth 3 [place] [address] (three) Medical times Branch daily before meals. If blood sugars are running over 150 two hours after a meal then take 2 pills before meals. glipiZIDE Yes [id number] 10mg Take 1 Un evita 10 mg 8-31 tablet by ity of tablet 00:00: mouth 2 [place] (two) Medical times [place] daily before breakfast and dinner. ipratropium 2020- Yes [id number] 2{spray Use 2 Univers 21 mcg 8-31 } Sprays in ity of (0.03 %) 00:00: each [place] nasal spray 00 nostril 3 Med ical (three) Branch times daily. repaglinide Yes [id number] .5mg Take 1 Univers 0.5 mg 8-31 tablet by ity of tablet 00:00: mouth 3 [place] [address] (three) Medical times Branch daily before meals. If blood sugars are running over 150 two hours after a meal then take 2 pills before meals. BD JUAN DIEGO Yes [id number] USE Univers GEN PEN 8-19 DIRECTED ity of NEEDLE 32 00:00: EVERY [place] gauge x 00 MORNING Medical " Ndle Branch BD JUAN DIEGO Yes [id number] USE Univers GEN PEN 8-19 DIRECTED ity of NEEDLE 32 00:00: EVERY [place] gauge x 00 MORNING Medical 532" Ndle Branch Miscellaneo Yes [id number] Use as Univers Medical 02-28 directed ity o f Supply 00:00: [place] (BLOOD 00 Medical PRESSURE Branch CUFF) [facility] Miscellaneo Yes [id number] Use as [facility] Medical 02-28 directed ity o f Supply 00:00: [place] (BLOOD 00 Medical PRESSURE Branch CUFF) [facility] albuterol-i Yes [id number] 1{puff} Inhale 1 Univers pratropium 5-11 6 Puff 4 ity of 20-100 00:00: (four) [place] mcg/actuati 00 times Medical on inhaler daily. Branch montelukast Yes [id number] 10mg Take 1 Univers (SINGULAIR) 5-11 tablet by ity of 10 mg 00:00: mouth at [place] tablet 00 bedtime. Medical Branch albuterol-i Yes [id number] 1{puff} Inhale 1 Univers pratropium 5-11 6 Puff 4 ity of 20-100 00:00: (four) [place] mcg/actuati 00 times Medical on inhaler daily. Branch montelukast Yes [id number] 10mg Take 1 Univers (SINGULAIR) 5-11 tablet by ity of 10 mg 00:00: mouth at [place] tablet 00 bedtime. Medical Branch brimonidine Yes 1[drp] Q.[id number] [address] [facility] [address] (ALPHAGAN) 4-22 [id number] (three) [facility] 0.2 % 16:45: 3D times [...] Center mg/mL ophthalmic solution cholecalcif 0 Yes [id number] Q7D Take [facility] noy, 4-22 50,000 [facility] vitamin D3, 16:45: Units by Me dical 1,250 mcg 51 mouth once Cent [...] Center ESTORETIC) 10-12.5 mg per tablet metFORMIN 0 Yes 500mg Take [address] [facility] (GLUCOPHAGE 4-22 mg by [facility] ) 500 MG 16:45: mouth 2 Medica l tablet 51 (two) Center times daily with breakfast and dinner. prednisoLON 0 Yes 1[drp] Q.25D [address] E acetate 4-22 (four) [facility] (PRED 16:45: times Medical FORTE) 1 % 51 daily. Center ophthalmic suspension pyridoxine, 0 Yes 100mg QD Take [address] vitamin B6, 4-22 mg by [facility] (B-6) 100 16:45: mouth Medical MG tablet 51 daily. Center insulin Yes Inject [facility] glargine 4-22 subcutaneo [facility] U-300 conc 16:45: usly. Medica l (Toujeo Max 51 Center U-300 SoloStar) 300 unit/mL (3 mL) InPn dorzolamide 0 Yes 1[drp] Q.5D [address] -timoloL 4-22 (two) [facility] (COSOPT) 16:45: times Medical 22.3-6.8 51 daily. Center mg/mL ophthalmic solution cholecalcif 0 Yes [id number] Q7D Take [facility] noy, 4-22 50,000 [facility] vitamin D3, 16:45: Units by [place] dical [...] times Medical FORTE) 1 % 51 daily. [place] ophthalmic suspension pyridoxine, Yes 100mg QD Take [...] 4-22 by mouth [facility] tablet 16:45: daily. [address] atorvastati Yes 20mg QD Take [address] n (LIPITOR) 4-22 by mouth Luke s 20 MG 16:45: daily. Medical tablet 51 Center atropine Yes 1[drp] Q.[id number] [address] [facility] [address] (ISOPTO) 1 4-22 [id number] (three) [facility] % 16:45: 3D times Medical ophthalmic 51 daily. [place] solution brimonidine Yes 1[drp] Q.[id number] [address] [facility] [address] (ALPHAGAN) 4-22 [id number] (three) [facility] 0.2 % 16:45: 3D times [...] daily. Center mg/mL ophthalmic solution cholecalcif Yes [id number] Q7D Take [facility] noy, 4-22 50,000 [facility] vitamin D3, 16:45: Units by Ny dical 1,250 mcg 51 mouth once Cent er (50,000 a week. unit) Tab latanoprost Yes 1[drp] QD [address] (XALATAN) 4-22 nightly. [facility] 0.005 % 16:45: Medical ophthalmic 51 Center solution lisinopril- Yes 1{tbl} QD Take [address] hydroCHLORO 4-22 tablet by Frantz cline thiazide 16:45: mouth Medical (PRINZIDE,Z 51 daily. [place] ESTORETIC) 10-12.5 mg per tablet metFORMIN Yes 500mg Take [address] [facility] (GLUCOPHAGE 4-22 mg by Kim ) 500 MG 16:45: mouth 2 Medica l tablet 51 (two) Center times daily with breakfast and dinner. prednisoLON Yes 1[drp] Q.25D [address] [facility] E acetate 4-22 (four) [facility] (PRED 16:45: times Medical FORTE) 1 % 51 daily. [place] ophthalmic suspension pyridoxine, Yes 100mg QD Take [address] vitamin B6, 4-22 mg by [facility] (B-6) 100 16:45: mouth Medical MG tablet 51 daily. [place] insulin Yes Inject [facility] glargine 4-22 [...] n (LIPITOR) 4-22 by mouth Luke s 20 MG 16:45: daily. Medical tablet 51 Center atropine 0 Yes 1[drp] Q.[id number] [address] [facility] [address] (ISOPTO) 1 4- [id number] (three) [facility] % 16:45: 3D times Medical ophthalmic 51 daily. Center solution brimonidine 0 Yes 1[drp] Q.[id number] [address] [facility] [address] (ALPHAGAN) - [id number] (three) [facility] 0.2 % 16:45: 3D times Medical ophthalmic 51 daily. Center solution cyanocobala 0 Yes 100ug QD Take [address] min, 4-22 mcg by [facility] vitamin 16:45: mouth Medical B-12, 100 51 daily. Center MCG tablet cholecalcif Yes Take by [facility] noy, 4-22 mouth. [facility] vitamin D3, 16:45: Medica l 25 mcg 51 Center (1,000 unit) Chew dorzolamide 0 Yes 1[drp] Q.5D [address] -timoloL 4-22 (two) [facility] (COSOPT) 16:45: times Medical 22.3-6.8 51 daily. Center mg/mL ophthalmic solution cholecalcif 0 Yes [id number] Q7D Take [facility] noy, 4-22 50,000 [facility] vitamin D3, 16:45: Units by Ny dical [...] thiazide 16:45: mouth Medical (PRINZIDE,Z 51 daily. [place] ESTORETIC) 10-12.5 mg per tablet metFORMIN Yes 500mg Take [address] (GLUCOPHAGE 4-22 mg by [facility] ) 500 MG 16:45: mouth 2 Medica l tablet 51 (two) Center times daily with breakfast and dinner. prednisoLON Yes 1[drp] Q.25D [address] E acetate 4-22 (four) [facility] (PRED 16:45: times Medical FORTE) 1 % 51 daily. [place] ophthalmic suspension pyridoxine, Yes 100mg QD Take [address] vitamin B6, 4-22 mg by [facility] (B-6) 100 16:45: mouth Medical MG tablet 51 daily. [place] insulin Yes Inject [facility] glargine 01-18 subcutaneo [facility] U-300 conc 16:45: usly. Medica l (Toujeo Max 51 Center U-300 SoloStar) 300 unit/mL (3 mL) InPn aspirin 81 Yes 81mg QD Take [address] MG EC -22 by mouth [facility] tablet 16:45: daily. Medical 51 Center atorvastati Yes 20mg QD Take [address] n (LIPITOR) - by mouth Luke s 20 MG 16:45: daily. Medical tablet 51 [place] atropine Yes 1[drp] Q.[id number] [address] [facility] (ISOPTO) 1 - [id number] (three) [facility] % 16:45: 3D times Medical ophthalmic 51 daily. Center solution brimonidine Yes 1[drp] Q.[id number] [address] [facility] (ALPHAGAN) 4-22 [id number] (three) [facility] 0.2 % 16:45: 3D times Medical ophthalmic 51 daily. [place] solution cyanocobala Yes 100ug QD Take [address] min, 4-22 mcg by [facility] vitamin 16:45: mouth Medical B-12, 100 51 daily. Center MCG tablet cholecalcif Yes Take by [facility] noy, 4-22 mouth. [facility] vitamin D3, 16:45: Medica l 25 mcg 51 Center (1,000 unit) Chew aspirin 81 Yes 81mg QD Take [address] MG EC 01-18 by mouth [facility] tablet 16:45: daily. Medical 51 [place] atorvastati Yes 20mg QD Take [address] n (LIPITOR) -22 by mouth Luke s 20 MG 16:45: daily. Medical tablet 51 [place] atropine Yes 1[drp] Q.[id number] [address] [facility] (ISOPTO) 1 - [id number] (three) [facility] % 16:45: 3D times Medical ophthalmic 51 daily. [place] solution acetaZOLAMI 2020- No 250mg Q.[id number] Take [address] [place] (DIAMOX) 01-18- [id number] mg by [facility] 250 MG 13:25: 00:00 3D mouth 3 Medical tablet 45 :00 (three) Center times daily. amitriptyli 2020- No 10mg QD Take [address] ne (ELAVIL) 01-18 by mouth Frantz es 10 MG 13:25: 00:00 nightly. Medical tablet 45 :00 [place] acetaZOLAMI 2020- No 250mg Q.[id number] Take [address] [place] (DIAMOX) 01-18- [id number] mg by [facility] 250 MG 13:25: 00:00 3D mouth 3 Medical tablet 45 :00 (three) Center times daily. amitriptyli 2020- No 10mg QD Take [address] ne (ELAVIL) 01-18 by mouth Frantz es 10 MG 13:25: 00:00 nightly. Medical tablet 45 :00 [place] acetaZOLAMI 2020- No 250mg Q.[id number] Take [address] [place] (DIAMOX) 01-18- [id number] mg by [facility] 250 MG 13:25: 00:00 3D mouth 3 Medical tablet 45 :00 (three) Center times daily. amitriptyli 2020- No 10mg QD Take [address] ne (ELAVIL) 01-18- by mouth Frantz es 10 MG 13:25: [...] Branc h methylPREDN Yes Enlarged Take by [facility] ISolone 1-12 lymph node mouth ity o [...] ity of tablet 00:00: avinash mouth at [place] 00 bedtime. Medical Branch ergocalcife 2019-09 Yes Vitamin D [id number] Take 1 Univers rol, 2-24 deficiency capsule by ity of vitamin d2, 00:00: mouth [place] (VITAMIN 00 weekly. Medical D2) 1,250 Branch mcg (50,000 unit) capsule aspirin 81 2019-09 Yes 81mg Take 81 mg U nivers mg chewable 2-14 by mouth ity of tablet 17:00: daily. [place] 54 Medical Branch Cholecalcif 2019-09 Yes Take by Uni vers noy, 2-14 mouth. ity of Vitamin D3, 17:00: [place] (VITAMIN 54 Medical D3) 1,000 Branch unit capsule cyanocobala 2019-09 Yes Take by Uni vers min, 2-14 mouth. ity of vitamin 17:00: [place] B-12, 54 Medical (VITAMIN Branch B12 ORAL) pyridoxine 2019-09 Yes Take by Univ ers HCl, 2-14 mouth. ity of vitamin B6, 17:00: [place] (VITAMIN 54 Medical B-6 ORAL) Branch insulin 2019-09 Yes Type 2 28U inject 28 Uni vers glargine 2-14 diabetes Units ity of U-300 conc 00:00: mellitus under the [place] (TOUJEO 00 with other skin at Med ical SOLOSTAR specified bedtime. Br anch U-300 complicatio [...] without long-term current use of insulin lancets-blo 2019- Yes [id number] 1{each} 1 Each 2 Univers od glucose 7-30 (two) ity of strips 30 00:00: times [place] gauge Cmpk 00 daily. Use Med ical BID, DX Branch E11.9 (Brand upon insurance approval) lancets-blo 2020-0 Yes [id number] 1{each} 1 Each 2 Univers od glucose [...] use upon of insulin insurance approval) glipiZIDE 2019- Yes Type 2 20mg Take 2 Univ ers 10 mg 7-21 diabetes tablets by ity of tablet 00:00: mellitus mouth 2 [place] 00 with other (two) Medical specified times Branch complicatio daily n, without before long-term breakfast current use and of insulin dinner. amitriptyli Yes Difficulty 10mg Take 1 Univers ne 10 mg 7-21 sleeping tablet by it y of tablet 00:00: mouth at [place] 00 bedtime. Medical May take 2 Branch if needed. meloxicam Yes Low back 7.5mg Take 1 U [...] Skin lesion Apply to Univers % ointment 2 of foot area(s) 3 i ty of 00:00: (three) [place] 00 times Medical daily. Branch pen needle, 2018-09 Yes [id number] 1{each} 1 Each Univers diabetic 1-12 every ity of (COMFORT EZ 00:00: [place]. [place] PEN 00 E11.65 Medical NEEDLES) 33 Branch gauge x 5/16" Ndle pen needle, 2018-09 Yes [id number] 1{each} 1 Each Univers diabetic 1-12 every ity of (COMFORT EZ 00:00: [place]. [place] PEN 00 E11.65 Medical NEEDLES) 33 Branch gauge x 5/16" Ndle pen needle, 2018-09 Yes Type 2 1{each} 1 Each Univers diabetic 1-12 diabetes every ity of (COMFORT EZ 00:00: mellitus morning. [place] PEN 00 with other E11.65 Medical NEEDLES) 33 specified Bra nch gauge x complicatio 5/16" Ndle n, without long-term current use of insulin Blood-Gluco Yes Type 2 DX E11.9 Univers se Meter 7-09 diabetes (Brand ity o f Kit 00:00: mellitus upon [place] 00 with insurance Medical complicatio approval) [facility] n, without long-term current use of insulin Immunizations Ordered Filled Immunization Date Status Comments [facility] e Immunization Name Name Influenza Virus 2021-08-20 Completed Universit y of Vaccine Quad IM, 00:00:00 [facility] dical Preserv and ABX Branch Free 6 MO-64 YRS Influenza Virus 2021-08-20 Completed Universit y of Vaccine Quad IM, 00:00:00 [facility] dical Preserv and ABX Branch Free 6 MO-64 YRS Influenza Virus 2020-09-11 Completed Universit y of Vaccine Quad .5 mL 00:00:00 [place] Medical IM 6+ MO Branch Influenza Virus 2020-09-11 Completed Universit y of Vaccine Quad .5 mL 00:00:00 [place] Medical IM 6+ MO Branch Influenza Virus 2020-09-11 Completed Universit y of Vaccine Quad .5 mL 00:00:00 [place] Medical IM 6+ MO Branch Influenza Virus 2019-07-13 Completed Universit y of Vaccine Quad .5 mL 00:00:00 [facility] [place] IM 6+ MO Branch Influenza Virus 2019-07-13 Completed Universit y of Vaccine Quad .5 mL 00:00:00 [facility] [place] IM 6+ MO Branch Influenza Virus 2019-07-13 Completed Universit y of Vaccine Quad .5 mL 00:00:00 [facility] 6+ MO Branch Influenza Virus 2018-07-02 Completed Universit y of Vaccine 00:00:00 [facility] Influenza Virus 2018-07-02 Completed Universit y of Vaccine 00:00:00 [facility] Influenza Virus 2018-07-02 Completed Universit y of Vaccine 00:00:00 [facility] Pneumococcal 2016-05-26 Completed University o f Polysaccharide, 00:00:00 [place] Med ical PPSV23 (PNEUMOVAX) Branch Pneumococcal 2016-05-26 Completed University o f Polysaccharide, 00:00:00 [place] Med ical PPSV23 (PNEUMOVAX) Branch Pneumococcal 2016-05-26 Completed University o f Polysaccharide, 00:00:00 [facility] ical PPSV23 (PNEUMOVAX) Branch Td 2010-03-08 Completed University of 00:00:00 [facility] Td 2010-03-08 Completed University of 00:00:00 [facility] Td 2010-03-08 Completed University of 00:00:00 [facility] Vital Signs Vital Name Observation Time Observation Value Comments Source HEIGHT 2021-01-18 14:22:00 157.5 cm WEIGHT 2021-01-18 14:22:00 78.472 kg HEIGHT 2021-01-17 13:41:00 157.5 cm WEIGHT 2021-01-17 13:41:00 78.019 kg Systolic blood 2022-05-20 18:58:00 169 mm[Hg] Univer [facility]ity of [facility] Diastolic blood 2022-05-20 18:58:00 80 mm[Hg] Unive rsity of [facility] Heart rate 2022-05-20 18:58:00 95 /min Universi ty [facility] Oxygen saturation in 2022-05-20 18:58:00 99 /min University Arterial blood by [facility] Pulse oximetry Branch Body temperature 2022-05-20 18:57:00 37.28 [facility] Res[facility] 2022-05-20 18:57:00 18 /min [facility] Body height 2022-05-20 18:57:00 157.5 cm Universi ty [facility] Body weight 2022-05-20 18:57:00 84.823 kg Universi [facility] BMI 2022-05-20 18:57:00 34.20 kg/m2 Universi ty [facility] HEIGHT 2021-01-18 14:22:00 157.5 cm WEIGHT 2021-01-18 14:22:00 78.472 kg HEIGHT 2021-01-17 13:41:00 157.5 cm WEIGHT 2021-01-17 13:41:00 78.019 kg Systolic blood 2021-01-18 16:20:00 149 mm[Hg] [facility] Diastolic blood 2021-01-18 16:20:00 63 mm[Hg] [facility] Heart rate 2021-01-18 16:20:00 82 /min [facility] Respiratory rate 2021-01-18 16:20:00 10 /min [facility] Oxygen saturation in 2021-01-18 16:20:00 100 /min [facility] Arterial blood by Medical nter Pulse oximetry Body temperature 2021-01-18 16:04:00 36.56 Blank [facility] Body height 2021-01-18 14:22:00 157.5 cm [facility] Body weight 2021-01-18 14:22:00 78.472 kg [facility] BMI 2021-01-18 14:22:00 31.64 kg/m2 [facility] Procedures Procedure Date / Time Performing Clinician Source Performed HB ECG ROUTINE & RHYTHM 2022-05-20 19:01:09 Martita Olivas [facility] STRIP Medical Branch BI SCREENING 2021-02-01 14:35:14 Laura Weir [facility] TOMOSYNTHESIS BILATERAL A Medical Branch INSERTION,EYE TUBE SHUNT 2021-01-18 15:20:00 Abner [facility]/WO GRAFT Center POCT-GLUCOSE METER 2021-01-18 14:35:[address] [facility] Plan of Care Planned Activity Planned Date Details Comments Source Future Scheduled 2023-12-[address] [facility] 00:00:00 (procedure) [code = [facility] 65973313] Future Scheduled 2023-12-[address] [facility] 00:00:00 (procedure) [code = [facility] 93164061] Future Scheduled 2023-12-[address] [facility] 00:00:00 (procedure) [code = [facility] [place] 85718958] Future Scheduled 2023-12-[address] [facility] 00:00:00 (procedure) [code = [facility] 53369626] Future Scheduled 2023-03-13 Screening for [facility] Test 00:00:00 malignant neoplasm [place] [facility] of cervix Branch (procedure) [code = 725337769] Future Scheduled 2022-05-[address] [facility] Test 00:00:00 (#1) [code = [facility] INFLUENZA VACCINE (#1)] Future Scheduled 2022-02-01 Screening for [facility] Test 00:00:00 malignant neoplasm [place] [facility] of breast Branch (procedure) [code = 040901526] Future Scheduled 2021-12-21 Creatinine [facility] Test 00:00:00 measurement [place] [facility] (procedure) [code = Branch 58183043] Future Scheduled 2021-12-21 Calculated low Universit y of Test 00:00:00 density lipoprotein [facility] dical cholesterol level Branch (procedure) [code = 950120146] Future Scheduled 2021-12-20 Examination of Universit y of Test 00:00:00 retina (procedure) [place] [facility] [code = 610315870] Branch Future Scheduled 2021-10-31 DTaP,Tdap,and Td Postponed from Unive rsity of Test 00:00:00 Vaccines (1 - Tdap) 1977 [place] [facility] dical [code = (Insurance / Branch DTaP,Tdap,and Td Financial) Vaccines (1 - Tdap)] Future Scheduled 2021-10-31 Zoster Recombinant Postponed from Uni versity of Test 00:00:00 Vaccine (SHINGRIX) 2008 [place] [facility] ical (1 of 2) [code = (Vaccine not Branch Zoster Recombinant available) Vaccine (SHINGRIX) (1 of 2)] Future Scheduled 2021-09-[address] [facility] Test 00:00:00 (12+) [code = Medical Center DEPRESSION SCREENING (12+)] Future Scheduled 2021-09-11 Diabetic foot [facility] Test 00:00:00 examination [place] [facility] (regime/therapy) Branch [code = 409077532] Future Scheduled 2021-09-11 Microalbumin [facility] Test 00:00:00 measurement, urine, [place] dical quantitative Branch (procedure) [code = 465203561] Future Scheduled 2021-06-23 Hemoglobin A1c Universit y of Test 00:00:00 measurement [facility] [place] (procedure) [code = Branch 62930749] Future Scheduled 2021-05-[address] [facility] Test 00:00:00 of 2) [code = [facility] SHINGLES VACCINES (1 of 2)] Future Scheduled 2008 SHINGLES VACCINES ([address] [facility] Test 00:00:00 of 2) [code = [facility] SHINGLES VACCINES (1 of 2)] Future Scheduled 2008 SHINGLES VACCINES ([address] [facility] Test 00:00:00 of 2) [code = [facility] SHINGLES VACCINES (1 of 2)] Future Scheduled 2008 SHINGLES VACCINES ([address] [facility] Test 00:00:00 of 2) [code = [facility] SHINGLES VACCINES (1 of 2)] Future Scheduled 2008 Screening for occult Uni versity of Test 00:00:00 blood in feces [facility] [place] (procedure) [code = Branch 642718138] Future Scheduled 2008 Stool DNA-based Universi ty of Test 00:00:00 colorectal cancer [facility] screening Branch (procedure) [code = 617641712680479] Future Scheduled 2008 Flexible fiberoptic Univ ersity of Test 00:00:00 sigmoidoscopy [facility] [place] (procedure) [code = Branch 73394528] Future Scheduled 2008 Screening for University of Test 00:00:00 malignant neoplasm [place] [facility] of colon (procedure) Branch [code = 920854612] Future Scheduled 2008 Screening for [facility] Test 00:00:00 malignant neoplasm [place] [facility] of colon (procedure) Branch [code = 853498682] Future Scheduled [address] [facility] 00:00:00 malignant neoplasm Medical C enter of cervix (procedure) [code = 290681051] Future Scheduled [address] [facility] Test 00:00:00 malignant neoplasm Medical C enter of cervix (procedure) [code = 556387856] Future Scheduled [address] [facility] 00:00:00 malignant neoplasm Medical C enter of cervix (procedure) [code = 062567026] Future Scheduled [address] [facility] 00:00:00 malignant neoplasm Medical C enter of cervix (procedure) [code = 180339797] Future Scheduled [address] [facility] University of Test 00:00:00 (COVID-19) Vaccine [place] [facility] ical (1) [code = Branch SARS-CoV-2 [...] versity of Test 00:00:00 (procedure) [code = [facility] 844570672] Branch Future Scheduled 1960 COVID-[address] [facility] Test 00:00:00 (#1) [code = [facility] COVID-19 VACCINE (#1)] Future Scheduled [address] [facility] 00:00:00 malignant neoplasm Medical C enter of colon (procedure) [code = 990112295] Future Scheduled [address] [facility] 00:00:00 malignant neoplasm Medical C enter of colon (procedure) [code = 916582828] Future Scheduled [address] [facility] 00:00:00 malignant neoplasm Medical C enter of colon (procedure) [code = 604649887] Future Scheduled [address] [facility] 00:00:00 malignant neoplasm Medical C enter of colon (procedure) [code = 701811187] Future Scheduled 1960 Sigmoidoscopy [code [facility] Test 00:00:00 = Sigmoidoscopy] Medical Marc ter Future Scheduled [address] [facility] Test 00:00:00 malignant neoplasm Medical C enter of breast (procedure) [code = 558608668] Future Scheduled [address] [facility] Test 00:00:00 (combo) [code = CT Medical C enter Colonography (combo)] Future Scheduled [address] [facility] Test 00:00:00 malignant neoplasm Medical C enter of breast (procedure) [code = 624251661] Future Scheduled [address] [facility] Test 00:00:00 malignant neoplasm Medical C enter of colon (procedure) [code = 516301397] Future Scheduled [address] [facility] 00:00:00 malignant neoplasm Medical C enter of breast (procedure) [code = 452219325] Future Scheduled [address] [facility] 00:00:00 malignant neoplasm Medical C enter of colon (procedure) [code = 723755875] Future Scheduled [address] [facility] 00:00:00 malignant neoplasm Medical C enter of breast (procedure) [code = 934695974] Future Scheduled [address] [facility] Test 00:00:00 malignant neoplasm Medical C enter of colon (procedure) [code = 138684977] Encounters Start End Encounter Admission Attending Care Care Encounter Source Date/Time Date/Time Type Type Clinicians Facility Department ID 2021-07-07 [facility] [id number] 14:24:51 ABNER 2022-05-27 2022-05-27 Telephone [facility] [id number] Univers 00:00:00 00:00:00 Kierrariri MACKENZIE [id number] [facility]y [facility] [place] [id number] [address] 2022-05-20 2022-05-20 Office [facility] [id number] [place] [address] 13:40:00 14:17:29 Visit Martita MANN [id number] [facility] [place] [id number] [address] 2021-09-20 2021-09-20 Outpatient [facility] [id number] [address] [place] [address] 07:39:04 08:30:58 ABNER Portillo 2021-05-22 2021-05-22 [facility] [id number] 11:43:20 23:59:00 Encounter Lisa Timothy Mackenzie [id number] [place] 4.2.7.2.686 [place] [id number] 2021-05-22 2021-05-22 [facility] [id number] 11:42:37 11:42:37 Encounter Lisa Timothy Wellman [id number] [place] 4.2.7.2.686 [place] [id number] 2021-05-22 2021-05-22 [facility] [id number] 00:00:00 00:00:00 Laura Mann [id number] [place] 4.2.7.2.686 Professio [id number] [address] 2021-05-21 2021-05-21 Outpatient [facility] [id number] [facility] 12:17:33 13:41:50 [facility] 2021-05-14 2021-05-14 Office [facility] [id number] 10:25:18 11:06:59 Visit Martita Mann [id number] [place] 4.2.7.2.686 Professio [phone] [address] 2021-05-14 2021-05-14 Refill [facility] [id number] 00:00:00 00:00:00 Laura Mann [id number] [place] 4.2.7.2.686 Professio [id number] [address] 2021-05-14 2021-05-14 [facility] [id number] 00:00:00 00:00:00 Laura Mann [id number] [place] 4.2.7.2.686 Professio [id number] [address] 2021-01-18 2021-01-18 [facility] [id number] 13:25:00 16:45:00 Encounter [facility] 2021-01-18 2021-01-[address] [facility] [id number] 15:30:00 16:06:00 Event Niurka Bro [facility] 2021-01-18 2021-01-18 Surgery [facility] [id number] 14:20:00 15:05:00 [facility] 2021-01-18 2021-01-18 Travel [facility] [id number] [facility] 00:[facility]:00 00:00[facility]00 [facility] 2021-01-17 2021-01-17 [facility] [id number] 11:40:00 23:59:[address] [facility] 2021-01-17 2021-01-17 Outpatient [facility] [id number] [facility] 00:00:00 00:00:00 2021-01-08 2021-01-08 Outpatient PURVI [place]ACK[place] [id number] [facility] 12:38:21 15:02:28 ABNER [place] [facility] Medicin e Results Test Description Test Time Test Comments Results Result Sourc e Comments BI SCREENING Examination:BI Universi ty of TOMOSYNTHESIS 6 SCREENING [place] Medic [...] 127 mg/dL 70-110 H : TESTED AT [facility] 7200 1538) [facility] [address]: Process Area Supervisor/Techni bishnu ID = [id number] for JIM CHEN A Lab Interpretation (test code = Abnormal 47164-4) [facility]-Glucose [id number] 14:47:00 Test Item Value Reference Range Interpretation Comments POC-Glucose Meter (test 127 mg/dL 70-110 H : TE STED AT code = 1538) [facility] [address] [place] [address]80323 0: Process Area Supervisor/Techni bishnu ID = [id number] for RICH CHENIN A Lab Interpretation (test Abnormal code = 78089-2) [facility]-Glucose [id number] 14:47:00 Test Item Value Reference Range Interpretation Comments POC-Glucose Meter (test 127 mg/dL 70-110 H : TE STED AT code = 1538) [facility] [address] [place] [address]80323 0: Process Area Supervisor/Techni bishnu ID = [id number] for RICH CHENIN A Lab Interpretation (test Abnormal code = 31412-8) [facility]-GLUCOSE [id number] 14:47:00 Test Item Value Reference Range Interpretation Comments POC-GLUCOSE METER 127 mg/dL 70-110 H : TESTED A T [facility] (BEAKER) (test code 7200 [facility] = 1538) [place] [address] 0: Process Area Supervisor/Techni bishnu ID = [id number] for VANDANA TO
--- NOTE | 2022-05-29 21:52 | RAD REPORT ---
EXAM DESCRIPTION: Julia Single View05/29/2022 9:41 pm CLINICAL HISTORY: Hypertension COMPARISON: October 2021 FINDINGS: The lungs appear clear of acute infiltrate. The heart is normal size IMPRESSION: No acute abnormalities displayed
[2022-05-29 22:31] LABS: Hematocrit 30.1 % (36.0-45.0); RBC Red Blood Cell Count 3.63 M/uL (3.86-4.86)
[2022-05-29 22:32] LABS: Absolute Lymphocytes (CBC) 2.5 K/uL (0.7-4.9); Lymphocytes % 27.3 % (15.3-44.8); MPV 8.3 fL (7.6-11.3)
[2022-05-29 22:42] LABS: Potassium 3.9 mmol/L (3.5-5.1); Troponin High Sensitivity 11.7 pg/mL (<58.9)
--- NOTE | 2022-05-29 22:59 | ER ---
Nurse's Notes [facility] Name: Genny Matamoros Age: 62 yrs Sex: Female : 1960 Arrival Date: 05/29/2022 Time: 20:52 Bed 16 Private MD: Diagnosis: Essential (primary) hypertension Presentation: 05/29 20:54 Chief complaint: Home BP 208/110 this evening, denies chest hb pain/SOB/headache/dizziness. Coronavirus screen: At this time, the client does not indicate any symptoms associated with coronavirus-19. Ebola Screen: No symptoms or risks identified at this time. Initial Sepsis Screen: Does the patient meet any 2 criteria? No. Patient's initial sepsis screen is negative. Does the patient have a suspected source of infection? No. Patient's initial sepsis screen is negative. Risk Assessment: Do you want to hurt yourself or someone else? Patient reports no desire to harm self or others. Onset of symptoms was May 29, 2022. 20:54 Method Of Arrival: Ambulatory hb 20:54 Acuity: SADE 3 hb Triage Assessment: 22:29 General: Appears in no apparent distress. Behavior is appropriate for age. Pain: Denies ke1 pain. 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 - Social history:: Smoking status: Patient reports the use of cigarette tobacco products, Patient denies any tobacco usage or history of. - Hospitalizations: : No recent hospitalization is reported. Screenin:28 Abuse screen: Denies threats or abuse. Nutritional screening: No deficits noted. ke1 Tuberculosis screening: No symptoms or risk factors identified. Fall Risk None identified. Vital Signs: 20:54 BP 216 / 89; Pulse 91; Resp 16; Temp 97.8; Pulse Ox 100% on R/A; Weight 83.01 kg; hb Height 5 ft. 2 in. (157.48 cm); Pain 0/10; 22:30 BP 184 / 74; Pulse 92; Resp 19; Pulse Ox 100% ; Pain 0/10; ke1 20:54 Body Mass Index 33.47 (83.01 kg, 157.48 cm) hb ED Course: 20:52 Patient arrived in ED. hb 20:55 Triage completed. hb 20:55 Arm band placed on. hb 20:57 Chiki Pace MD is Attending Physician. rn 21:43 XRAY Chest (1 view) In Process Unspecified. EDMS 22:03 Kit Archer, TODD is Primary Nurse. ke1 22:15 Inserted saline lock: 20 gauge in right antecubital area, using aseptic technique. ke1 22:29 Bed in low position. Call light in reach. ke1 Administered Medications: 23:05 Drug: NS 0.9% 500 ml Route: IV; Rate: bolus; Site: right antecubital; ke1 23:27 Follow up: IV Status: Completed infusion ke1 Outcome: 22:58 Discharge ordered by . rn 23:26 Patient left the ED. ke1 Signatures: Dispatcher [employer] [facility] Chiki Pace MD MD rn Baxter, Heather, RN RN Kit Archer RN RN ke1 Corrections: (The following items were deleted from the chart) 20:56 20:55 Home Meds: lisinopril 2.5 mg Oral Tb24 1 tab once daily; hb hb 20:56 20:55 Home Meds: furosemide 20 mg Oral Tb24 once daily; hb hb
--- NOTE | 2022-05-29 22:59 | EDPHYS ---
Physician Documentation [facility] Name: Genny Matamoros Age: 62 yrs Sex: Female : 1960 Arrival Date: 05/29/2022 Time: 20:52 Bed 16 Private MD: ED Physician Chiki Pace HPI: 05/29 21:19 This 62 yrs old Female presents to ER via Ambulatory with complaints of High rn Blood Pressure. 21:19 The patient has elevated blood pressure and discovered this at home. Onset: The rn symptoms/episode began/occurred 3 day(s) ago. Modifying factors:. Associated signs and symptoms: Pertinent negatives: chest pain, dizziness, headache, lightheadedness, nausea, visual changes, vomiting, weakness. Severity of symptoms: At its worst the blood pressure was moderate, in the emergency department the blood pressure is unchanged. The patient has not experienced similar symptoms in the past. The patient has not recently seen a physician. Reports high blood pressure for last 3 days, feels fine otherwise, usually in 160s-170s, denies chest pain/sob/abd pain/back pain/new neuro symptoms. NO fever or recent illness. . 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 - Social history:: Smoking status: Patient reports the use of cigarette tobacco products, Patient denies any tobacco usage or history of. - Hospitalizations: : No recent hospitalization is reported. ROS: 21:19 Constitutional: Negative for fever, chills, and weight loss, Eyes: Negative for injury, rn pain, redness, and discharge, Neck: Negative for injury, pain, and swelling, Cardiovascular: Negative for chest pain, palpitations, and edema, Respiratory: Negative for shortness of breath, cough, wheezing, and pleuritic chest pain, Abdomen/GI: Negative for abdominal pain, nausea, vomiting, diarrhea, and constipation, Back: Negative for injury and pain, : Negative for injury, bleeding, discharge, and swelling, MS/Extremity: Negative for injury and deformity, Skin: Negative for injury, rash, and discoloration, Neuro: Negative for headache, weakness, numbness, tingling, and seizure. Exam: 21:19 Constitutional: This is a well developed, well nourished patient who is awake, alert, rn and in no acute distress. Head/Face: Normocephalic, atraumatic. Eyes: Periorbital areas with no swelling, redness, or edema. Cardiovascular: Regular rate and rhythm. No pulse deficits. Respiratory: No increased work of breathing, no retractions or nasal flaring. Abdomen/GI: Soft, non-tender Skin: Warm, dry MS/ Extremity: Pulses equal, no cyanosis. Neuro: Awake and alert, GCS 15, oriented to person, place, time, and situation. Cranial nerves II-XII grossly intact. Motor strength 5/5 in all extremities except RLE 4/5 (old CVA). Sensory grossly intact. Cerebellar exam normal. Walks with cane. 22:32 ECG was reviewed by the Attending Physician. rn Vital Signs: 20:54 BP 216 / 89; Pulse 91; Resp 16; Temp 97.8; Pulse Ox 100% on R/A; Weight 83.01 kg; hb Height 5 ft. 2 in. (157.48 cm); Pain 0/10; 22:30 BP 184 / 74; Pulse 92; Resp 19; Pulse Ox 100% ; Pain 0/10; ke1 20:54 Body Mass Index 33.47 (83.01 kg, 157.48 cm) hb MDM: 20:57 Patient medically screened. rn 22:57 Differential diagnosis: hypertensive crisis, Malignant HTN, asymptomatic HTN. Data rn reviewed: vital signs, nurses notes, lab test result(s), EKG, radiologic studies, plain films, and as a result, I will discharge patient. Counseling: I had a detailed discussion with the patient and/or guardian regarding: the historical points, exam findings, and any diagnostic results supporting the discharge/admit diagnosis, lab results, radiology results, the need for outpatient follow up, to return to the emergency department if symptoms worsen or persist or if there are any questions or concerns that arise at home. 22:57 Response to treatment: the patient's symptoms have mildly improved after treatment, and rn as a result, I will discharge patient. Special discussion: I discussed with the patient/guardian in detail that at this point there is no indication for admission to the hospital. It is understood, however, that if the symptoms persist or worsen the patient needs to return immediately for re-evaluation. 22:58 ED course: BP has improved without medication here, normal (at baseline) neuro exam, rn neg trop and normal ecg, no evidence of end organ damage, will dc home with pcp f/u for HTN management. . 05/29 21:17 Order name: Basic Metabolic Panel; Complete Time: 22:54 rn 05/29 21:17 Order name: CBC with Diff; Complete Time: 22:38 rn 05/29 21:17 Order name: Troponin HS; Complete Time: 22:54 rn 05/29 21:17 Order name: XRAY Chest (1 view); Complete Time: 22:25 rn 05/29 21:17 Order name: EKG; Complete Time: 21:18 rn 05/29 21:17 Order name: Cardiac monitoring; Complete Time: 22:28 rn 05/29 21:17 Order name: EKG - Nurse/Tech; Complete Time: 22:28 rn 05/29 21:17 Order name: IV Saline Lock; Complete Time: 22:15 rn 05/29 21:17 Order name: Labs collected and sent; Complete Time: 22:15 rn 05/29 21:17 Order name: O2 Per Protocol; Complete Time: 22:28 rn 05/29 21:17 Order name: O2 Sat Monitoring; Complete Time: 22:28 rn EC:32 Rate is 85 beats/min. Rhythm is regular. QRS [place] is Normal. RI interval is normal. QRS rn interval is normal. QT interval is normal. No Q waves. T waves are Normal. No ST changes noted. Clinical impression: Normal ECG. Interpreted by me. Reviewed by me. Administered Medications: 23:05 Drug: NS 0.9% 500 ml Route: IV; Rate: bolus; Site: right antecubital; ke1 23:27 Follow up: IV Status: Completed infusion ke1 Disposition Summary: 05/29/22 22:58 Discharge Ordered Location: Home rn Problem: an ongoing problem rn Symptoms: have improved rn Condition: Stable rn Diagnosis - Essential (primary) hypertension rn Followup: rn - With: Private Physician - When: As needed - Reason: Recheck today's complaints, Re-evaluation by your physician Discharge Instructions: - Discharge Summary Sheet rn - Hypertension, Adult rn - How to Take Your Blood Pressure, Dobt-bn-Pvad rn - Managing Your Hypertension rn Forms: - Medication Reconciliation Form rn - Thank You Letter rn - 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
[2022-05-29] MEDS ORDERED: NA CHLORIDE 0.9% 500 ML ONE (23:11)
[2022-05-30 02:43] VITALS: TEMP 97.8; O2SAT 100
[2022-05-30 02:45] VITALS: BP 184/74
--- NOTE | 2022-05-30 13:56 | EKG ---
Test Date: 2022-05-29 Test Time: 22:24:28 Control Clerk Subassembly: [place] MEASUREMENT RESULTS: Intervals: Rate: 85 IA: 180 QRSD: 92 QT: 372 QTc: 442 Jbphh: P: 69 IA: 180 QRS: 13 T: 80 INTERPRETIVE STATEMENTS: Normal sinus rhythm Normal ECG Compared to ECG 02/13/2021 23:24:02 No significant changes Electronically Signed On 05-30-22 13:55:05 CDT by German Gunderson
== END 2022-05-29 23:26 | disposition home or self-care (01) ==
LOC: ER 20:43
DX: I10 Essential (primary) hypertension (principal); E11.9 Type 2 diabetes mellitus without complications; F17.210 Nicotine dependence, cigarettes, uncomplicated; Z79.4 Long term (current) use of insulin; Z86.73 Personal history of transient ischemic attack (TIA), and cerebral infarction without residual deficits
CPT/HCPCS: 85025; 80048; 36415; 84484; 71045; J7040; 93005

== ENCOUNTER 2024-12-30 07:07 | Inpatient (IN) | payer OTHER ==
[2024-12-30 07:43] LABS: Absolute Basophils 0.1 K/uL (0-0.5); Absolute Eosinophils 0.4 K/uL (0-0.5); Absolute Lymphocytes (CBC) 1.3 K/uL (0.7-4.9); Absolute Monocytes 1.1 K/uL (0.1-1.3); Absolute Neutrophil 11.6 K/uL (1.8-8.0); Basophils % 0.6 % (0-1.3); Eosinophils % 2.9 % (0-4.4); Hematocrit 23.6 % (36.0-45.0); Hemoglobin 7.7 g/dL (12.0-15.0); Lymphocytes % 8.7 % (15.3-44.8); MCH 27.4 pg (27.0-35.0); MCHC 32.6 g/dL (32.0-36.0); MPV 7.1 fL (7.6-11.3); Monocytes % 7.5 % (3.3-12.3); Neutrophils % 80.3 % (41.7-73.7); Platelets 228 thou/uL (152-406); RBC Red Blood Cell Count 2.81 M/uL (3.86-4.86); Red Cell Distribution Width 14.5 % (12.1-15.2)
[2024-12-30 07:58] LABS: Albumin 2.1 g/dL (3.4-5.0); Albumin/Globulin Ratio 0.4 (1.1-1.8); Anion Gap 8.9 mEq/L (5.0-15.0); Bilirubin Total 0.3 mg/dL (0.2-1.0); Globulin 4.8 g/dL (2.3-3.5); Potassium 4.9 mEq/L (3.5-5.1); Protein, Total 6.9 g/dL (6.4-8.2)
[2024-12-30] MEDS ORDERED: ONDANSETRON 4 MG/2 ML VIAL ONE ×2 (08:54→13:59)
--- NOTE | 2024-12-30 08:56 | ER ---
Nurse's Notes [facility] Name: Genny Matamoros Age: 64 yrs Sex: Female : 1960 Arrival Date: 12/30/2024 Time: 07:07 Bed 20 Private MD: Diagnosis: Hypoglycemia, unspecified;Acute kidney failure, unspecified Presentation: 12/30 07:14 Chief complaint: Chief complaint: EMS states: sent here by [place] [id number] for hypoglycemia, longterm reported Glucagon 1mg was administered at 0630 for FSBG 35. Pt is at longterm for Rehab post partial right foot amputation approximately 2 weeks ago. Pt reports nausea/vomiting x 3 days ago and has "not been able to eat meals only snacks. EMS reports pt vomited a small amount en route. 07:14 Coronavirus screen: nausea, vomiting. Ebola Screen: Patient denies travel to an [facility] Ebola-affected area in the 21 days before illness onset. Initial Sepsis Screen: Does the patient meet any 2 criteria? No. Patient's initial sepsis screen is negative. Does the patient have a suspected source of infection? No. Patient's initial sepsis screen is negative. Risk Assessment: Do you want to hurt yourself or someone else? Patient reports no desire to harm self or others. Onset of symptoms was December 2024. 07:14 Acuity: SADE 3 aa5 07:14 Method Of Arrival: EMS: [facility] aa5 07:14 Care prior to arrival: Glucose check: 94. aa5 07:14 Care prior to arrival: Medication(s) given: zofran 4 mg, IV initiated. 20 GA, in the [facility] left antecubital area, Glucose check: 127. 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 - Infectious Disease History:: Denies. - Social history:: Smoking status: Patient denies any tobacco usage or history of. - Family history:: not pertinent. - Hospitalizations: : Patient was recently seen at. Screenin:14 [facility] ED Fall Risk Assessment (Adult) History of falling in the last 3 months, aa5 including since admission No falls in past 3 months (0 pts) Confusion or Disorientation No (0 pts) Intoxicated or Sedated No (0 pts) Impaired Gait Yes (1 pt) Mobility Assist Device Used Yes (1 pt) Altered Elimination No (0 pt) Score/Fall Risk Level 0 - 2 = Low Risk Oriented to surroundings, Maintained a safe environment, Educated pt \\T\\ family on fall prevention, incl call for assistance when getting out of bed, Assessed \\T\\ reinforced patient's understanding of fall precautions. Abuse screen: Denies threats or abuse. Nutritional screening: No deficits noted. Tuberculosis screening: No symptoms or risk factors identified. Assessment: 07:14 General: Appears comfortable, Behavior is calm, cooperative. Pain: Denies pain. Neuro: aa5 Level of Consciousness is awake, alert, obeys commands, Oriented to person, place, time, situation. Cardiovascular: Heart tones S1 S2 present Rhythm is regular. Respiratory: Airway is patent Respiratory effort is even, unlabored, Respiratory pattern is regular, symmetrical. GI: Abdomen is round non-distended, Last BM was December 28, 2024. Bowel sounds present X 4 quads. Abd is soft and non tender X 4 quads. Reports nausea, vomiting, unable to eat meals due to nausea/vomiting x 3 days, pt states "I can only eat light snacks". : No signs and/or symptoms were reported regarding the genitourinary system. EENT: No signs and/or symptoms were reported regarding the EENT system. Derm: Skin is pink, warm \\T\\ dry. Musculoskeletal: Dressing noted to right foot, reports partial right foot amputation recently. 08:50 Reassessment: Patient is alert, oriented x 3, equal unlabored respirations, skin aa5 warm/dry/pink. Pt currently c/o nausea, was notified. . 09:36 Reassessment: Patient is alert, oriented x 3, equal unlabored respirations, skin aa5 warm/dry/pink. Hospitalist at bedside . 11:00 Reassessment: Patient is alert, oriented x 3, equal unlabored respirations, skin aa5 warm/dry/pink. Vital Signs: 07:14 BP 170 / 81; Pulse 80; Resp 18 S; Temp 98(O); Pulse Ox 99% on R/A; aa5 08:38 BP 145 / 66; Pulse 83; Resp 18 S; Pulse Ox 98% on R/A; aa5 09:36 BP 149 / 61; Pulse 88; Resp 16 S; Pulse Ox 96% on R/A; aa5 11:00 BP 152 / 60; Pulse 89; Resp 18 S; Pulse Ox 98% on R/A; aa5 ED Course: 07:14 Patient arrived in ED. db 07:14 Chiki Pace MD is Attending Physician. rn 07:14 Alka Wiseman, TODD is Primary Nurse. aa5 07:14 Arm band placed on. aa5 07:14 Patient has correct armband on for positive identification. Bed in low position. Call aa5 light in reach. Side rails up X 1. Pulse ox on. NIBP on. 07:30 Maintain EMS IV. Dressing intact. Good blood return noted. Site clean \\T\\ dry. Gauge \\T\\ aa 5 site: 20G to L AC . Flushed with 10 mL NS. 07:30 Initial lab(s) drawn, by me, sent to lab. aa5 07:38 Triage completed. aa5 08:56 Harsha Arambula is Hospitalizing Provider. rn 11:20 No provider procedures requiring assistance completed. Patient admitted, IV remains in aa5 place. Administered Medications: 08:56 Drug: Ondansetron IVP 4 mg IVP once; over 2 minutes Route: IVP; Site: left antecubital; aa5 09:37 Follow up: Response: No adverse reaction aa5 Medication: 11:20 VIS not applicable for this client. aa5 Point of Care Testing: Blood Glucose: 07:34 Blood Glucose: 120 mg/dL; aa5 08:35 Blood Glucose: 97 mg/dL; aa5 Ranges: Outcome: 08:56 Decision to Hospitalize by Provider. rn 11:20 Admitted to OR accompanied by nurse, via stretcher, with chart, aa5 11:20 Condition: stable 11:20 Instructed on the need for admit, Demonstrated understanding of 11:30 Patient left the ED. ll1 Signatures: Chiki Pace MD MD rn Calderon, Audri, RN RN aa5 Jesus Strong RN RN ll1 Harry, Kay, RN RN db Corrections: (The following items were deleted from the chart) 07:42 07:14 Chief complaint: aa5 aa5 07:43 07:14 Chief complaint: EMS states: sent here by [facility] for aa5 hypoglycemia, longterm reported Glucagon 1mg was administered at 0630 for FSBG 35. Pt is at longterm for Rehab post partial right foot amputation approximately 2 weeks ago. Pt reports nausea/vomiting x 3 days ago and has "not been able to eat meals only snacks" Chief complaint: EMS states: sent here by [facility] for hypoglycemia, longterm reported Glucagon 1mg was administered at 0630 for FSBG 35. Pt is at longterm for Rehab post partial right foot amputation approximately 2 weeks ago. Pt reports nausea/vomiting x 3 days ago and has "not been able to eat meals only snacks" aa5
--- NOTE | 2024-12-30 08:56 | EDPHYS ---
Physician Documentation [facility] Name: Genny Matamoros Age: 64 yrs Sex: Female : 1960 Arrival Date: 12/30/2024 Time: 07:07 Bed 20 Private MD: ED Physician Chiki Pace HPI: 12/30 07:39 This 64 yrs old Female presents to ER via EMS with complaints of low blood rn sugar. 07:39 The patient or guardian reports hypoglycemia. Onset: The symptoms/episode rn began/occurred at an unknown time. Current symptoms: In the emergency department the patient's symptoms have improved. The patient has not experienced similar symptoms in the past. EMS reports patient had rehab, [place], status post right toe amputation 2 weeks ago. Patient reports at that time told had kidney problems but no medications were changed. Patient is on multiple diabetes medication including insulin. Patient continues to receive insulin and they are having trouble keeping her blood sugar up. Patient reports generalized malaise and weakness throughout but overall has been improving since the surgery. No fever or chills. No shortness of breath.. 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 - Infectious Disease History:: Denies. - Social history:: Smoking status: Patient denies any tobacco usage or history of. - Family history:: not pertinent. - Hospitalizations: : Patient was recently seen at. ROS: 07:39 Constitutional: Negative for fever, chills, and weight loss, Cardiovascular: Negative rn for chest pain, palpitations, and edema, Respiratory: Negative for shortness of breath, cough, wheezing, and pleuritic chest pain, Abdomen/GI: Negative for abdominal pain, nausea, vomiting, diarrhea, and constipation, : Negative for injury, bleeding, discharge, and swelling, MS/Extremity: Negative for injury and deformity, feels like wound is healing well from surgery Skin: Negative for injury, rash, and discoloration, Neuro: Positive for generalized weakness and malaise Exam: 07:39 Constitutional: This is a well developed, well nourished patient who is awake, alert, rn and in no acute distress. Head/Face: Normocephalic, atraumatic. ENT: Dry mucous membranes Cardiovascular: Regular rate and rhythm. No pulse deficits. Respiratory: No increased work of breathing, no retractions or nasal flaring. Abdomen/GI: Soft, non-tender MS/ Extremity: Pulses equal, no cyanosis. Neurovascular intact. Full, normal range of motion. Equal circumference. Neuro: Awake and alert, GCS 15, oriented to person, place, time, and situation. Vital Signs: 07:14 BP 170 / 81; Pulse 80; Resp 18 S; Temp 98(O); Pulse Ox 99% on R/A; aa5 08:38 BP 145 / 66; Pulse 83; Resp 18 S; Pulse Ox 98% on R/A; aa5 09:36 BP 149 / 61; Pulse 88; Resp 16 S; Pulse Ox 96% on R/A; aa5 11:00 BP 152 / 60; Pulse 89; Resp 18 S; Pulse Ox 98% on R/A; aa5 MDM: 07:14 Medical Screening Exam initiated rn 08:54 Differential diagnosis: Hypoglycemia, acute kidney failure. Data reviewed: vital signs, rn nurses notes, lab test result(s), and as a result, I will admit patient. Consideration of Admission/Observation Patient was admitted/placed on observation. Escalation of care including admission/observation considered. Counseling: I had a detailed discussion with the patient and/or guardian regarding the historical points, exam findings, and any diagnostic results supporting the discharge/admit diagnosis, lab results, radiology results, the need for further work-up and treatment in the hospital. Response to treatment: the patient's symptoms have mildly improved after treatment, and as a result, I will admit patient. ED course: Glucose stable. Hypoglycemic episodes likely secondary to acute kidney failure and medication not being cleared. Will admit to hospitalist service. Patient had emesis here that was nonbloody. Denies any blood in stool or passing blood. Reports had blood in stool 2 weeks ago prior to amputation but has not noticed any blood since then.. 12/30 07:25 Order name: CBC with Diff; Complete Time: 07:59 rn 12/30 07:25 Order name: CMP; Complete Time: 07:59 rn 12/30 07:25 Order name: Lipase; Complete Time: 07:59 rn 12/30 07:43 Order name: Glucose, Ancillary Testing; Complete Time: 07:59 EDMS 12/30 08:46 Order name: Glucose, Ancillary Testing; Complete Time: 08:53 EDMS 12/30 09:57 Order name: BB Add On EDMS 12/30 09:57 Order name: Type and Screen EDMS 12/30 09:57 Order name: CBC with Automated Diff EDMS 12/30 09:57 Order name: CBC with Automated Diff EDMS 12/30 09:57 Order name: Comprehensive Metabolic Panel EDMS 12/30 09:57 Order name: Comprehensive Metabolic Panel EDMS 12/30 09:57 Order name: Magnesium EDMS 12/30 09:57 Order name: Magnesium EDMS 12/30 09:57 Order name: Protime (+INR) EDMS 12/30 09:57 Order name: Protime (+INR) EDMS 12/30 09:57 Order name: PTT, Activated Partial Thromb EDMS 12/30 09:57 Order name: PTT, Activated Partial Thromb EDMS 12/30 10:08 Order name: Packed RBC Leukored EDMS 12/30 10:56 Order name: Glucose, Ancillary Testing EDMS 12/30 09:57 Order name: CONS Physician Consult EDMS 12/30 09:57 Order name: CONS Physician Consult EDMS 12/30 09:57 Order name: Physical Therapy Consult EDMS 12/30 07:25 Order name: IV Saline Lock; Complete Time: 07:39 rn 12/30 07:25 Order name: Labs collected and sent; Complete Time: 07:39 rn 12/30 07:25 Order name: Glucose Level; Complete Time: 07:39 rn Administered Medications: 08:56 Drug: Ondansetron IVP 4 mg IVP once; over 2 minutes Route: IVP; Site: left antecubital; aa5 09:37 Follow up: Response: No adverse reaction aa5 Point of Care Testing: Blood Glucose: 07:34 Blood Glucose: 120 mg/dL; aa5 08:35 Blood Glucose: 97 mg/dL; aa5 Ranges: Critical Glucose Levels:Adult <50 mg/dl or >400 mg/dl <40 mg/dl or >180 mg/dl Disposition Summary: 12/30/24 08:56 Hospitalization Ordered Notes: Hospitalization Status: Inpatient Admission rn Provider: Harsha Arambula rn Location: Telemetry/MedSurg (Inpatient) rn Condition: Stable rn Problem: new rn Symptoms: have improved rn Bed/Room Type: Standard rn Room Assignment: rn Diagnosis - Hypoglycemia, unspecified rn - Acute kidney failure, unspecified rn Forms: - Medication Reconciliation Form rn - SBAR form rn - Leadership Thank You Letter rn Signatures: Dispatcher [facility] EDIA Chiki Pace MD MD rn Calderon, Audri, RN RN aa5 Corrections: (The following items were deleted from the chart) 09:37 09:32 Physical Therapy Consult ordered. EDMS EDMS 09:37 09:32 CBC with Automated Diff ordered. EDMS EDMS 09:37 09:32 CBC with Automated Diff ordered. EDMS EDMS 09:37 09:32 CBC with Automated Diff ordered. EDMS EDMS 09:37 09:32 CBC with Automated Diff ordered. EDMS EDMS 09:37 09:32 CBC with Automated Diff ordered. EDMS EDMS 09:37 09:32 Magnesium ordered. EDMS EDMS 09:37 09:32 Magnesium ordered. EDMS EDMS 09:37 09:32 Magnesium ordered. EDMS EDMS 09:37 09:32 Magnesium ordered. EDMS EDMS 09:37 09:32 Urinalysis w/ reflexes ordered. EDMS EDMS 09:38 09:32 Magnesium ordered. EDMS EDMS 09:38 09:32 Phosphorus ordered. EDMS EDMS 09:38 09:32 Phosphorus ordered. EDMS EDMS 09:38 09:32 Phosphorus ordered. EDMS EDMS 09:38 09:32 Phosphorus ordered. EDMS EDMS 09:38 09:32 Phosphorus ordered. EDMS EDMS 09:39 09:27 CONS Physician Consult ordered. EDMS EDMS 09:39 09:32 Renal Panel ordered. EDMS EDMS 09:39 09:32 Renal Panel ordered. EDMS EDMS 09:39 09:32 Renal Panel ordered. EDMS EDMS 09:39 09:32 Renal Panel ordered. EDMS EDMS 09:39 09:32 Renal Panel ordered. EDMS EDMS
--- NOTE | 2024-12-30 09:23 | P.HP ---
Patient History Date of Service: 12/30/24 Allergies No Known Drug Allergies Allergy (Verified 08/05/18 12:57) Unknown Home Medications: glipiZIDE [Glipizide ER] 10 mg PO BID 08/05/18 Aspirin [Ecotrin 81 MG] 81 mg PO DAILY #30 02/14/21 Atorvastatin Calcium [Lipitor] 80 mg PO BEDTIME #30 tab 02/14/21 Cholecalciferol (Vitamin D3) [Vitamin D3] 1 cap PO DAILY 02/14/21 Clopidogrel Bisulfate [Plavix*] 75 mg PO DAILY #30 tablet 02/14/21 Cyanocobalamin (Vitamin B-12) [Vitamin B-12] 1 tab PO DAILY 02/14/21 Folic Acid 1 mg PO DAILY #30 tablet 02/14/21 Insulin Glargine,Hum.rec.anlog [Bella Parisi] 28 units SQ SEECOM 02/14/21 Lisinopril/Hydrochlorothiazide [Lisinopril-Hctz 10-12.5 mg Tab] 1 tab PO DAILY 02/14/21 Metformin HCl [Glucophage*] 500 mg PO DAILY 02/14/21 - Past Medical/Surgical History Diabetic: Yes -: Stroke Jun 2014 -: HTN -: T2DM -: tubal ligation -: appendectomy -: cataract surgery -: glaucoma surgery - Family History Sister -: Stroke Father -: Heart disease, Diabetes - Social History Alcohol use: No CD- Drugs: No Caffeine use: No Physical Examination - Studies Laboratory Data (last 24 hrs) 12/30/24 12/30/24 07:30 07:30 WBC 14.40 H Hgb 7.7 L Hct 23.6 L Plt Count 228 Sodium 138 Potassium 4.9 BUN 40 H Creatinine 3.08 H Glucose 137 H Total Bilirubin 0.3 AST 24 ALT 21 Alkaline Phosphatase 77 Lipase 24 Assessment and Plan - Advance Directives Does patient have a Living Will: No Does patient have a Durable POA for Healthcare: No
[2024-12-30] MEDS ORDERED: ACETAMINOPHEN 500 MG TAB PO PRN (09:27)
[2024-12-30] MEDS ORDERED: ONDANSETRON 4 MG/2 ML VIAL IV PRN (09:27)
[2024-12-30] MEDS ORDERED: NA CHLORIDE 0.9% 1,000 ML IV SCH (10:00)
--- NOTE | 2024-12-30 10:26 | P.CNS ---
Date of Consult: 12/30/24 Reason for Consult: RONALDO/ CKD Requesting Physician: Gautam Leon Chief Complaint: Hypoglycemia History of Present Illness: 64 yo HF DM presents to the ER with several days of difficult to control BG complicated by hypoglycemia this morning. She had right foot surgery on December 13 due to gangrene, complicated by poor healing over the past few weeks. She has not been feeling well or eating well for several days. Denies NSAIDs. Denies difficulty with urination. States she has not had a BM in several days but believes it may be due to her poor oral intake. She was referred by her PCP to [facility] nephrology but was not able to be seen. Records reviewed at [facility]. Serum creatinine 2.82 about 2 months ago. Case reviewed with the family at the bedside. 07:39 This 64 yrs old Female presents to ER via EMS with complaints of low blood rn sugar. 07:39 The patient or guardian reports hypoglycemia. Onset: The symptoms/episode rn began/occurred at an unknown time. Current symptoms: In the emergency department the patient's symptoms have improved. The patient has not experienced similar symptoms in the past. EMS reports patient had rehab, [place], status post right toe amputation 2 weeks ago. Patient reports at that time told had kidney problems but no medications were changed. Patient is on multiple diabetes medication including insulin. Patient continues to receive insulin and they are having trouble keeping her blood sugar up. Patient reports generalized malaise and weakness throughout but overall has been improving since the surgery. No fever or chills. No shortness of breath. Allergies No Known Drug Allergies Allergy (Verified 08/05/18 12:57) Unknown Home medications list reviewed: Yes Home Medications: glipiZIDE [Glipizide ER] 10 mg PO BID 08/05/18 Cyanocobalamin (Vitamin B-12) [Vitamin B-12] 1 tab PO DAILY 02/14/21 Insulin Glargine,Hum.rec.anlog [Bella Parisi] 28 units SQ SEECOM 02/14/21 Albuterol Inhaler [Ventolin Inhaler*] 90 mcg RICO Q6HP PRN 12/30/24 Amlodipine [Norvasc*] 10 mg PO ONCE 12/30/24 Aspirin [Aspirin EC 81 MG] 81 mg PO ONCE 12/30/24 Atorvastatin Calcium [Lipitor] 40 mg PO BEDTIME 12/30/24 Carvedilol [Coreg] 12.5 mg PO BID 12/30/24 Dulaglutide [Trulicity] 4.5 mg SQ Q7D 12/30/24 Ezetimibe/Simvastatin [Ezetimibe-Simvastatin 10-10 mg] 10 mg PO ONCE 12/30/24 Fluticasone Propionate 50 mcg RICO ONCE 12/30/24 Folic Acid 1 mg PO ONCE 12/30/24 Levothyroxine [Synthroid*] 25 mcg PO ONCE 12/30/24 Montelukast [Singulair] 10 mg PO DAILY 12/30/24 Mupirocin 1 gm TOP TID 12/30/24 Repaglinide [Prandin] 1 mg PO TID 12/30/24 Terazosin HCl 1 mg PO ONCE 12/30/24 cloNIDine HCL [Clonidine HCl] 0.1 mg PO PRN 12/30/24 lisinopriL [Lisinopril] 40 mg PO ONCE 12/30/24 - Past Medical/Surgical History Diabetic: Yes -: Stroke Jun 2014 -: HTN -: DM II with CKD -: CKD IV with Proteinuria (Dr. 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 - Family History Sister Medical History: Stroke Father Medical History: Heart disease, Diabetes - Social History Alcohol use: No CD- Drugs: No Caffeine use: No Review of Systems 10-point ROS is otherwise unremarkable General: Weakness, Malaise Cardiovascular: Edema Musculoskeletal: Foot Pain Physical Examination General: In no apparent distress, Oriented x3, Cooperative HEENT: Atraumatic Neck: Supple Respiratory: Clear to auscultation bilaterally, Diminished Cardiovascular: Regular rate/rhythm, Edema Gastrointestinal: Soft and benign, Non-distended Musculoskeletal: No clubbing, No contractures Integumentary: No rashes, No cyanosis, Other (Gangrene of the right foot wound site) Neurological: Normal speech Laboratory Data (last 24 hrs) 12/30/24 12/30/24 07:30 07:30 WBC 14.40 H Hgb 7.7 L Hct 23.6 L Plt Count 228 Sodium 138 Potassium 4.9 BUN 40 H Creatinine 3.08 H Glucose 137 H Total Bilirubin 0.3 AST 24 ALT 21 Alkaline Phosphatase 77 Lipase 24 Imagings Data: EXAM DESCRIPTION: RAD - Foot Right 3 View - 12/11/2022 1:18 pm CLINICAL HISTORY: S91.301A COMPARISON: No comparisons FINDINGS: Soft tissue swelling is seen involving the forefoot. Vascular calcification seen. Small posterior and plantar calcaneal spurs. No fracture is seen. Conclusions/Impression: Stage I RONALDO in the setting of hypovolemia CKD IV with Proteinuria -No NSAIDs -Continue IVF Hyponatremia -Continue IVF with NS Hyperkalemia -Lokelma as ordered -Renal Diet HTN with CKD -Start Coreg DM II with CKD & Peripheral Angiopathy -RISS prn -ADA Diet DM II with Right Foot Ulcer Right foot gangrene -Surgery to evaluate for Right BKA Hypoalbuminemia -Start Nepro Anemia in chronic illness/ CKD -Retacrit X1 CKD MBD Secondary HyperParathyroidism -Start Ergo -Start Renvela Case reviewed with Dr. Leon Thank you kindly for the consultation
[2024-12-30] MEDS: D5 0.9 NS 1,000 ML IV SCH (11:00)
[2024-12-30] MEDS ORDERED: D5W 1,000 ML IV ONE (11:00)
[2024-12-30] MEDS: MAGNESIUM OXIDE 400 MG TAB PO ONE (11:40)
[2024-12-30] MEDS: DOCUSATE NA 100 MG CAP PO SCH (11:45)
[2024-12-30] MEDS: FENTANYL CITR 100 MCG/2 ML ONE (11:59)
[2024-12-30] MEDS: MIDAZOLAM HCL 2 MG/2 ML INJ ONE ×2 (11:59→12:47)
[2024-12-30] MEDS: LIDOCAINE 1% MPF 5 ML VIAL ONE (11:59)
[2024-12-30] MEDS: EPINEPHRINE 1 MG/ML VIAL ONE ×2 (11:59→12:03)
[2024-12-30] MEDS: dexAMETHasone 10 MG/ML VIAL ONE (11:59)
[2024-12-30] MEDS: SODIUM BICARB 50 MEQ/50ML VIAL ONE (12:00)
[2024-12-30] MEDS: BUPIVACAINE 0.5% PF 10 ML VIAL ONE (12:00)
[2024-12-30] MEDS: BUPIVACAINE 0.25% PF 30 ML VIAL ONE (12:00)
[2024-12-30] MEDS: NA CHLORIDE 0.9% 0 ML ONE (12:04)
[2024-12-30 12:08] LABS: Magnesium 2.4 mg/dL (1.6-2.4); Phosphorus 3.9 mg/dL (2.5-4.9)
[2024-12-30] MEDS: METRONIDAZOLE 500mg IVPB 500 MG/100 ML BAG IV ONE ×2 (12:08→12:19)
[2024-12-30] MEDS: NA CHLORIDE 0.9% 250 ML ONE (12:21)
[2024-12-30] MEDS: Levofloxacin 750mg IV 750 MG/150 ML BAG IV ONE (12:21)
[2024-12-30] MEDS: Levofloxacin 750mg IV 750 MG/150 ML BAG IV SCH (12:22)
[2024-12-30] MEDS: NA CHLORIDE 0.9% 500 ML ONE (12:23)
[2024-12-30] MEDS ORDERED: propofoL 200 MG/20 ML VIAL IV ONE (12:58)
[2024-12-30] MEDS ORDERED: LIDOCAINE 2% MPF 5 ML VIAL ONE (12:58)
[2024-12-30] MEDS ORDERED: dexAMETHasone 4 MG/ML VIAL ONE (13:59)
[2024-12-30] MEDS ORDERED: EPHEDRINE SULF 50 MG/ML VIAL ONE (14:42)
--- NOTE | 2024-12-30 15:10 | P.OP ---
Preoperative diagnosis: RIGHT Foot Gangrene Postoperative diagnosis: RIGHT Foot Gangrene Primary procedure: RIGHT Below the Knee Amputation Anesthesia: MAC + Regional Estimated blood loss: 150cc Specimen: RIGHT lower extremity Findings: Ischemia / Gangrene to foot / Severe Lymphedema Complications: None Transferred to: Recovery Room Condition: Good
[2024-12-30 15:49] VITALS: O2SAT 100
[2024-12-30 19:14] LABS: Absolute Basophils 0.1 K/uL (0-0.5); Absolute Lymphocytes (CBC) 0.5 K/uL (0.7-4.9); Absolute Monocytes 0.1 K/uL (0.1-1.3); Absolute Neutrophil 11.7 K/uL (1.8-8.0); Basophils % 0.5 % (0-1.3); Eosinophils % 0.1 % (0-4.4); Hematocrit 24.9 % (36.0-45.0); Hemoglobin 8.4 g/dL (12.0-15.0); Lymphocytes % 4.1 % (15.3-44.8); MCH 28.6 pg (27.0-35.0); MCHC 33.6 g/dL (32.0-36.0); MCV 85.1 fL (80-100); Neutrophils % 94.3 % (41.7-73.7); Platelets 198 thou/uL (152-406); RBC Red Blood Cell Count 2.93 M/uL (3.86-4.86); Red Cell Distribution Width 14.8 % (12.1-15.2)
[2024-12-30 19:36] LABS: Anion Gap 10.1 mEq/L (5.0-15.0)
[2024-12-30 19:42] LABS: Potassium 6.1 mEq/L (3.5-5.1)
[2024-12-30] MEDS: HEPARIN 5000 UNIT/ML 1 ML VIAL SQ SCH (20:26)
[2024-12-30] MEDS: CALCIUM GLUCONATE 1 GM IVPB 1 GM/50 ML BAG IV ONE (21:58)
[2024-12-30] MEDS: SODIUM ZIRCONIUM CYCLOSILICATE 10 GM/PKT PO ONE (21:58)
[2024-12-30 22:12] LABS: Band Neutrophils 10 % (0-1); Differential Total Cells Count 100; Lymphocytes 2 % (15-42); Monocytes 0 % (0-10); Segmented Neutrophils 88 % (40-80)
[2024-12-30 22:13] LABS: Blood Morphology Comment NOT SEEN (NOT SEEN); Platelet Estimate ADEQ
--- NOTE | 2024-12-30 22:35 | OP ---
Date of Procedure: 12/30/2024 Surgeon: Horace Key MD, Preoperative Diagnosis: Right foot gangrene. Postoperative Diagnosis: Right foot gangrene. Procedure Performed: Right [id number] amputation. Anesthesia: MAC plus regional. Estimated Blood Loss: Approximately 150 cc. Specimen: Right lower extremity. Findings: Ischemia/gangrene to the foot with severe lymphedema. Complications: None. Disposition: The patient was transferred to recovery room in good condition. Brief History Of Present Illness: The patient is a 64-year-old woman who was recently seen at [facility], by her report. She had issues with ischemia of her right lower extremity. She had an endov ascular procedure for improved blood flow. Ultimately had amputation, which was a transmetatarsal am putation, approximately 1 week ago; however, she has significant necrosis and black discoloration to her foot. She states she has had pain, swelling, and felt generally poor after this has occurred. S he feels malaise and fatigue thereafter, and ultimately she came in with severe gangrenous changes wi th complete black discoloration to her foot with dehiscence of the wound, exposed bone, necrotic tiss ue, cellulitis, and significant pain. As such, she was deemed appropriate for operative intervention . I discussed risks, benefits, and alternatives of a right pczeu-qux-tkri amputation as the transmet atarsal amputation was a high transmetatarsal amputation, it did not allow for any additional amputat ion at a higher level that might have good vascular flow to this area and as such, I believe that bel ow-the-knee amputation was the only viable option for her for this particular situation. The patient and her family displayed understanding of the above-stated plan. I explained the risks, benefits, a nd alternatives of katpz-mpn-aptq amputation including, but not limited to, bleeding; infection; roxy ge to the surrounding tissue; need for further operative procedures; phantom limb pain; heart attacks ; blood clots; strokes; other unforeseen complications in the perioperative period; need for ongoing wound care; and additional procedures including, but not limited to, endovascular procedures or vascu lar procedures to help improve the flow in this area. The patient and her family displayed understan ding of the above-stated plan and agreed to proceed as indicated. Procedure In Detail: After informed consent was obtained, the patient was brought to the operating r oom, prepped and draped in the usual sterile fashion. After adequate anesthesia was achieved, I used an Esmarch to exsanguinate the foot away from the necrotic and infected-appearing area and the tourn iquet was applied at this point. After this was done, the Esmarch was removed. I then marked the liza baker's right lower extremity 3 to 4 cm below the tibial plateau with a posterior flap type orientati on based on the gastrocnemius flap. At this point, I used a 10 blade down to subcutaneous tissues an d followed my pre-marking area based on the posterior flap as described. I used electrocautery to ge t down through the anterior compartment and between the interosseous membrane. Ultimately, electroca utery was used to dissect down to the anterior and posterior tibial vascular pedicles. These were in dividually ligated using 3-0 Prolene sutures and stick-tied with 3-0 Prolene suture on the arterial s luis and the venous side, and arterial side then had additional 0 silk sutures and a suture ligature b ehind the stick ties. At this point, the LigaSure device was used to ligate these structures distal to this on the anterior and posterior peroneal branches. At this point, after these were dissected c ircumferentially free, I used the periosteal elevator to remove the periosteum from the anterior and posterior tibia circumferentially around until I swept back all the periosteum to allow for an approp riate cut zone at the tibia. At this point, the tibia was cut using a bone saw with good approximati on. I then beveled the edge of it using the same said pneumatic saw. I beveled the edges of the bon e using a rasp at this point. The fibula was then cut approximately 2 cm higher than the tibial early section point using the same said bone saw. At this point, I beveled the edges of this circumferenti ally around with the same said bone saw and rasp. At this point, the area was copiously irrigated. I used the Soniya knife then to separate the tissues. I then transected and the soleus mus seth from the gastrocnemius muscle, which was in apposition to the gastrocnemius muscle. I used blunt dissection and electrocautery to remove this. The previous vessels were stick-tied at a higher leve l as described. As such, I just transected these using the LigaSure device with good approximation o f the tissues. I pulled the nerve structures back into the field, injected them with 0.25% Marcaine and ligated these after stick tying these as well with a 2-0 Vicryl suture. These then withdrew back away far proximal to the cut bone edges from the surgical field to allow for decreased phantom limb issues and pain in the perioperative period. After all the nerve tissue was retracted far back from the surgical field, the area was copiously irrigated once again. Minimal hemostatic measures were re quired with electrocautery. I then brought the gastrocnemius flap up over the anterior surface of th e tibia and secured the residual fascial planes to the Achilles tendon remnant to allow for complete coverage of the tibia. The tissues were quite edematous and leaking fluid throughout the entire proc edure. As such I opted for a thicker flap at this point, as I was concerned that in the future this flap might eventually shrink due to the significant lymphedema that was present at the time, which mi ght significantly reduce in the future and as such, I left the tissues somewhat more generous with re spect to the flaps. At this point, there was a tension-free closure using a combination of 2-0 nylon and Vicryl sutures with good approximation over the bone at this point. I then placed a [place] linda in in this flap compartment and left the quarter-inch Minnie drain hanging out on both sides on the medial and lateral aspects of the leg. At this point, I reapproximated the edges to allow for proper orientation of the flap and a [id number]-[id number] closure was performed using 2-0 nylon sutures. I then cl osed the remaining tissue plane with a combination of deep dermal 3-0 Vicryl sutures and skin dae over the skin surface with good closure of the flap. At this point, the [place] drain was secured t o the medial and lateral aspects using a 3-0 nylon suture and a sterile dressing placed over top. Th e patient also had sterile dressing placed as well as an Herrera bandage to allow for compression and a k nee immobilizer was placed. The patient tolerated procedure without incident or complication, transf erred to PACU in good condition. All counts were correct at the end of the case. TK/MODL Voice ID: [id number] Report ID: [id number]
[2024-12-31] MEDS: carvediloL 12.5 MG TAB PO SCH ×2 (06:08→20:54)
[2024-12-31 06:23] LABS: Absolute Lymphocytes (CBC) 0.6 K/uL (0.7-4.9); Absolute Monocytes 0.3 K/uL (0.1-1.3); Absolute Neutrophil 12.1 K/uL (1.8-8.0); Basophils % 0.2 % (0-1.3); Hematocrit 23.1 % (36.0-45.0); Hemoglobin 7.7 g/dL (12.0-15.0); Lymphocytes % 4.8 % (15.3-44.8); MCH 28.3 pg (27.0-35.0); MCHC 33.2 g/dL (32.0-36.0); MCV 85.3 fL (80-100); MPV 7.6 fL (7.6-11.3); Monocytes % 2.4 % (3.3-12.3); Neutrophils % 92.6 % (41.7-73.7); Platelets 202 thou/uL (152-406); RBC Red Blood Cell Count 2.71 M/uL (3.86-4.86); Red Cell Distribution Width 14.6 % (12.1-15.2)
[2024-12-31 06:35] LABS: PT Prothrombin Time 15.1 SECONDS (10-13.0); PTT, Activated Partial Thromb 32.1 SECONDS (27.2-37.4); Protime INR 1.34
[2024-12-31 06:52] LABS: Albumin 1.9 g/dL (3.4-5.0); Albumin/Globulin Ratio 0.4 (1.1-1.8); Anion Gap 11.8 mEq/L (5.0-15.0); Bilirubin Total 0.5 mg/dL (0.2-1.0); Globulin 4.4 g/dL (2.3-3.5); Magnesium 2.1 mg/dL (1.6-2.4); Potassium 5.8 mEq/L (3.5-5.1); Protein, Total 6.3 g/dL (6.4-8.2)
[2024-12-31] MEDS: INSULIN LISPRO 100 UNIT/1 ML SQ SCH (07:26)
[2024-12-31] MEDS: NEPRO SHAKE 237 ML CAN PO SCH ×2 (09:00→20:55)
[2024-12-31] MEDS: EPOETIN ALFA-EPBX 10,000 UNIT/ML VIAL SQ SCH (09:57)
[2024-12-31] MEDS: DRISDOL (VITAMIN D=ERGOCALCIFEROL) 50000 UNIT CAP PO SCH (09:58)
[2024-12-31] MEDS: SODIUM ZIRCONIUM CYCLOSILICATE 10 GM/PKT PO SCH (09:58)
[2024-12-31] MEDS: SEVELAMER CARBONATE 800 MG TABLET PO SCH (09:58)
[2024-12-31] MEDS: NA CHLORIDE 0.9% 250 ML ONE (11:37)
--- NOTE | 2024-12-31 11:54 | P.PN ---
Nephrology note (S) S/p Rt BKA, denies any sig pain, denies CP, dyspnea or abd pain, no N/V, remains on IVF, elevated BG, elevated K levels and renal function tests discussed (O) Vitals reviewed in the EMR General: In no apparent distress, non tachypnec HEENT: Atraumatic, sclera anicteric, not on O2 Neck: Supple Respiratory: Clear to auscultation bilaterally, no rhonchi appreciated Cardiovascular: Regular rate/rhythm mostly Gastrointestinal: Soft and benign, Non-distended Musculoskeletal: Rt BKA, stump site dressed, no sig Lt LE edema Integumentary: No rashes Neurological: Normal speech, alert, no tremors Laboratory Data (last 24 hrs) Reviewed in the EMR Conclusions/Impression: Stage I RONALDO multifactorial, presumed underlying (progressive) CKD IV with abnormal renal function tests in past year(s) -Cont to trend renal function tests and UOP closely, change IVF from D5NS to 1/2 NS + sodium bicarb -Dose meds for reduced CrCl -No NSAIDs Hyperkalemia, in the setting of renal impairment and hyperglycemia -Ordered Insulin regular push, received cation exchanger doses, recheck this afternoon DM II with Right Foot Ulcer Right foot gangrene -s/p Rt BKA, post op care per surgery/IM Hyperglycemia -Management per IM
[2024-12-31] MEDS: NACHLORIDE 0.45% 1,000 ML with NA BICARB 8.4% 50 MEQ IV SCH (12:10)
[2024-12-31] MEDS: INSULIN REGULAR (HUMAN) 100 UNIT/ML IV ONE (12:10)
[2024-12-31] MEDS: ACETAMINOPHEN 500 MG TAB PO PRN (12:56)
[2024-12-31] MEDS: FUROSEMIDE 20 MG/ 2ML VIAL IV ONE (17:31)
[2024-12-31] MEDS: LEVOTHYROXINE SOD 0.025 MG TAB PO ONE (19:15)
[2024-12-31 19:27] VITALS: BMI 32.9
[2024-12-31] MEDS: ASPIRIN EC 81 MG TAB PO ONE (20:00)
[2024-12-31] MEDS: ALBUMIN HUMAN 25% 100 ML IV ONE (20:03)
[2024-12-31] MEDS: INSULIN GLARGINE 100 UNIT/ML SQ SCH (20:52)
[2024-12-31] MEDS: HYDROCODONE/APAP 7.5/325 MG TAB PO PRN (20:53)
[2024-12-31] MEDS: ATORVASTATIN 40 MG TAB PO SCH (20:55)
[2024-12-31 21:58] LABS: Absolute Lymphocytes (CBC) 1.1 K/uL (0.7-4.9); Absolute Neutrophil 13.6 K/uL (1.8-8.0); Basophils % 0.2 % (0-1.3); Hematocrit 24.1 % (36.0-45.0); Hemoglobin 8.3 g/dL (12.0-15.0); Lymphocytes % 7.2 % (15.3-44.8); MCH 28.3 pg (27.0-35.0); MCHC 34.2 g/dL (32.0-36.0); MCV 82.7 fL (80-100); Monocytes % 6.6 % (3.3-12.3); Platelets 234 thou/uL (152-406); RBC Red Blood Cell Count 2.92 M/uL (3.86-4.86); Red Cell Distribution Width 15.1 % (12.1-15.2)
[2024-12-31 22:09] LABS: Anion Gap 11.1 mEq/L (5.0-15.0); Potassium 5.1 mEq/L (3.5-5.1)
[2024-12-31] MEDS ORDERED: AMLODIPINE 10 MG TAB PO SCH (22:45)
[2024-12-31] MEDS ORDERED: cloNIDine HCL 0.1 MG TAB PO SCH (23:00)
[2024-12-31] MEDS: MORPHINE 2 MG/ML SYR IV PRN (23:16)
--- NOTE | 2025-01-01 02:18 | P.HP ---
Certification for Inpatient Patient admitted to: Inpatient With expected LOS: >2 Midnights Patient will require the following post-hospital care: Care Home Practitioner: I am a practitioner with admitting privileges, knowledge of patient current condition, hospital course, and medical plan of care. Services: Services provided to patient in accordance with Admission requirements found in Title 42 Section 412.3 of the Code of Federal Regulations Patient History Date of Service: 12/30/24 Reason for admission: Hypoglycemia History of Present Illness: Patient is a 64-year-old female who was recently at [facility] for transmetatarsal amputation and evaluation of lower extremity blood flow. Patient was given IV antibiotics at the facility and patient was discharged to [facility]. Unfortunately, patient has not been feeling well at [facility] and patient has been hypoglycemic. Patient was sent to the ER for evaluation. In the ER patient was found to have necrotic right foot. Spoke to General surgery and planned to do BKA this afternoon. Patient agreeable. Allergies No Known Drug Allergies Allergy (Verified 08/05/18 12:57) Unknown Home Medications: glipiZIDE [Glipizide ER] 10 mg PO BID 08/05/18 Cyanocobalamin (Vitamin B-12) [Vitamin B-12] 1 tab PO DAILY 02/14/21 Insulin Glargine,Hum.rec.anlog [Bella Parisi] 28 units SQ SEECOM 02/14/21 Albuterol Inhaler [Ventolin Inhaler*] 90 mcg RICO Q6HP PRN 12/30/24 Amlodipine [Norvasc*] 10 mg PO DAILY 12/30/24 Aspirin [Aspirin EC 81 MG] 81 mg PO DAILY 12/30/24 Atorvastatin Calcium [Lipitor] 40 mg PO BEDTIME 12/30/24 Carvedilol [Coreg] 12.5 mg PO BID 12/30/24 Dulaglutide [Trulicity] 4.5 mg SQ Q7D 12/30/24 Ezetimibe/Simvastatin [Ezetimibe-Simvastatin 10-10 mg] 10 mg PO DAILY 12/30/24 Fluticasone Propionate 50 mcg RICO DAILY 12/30/24 Folic Acid 1 mg PO DAILY 12/30/24 Levothyroxine [Synthroid*] 25 mcg PO DAILY 12/30/24 Montelukast [Singulair] 10 mg PO DAILY 12/30/24 Mupirocin 1 gm TOP TID 12/30/24 Repaglinide [Prandin] 1 mg PO TID 12/30/24 Terazosin HCl 1 mg PO DAILY 12/30/24 cloNIDine HCL [Clonidine HCl] 0.1 mg PO PRN 12/30/24 lisinopriL [Lisinopril] 40 mg PO DAILY 12/30/24 - Past Medical/Surgical History Has patient received pneumonia vaccine in the past: No Diabetic: Yes -: Stroke Jun 2014 -: HTN -: DM II with CKD -: CKD IV with Proteinuria (Dr. 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 - Family History Sister Medical History: Stroke Father Medical History: Heart disease, Diabetes - Social History Smoking Status: Former smoker Alcohol use: No CD- Drugs: No Caffeine use: No Review of Systems 10-point ROS is otherwise unremarkable Physical Examination - Vital Signs Temperature: 97.7 F Blood Pressure: 156/67 Pulse: 91 Respirations: 18 Pulse Ox (%): 96 - Physical Exam General: Alert, In no apparent distress, Oriented x3 HEENT: Atraumatic, PERRLA, Mucous membr. moist/pink, EOMI, Sclerae nonicteric Neck: Supple, 2+ carotid pulse no bruit, No LAD, Without JVD or thyroid abnormality Respiratory: Clear to auscultation bilaterally, Normal air movement Cardiovascular: Regular rate/rhythm, Normal S1 S2 Gastrointestinal: Normal bowel sounds, Soft and benign, Non-distended, No tenderness Musculoskeletal: No clubbing, No swelling, No tenderness Integumentary: Tenderness/swelling, Erythema, Diabetic ulcer Neurological: Normal speech, Normal strength at 5/5 x4 extr, Normal tone, Sensation intact, Normal affect, Abnormal gait Lymphatics: No axilla or inguinal lymphadenopathy Assessment & Plan - Problems (Diagnosis) (1) Hypoglycemia Current Visit: Yes Status: Acute (2) Aseptic necrosis of metatarsal bone of right foot Current Visit: Yes Status: Acute (3) Hyperlipidemia Current Visit: No Status: Acute (4) TIA (transient ischemic attack) Onset Date: 07/29/14 Current Visit: No Status: Acute Qualifiers: Transient cerebral ischemia type: unspecified Qualified Code(s): G45.9 - Transient cerebral ischemic attack, unspecified (5) HTN (hypertension) Current Visit: No Status: Chronic Qualifiers: Hypertension type: essential hypertension Qualified Code(s): I10 - Essential (primary) hypertension (6) T2DM (type 2 diabetes mellitus) Current Visit: No Status: Chronic Qualifiers: Diabetes mellitus 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 Continue with IV antibiotic 2. Continue with local wound care 3. Wound care consultation/surgical consultation for right below-knee amputation. 4. Gentle IV hydration 5. Monitor CBC 6. Strict blood sugar monitoring 7. Pain control 8. GI and DVT prophylaxis Discharge Plan: Longterm Plan to discharge in: Greater than 2 days - Advance Directives Does patient have a Living Will: No Does patient have a Durable POA for Healthcare: No - Code Status/Comfort Care Code Status Assessed: Yes Code Status: Full Code Critical Care: No Time Spent Managing PTS Care (In Minutes): 40
--- NOTE | 2025-01-01 02:24 | P.PN ---
Subjective Date of Service: 12/31/24 Subjective: Improving Patient had amputation; patient had a right below-knee amputation. Patient doing well. Patient remains anemic and will transfuse 1 unit of packed red blood cells. Review of Systems 10-point ROS is otherwise unremarkable Physical Examination - Vital Signs Temperature: 97.7 F Blood Pressure: 156/67 Pulse: 91 Respirations: 18 Pulse Ox (%): 96 - Physical Exam General: Alert, In no apparent distress, Oriented x3 Neck: Supple Respiratory: Clear to auscultation bilaterally, Normal air movement Cardiovascular: Regular rate/rhythm, Normal S1 S2 Gastrointestinal: Normal bowel sounds, No tenderness Musculoskeletal: No tenderness Integumentary: No rashes, Skin breakdown, Tenderness/swelling, Erythema, Warmth Neurological: Normal speech, Normal tone, Normal affect Lymphatics: No axilla or inguinal lymphadenopathy - Studies Medications List Reviewed: Yes Assessment & Plan - Problems (Diagnosis) (1) Hypoglycemia Current Visit: Yes Status: Acute (2) Aseptic necrosis of metatarsal bone of right foot Current Visit: Yes Status: Acute (3) Hyperlipidemia Current Visit: No Status: Acute (4) TIA (transient ischemic attack) Onset Date: 07/29/14 Current Visit: No Status: Acute Qualifiers: Transient cerebral ischemia type: unspecified Qualified Code(s): G45.9 - Transient cerebral ischemic attack, unspecified (5) HTN (hypertension) Current Visit: No Status: Chronic Qualifiers: Hypertension type: essential hypertension Qualified Code(s): I10 - Essential (primary) hypertension (6) T2DM (type 2 diabetes mellitus) Current Visit: No Status: Chronic Qualifiers: 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 Continue with IV antibiotic 2. Continue with local wound care 3. Wound care consultation/surgical consultation for right below-knee amputation. 4. Gentle IV hydration 5. Monitor CBC 6. Strict blood sugar monitoring 7. Pain control 8. GI and DVT prophylaxis Discharge Plan: Alf Plan to discharge in: 72 Hours - Advance Directives Does patient have a Living Will: No Does patient have a Durable POA for Healthcare: No - Code Status/Comfort Care Code Status: Full Code Critical Care: No Time Spent Managing PTS Care (In Minutes): 30
[2025-01-01 04:36] LABS: Absolute Lymphocytes (CBC) 1.7 K/uL (0.7-4.9); Absolute Monocytes 1.2 K/uL (0.1-1.3); Absolute Neutrophil 11.7 K/uL (1.8-8.0); Basophils % 0.3 % (0-1.3); Eosinophils % 0.1 % (0-4.4); Hematocrit 22.1 % (36.0-45.0); Hemoglobin 7.7 g/dL (12.0-15.0); Lymphocytes % 11.5 % (15.3-44.8); MCH 28.9 pg (27.0-35.0); MCHC 34.9 g/dL (32.0-36.0); MCV 82.8 fL (80-100); Neutrophils % 80.1 % (41.7-73.7); Platelets 218 thou/uL (152-406); RBC Red Blood Cell Count 2.67 M/uL (3.86-4.86); Red Cell Distribution Width 15.4 % (12.1-15.2)
[2025-01-01 04:40] LABS: PT Prothrombin Time 14.3 SECONDS (10-13.0); Protime INR 1.27
[2025-01-01 04:52] LABS: Anion Gap 8.9 mEq/L (5.0-15.0); Potassium 4.9 mEq/L (3.5-5.1)
[2025-01-01] MEDS: HYDRALAZINE HCL 20 MG/ML VIAL IV PRN (05:10)
[2025-01-01] MEDS: carvediloL 25 MG TAB PO SCH (08:02)
[2025-01-01] MEDS: FOLIC ACID 1 MG TABLET PO SCH (08:49)
[2025-01-01] MEDS: GLIPIZIDE S.A. 5 MG TAB PO SCH (08:49)
[2025-01-01] MEDS: EZETIMIBE 10 MG TAB PO SCH (08:50)
[2025-01-01] MEDS: lisinopriL 20 MG TAB PO SCH (08:51)
[2025-01-01] MEDS: TERAZOSIN HCL 1 MG CAP PO SCH (08:52)
[2025-01-01] MEDS: CYANOCOBALAMIN 1,000 MCG TAB PO SCH (08:53)
[2025-01-01] MEDS ORDERED: ATORVASTATIN 10 MG TAB PO SCH ×2 (09:00)
[2025-01-01] MEDS: FLUTICASONE 50MCG NASAL SPRAY NAS SCH (09:00)
[2025-01-01] MEDS: REPAGLINIDE 0.5 MG PO SCH (09:00)
[2025-01-01] MEDS: MONTELUKAST 10 MG TAB PO SCH (09:00)
[2025-01-01] MEDS ORDERED: EZETIMIBE 10 MG TAB PO SCH (09:00)
[2025-01-01] MEDS ORDERED: carvediloL 12.5 MG TAB PO SCH (09:00)
--- NOTE | 2025-01-01 10:59 | P.PN ---
Nephrology note (S) S/p Rt BKA, denies any sig pain, denies CP, dyspnea or abd pain, no N/V, seen sitting on the side of the bed, no acute Rt limb incisional or phantom pain (O) Vitals reviewed in the EMR General: In no apparent distress, non tachypnec HEENT: Atraumatic, sclera anicteric, not on O2 Neck: Supple Respiratory: Clear to auscultation bilaterally, no rhonchi appreciated Cardiovascular: Regular rate/rhythm mostly Gastrointestinal: Soft and benign, Non-distended Musculoskeletal: Rt BKA, stump site dressed, no sig Lt LE edema Integumentary: No rashes Neurological: Normal speech, alert, no tremors Laboratory Data (last 24 hrs) Reviewed in the EMR Conclusions/Impression: Stage I RONALDO multifactorial, presumed underlying (progressive) CKD IV (presumably 2nd to DM/HTN +/- renovascular, no recent renal imaging) with abnormal renal function tests in past year(s) -Cont to trend renal function tests and UOP closely, thus far no improvement with IVF therapy and since pt able to maintain PO intake, will d/c -Dose meds for reduced CrCl, avoid nephrotoxins -Given recent hyperkalemia and to avoid confounding physiologic effects on GFR, would not restart any ACEi/ARB currently -Ordered urine studies, UA, spot urine -No NSAIDs Hyperkalemia, in the setting of renal impairment and hyperglycemia -Improved, cont to monitor closely Chronic HTN with CKD -BP mod elevated, d/c IVF, d/c Lisinopril ordered by Hospitalist, resume CCB DM II with Right Foot Ulcer Right foot gangrene -s/p Rt BKA, post op care per surgery/IM Hyperglycemia -Management per IM, however recommend caution with combined sulfonylurea and insulin use and in the setting of reduced CrCl state, will lower Glipizide dose
[2025-01-01 13:28] LABS: Specific Gravity 1.013 (1.005-1.030); Sqamous Epithelial <5 /HPF (None Seen); Urine Bacteria None Seen /HPF (<20); Urine Bilirubin NEGATIVE (Negative); Urine Blood 1+ (Negative); Urine Clarity Turbid (Clear); Urine Color Light-Yellow (Yellow); Urine Culture Reflex Order NOT NEEDED; Urine Glucose TRACE (Negative); Urine Ketones NEGATIVE (Negative); Urine Micro Reflex YN NO BILL MICROSCOPIC; Urine Mucus Slight /HPF (None Seen); Urine Nitrite NEGATIVE (Negative); Urine Protein 2+ (Negative); Urine RBC <5 /HPF (None Seen); Urine Urobilinogen Normal (Normal); Urine WBC <5 /HPF (<5); Urine Yeast (Budding) Trace /HPF (None Seen)
--- NOTE | 2025-01-01 13:49 | P.PN ---
This is an attestation to SHEET [employer] HELPER note. Subjective: No chest pain or shortness of breath. No nausea or vomiting. No abdominal pain. No obvious bleeding. Looks comfortable in the bed. Right leg pain controlled. Objective: General appearance: Alert and comfortable CVS: Normal S1 and S2 Lungs: Clear to auscultation bilaterally Abdomen: Soft, bowel sounds present, no tenderness Extremities: Right BKA with dressing present. Change antibiotics to Vanco and cefepime for now, WBC still elevated. Anemia, probably chronic, monitor closely. Blood pressure high, medications adjusted.
[2025-01-01] MEDS ORDERED: VANCOMYCIN 1 GM in NA CHLORIDE 0.9% 250 ML IVPB SCH (14:00)
[2025-01-01 14:22] LABS: MA/CREAT RATIO 2321.4 (< 30.0)
[2025-01-01] MEDS: VANCOMYCIN 1.5 GM in NA CHLORIDE 0.9% 500 ML IVPB SCH (14:50)
--- NOTE | 2025-01-01 15:23 | P.PN ---
Date of Service: 01/01/25 Subjective Awake, no reports of new complaints Awaiting placement when medically ready ROS 10 point ROS as noted above, otherwise negative Physical Exam General: Alert and Oriented x3, NAD Respiratory: Clear BBS, Normal air movement, on room air Cardiovascular: RRR, Normal S1 S2 Gastrointestinal: Normal bowel sounds, ND/NT Musculoskeletal: No tenderness Integumentary: No rashes, Skin breakdown, Tenderness/swelling, Erythema, Warmth Neurological: Normal speech, Normal tone, Normal affect Lymphatics: No axilla or inguinal lymphadenopathy Vitals Reviewed Problem list Aseptic necrosis of metatarsal bone of right foot status post right below the knee amputation Stage I RONALDO multifactorial Hyperkalemia Anemia of chronic disease Diabetes mellitus with right foot ulcer Hypertension Hyperlipidemia TIA Assessment and Plan Aseptic necrosis of metatarsal bone of right foot status post right below the knee amputation -Status post right BKA - Continue with IV antibiotics - Gentle IV fluids - Monitor CBC daily - Pain control - Wound care consulted Stage I RONALDO multifactorial Hyperkalemia Anemia of chronic disease -Dr. Hernandez consulted - Hold NSAID - Continue to monitor potassium - H&H 04/19, continue to monitor and transfuse as needed Diabetes mellitus with right foot ulcer -Accu-Chek for close monitoring - Sliding scale insulin Hypertension Hyperlipidemia TIA -Continue home medication DVT ppx heparin Full code LOS 1 day Dispo [place] pending
[2025-01-01] MEDS: CEFEPIME 1 GM in NA CHLORIDE 0.9% 100 ML IV SCH (20:22)
[2025-01-01] MEDS: AMLODIPINE 10 MG TAB PO SCH (20:28)
[2025-01-02] MEDS: D10W 250 ML IV ONE (03:02)
[2025-01-02] MEDS ORDERED: D50W 25 GM/50 ML SYRINGE IV PRN (03:07)
[2025-01-02] MEDS: D10W 125 ML IV PRN (03:52)
[2025-01-02 04:52] LABS: Absolute Eosinophils 0.2 K/uL (0-0.5); Absolute Lymphocytes (CBC) 1.9 K/uL (0.7-4.9); Absolute Monocytes 1.3 K/uL (0.1-1.3); Absolute Neutrophil 7.8 K/uL (1.8-8.0); Basophils % 0.4 % (0-1.3); Eosinophils % 1.7 % (0-4.4); Hematocrit 22.6 % (36.0-45.0); Hemoglobin 7.5 g/dL (12.0-15.0); Lymphocytes % 16.6 % (15.3-44.8); MCH 28.2 pg (27.0-35.0); MCHC 33.4 g/dL (32.0-36.0); MCV 84.6 fL (80-100); Monocytes % 11.4 % (3.3-12.3); Neutrophils % 69.9 % (41.7-73.7); Platelets 213 thou/uL (152-406); RBC Red Blood Cell Count 2.67 M/uL (3.86-4.86); Red Cell Distribution Width 15.4 % (12.1-15.2)
[2025-01-02 05:16] LABS: Anion Gap 8.5 mEq/L (5.0-15.0); Potassium 4.5 mEq/L (3.5-5.1)
[2025-01-02] MEDS: ONDANSETRON 4 MG/2 ML VIAL IV PRN (05:54)
[2025-01-02] MEDS ORDERED: GLUCAGON 1 MG/VIAL IM PRN (07:55)
[2025-01-02] MEDS ORDERED: D10W 125 ML IV PRN (07:55)
[2025-01-02] MEDS: PNEUMOCOCCAL VACCINE 0.5 ML IMVAC ONE (08:00)
[2025-01-02] MEDS ORDERED: GLIPIZIDE S.A. 5 MG TAB PO SCH (09:00)
--- NOTE | 2025-01-02 11:18 | P.PN ---
Date of Service: 01/02/25 Subjective Sitting up in bed and feeling well Denies fever, chills, SOB, and abdominal pain Hypoglycemia this morning, making changes to insulin and glipizide Awaiting placement when medically ready ROS 10 point ROS as noted above, otherwise negative Physical Exam General: AAOx3, NAD Respiratory: Clear BBS, symmetrical chest wall movement, on room air Cardiovascular: RRR, Normal S1 S2 Gastrointestinal: Normal bowel sounds, ND/NT Musculoskeletal: No tenderness Integumentary: No rashes, Skin breakdown, Tenderness/swelling, Erythema, Warmth Neurological: Normal speech, Normal tone, Normal affect Lymphatics: No axilla or inguinal lymphadenopathy Vitals Reviewed Problem list Aseptic necrosis of metatarsal bone of right foot status post right below the knee amputation Stage I RONALDO multifactorial Hyperkalemia Anemia of chronic disease Diabetes mellitus with right foot ulcer Hypertension Hyperlipidemia TIA Assessment and Plan Aseptic necrosis of metatarsal bone of right foot status post right below the knee amputation - Status post right BKA - Changed antibiotics to vancomycin and cefepime on 01/01/2025 - Gentle IV fluids - Monitor CBC daily - Pain control - Wound care consulted Stage I RONALDO multifactorial Hyperkalemia Anemia of chronic disease -Dr. Hernandez following - Hold NSAID - Continue to monitor potassium, stable - H&H 7.5/22.6, continue to monitor and transfuse as needed Diabetes mellitus with right foot ulcer -Accu-Chek for close monitoring - Sliding scale insulin Hypertension Hyperlipidemia TIA -Continue home medication DVT ppx heparin Full code LOS 1 day Dispo [place]
[2025-01-02] MEDS: INSULIN REGULAR (HUMAN) 100 UNIT/ML SQ SCH (11:30)
[2025-01-02] MEDS: DULAGLUTIDE 4.5 MG/0.5 ML SQ SCH (12:00)
--- NOTE | 2025-01-02 13:06 | P.PN ---
Nephrology note (S) Recurrent hypoglycemia early this AM, s/p D10 250 ml, ate breakfast, denies N/V, discovered that her is also a pt of mine. No dyspnea reported, some swelling of the LE noted, off IVF. (O) Vitals reviewed in the EMR General: In no apparent distress, non tachypnec HEENT: Atraumatic, sclera anicteric, not on O2 Neck: Supple Respiratory: Clear to auscultation bilaterally, no rhonchi appreciated Cardiovascular: Regular rate/rhythm mostly Gastrointestinal: Soft and benign, Non-distended Musculoskeletal: Rt BKA, stump site dressed, Lt leg 2+ edema below knee Integumentary: No rashes Neurological: Normal speech, alert, no tremors Laboratory Data (last 24 hrs) Reviewed in the EMR Conclusions/Impression: Stage I RONALDO multifactorial, presumed underlying (progressive) CKD IV (presumably 2nd to DM/HTN +/- renovascular, no recent renal imaging) with abnormal renal function tests in past year(s) -Cont to trend renal function tests and UOP closely, thus far no improvement with IVF therapy and since pt able to maintain PO intake, did d/c IVF -Dose meds for reduced CrCl, avoid nephrotoxins -Given recent hyperkalemia and to avoid confounding physiologic effects on GFR, would not restart any ACEi/ARB currently -Ordered urine studies, UA, spot urine, macroalbuminuria, sub nephrotic range noted -Risk for further GFR loss/dialysis dependence explained, will need close OP f/u Hyperkalemia, in the setting of renal impairment and hyperglycemia initially -Resolved, cont to monitor closely Chronic HTN with CKD -BP mod elevated, d/c'ed IVF, d/c'ed Lisinopril ordered by Hospitalist, resumed CCB. Peripheral edema noted, monitor for now DM II with Right Foot Ulcer Right foot gangrene -s/p Rt BKA, post op care per surgery/IM Hyperglycemia now with hypoglycemia -Management per IM, however recommended yesterday caution with combined sulfonylurea and insulin use and in the setting of reduced CrCl state, and now did d/c former and latter of course held this AM. Would also review GLP-1 RA dosing
--- NOTE | 2025-01-02 13:25 | P.PN ---
This is an attestation to [facility] note. Subjective: No chest pain or shortness of breath. No nausea or vomiting. No abdominal pain. No obvious bleeding. Looks comfortable in the bed. Right leg pain controlled. Objective: General appearance: Alert and comfortable CVS: Normal S1 and S2 Lungs: Clear to auscultation bilaterally Abdomen: Soft, bowel sounds present, no tenderness Extremities: Right BKA with dressing present. mild edema left leg Continue Vanco and cefepime for now, WBC trending down. Anemia, acute on ? chronic, monitor closely. Blood pressure improving, medications adjusted on 01/01. Noted hypoglycemia, poor oral intake yesterday, hold diabetic medications for now. Plan discussed with the patient, answered all questions.
[2025-01-02] MEDS: D5 0.45 NS 1,000 ML IV SCH (14:15)
--- NOTE | 2025-01-02 17:21 | RAD REPORT ---
EXAMINATION: US LEFT LOWER EXTREMITY VENOUS DOPPLER CLINICAL INDICATION: left lower extremity rule out DVT Y TECHNIQUE: Complete bilateral duplex sonography of the LEFT lower extremity veins was performed. The examination included compression for vein patency, color Doppler imaging and flow augmentation in response to distal compression of the distal external iliac, common femoral, femoral, popliteal, tibi al, and great and small saphenous veins. COMPARISON: No prior exam. FINDINGS: Duplex sonography testing of the veins of the LEFT lower extremity was performed. Color flow imaging shows all veins to be compressible with [id number] color filling. Pulsatile and phasic flow is present within all lower extremity deep and superficial veins examined. IMPRESSION: No evidence of deep venous thrombosis.
[2025-01-03 06:12] LABS: Absolute Basophils 0.1 K/uL (0-0.5); Absolute Eosinophils 0.2 K/uL (0-0.5); Absolute Lymphocytes (CBC) 1.6 K/uL (0.7-4.9); Absolute Neutrophil 6.3 K/uL (1.8-8.0); Basophils % 0.7 % (0-1.3); Eosinophils % 2.6 % (0-4.4); Hematocrit 23.3 % (36.0-45.0); Hemoglobin 7.7 g/dL (12.0-15.0); Lymphocytes % 17.9 % (15.3-44.8); MCH 28.3 pg (27.0-35.0); MCHC 33.3 g/dL (32.0-36.0); MCV 85.1 fL (80-100); MPV 7.4 fL (7.6-11.3); Monocytes % 10.8 % (3.3-12.3); Platelets 213 thou/uL (152-406); RBC Red Blood Cell Count 2.73 M/uL (3.86-4.86); Red Cell Distribution Width 15.2 % (12.1-15.2)
[2025-01-03 06:23] LABS: Anion Gap 10.1 mEq/L (5.0-15.0); Potassium 4.1 mEq/L (3.5-5.1)
[2025-01-03] MEDS: HYDRALAZINE HCL 25 MG TABLET PO SCH (09:35)
--- NOTE | 2025-01-03 11:02 | P.PN ---
Date of Service: 01/03/25 Subjective Feeling well this AM, feels ready to go home, discussed the recommendation for aggressive PT per physical therapy Glucose improved with D5 IVF She denies fever, chills, and SOB Awaiting Inpatient rehab ROS 10 point ROS as noted above, otherwise negative Physical Exam General: Alert and oriented x3, NAD Respiratory: Clear BBS, on room air Cardiovascular: RRR, Normal S1 S2 Gastrointestinal: Normal bowel sounds, ND/NT Musculoskeletal: No tenderness, right BKA dressing CDI Integumentary: No rashes, Skin breakdown, Tenderness/swelling, Erythema, Warmth Neurological: Normal speech, Normal tone, Normal affect Lymphatics: No axilla or inguinal lymphadenopathy Vitals Reviewed Problem list Right Foot gangrene s/p right BKA Stage I RONALDO multifactorial Hyperkalemia Anemia of chronic disease Diabetes mellitus with right foot ulcer Hypertension Hyperlipidemia TIA Assessment and Plan Right Foot gangrene s/p right BKA - Status post right BKA - Changed antibiotics to vancomycin and cefepime on 01/01/2025 - Gentle IV fluids - Monitor CBC daily - Pain control - Wound care consulted Stage I RONALDO multifactorial Hyperkalemia Anemia of chronic disease -Dr. Hernandez following - Hold NSAID - Continue to monitor potassium, stable - H&H 7.7/23.3, continue to monitor and transfuse as needed Diabetes mellitus with right foot ulcer Hypoglycemia-resolved -Accu-Chek for close monitoring -Sliding scale insulin -Held all diabetes medications Hypertension Hyperlipidemia TIA -Continue home medication DVT ppx heparin Full code LOS 1 day Dispo inpatient rehab
[2025-01-03] MEDS: EPOETIN ALFA-EPBX 10,000 UNIT/ML VIAL SQ ONE ×2 (11:51→23:17)
[2025-01-03] MEDS: DRISDOL (VITAMIN D=ERGOCALCIFEROL) 50000 UNIT CAP PO SCH (11:51)
[2025-01-03] MEDS: TERAZOSIN HCL 1 MG CAP PO SCH (20:54)
--- NOTE | 2025-01-03 21:10 | P.PN ---
Date of Service: 01/03/25 Vital Signs Temp Pulse Resp BP Pulse Ox 98.1 F 87 20 145/67 H 98 01/03/25 16:00 01/03/25 20:53 01/03/25 16:00 01/03/25 20:53 01/03/25 16:00 Medications Acetaminophen (Acetaminophen 500 Mg Tab) 500 mg PO Q4HP PRN PRN Reason: Pain scale 2-4 (Mild)/Fever Last Admin: 01/01/25 12:53 Dose: 500 mg Hydrocodone Bitart/Acetaminophen (Hydrocodone/Apap 7.5/325 Mg Tab) 1 tab PO Q4H PRN PRN Reason: Pain scale 5-7 (Moderate) Last Admin: 01/02/25 22:21 Dose: 1 tab Amlodipine Besylate (Amlodipine 10 Mg Tab) 10 mg PO BEDTIME [facility] Last Admin: 01/03/25 20:53 Dose: 10 mg Atorvastatin Calcium (Atorvastatin 40 Mg Tab) 40 mg PO BEDTIME [facility] Last Admin: 01/03/25 20:54 Dose: 40 mg Carvedilol (Carvedilol 25 Mg Tab) 25 mg PO BID 6AM 6PM [facility] Last Admin: 01/03/25 17:05 Dose: 25 mg Cyanocobalamin (Cyanocobalamin 1,000 Mcg Tab) 1,000 mcg PO DAILY [facility] Last Admin: 01/03/25 09:36 Dose: 1,000 mcg Docusate Sodium (Docusate Na 100 Mg Cap) 100 mg PO BID [facility] Last Admin: 01/03/25 20:54 Dose: 100 mg Ezetimibe (Ezetimibe 10 Mg Tab) 10 mg PO DAILY [facility] Last Admin: 01/03/25 09:36 Dose: 10 mg Enteral Nutritional Formula (Nepro Shake 237 Ml Can) 240 ml PO BID [facility] Last Admin: 01/03/25 21:01 Dose: 240 ml Ergocalciferol (Drisdol (Vitamin D=Ergocalciferol) 87700 Unit Cap) 50,000 unit PO DAILY [facility] Stop: 01/04/25 09:01 Last Admin: 01/03/25 11:51 Dose: 50,000 unit Fluticasone Propionate (Fluticasone 50mcg Nasal [place]) 1 sprays RICO DAILY [facility] Last Admin: 01/03/25 09:00 Dose: Not Given Folic Acid (Folic Acid 1 Mg Tablet) 1 mg PO DAILY [facility] Last Admin: 01/03/25 09:35 Dose: 1 mg Glucagon (Glucagon 1 Mg/Vial) 1 mg IM 1X PRN PRN Reason: HYPOGLYCEMIA Heparin Sodium (Porcine) (Heparin 5000 Unit/Ml 1 Ml Vial) 5,000 unit SQ Q12HR [facility] Last Admin: 01/03/25 20:54 Dose: 5,000 unit Home Med (Repaglinide [Prandin]) 1 mg PO TID [facility] Last Admin: 01/02/25 09:00 Dose: Not Given Hydralazine HCl (Hydralazine Hcl 20 Mg/Ml Vial) 10 mg IV Q6HP PRN PRN Reason: FOR SBP>160 OR DBP>100 MMHG Last Admin: 01/01/25 05:10 Dose: 10 mg Hydralazine HCl (Hydralazine Hcl 25 Mg Tablet) 25 mg PO TID [facility] Last Admin: 01/03/25 20:54 Dose: 25 mg Cefepime HCl 1 gm/ Sodium (Chloride) 100 mls @ 200 mls/hr IV Q12HR [facility]; Protocol Last Admin: 01/03/25 20:56 Dose: 100 mls Dextrose (Dextrose 10% Water Iv Soln.) 125 mls @ 0 mls/hr IV PRN PRN; Protocol PRN Reason: HYPOGLYCEMIA Vancomycin HCl 1.5 gm/ Sodium (Chloride) 500 mls @ 250 mls/hr IVPB Q72H [facility]; Protocol Insulin Human Regular (Insulin Regular (Human) 100 Unit/Ml) 0 unit SQ ACHS [facility]; Protocol Last Admin: 01/03/25 20:59 Dose: Not Given Montelukast Sodium (Montelukast 10 Mg Tab) 10 mg PO DAILY [facility] Last Admin: 01/03/25 09:36 Dose: 10 mg Morphine Sulfate (Morphine 2 Mg/Ml Syr) 2 mg IV Q4H PRN PRN Reason: Pain scale 8-10 (Severe) Last Admin: 01/03/25 00:05 Dose: 2 mg Ondansetron HCl (Ondansetron 4 Mg/2 Ml Vial) 4 mg IV Q6HP PRN PRN Reason: NAUSEA / VOMITING Last Admin: 01/02/25 05:54 Dose: 4 mg Sevelamer Carbonate (Sevelamer Carbonate 800 Mg Tablet) 800 mg PO TIDWM [facility] Last Admin: 01/03/25 17:05 Dose: 800 mg Terazosin HCl (Terazosin Hcl 1 Mg Cap) 1 mg PO BID [facility] Last Admin: 01/03/25 20:54 Dose: 1 mg Assessment/ Plan: Nephrology No dyspnea No chest pain Feeling better No acute events overnight Vitals, medications, blood work and imaging reviewed in the chart Physical Examination General: In no apparent distress, Oriented x3, Cooperative HEENT: Atraumatic Neck: Supple Respiratory: Clear to auscultation bilaterally, Diminished Cardiovascular: Regular rate/rhythm, Edema Gastrointestinal: Soft and benign, Non-distended Musculoskeletal: No clubbing, No contractures Integumentary: No rashes, No cyanosis, Other (Gangrene of the right foot wound site) Neurological: Normal speech Laboratory Data (last 24 hrs) 12/30/24 12/30/24 07:30 07:30 WBC 14.40 H Hgb 7.7 L Hct 23.6 L Plt Count 228 Sodium 138 Potassium 4.9 BUN 40 H Creatinine 3.08 H Glucose 137 H Total Bilirubin 0.3 AST 24 ALT 21 Alkaline Phosphatase 77 Lipase 24 Imagings Data: EXAM DESCRIPTION: RAD - Foot Right 3 View - 12/11/2022 1:18 pm CLINICAL HISTORY: S91.301A COMPARISON: No comparisons FINDINGS: Soft tissue swelling is seen involving the forefoot. Vascular calci fication seen. Small posterior and plantar calcaneal spurs. No fracture is seen. 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
[2025-01-04 04:49] LABS: Absolute Basophils 0.1 K/uL (0-0.5); Absolute Eosinophils 0.4 K/uL (0-0.5); Absolute Lymphocytes (CBC) 1.6 K/uL (0.7-4.9); Absolute Monocytes 0.9 K/uL (0.1-1.3); Absolute Neutrophil 7.4 K/uL (1.8-8.0); Basophils % 0.8 % (0-1.3); Eosinophils % 3.6 % (0-4.4); Hematocrit 24.2 % (36.0-45.0); Hemoglobin 8.1 g/dL (12.0-15.0); Lymphocytes % 15.4 % (15.3-44.8); MCH 28.6 pg (27.0-35.0); MCHC 33.6 g/dL (32.0-36.0); MCV 85.2 fL (80-100); MPV 7.4 fL (7.6-11.3); Monocytes % 8.9 % (3.3-12.3); Neutrophils % 71.3 % (41.7-73.7); Platelets 228 thou/uL (152-406); RBC Red Blood Cell Count 2.84 M/uL (3.86-4.86); Red Cell Distribution Width 15.2 % (12.1-15.2)
[2025-01-04 05:12] LABS: Anion Gap 8.6 mEq/L (5.0-15.0); Potassium 4.6 mEq/L (3.5-5.1)
--- NOTE | 2025-01-04 12:43 | CON ---
History Of Present Illness: This is a 64-year-old female coming to the emergency room because of babatunde grenous changes to the right foot. The patient went under BKA. She had transmetatarsal amputation b efore. Denies any headache, nausea, vomiting, chest pain, abdominal pain, constipation, or diarrhea. She is off antibiotic as she already had surgery for the gangrene changes to her foot. Past Medical History: Diabetes mellitus. Hypercholesterolemia. Congestive heart failure. Social History: Nonsmoker. Nondrinker. Family History: Noncontributory. Medications: See MARs for other medications. Allergies: NO KNOWN DRUG ALLERGIES. Review of Systems: A 10-point review was done. Physical Examination: General: This is a 64-year-old female, sitting in wheelchair with the Physical Therapy team, not in any acute distress. Vital Signs: Temperature 98, pulse 90, respirations 20, blood pressure 145/66. HEENT: Unremarkable. Neck: Supple. Lungs: Basal crackles. Heart: S1, S2. Regular. Abdomen: Soft, nontender. Bowel sounds present. Extremities: Right BKA wound noted. Laboratory Data: Shows WBC 10.4 down from 13.1, hemoglobin 8.1, platelets are 228. Chemistry shows BUN of 39, creatinine 2.77. Albumin level of 1.9. Assessment And Plan: Patient with right foot gangrenous changes, status post below knee amputation. Recommend to monitor the wound healing as patient has diabetes and renal failure complicating her wo und healing. Keep leg elevated when possible. Anemia of chronic disease. Leukocytosis has improved. Moderate protein-calorie malnourishment. Monitor signs of infection with WBC and fever trends. NF/MODL Voice ID: [id number] Report ID: [id number]
--- NOTE | 2025-01-04 14:42 | P.PN ---
Subjective Date of Service: 01/04/25 Chief Complaint: Hypoglycemia No complaints Review of Systems 10-point ROS is otherwise unremarkable Physical Examination - Vital Signs Temperature: 98.0 F Blood Pressure: 148/65 Pulse: 81 Respirations: 20 Pulse Ox (%): 98 - Physical Exam General: Alert HEENT: Atraumatic Neck: Supple Respiratory: Clear to auscultation bilaterally Cardiovascular: No edema Gastrointestinal: Normal bowel sounds Musculoskeletal: No clubbing, No swelling, No contractures Neurological: Normal gait, Normal strength at 5/5 x4 extr Rectal: Normal - Studies Medications List Reviewed: Yes Assessment And Plan - Plan Problem list Right Foot gangrene s/p right BKA Stage I RONALDO multifactorial Hyperkalemia Anemia of chronic disease Diabetes mellitus with right foot ulcer Hypertension Hyperlipidemia TIA Assessment and Plan Right Foot gangrene s/p right BKA - Status post right BKA - Changed antibiotics to vancomycin and cefepime on 01/01/2025 - Monitor CBC daily - Pain control - Wound care consulted - Infectious disease consulted Stage I RONALDO multifactorial Hyperkalemia Anemia of chronic disease -Dr. Hernandez following - Hold NSAID - Continue to monitor potassium, stable - H&H 7.7/23.3, continue to monitor and transfuse as needed Diabetes mellitus with right foot ulcer Hypoglycemia-resolved -Accu-Chek for close monitoring -Sliding scale insulin -Held all diabetes medications Hypertension Hyperlipidemia TIA -Continue home medication Disposition : Insurance denied IPR. electrician manager consulted for SNF options
--- NOTE | 2025-01-04 21:12 | P.PN ---
Date of Service: 01/04/25 Vital Signs Temp Pulse Resp BP Pulse Ox 98.0 F 80 18 140/60 99 01/04/25 16:00 01/04/25 17:56 01/04/25 16:00 01/04/25 17:56 01/04/25 16:00 Medications Acetaminophen (Acetaminophen 500 Mg Tab) 500 mg PO Q4HP PRN PRN Reason: Pain scale 2-4 (Mild)/Fever Last Admin: 01/01/25 12:53 Dose: 500 mg Hydrocodone Bitart/Acetaminophen (Hydrocodone/Apap 7.5/325 Mg Tab) 1 tab PO Q4H PRN PRN Reason: Pain scale 5-7 (Moderate) Last Admin: 01/02/25 22:21 Dose: 1 tab Amlodipine Besylate (Amlodipine 10 Mg Tab) 10 mg PO BEDTIME [facility] Last Admin: 01/03/25 20:53 Dose: 10 mg Atorvastatin Calcium (Atorvastatin 40 Mg Tab) 40 mg PO BEDTIME [facility] Last Admin: 01/03/25 20:54 Dose: 40 mg Carvedilol (Carvedilol 25 Mg Tab) 25 mg PO BID 6AM 6PM [facility] Last Admin: 01/04/25 17:56 Dose: 25 mg Cyanocobalamin (Cyanocobalamin 1,000 Mcg Tab) 1,000 mcg PO DAILY [facility] Last Admin: 01/04/25 09:34 Dose: 1,000 mcg Docusate Sodium (Docusate Na 100 Mg Cap) 100 mg PO BID [facility] Last Admin: 01/04/25 09:34 Dose: 100 mg Ezetimibe (Ezetimibe 10 Mg Tab) 10 mg PO DAILY [facility] Last Admin: 01/04/25 09:36 Dose: 10 mg Enteral Nutritional Formula (Nepro Shake 237 Ml Can) 240 ml PO BID [facility] Last Admin: 01/04/25 09:00 Dose: 240 ml Fluticasone Propionate (Fluticasone 50mcg Nasal [place]) 1 sprays RICO DAILY [facility] Last Admin: 01/04/25 09:00 Dose: Not Given Folic Acid (Folic Acid 1 Mg Tablet) 1 mg PO DAILY [facility] Last Admin: 01/04/25 09:34 Dose: 1 mg Glucagon (Glucagon 1 Mg/Vial) 1 mg IM 1X PRN PRN Reason: HYPOGLYCEMIA Heparin Sodium (Porcine) (Heparin 5000 Unit/Ml 1 Ml Vial) 5,000 unit SQ Q12HR [facility] Last Admin: 01/04/25 09:33 Dose: 5,000 unit Home Med (Repaglinide [Prandin]) 1 mg PO TID [facility] Last Admin: 01/02/25 09:00 Dose: Not Given Hydralazine HCl (Hydralazine Hcl 20 Mg/Ml Vial) 10 mg IV Q6HP PRN PRN Reason: FOR SBP>160 OR DBP>100 MMHG Last Admin: 01/01/25 05:10 Dose: 10 mg Hydralazine HCl (Hydralazine Hcl 25 Mg Tablet) 25 mg PO TID [facility] Last Admin: 01/04/25 15:21 Dose: 25 mg Cefepime HCl 1 gm/ Sodium (Chloride) 100 mls @ 200 mls/hr IV Q12HR [facility]; Protocol Last Admin: 01/04/25 09:33 Dose: 100 mls Dextrose (Dextrose 10% Water Iv Soln.) 125 mls @ 0 mls/hr IV PRN PRN; Protocol PRN Reason: HYPOGLYCEMIA Vancomycin HCl 1.5 gm/ Sodium (Chloride) 500 mls @ 250 mls/hr IVPB Q72H [facility]; Protocol Insulin Human Regular (Insulin Regular (Human) 100 Unit/Ml) 0 unit SQ ACHS [facility]; Protocol Last Admin: 01/04/25 16:30 Dose: Not Given Montelukast Sodium (Montelukast 10 Mg Tab) 10 mg PO DAILY [facility] Last Admin: 01/04/25 09:35 Dose: 10 mg Morphine Sulfate (Morphine 2 Mg/Ml Syr) 2 mg IV Q4H PRN PRN Reason: Pain scale 8-10 (Severe) Last Admin: 01/03/25 00:05 Dose: 2 mg Ondansetron HCl (Ondansetron 4 Mg/2 Ml Vial) 4 mg IV Q6HP PRN PRN Reason: NAUSEA / VOMITING Last Admin: 01/02/25 05:54 Dose: 4 mg Sevelamer Carbonate (Sevelamer Carbonate 800 Mg Tablet) 800 mg PO TIDWM [facility] Last Admin: 01/04/25 17:56 Dose: 800 mg Terazosin HCl (Terazosin Hcl 1 Mg Cap) 1 mg PO BID [facility] Last Admin: 01/04/25 09:34 Dose: 1 mg Assessment/ Plan: Nephrology No dyspnea No chest pain Feeling better No acute events overnight Vitals, medications, blood work and imaging reviewed in the chart Physical Examination General: In no apparent distress, Oriented x3, Cooperative HEENT: Atraumatic Neck: Supple Respiratory: Clear to auscultation bilaterally, Diminished Cardiovascular: Regular rate/rhythm, Edema Gastrointestinal: Soft and benign, Non-distended Musculoskeletal: No clubbing, No contractures Integumentary: No rashes, No cyanosis, Other (Gangrene of the right foot wound site) Neurological: Normal speech Laboratory Data (last 24 hrs) 12/30/24 12/30/24 07:30 07:30 WBC 14.40 H Hgb 7.7 L Hct 23.6 L Plt Count 228 Sodium 138 Potassium 4.9 BUN 40 H Creatinine 3.08 H Glucose 137 H Total Bilirubin 0.3 AST 24 ALT 21 Alkaline Phosphatase 77 Lipase 24 Imagings Data: EXAM DESCRIPTION: RAD - Foot Right 3 View - 12/11/2022 1:18 pm CLINICAL HISTORY: S91.301A COMPARISON: No comparisons FINDINGS: Soft tissue swelling is seen involving the forefoot. Vascular calcification seen. Small posterior and plantar calcaneal spurs. No fracture is seen. 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
[2025-01-05 04:52] LABS: Absolute Basophils 0.1 K/uL (0-0.5); Absolute Eosinophils 0.4 K/uL (0-0.5); Absolute Lymphocytes (CBC) 1.8 K/uL (0.7-4.9); Absolute Monocytes 1.1 K/uL (0.1-1.3); Absolute Neutrophil 7.3 K/uL (1.8-8.0); Basophils % 0.9 % (0-1.3); Hematocrit 22.5 % (36.0-45.0); Hemoglobin 7.4 g/dL (12.0-15.0); Lymphocytes % 16.8 % (15.3-44.8); MCH 28.4 pg (27.0-35.0); MCV 86.1 fL (80-100); MPV 8.1 fL (7.6-11.3); Monocytes % 10.1 % (3.3-12.3); Neutrophils % 68.2 % (41.7-73.7); Nucleated Red Blood Cells % 0.1 % (0-0); Platelets 174 thou/uL (152-406); RBC Red Blood Cell Count 2.61 M/uL (3.86-4.86); Red Cell Distribution Width 15.7 % (12.1-15.2)
[2025-01-05 07:31] LABS: Anion Gap 11.2 mEq/L (5.0-15.0); Potassium 4.2 mEq/L (3.5-5.1)
--- NOTE | 2025-01-05 13:06 | P.PN ---
Subjective Date of Service: 01/05/25 Chief Complaint: Hypoglycemia No complaints Review of Systems 10-point ROS is otherwise unremarkable Physical Examination - Vital Signs Temperature: 97.8 F Blood Pressure: 117/56 Pulse: 79 Respirations: 18 Pulse Ox (%): 100 - Studies Medications List Reviewed: Yes Assessment And Plan - Plan Problem list Right Foot gangrene s/p right BKA Stage I RONALDO multifactorial Hyperkalemia Anemia of chronic disease Diabetes mellitus with right foot ulcer Hypertension Hyperlipidemia TIA Assessment and Plan Right Foot gangrene s/p right BKA - Status post right BKA -Antibiotics discontinued - Monitor CBC daily - Pain control - Wound care consulted - Infectious disease consulted Stage I RONALDO multifactorial Hyperkalemia Anemia of chronic disease -Dr. Hernandez following - Hold NSAID - Continue to monitor potassium, stable - H&H 7.7/23.3, continue to monitor and transfuse as needed Diabetes mellitus with right foot ulcer Hypoglycemia-resolved -Accu-Chek for close monitoring -Sliding scale insulin -Held all diabetes medications Hypertension Hyperlipidemia TIA -Continue home medication Disposition : Insurance denied IPR. floral manager consulted for SNF options
--- NOTE | 2025-01-05 17:29 | PN ---
Subjective: The patient is sitting in the chair with physical therapy team. Denies any problems. D enies any headache, nausea, vomiting, chest pain, abdominal pain, constipation, or pain at the site o f amputation. Objective: Vital Signs: Temperature 97, pulse 79, respirations 18, blood pressure 117/56. Lungs: Basal crackles. Heart: S1, S2 regular. Abdomen: Soft, nontender. Bowel sounds present. Extremities: BKA site seen without any signs of active infection. Surgical incision stable. Lab Data: WBC 10.7, hemoglobin 7.4, platelets 174. BUN 33, creatinine 2.8. Assessment And Plan: 1. Status post right BKA for right foot gangrenous changes. 2. Anemia of chronic disease. 3. Diabetes mellitus. 4. Diabetic neuropathy. 5. Proteinuria. Continue current treatment. We will follow the patient as needed. Monitor for signs of infection wi th WBC and fever trends. NF/MODL Voice ID: [id number] Report ID: [id number]
--- NOTE | 2025-01-05 21:27 | P.PN ---
Date of Service: 01/05/25 Vital Signs Temp Pulse Resp BP Pulse Ox 98.2 F 79 18 135/59 L 97 01/05/25 16:00 01/05/25 20:39 01/05/25 16:00 01/05/25 20:39 01/05/25 16:00 Medications Acetaminophen (Acetaminophen 500 Mg Tab) 500 mg PO Q4HP PRN PRN Reason: Pain scale 2-4 (Mild)/Fever Last Admin: 01/01/25 12:53 Dose: 500 mg Amlodipine Besylate (Amlodipine 10 Mg Tab) 10 mg PO BEDTIME [facility] Last Admin: 01/05/25 20:39 Dose: 10 mg Atorvastatin Calcium (Atorvastatin 40 Mg Tab) 40 mg PO BEDTIME [facility] Last Admin: 01/05/25 20:39 Dose: 40 mg Carvedilol (Carvedilol 25 Mg Tab) 25 mg PO BID 6AM 6PM [facility] Last Admin: 01/05/25 17:32 Dose: 25 mg Cyanocobalamin (Cyanocobalamin 1,000 Mcg Tab) 1,000 mcg PO DAILY [facility] Last Admin: 01/05/25 09:08 Dose: 1,000 mcg Docusate Sodium (Docusate Na 100 Mg Cap) 100 mg PO BID [facility] Last Admin: 01/05/25 20:40 Dose: 100 mg Ezetimibe (Ezetimibe 10 Mg Tab) 10 mg PO DAILY [facility] Last Admin: 01/05/25 09:06 Dose: 10 mg Enteral Nutritional Formula (Nepro Shake 237 Ml Can) 240 ml PO BID [facility] Last Admin: 01/05/25 20:58 Dose: 240 ml Fluticasone Propionate (Fluticasone 50mcg Nasal [place]) 1 sprays RICO DAILY [facility] Last Admin: 01/05/25 09:08 Dose: Not Given Folic Acid (Folic Acid 1 Mg Tablet) 1 mg PO DAILY [facility] Last Admin: 01/05/25 09:06 Dose: 1 mg Glucagon (Glucagon 1 Mg/Vial) 1 mg IM 1X PRN PRN Reason: HYPOGLYCEMIA Home Med (Repaglinide [Prandin]) 1 mg PO TID [facility] Last Admin: 01/02/25 09:00 Dose: Not Given Hydralazine HCl (Hydralazine Hcl 20 Mg/Ml Vial) 10 mg IV Q6HP PRN PRN Reason: FOR SBP>160 OR DBP>100 MMHG Last Admin: 01/01/25 05:10 Dose: 10 mg Hydralazine HCl (Hydralazine Hcl 25 Mg Tablet) 25 mg PO TID [facility] Last Admin: 01/05/25 20:38 Dose: 25 mg Dextrose (Dextrose 10% Water Iv Soln.) 125 mls @ 0 mls/hr IV PRN PRN; Protocol PRN Reason: HYPOGLYCEMIA Insulin Human Regular (Insulin Regular (Human) 100 Unit/Ml) 0 unit SQ ACHS [facility]; Protocol Last Admin: 01/05/25 20:38 Dose: Not Given Montelukast Sodium (Montelukast 10 Mg Tab) 10 mg PO DAILY [facility] Last Admin: 01/05/25 09:07 Dose: 10 mg Morphine Sulfate (Morphine 2 Mg/Ml Syr) 2 mg IV Q4H PRN PRN Reason: Pain scale 8-10 (Severe) Last Admin: 01/03/25 00:05 Dose: 2 mg Ondansetron HCl (Ondansetron 4 Mg/2 Ml Vial) 4 mg IV Q6HP PRN PRN Reason: NAUSEA / VOMITING Last Admin: 01/02/25 05:54 Dose: 4 mg Sevelamer Carbonate (Sevelamer Carbonate 800 Mg Tablet) 800 mg PO TIDWM [facility] Last Admin: 01/05/25 17:32 Dose: 800 mg Terazosin HCl (Terazosin Hcl 1 Mg Cap) 1 mg PO BID [facility] Last Admin: 01/05/25 20:39 Dose: 1 mg Assessment/ Plan: Nephrology No dyspnea No chest pain Feeling better No acute events overnight Vitals, medications, blood work and imaging reviewed in the chart Physical Examination General: In no apparent distress, Oriented x3, Cooperative HEENT: Atraumatic Neck: Supple Respiratory: Clear to auscultation bilaterally, Diminished Cardiovascular: Regular rate/rhythm, Edema Gastrointestinal: Soft and benign, Non-distended Musculoskeletal: No clubbing, No contractures Integumentary: No rashes, No cyanosis, Other (Gangrene of the right foot wound site) Neurological: Normal speech Laboratory Data (last 24 hrs) 12/30/24 12/30/24 07:30 07:30 WBC 14.40 H Hgb 7.7 L Hct 23.6 L Plt Count 228 Sodium 138 Potassium 4.9 BUN 40 H Creatinine 3.08 H Glucose 137 H Total Bilirubin 0.3 AST 24 ALT 21 Alkaline Phosphatase 77 Lipase 24 Imagings Data: EXAM DESCRIPTION: RAD - Foot Right 3 View - 12/11/2022 1:18 pm CLINICAL HISTORY: S91.301A COMPARISON: No comparisons FINDINGS: Soft tissue swelling is seen involving the forefoot. Vascular calcification seen. Small posterior and plantar calcaneal spurs. No fracture is seen. 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 Weiss
[2025-01-06 05:51] LABS: Absolute Basophils 0.1 K/uL (0-0.5); Absolute Eosinophils 0.3 K/uL (0-0.5); Absolute Lymphocytes (CBC) 1.9 K/uL (0.7-4.9); Absolute Monocytes 1.2 K/uL (0.1-1.3); Absolute Neutrophil 8.4 K/uL (1.8-8.0); Basophils % 0.8 % (0-1.3); Eosinophils % 2.7 % (0-4.4); Hemoglobin 6.9 g/dL (12.0-15.0); Lymphocytes % 16.1 % (15.3-44.8); MCH 28.4 pg (27.0-35.0); MPV 8.3 fL (7.6-11.3); Monocytes % 9.9 % (3.3-12.3); Neutrophils % 70.5 % (41.7-73.7); Platelets 154 thou/uL (152-406); RBC Red Blood Cell Count 2.44 M/uL (3.86-4.86); Red Cell Distribution Width 15.5 % (12.1-15.2)
[2025-01-06 06:05] LABS: Anion Gap 9.2 mEq/L (5.0-15.0); Potassium 4.2 mEq/L (3.5-5.1)
[2025-01-06] MEDS ORDERED: NA CHLORIDE 0.9% 250 ML IV SCH (13:00)
[2025-01-06] MEDS ORDERED: VANCOMYCIN 1.5 GM in NA CHLORIDE 0.9% 500 ML IVPB SCH (15:00)
--- NOTE | 2025-01-06 15:26 | P.PN ---
Subjective Date of Service: 01/06/25 Chief Complaint: Hypoglycemia No complaints Physical Examination - Vital Signs Temperature: 98.0 F Blood Pressure: 130/61 Pulse: 80 Respirations: 18 Pulse Ox (%): 98 - Physical Exam General: Alert, Oriented x3 HEENT: Atraumatic, Normocephalic, PERRLA Neck: Supple Respiratory: Clear to auscultation bilaterally, Normal air movement, Diminished Cardiovascular: No edema, Normal pulses, Regular rate/rhythm, Normal S1 S2 Musculoskeletal: No clubbing, No swelling, No erythema Neurological: Normal gait, Normal speech, Normal strength at 5/5 x4 extr - Studies Medications List Reviewed: Yes Assessment And Plan - Plan Problem list Right Foot gangrene s/p right BKA Stage I RONALDO multifactorial Hyperkalemia Anemia of chronic disease Diabetes mellitus with right foot ulcer Hypertension Hyperlipidemia TIA Assessment and Plan Right Foot gangrene s/p right BKA - Status post right BKA -Antibiotics discontinued - Monitor CBC daily - Pain control - Wound care consulted - Infectious disease consulted Stage I RONALDO multifactorial Hyperkalemia Anemia of chronic disease -Dr. Hernandez following - Hold NSAID - Continue to monitor potassium, stable -Hemoglobin currently at 6.9 - Will transfuse 1 unit of PRBC Diabetes mellitus with right foot ulcer Hypoglycemia-resolved -Accu-Chek for close monitoring -Sliding scale insulin -Held all diabetes medications Hypertension Hyperlipidemia TIA -Continue home medication Disposition : Insurance denied IPR. operations manager assistant consulted for SNF options
[2025-01-06] MEDS: carvediloL 25 MG TAB PO ONE (18:16)
--- NOTE | 2025-01-06 21:56 | P.PN ---
Date of Service: 01/06/25 Vital Signs Temp Pulse Resp BP Pulse Ox 97.5 F 85 16 147/59 H 97 01/06/25 20:00 01/06/25 20:42 01/06/25 20:00 01/06/25 20:42 01/06/25 20:00 Medications Acetaminophen (Acetaminophen 500 Mg Tab) 500 mg PO Q4HP PRN PRN Reason: Pain scale 2-4 (Mild)/Fever Last Admin: 01/01/25 12:53 Dose: 500 mg Amlodipine Besylate (Amlodipine 10 Mg Tab) 10 mg PO BEDTIME [facility] Last Admin: 01/06/25 20:42 Dose: 10 mg Atorvastatin Calcium (Atorvastatin 40 Mg Tab) 40 mg PO BEDTIME [facility] Last Admin: 01/06/25 20:43 Dose: 40 mg Carvedilol (Carvedilol 25 Mg Tab) 25 mg PO BID 6AM 6PM [facility] Last Admin: 01/06/25 18:00 Dose: Not Given Cyanocobalamin (Cyanocobalamin 1,000 Mcg Tab) 1,000 mcg PO DAILY [facility] Last Admin: 01/06/25 09:19 Dose: 1,000 mcg Docusate Sodium (Docusate Na 100 Mg Cap) 100 mg PO BID [facility] Last Admin: 01/06/25 20:43 Dose: 100 mg Ezetimibe (Ezetimibe 10 Mg Tab) 10 mg PO DAILY [facility] Last Admin: 01/06/25 09:19 Dose: 10 mg Enteral Nutritional Formula (Nepro Shake 237 Ml Can) 240 ml PO BID [facility] Last Admin: 01/06/25 20:46 Dose: 240 ml Fluticasone Propionate (Fluticasone 50mcg Nasal [place]) 1 sprays RICO DAILY [facility] Last Admin: 01/06/25 09:00 Dose: Not Given Folic Acid (Folic Acid 1 Mg Tablet) 1 mg PO DAILY [facility] Last Admin: 01/06/25 09:19 Dose: 1 mg Glucagon (Glucagon 1 Mg/Vial) 1 mg IM 1X PRN PRN Reason: HYPOGLYCEMIA Home Med (Repaglinide [Prandin]) 1 mg PO TID [facility] Last Admin: 01/02/25 09:00 Dose: Not Given Hydralazine HCl (Hydralazine Hcl 20 Mg/Ml Vial) 10 mg IV Q6HP PRN PRN Reason: FOR SBP>160 OR DBP>100 [facility] Last Admin: 01/01/25 05:10 Dose: 10 mg Hydralazine HCl (Hydralazine Hcl 25 Mg Tablet) 25 mg PO TID [facility] Last Admin: 01/06/25 20:43 Dose: 25 mg Dextrose (Dextrose 10% Water Iv Soln.) 125 mls @ 0 mls/hr IV PRN PRN; Protocol PRN Reason: HYPOGLYCEMIA Sodium Chloride (Sodium Chloride) 250 mls @ 0 mls/hr IV .Q0M [facility] Insulin Human Regular (Insulin Regular (Human) 100 Unit/Ml) 0 unit SQ ACHS [facility]; Protocol Last Admin: 01/06/25 20:46 Dose: Not Given Montelukast Sodium (Montelukast 10 Mg Tab) 10 mg PO DAILY [facility] Last Admin: 01/06/25 09:18 Dose: 10 mg Morphine Sulfate (Morphine 2 Mg/Ml Syr) 2 mg IV Q4H PRN PRN Reason: Pain scale 8-10 (Severe) Last Admin: 01/06/25 02:39 Dose: 2 mg Ondansetron HCl (Ondansetron 4 Mg/2 Ml Vial) 4 mg IV Q6HP PRN PRN Reason: NAUSEA / VOMITING Last Admin: 01/02/25 05:54 Dose: 4 mg Sevelamer Carbonate (Sevelamer Carbonate 800 Mg Tablet) 800 mg PO TIDWM [facility] Last Admin: 01/06/25 17:06 Dose: 800 mg Terazosin HCl (Terazosin Hcl 1 Mg Cap) 1 mg PO BID [facility] Last Admin: 01/06/25 20:42 Dose: 1 mg Assessment/ Plan: Nephrology No dyspnea No chest pain Feeling better No acute events overnight Vitals, medications, blood work and imaging reviewed in the chart Physical Examination General: In no apparent distress, Oriented x3, Cooperative HEENT: Atraumatic Neck: Supple Respiratory: Clear to auscultation bilaterally, Diminished Cardiovascular: Regular rate/rhythm, Edema Gastrointestinal: Soft and benign, Non-distended Musculoskeletal: No clubbing, No contractures Integumentary: No rashes, No cyanosis, Other (Gangrene of the right foot wound site) Neurological: Normal speech Laboratory Data (last 24 hrs) 12/30/24 12/30/24 07:30 07:30 WBC 14.40 H Hgb 7.7 L Hct 23.6 L Plt Count 228 Sodium 138 Potassium 4.9 BUN 40 H Creatinine 3.08 H Glucose 137 H Total Bilirubin 0.3 AST 24 ALT 21 Alkaline Phosphatase 77 Lipase 24 Imagings Data: EXAM DESCRIPTION: RAD - Foot Right 3 View - 12/11/2022 1:18 pm CLINICAL HISTORY: S91.301A COMPARISON: No comparisons FINDINGS: Soft tissue swelling is seen involving the forefoot. Vascular calcification seen. Small posterior and plantar calcaneal spurs. No fracture is seen. 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 Weiss
[2025-01-06 22:05] LABS: Hematocrit 25.8 % (36.0-45.0); Hemoglobin 8.7 g/dL (12.0-15.0)
--- NOTE | 2025-01-06 23:10 | PN ---
Subjective: The patient is sitting in wheelchair. Denies any headache, nausea, vomiting, chest pain , abdominal pain, constipation, or diarrhea. Objective: Vital Signs: Temperature 97, pulse 89, respirations 18, blood pressure 127/47. Lungs: Basal crackles. Heart: S1, S2. Regular. Abdomen: Soft, nontender. Bowel sounds present. Extremities: Right BKA wound noted. Laboratory Data: Reviewed. Assessment And Plan: 1. Status post right [id number] amputation for right foot gangrene. 2. Anemia of chronic disease. 3. Diabetes mellitus. 4. Diabetic neuropathy. 5. Proteinuria. 6. Renal insufficiency. The patient is doing well. Continue to monitor signs of infection with WBC and fever trends. We jim l follow the patient as needed. NF/MODL Voice ID: [id number] Report ID: [id number]
[2025-01-07 05:57] LABS: Absolute Basophils 0.1 K/uL (0-0.5); Absolute Eosinophils 0.2 K/uL (0-0.5); Absolute Monocytes 1.2 K/uL (0.1-1.3); Absolute Neutrophil 12.1 K/uL (1.8-8.0); Basophils % 0.4 % (0-1.3); Eosinophils % 1.7 % (0-4.4); Hematocrit 26.1 % (36.0-45.0); Hemoglobin 8.8 g/dL (12.0-15.0); Lymphocytes % 6.7 % (15.3-44.8); MCHC 33.6 g/dL (32.0-36.0); MCV 86.3 fL (80-100); MPV 8.3 fL (7.6-11.3); Monocytes % 8.5 % (3.3-12.3); Neutrophils % 82.7 % (41.7-73.7); Nucleated Red Blood Cells % 0.2 % (0-0); Platelets 164 thou/uL (152-406); RBC Red Blood Cell Count 3.03 M/uL (3.86-4.86); Red Cell Distribution Width 15.5 % (12.1-15.2)
[2025-01-07 06:03] LABS: Anion Gap 8.2 mEq/L (5.0-15.0); Potassium 4.2 mEq/L (3.5-5.1)
--- NOTE | 2025-01-07 11:10 | P.DS ---
Admission Date: 12/30/24 Discharge Date: 01/07/25 Disposition: ROUTINE DISCHARGE Discharge Condition: GOOD Reason for Admission: Hypoglycemia Hospital Course: 64-year-old female with history of type 2 diabetes, CKD 4, recent right meta tarsal amputation initially admitted for gangrenous right foot. Patient was seen by general surgeon and underwent right BKA on 12/30/2024. Prior to surgery, patient was initially on empiric antibiotics which was discontinued a few days postsurgery. Of note, patient also presented with hyperkalemia on admission which resolved with IV insulin and Lokelma. As a result, lisinopril was discontinued in light of CKD IV. Prior to discharge, PT recommended IPR however insurance denied IPR , recommended SNF is an option however patient declined to go to senior care facility. I did lengthy discussion with patient explaining that given his high risk of falls, may benefit from SNF or rehab however she vehemently declined to go to SNF for rehab despite the son's entreaties to do so. Eventually discharged home.. Outpatient follow-up with general surgeon, Vital Signs/Physical Exam: Temp Pulse Resp BP Pulse Ox 99.2 F 90 20 140/78 97 01/07/25 08:00 01/07/25 08:00 01/07/25 08:00 01/07/25 08:00 01/07/25 08:00 General: Oriented x3 HEENT: Atraumatic Neck: Supple Respiratory: Clear to auscultation bilaterally Cardiovascular: Regular rate/rhythm Gastrointestinal: Soft and benign Musculoskeletal: Other (Right BKA) Neurological: Normal strength at 5/5 x4 extr Laboratory Data at Discharge: WBC 14.60 thou/uL (4.3-10.9) H 01/07/25 05:42 Hgb 8.8 g/dL (12.0-15.0) L 01/07/25 05:42 Hct 26.1 % (36.0-45.0) L 01/07/25 05:42 Plt Count 164 thou/uL (152-406) 01/07/25 05:42 PT 14.3 SECONDS (10-13.0) H 01/01/25 04:27 INR 1.27 01/01/25 04:27 APTT 32.1 SECONDS (27.2-37.4) 12/31/24 05:54 Sodium 140 mEq/L (136-145) 01/07/25 05:42 Potassium 4.2 mEq/L (3.5-5.1) 01/07/25 05:42 BUN 29 mg/dL (7-18) H 01/07/25 05:42 Creatinine 2.76 mg/dL (0.55-1.02) H 01/07/25 05:42 Glucose 149 mg/dL (74-106) H 01/07/25 05:42 Phosphorus 3.9 mg/dL (2.5-4.9) 12/30/24 07:30 Magnesium 2.0 mg/dL (1.6-2.4) 01/01/25 04:27 Total Bilirubin 0.5 mg/dL (0.2-1.0) 12/31/24 05:54 AST 17 U/L (15-37) 12/31/24 05:54 ALT 20 U/L (13-56) 12/31/24 05:54 Alkaline Phosphatase 71 U/L (45-117) 12/31/24 05:54 Lipase 24 U/L (13-75) 12/30/24 07:30 Home Medications: Cyanocobalamin (Vitamin B-12) [Vitamin B-12] 1 tab PO DAILY 02/14/21 Insulin Glargine,Hum.rec.anlog [Bella [place]] 28 units SQ SEECOM 02/14/21 Albuterol Inhaler [Ventolin Inhaler*] 90 mcg [place] Q6HP PRN 12/30/24 Amlodipine [Norvasc*] 10 mg PO DAILY 12/30/24 Aspirin [Aspirin EC 81 MG] 81 mg PO DAILY 12/30/24 Atorvastatin Calcium [Lipitor] 40 mg PO BEDTIME 12/30/24 Carvedilol [Coreg] 12.5 mg PO BID 12/30/24 Dulaglutide [Trulicity] 4.5 mg SQ Q7D 12/30/24 Ezetimibe/Simvastatin [Ezetimibe-Simvastatin 10-10 mg] 10 mg PO DAILY 12/30/24 Fluticasone Propionate 50 mcg [place] DAILY 12/30/24 Folic Acid 1 mg PO DAILY 12/30/24 Levothyroxine [Synthroid*] 25 mcg PO DAILY 12/30/24 Montelukast [Singulair*] 10 mg PO DAILY 12/30/24 Mupirocin 1 gm TOP TID 12/30/24 Repaglinide [Prandin] 1 mg PO TID 12/30/24 Terazosin HCl 1 mg PO DAILY 12/30/24 cloNIDine HCL [Clonidine HCl] 0.1 mg PO PRN 12/30/24 Hydralazine [Apresoline*] 25 mg PO TID 30 Days #90 tab 01/07/25 New Medications: Hydralazine [Apresoline*] 25 mg PO TID 30 Days #90 tab Followup: Horace Key MD [ACTIVE - CAN ADMIT] - Shelby Taylor NP [Primary Care Provider] - 1-2 Weeks
--- NOTE | 2025-01-07 11:51 | P.PN ---
Nephrology note (S) Pt denies any acute complaints, denies dyspnea, peripheral edema present but not bothering pt, transferring without issues (O) Vitals reviewed in the EMR General: In no apparent distress, non tachypnec HEENT: Atraumatic, sclera anicteric, not on O2 Neck: Supple Respiratory: Clear to auscultation bilaterally, no rhonchi appreciated Cardiovascular: Regular rate/rhythm mostly Gastrointestinal: Soft and benign, Non-distended Musculoskeletal: Rt BKA, stump site dressed, Lt leg 2+ edema below knee Integumentary: No rashes Neurological: Normal speech, alert, no tremors Laboratory Data (last 24 hrs) Reviewed in the EMR Conclusions/Impression: Stage I RONALDO multifactorial POA, presumed underlying (progressive) CKD IV (presumably 2nd to DM/HTN +/- renovascular, no recent renal imaging) with abnormal renal function tests in past year(s) -Cont to trend renal function tests and UOP closely, no major improvement with IVF therapy and since pt able to maintain PO intake, did d/c IVF early on -Dose meds for reduced CrCl, avoid nephrotoxins -Given recent hyperkalemia and to avoid confounding physiologic effects on GFR, would not restart any ACEi/ARB currently, will assess as OP -Ordered urine studies, UA, spot urine, macroalbuminuria, sub nephrotic range noted -Risk for further GFR loss/dialysis dependence explained, will need close OP f/u Hyperkalemia, in the setting of renal impairment and hyperglycemia initially -Resolved, cont to monitor closely Chronic HTN with CKD -BP mod elevated, d/c'ed IVF, d/c'ed Lisinopril ordered by Hospitalist, resumed CCB. Peripheral edema noted, will add low dose Lasix and titrate if needed as OP -Will target more optimal BP control, < 130/80 as OP DM II with Right Foot Ulcer Right foot gangrene -s/p Rt BKA, post op care per surgery/IM Hyperglycemia then with hypoglycemia episode last weekend -Management per IM, recommend caution with any combined sulfonylurea and insulin use and in the setting of reduced CrCl state
[2025-01-07 12:47] VITALS: BP 125/59; TEMP 98.4
[2025-01-07] MEDS ORDERED: FUROSEMIDE 20 MG TABLET PO SCH (13:00)
--- NOTE | 2025-01-07 13:09 | P.PN ---
Subjective Date of Service: 01/07/25 Chief Complaint: Hypoglycemia Subjective: Improving (Patient continues to do well. No specific complaints related to her BKA stump on the right.) Physical Examination - Vital Signs Temperature: 98.4 F Blood Pressure: 125/59 Pulse: 89 Respirations: 20 Pulse Ox (%): 98 - Physical Exam General: Alert, In no apparent distress, Oriented x3, Cooperative Cardiovascular: Regular rate/rhythm Musculoskeletal: Other (BKA site is clean and dry with minimal ischemic changes of the tips of the BKA site, Minnie drain removed at the bedside without issue. No signs of infection flaps remain pink and viable for the most part with the exception of the very tips. [place] remain in place) Neurological: Normal speech - Studies Medications List Reviewed: Yes Assessment And Plan - Plan Patient is a 58-year-old woman who presents status post a right BKA after severe peripheral tear disease TMA failed at [facility]. -Continue medical management per primary team transfuse as needed as per recommendations, - No evidence of blood loss related to BKA site however stump remains somewhat edematous at this time. - Continue wrap elevation of BKA site and compression wraps daily. - PT to continue to work with the patient regarding ambulation and transfer for the future. - Follow-up in 1 to 2 weeks for ongoing monitoring of her BKA site falls precautions been reviewed. - Disposition per primary medical team.
== END 2025-01-07 15:50 | disposition home or self-care (01) | DRG 240 ==
LOC: ER 07:07 → ERHOLD 09:46 → 2ND 13:27
PROVIDERS: ADMIT Hospitalist; ATTEND Internal Medicine
PROC: 30233N1 Transfusion of Nonautologous Red Blood Cells into Peripheral Vein, Percutaneous Approach (ICD-10-PCS; 2024-12-30)
PROC: 0Y6H0Z1 Detachment at Right Lower Leg, High, Open Approach (ICD-10-PCS; principal; 2024-12-30 13:15)
DX: E11.52 Type 2 diabetes mellitus with diabetic peripheral angiopathy with gangrene (principal); E87.1 Hypo-osmolality and hyponatremia; M87.874 Other osteonecrosis, right foot; N17.9 Acute kidney failure, unspecified; N18.4 Chronic kidney disease, stage 4 (severe); N25.81 Secondary hyperparathyroidism of renal origin; L03.115 Cellulitis of right lower limb; T81.30XA Disruption of wound, unspecified, initial encounter; E78.5 Hyperlipidemia, unspecified; E03.9 Hypothyroidism, unspecified; E87.5 Hyperkalemia; I12.9 Hypertensive chronic kidney disease with stage 1 through stage 4 chronic kidney disease, or unspecified chronic kidney disease; E11.22 Type 2 diabetes mellitus with diabetic chronic kidney disease; E11.65 Type 2 diabetes mellitus with hyperglycemia; E11.649 Type 2 diabetes mellitus with hypoglycemia without coma; E11.40 Type 2 diabetes mellitus with diabetic neuropathy, unspecified; E11.621 Type 2 diabetes mellitus with foot ulcer; L97.519 Non-pressure chronic ulcer of other part of right foot with unspecified severity; D63.1 Anemia in chronic kidney disease; E88.09 Other disorders of plasma-protein metabolism, not elsewhere classified; R80.9 Proteinuria, unspecified; Z89.421 Acquired absence of other right toe(s); Z86.73 Personal history of transient ischemic attack (TIA), and cerebral infarction without residual deficits; Z79.84 Long term (current) use of oral hypoglycemic drugs; Z79.4 Long term (current) use of insulin; Z79.82 Long term (current) use of aspirin; Z90.49 Acquired absence of other specified parts of digestive tract; Z79.899 Other long term (current) drug therapy; Z87.891 Personal history of nicotine dependence; Z79.890 Hormone replacement therapy
CPT/HCPCS: 36415; 36430; 80048; 80053; 80202; 81001; 82043; 82570; 82947; 83690; 83735; 84100; 84132; 84145; 85014; 85018; 85025; 85610; 85730; 86850; 86900; 86901; 86920; 88307; 93971; 94010; 96374; 97110; 97116; 97161; 97165; 97530; 97542; 99285; J0171; J0360; J0612; J0692; J1100; J1644; J1815; J1938; J2003; J2250; J2270; J2405; J2704; J3010; J3370; J7030; J7040; J7042; J7050; J7799; P9016; P9047; Q5106